=== PATIENT | female | born 1945 | race Caucasian/White ===

== ENCOUNTER 2018-09-13 02:23 | Inpatient (IN) | payer MEDICAID ==
[2018-09-13] VITALS (7 sets, daily range): BP systolic 105–139; BP diastolic 68–80
[~2018-09-13] VITALS: Ht 172.7 cm; Wt 108.9 kg
[2018-09-13] MEDS ORDERED: ELIQUIS5 MG PO (03:12)
[2018-09-13] MEDS ORDERED: TRILEPTAL150 M3 PO (03:12)
[2018-09-13] MEDS ORDERED: KEPPRA500 M4 ORAL (03:12)
[2018-09-13] MEDS ORDERED: METOPROLOL SUCC25 MG ORAL (03:12)
[2018-09-13] MEDS ORDERED: CRESTOR10 M1 ORAL (03:12)
[2018-09-13] MEDS ORDERED: AMIODARONE HCL100 MG ORAL (03:12)
[2018-09-13] MEDS ORDERED: VITAMIN D400 INTLU ORAL (03:12)
[2018-09-13] MEDS ORDERED: ASPIR 8181 MG ORAL (03:12)
[2018-09-13] MEDS ORDERED: ZINC SULFATE220 M2 ORAL (03:15)
[2018-09-13] MEDS ORDERED: FERROUS SULFAT500 G1 MC (03:15)
--- NOTE | 2018-09-13 03:23 | NUR ---
ER Nurse Note: Pt BIBA from [facility] c/o abnormal labs; WBC 17, Hgb at 7.2. Pt arrived with trach, gtube on lower quadrant, clamped; nieto cath, patent; and 24 gauge IV in the foot; clamped. Pt a&ox0, responds to pain. Pt is hot to touch. Pt is contracted in both extremities. RT at bedside; will continue to [facility].
[2018-09-13 03:31] LABS: BASOPHILS % (AUTO) 0.9 % (0.0-2.0); EOSINOPHILS % (AUTO) 0.3 % (0.0-3.0); HEMATOCRIT 27.9 % (37.0-47.0); LYMPHOCYTES % (AUTO) 13.7 % (20.0-45.0); MEAN CORPUSCULAR VOLUME 80 FL (80-99); MONOCYTES % (AUTO) 4.6 % (1.0-10.0); NEUTROPHILS % (AUTO) 80.3 % (45.0-75.0); PLATELET COUNT 499 K/UL (150-450); RED BLOOD COUNT 3.48 M/UL (4.20-5.40); RED CELL DISTRIBUTION WIDTH 17.2 % (11.6-14.8); WHITE BLOOD COUNT 16.9 K/UL (4.8-10.8)
[2018-09-13 03:44] LABS: BILIRUBIN, URINE NEGATIVE (NEGATIVE); GLUCOSE, URINE (UA) NEGATIVE (NEGATIVE); KETONES,URINE NEGATIVE (NEGATIVE); LEUKOCYTE ESTERASE ,URINE 3+ (NEGATIVE); NITRITE,URINE NEGATIVE (NEGATIVE); PH,URINE 5 (4.5-8.0); PROTEIN,URINE 2+ (NEGATIVE); UROBILINOGEN,URINE NORMAL MG/DL (0.0-1.0)
[2018-09-13 03:52] LABS: APPEARANCE,URINE SLIGHTLY CLOUDY; COLOR,URINE YELLOW
[2018-09-13 04:03] LABS: ANION GAP 8 mmol/L (5-15); BLOOD UREA NITROGEN 16 mg/dL (7-18); CALCIUM 9.9 MG/DL (8.5-10.1); CARBON DIOXIDE 33 MMOL/L (21-32); CHLORIDE 98 MMOL/L (98-107); CREATININE 0.6 MG/DL (0.55-1.30); POTASSIUM 4.4 MMOL/L (3.5-5.1); SODIUM 139 MMOL/L (136-145)
[2018-09-13] MEDS ORDERED: Acetaminophen 650mg/20.3ml GT ONE (04:15)
[2018-09-13 04:21] LABS: ALANINE AMINOTRANSFERASE 29 U/L (12-78); ALBUMIN 1.5 G/DL (3.4-5.0); ALBUMIN/GLOBULIN RATIO 0.2 (1.0-2.7); ALKALINE PHOSPHATASE 184 U/L (46-116); ASPARTATE AMINO TRANSFERASE 26 U/L (15-37); BILIRUBIN,TOTAL 0.2 MG/DL (0.2-1.0); CKMB < 0.5 NG/ML (0.0-3.6); CREATINE KINASE 34 U/L (26-308)
--- NOTE | 2018-09-13 04:21 | Emergency Room Report ---
History of Present Illness General Chief Complaint: Abnormal Labs Source: Medical Record, EMS Present Illness HPI 72-year-old female presents ED for evaluation. Patient brought in by EMS from long-term facility for abnormal labs. Had recent lab work which showed high white count and low hemoglobin. Patient is trach, ventilator dependent. Nonverbal baseline. No signs of distress upon arrival. No reported fevers or chills. Unable to provide any additional history. No other aggravating relieving factors. No other associated symptoms Allergies: Coded Allergies: ALPRAZOLAM (Verified Allergy, Unknown, 09/13/18) Patient History Past Medical History: GERD, dementia, seizures, renal disease Past Surgical History: pacemaker Reviewed Nursing Documentation: PMH: Agreed; PSxH: Agreed Nursing Documentation-PMH Hx Cardiac Problems: Yes - Quadriplegia Hx Gastrointestinal Problems: Yes - Gastritis Hx Dialysis: Yes - [place] kidney failure Hx Neurological Problems: Yes - Encephalopathy, altered mental status, Dementia , seizure Hx Cerebrovascular Accident: Yes - Anemia Review of Systems All Other Systems: limited Physical Exam Vital Signs Date Time Temp Pulse Resp B/P (MAP) Pulse Ox O2 Delivery O2 Flow Rate FiO2 09/13/18 02:25 98.1 89 22 139/78 99 Mechanical Ventilator 09/13/18 02:30 40 Sp02 EP Interpretation: reviewed, normal General Appearance: other - nonverbal Head: normocephalic Eyes: bilateral eye normal inspection, bilateral eye PERRL ENT: hearing grossly normal, normal pharynx, no angioedema, normal voice Neck: tracheotomy Respiratory: crackles Cardiovascular #1: tachycardia Gastrointestinal: normal bowel sounds, non tender, soft, non-distended, no guarding, no rebound Rectal: deferred Genitourinary: no CVA tenderness Musculoskeletal: normal inspection, other - patient presenting with IV in Neurologic: other - nonverbal Psychiatric: other - nonverbal Skin: other - large sacral decubitus ulcer Lymphatic: normal inspection Procedures Central Line Central Line : Consent: Emergent Central Line Lumen: triple Maximal Sterile Barrier Tech: yes cap, yes mask, yes sterile gown, yes sterile gloves, yes large sterile sheet, yes hand hygiene, yes chlorhexidine prep Central Line Postion: femoral (L) Anesthesia: Lidocaine Complications: none Central Line Post Position: sutured, good blood return Attempts: One Patient Tolerated: Well Complications: None Medical Decision Making Diagnostic Impression: Primary Impression: Sacral decubitus ulcer Qualified Codes: L89.150 - Pressure ulcer of sacral region, unstageable Additional Impressions: UTI (urinary tract infection) Qualified Codes: N39.0 - Urinary tract infection, site not specified Pneumonia Qualified Codes: J18.1 - Lobar pneumonia, unspecified organism Atrial fibrillation Qualified Codes: I48.91 - Unspecified atrial fibrillation ER Course Hospital Course 72 yo F presents with fever, reported high WBC and low Hb from SNF. Differential diagnoses include: Pneumonia, UTI, sepsis, dehydration, [place]/ unstable angina Clinical course Patient placed on stretcher. On compliance monitor with tachycardia. After initial history and physical, I ordered labs, IV fluids, EKG, chest x-ray, blood cultures, UA. EKG - afib with RVR, no acute ischemic changes interpreted by me Labs - Wbc 16.9, Hb 9.0, electrolytes ok, lactic ok, trop negative, BNP elevated , UA + bacteria CXR - pacemaker, RLL infiltrate Patient has difficult IV access. Patient has trach, neck is contracted. L femoral central line placed Patient has large decubitus sacral ulcer noted She presented with an IV in the left foot. Subsequent removed once central line placed. Abx given. Given Tylenol. Given IV fluids. Given Lopressor. Case discussed with Dr Astudillo and they agreed to admit patient to their service for further care and support I feel this is a highly complex case requiring extensive working including EKG/ Rhythm strip, Xray/CT/US, Blood/urine lab work, repeat exams while in ED, and administration of strong opiates/narcotics for pain control, admission to hospital or close patient follow up. Diagnosis - sacral decubitus ulcer, UTI, pneumonia, atrial fibrillation Patient admitted to SDU in serious condition Labs Test 09/13/18 03:20 09/13/18 04:14 White Blood Count 16.9 K/UL (4.8-10.8) Red Blood Count 3.48 M/UL (4.20-5.40) Hemoglobin 9.0 G/DL (12.0-16.0) Hematocrit 27.9 % (37.0-47.0) Mean Corpuscular Volume 80 FL (80-99) Mean Corpuscular Hemoglobin 25.7 PG (27.0-31.0) Mean Corpuscular Hemoglobin Concent 32.2 G/DL (32.0-36.0) Red Cell Distribution Width 17.2 % (11.6-14.8) Platelet Count 499 K/UL (150-450) Mean Platelet Volume 6.8 FL (6.5-10.1) Neutrophils (%) (Auto) 80.3 % (45.0-75.0) Lymphocytes (%) (Auto) 13.7 % (20.0-45.0) Monocytes (%) (Auto) 4.6 % (1.0-10.0) Eosinophils (%) (Auto) 0.3 % (0.0-3.0) Basophils (%) (Auto) 0.9 % (0.0-2.0) Urine Color Yellow Urine Appearance Slightly cloudy Urine pH 5 (4.5-8.0) Urine Specific [place] 1.015 (1.005-1.035) Urine Protein 2+ (NEGATIVE) Urine Glucose (UA) Negative (NEGATIVE) Urine Ketones Negative (NEGATIVE) Urine Blood 2+ (NEGATIVE) Urine Nitrite Negative (NEGATIVE) Urine Bilirubin Negative (NEGATIVE) Urine Urobilinogen Normal MG/DL (0.0-1.0) Urine Leukocyte Esterase 3+ (NEGATIVE) Urine RBC 5-10 /HPF (0 - 2) Urine WBC 10-15 /HPF (0 - 2) Urine Squamous Epithelial Cells Moderate /LPF (NONE/OCC) Urine Uric Acid Crystals Many /LPF (NONE) Urine Bacteria Many /HPF (NONE) Urine Coarse Granular Casts 2-4 /LPF (NONE) Urine Yeast Many /HPF (NONE) Sodium Level 139 MMOL/L (136-145) Potassium Level 4.4 MMOL/L (3.5-5.1) Chloride Level 98 MMOL/L (98-107) Carbon Dioxide Level 33 MMOL/L (21-32) Anion Gap 8 mmol/L (5-15) Blood Urea Nitrogen 16 mg/dL (7-18) Creatinine 0.6 MG/DL (0.55-1.30) Estimat Glomerular Filtration Rate mL/min (>60) Glucose Level 149 MG/DL (74-106) Calcium Level 9.9 MG/DL (8.5-10.1) Total Bilirubin 0.2 MG/DL (0.2-1.0) Aspartate Amino Transf (AST/SGOT) 26 U/L (15-37) Alanine Aminotransferase (ALT/SGPT) 29 U/L (12-78) Alkaline Phosphatase 184 U/L (46-116) Total Creatine Kinase 34 U/L (26-308) Creatine Kinase MB < 0.5 NG/ML (0.0-3.6) Creatine Kinase MB Relative Index 1.4 Troponin I 0.058 ng/mL (0.000-0.056) Pro-B-Type Natriuretic Peptide 8503 pg/mL (0-125) Total Protein 8.4 G/DL (6.4-8.2) Albumin 1.5 G/DL (3.4-5.0) Globulin 6.9 g/dL Albumin/Globulin Ratio 0.2 (1.0-2.7) Lactic Acid Level 1.30 mmol/L (0.4-2.0) EKG Diagnostic Results Rate: tachycardiac Rhythm: other - afib ST Segments: no acute changes ASA given to the pt in ED: No Rhythm Strip Diag. Results EP Interpretation: yes Rhythm: NSR, no PVC's, no ectopy Chest X-Ray Diagnostic Results Chest X-Ray Diagnostic Results : Chest X-Ray Ordered: Yes # of Views/Limited/Complete: 1 View Indication: Shortness of Breath EP Interpretation: Yes Interpretation: other - atelectasis RLL base Impression: Other - pneumonia Electronically Signed by: Electronically signed by Harley Steele MD Last Vital Signs Date Time Temp Pulse Resp B/P (MAP) Pulse Ox O2 Delivery O2 Flow Rate FiO2 09/13/18 03:17 98.1 118 18 139/78 99 Mechanical Ventilator 40 Status: improved Disposition: ADMITTED INPATIENT Condition: Serious Referrals: Jennifer Astudillo MD (PCP) Harley Steele MD Sep 13, 2018 04:21
--- NOTE | 2018-09-13 04:30 | NUR ---
ED Nurse Note: #24 saline lock from ECF to left foot DC'd.
--- NOTE | 2018-09-13 04:39 | NUR ---
ED Nurse Note: Confirmed with Sheldon lopez [facility] that patient is allergic to only Alprazolam.
[2018-09-13] MEDS ORDERED: Metoprolol 5mg/5ml Inj IVP SCH (04:45)
[2018-09-13] MEDS ORDERED: Piperacillin/Tazobactam 3.375 GM in NS 110 ML IVPB ONE (04:45)
[2018-09-13 05:00] LABS: INR 1.2 (0.9-1.1)
--- NOTE | 2018-09-13 05:00 | NUR ---
ER Nurse Note: Central line inserted by ERMD; infused 1L NS. Lopressor administered. Pt is on antibiotic. Pt a&ox0, BP elevated, otherwise VSS. Pt on mechanial vent. Pt has bruises on bilateral upper extremities. Pt has a sacral wound, circular, deep, foul in smell, scant blood with slough; wound picture uploaded. All orders completed; [facility].
--- NOTE | 2018-09-13 06:15 | NUR ---
NURSE NOTES: Received patient from Olivia PRATT from ER. Patient is obtunded and is receiving oxygen via Shiley 8 settings AC 14, TV 600, FiO2 40%, PEEP 6. Patient has a G-tube that is patent and a Mayo that is patent and draining. IV site is Left Femoral Central Line TLC. Wound on admission on patient's sacral area Length 10cm, Width 6.5cm, depth 3cm, 12 o'clock 2cm, 2 o'clock 1.5cm. Photo taken and uploaded. Bed is locked, placed in lowest position, side rails up x3. Will endorse to oncoming nurse.
--- NOTE | 2018-09-13 06:15 | NUR ---
ER Nurse Note: Report given to Moise RN in SDU for continuity of care. Pt was smiling during transport. No belongings with pt.
[2018-09-13] MEDS ORDERED: Dextrose 50% 25ml Syringe IV PRN (07:00)
[2018-09-13] MEDS ORDERED: LORazepam Inj 2mg/ml 1ml IV PRN (07:00)
[2018-09-13] MEDS ORDERED: Miralax 17gm pkt ORAL PRN (07:00)
[2018-09-13] MEDS ORDERED: Albuterol/Ipratropium 3ml neb HHN PRN (07:00)
[2018-09-13] MEDS ORDERED: Morphine Sulfate 4mg/ml Inj (IV USE ONLY) IVP PRN (07:00)
--- NOTE | 2018-09-13 07:30 | NUR ---
HAND-OFF: Report given to Christa PRATT. Patient in stable condition.
--- NOTE | 2018-09-13 07:51 | NUR ---
NURSE NOTES: Report received from SANTA Valdovinos. Observed patient in bed sleeping. Pt. is obtunded. On ventilator with setting of AC 14, TV 600, FiO2 40%, PEEP 5. Pt. is tolerated well with no distress noted. GT site intact and patent. F/C intact and draining well. Bed in lowest position. Call light within reach. Will continue to monitor.
[2018-09-13] MEDS: Vancomycin 750mg/NS 275ml IVPB SCH ×4 (09:52→21:50)
[2018-09-13] MEDS: Pantoprazole Inj IV SCH (09:52)
[2018-09-13] MEDS: Heparin 5000 units/ml inj SUBQ SCH ×2 (09:53→20:43)
--- NOTE | 2018-09-13 10:35 | NUR ---
RD ASSESSMENT & RECOMMENDATIONS SEE CARE ACTIVITY FOR COMPLETE ASSESSMENT DAILY ESTIMATED NEEDS: Needs based on Critical care, obese, wound 67kg adj 22-27 kcals/kg 2978-8421 total kcals 1.25-2 g protein/kg 84-134 g total protein 25-30 mL/kg 4197-3663 total fluid mLs NUTRITION DIAGNOSIS: 1) Increased kcal and protein needs r/t wound healing as evidenced by pt w/ large, open, advanced sacral wound, pending eval from WC specialist. 2) Swallowing difficulty r/t respiratory status as evidenced by pt is vent dep via trach, PEG dep. CURRENT TF:Jevity 1.2 @30ml ENTERAL NUTRITION RECOMMENDATIONS: Glucerna 1.5 @45ml/hr x24 hrs + Prosource 1 pack daily to provide 1080ml, 1620 kcal, 89g + 11g pro, 820ml free H20 - REC TF CHANGE for carb control formula and to better meet est needs - Start Glucerna 1.5 @25ml/hr for 6 hrs, advance as tolerated 10ml/hr q4-6 hrs to goal. - Add Prosource 1 pack daily to better meet est pro needs - Flush per MD / HOB over 30 degrees ADDITIONAL RECOMMENDATIONS: 1) Re-calibrate bed scale as able for accurate CBW 2) TF recs as above 3) Wound care: Add SANDRA BID + VIT C 250mg BID F/up w/ eval 4) Check lytes daily, replete as needed
--- NOTE | 2018-09-13 10:39 | NUR ---
POWER SHOVEL ENGINEERSECURITY ESCORT 72 Y/O FEMALE BIBA FROM [facility] TO [facility] ER CC:ABNORMAL LABS SI:SACRAL DECUBITUS ULCER . AFIB . UTI VS: BP 139/78, P 118, T 99.8, RR 18, SpO2 99 on VENT AC 14, TV 600, PEEP 5.0, FiO2 40 WBC 16.9, RBC 3.48, Hgb 9.0, Hct 27.9, TROPONIN I 0.058, URINE: Protein 2+, BACTERIA Many, YEAST Many IS:NS x1L IV TYLENOL 650mg LOPRESSOR 5mg IVP ZOSYN 110ml IVPB ADMITTED TO [facility] DCP: RETURN TO [facility]
[2018-09-13] MEDS ORDERED: Amikacin Rx to dose MISC PRN (10:45)
--- NOTE | 2018-09-13 10:47 | Consultation ---
History of Present Illness General Date patient seen: Sep 13, 2018 Chief Complaint: Abnormal Labs Present Illness HPI 72 year old female with hx of chronic respiratory failure, ICD, PEG, vegetative state, Afib on chronic Apixiban, [facility] resident brought in by paramedics because of leukocytosis and anemia. Allergies: Coded Allergies: ALPRAZOLAM (Verified Allergy, Unknown, 09/13/18) Medication History Scheduled Amiodarone Hcl (Amiodarone Hcl), 200 MG ORAL EVERY 8 HOURS, (Reported) Aspirin* (Aspir 81*), 81 MG ORAL DAILY, (Reported) Levetiracetam (Keppra), 500 MG ORAL EVERY 12 HOURS, (Reported) Metoprolol Succinate* (Metoprolol Succinate*), 25 MG ORAL DAILY, (Reported) Rosuvastatin Calcium (Crestor), 20 MG ORAL DAILY, (Reported) Vitamin D (Vitamin D3), 5,000 UNITS ORAL DAILY, (Reported) Zinc Sulfate (Zinc Sulfate), 220 MG ORAL DAILY, (Reported) Miscellaneous Medications Apixaban (Eliquis), 5 MG PO, (Reported) Ferrous Sulfate, Dried (Ferrous Sulfate), 325 GM MC, (Reported) Oxcarbazepine (Trileptal), 150 MG PO, (Reported) Patient History Healthcare decision maker Resuscitation status Full Code Advanced Directive on File Past Medical/Surgical History Past Medical/Surgical History: (1) Contracture of multiple joints (2) ICD (implantable cardioverter-defibrillator) in place (3) Feeding by G-tube (4) Chronic vegetative state (5) Chronic respiratory failure (6) Atrial fibrillation Review of Systems All Other Systems: negative except mentioned in HPI Physical Exam General Appearance: WD/WN Lines, tubes and drains: peripheral HEENT: normocephalic Neck: non-tender, normal alignment Respiratory/Chest: chest wall non-tender, lungs clear, decreased breath sounds Cardiovascular/Chest: normal peripheral pulses Abdomen: non tender Genitourinary/Rectal: normal genital exam Last 24 Hour Vital Signs Date Time Temp Pulse Resp B/P (MAP) Pulse Ox O2 Delivery O2 Flow Rate FiO2 09/13/18 09:00 94 14 40 09/13/18 08:00 Mechanical Ventilator 09/13/18 08:00 40 09/13/18 08:00 Mechanical Ventilator 09/13/18 08:00 99.1 110 14 120/74 (89) 100 09/13/18 07:17 95 14 40 09/13/18 06:39 97 09/13/18 06:15 99.5 70 14 105/68 (80) 90 09/13/18 06:15 99.8 97 14 114/73 100 Mechanical Ventilator 40 09/13/18 05:21 99.8 97 14 114/73 100 Mechanical Ventilator 40 09/13/18 05:05 100 16 40 09/13/18 04:51 133 134/89 09/13/18 03:17 98.1 118 18 139/78 99 Mechanical Ventilator 40 09/13/18 02:30 115 18 Mechanical Ventilator 40 09/13/18 02:30 115 18 40 09/13/18 02:30 40 09/13/18 02:25 98.1 89 22 139/78 99 Mechanical Ventilator Intake and Output 09/12/18 09/13/18 19:00 07:00 Intake Total 4210 ml Output Total 100 ml Balance 4110 ml Intake IV Total 4210 ml Output Urine Total 100 ml Laboratory Tests Test 09/13/18 03:20 09/13/18 04:14 09/13/18 04:50 White Blood Count 16.9 K/UL (4.8-10.8) H Red Blood Count 3.48 M/UL (4.20-5.40) L Hemoglobin 9.0 G/DL (12.0-16.0) L Hematocrit 27.9 % (37.0-47.0) L Mean Corpuscular Volume 80 FL (80-99) Mean Corpuscular Hemoglobin 25.7 PG (27.0-31.0) L Mean Corpuscular Hemoglobin Concent 32.2 G/DL (32.0-36.0) Red Cell Distribution Width 17.2 % (11.6-14.8) H Platelet Count 499 K/UL (150-450) H Mean Platelet Volume 6.8 FL (6.5-10.1) Neutrophils (%) (Auto) 80.3 % (45.0-75.0) H Lymphocytes (%) (Auto) 13.7 % (20.0-45.0) L Monocytes (%) (Auto) 4.6 % (1.0-10.0) Eosinophils (%) (Auto) 0.3 % (0.0-3.0) Basophils (%) (Auto) 0.9 % (0.0-2.0) Urine Color Yellow Urine Appearance Slightly cloudy Urine pH 5 (4.5-8.0) Urine Specific [place] 1.015 (1.005-1.035) Urine Protein 2+ (NEGATIVE) H Urine Glucose (UA) Negative (NEGATIVE) Urine Ketones Negative (NEGATIVE) Urine Blood 2+ (NEGATIVE) H Urine Nitrite Negative (NEGATIVE) Urine Bilirubin Negative (NEGATIVE) Urine Urobilinogen Normal MG/DL (0.0-1.0) Urine Leukocyte Esterase 3+ (NEGATIVE) H Urine RBC 5-10 /HPF (0 - 2) H Urine WBC 10-15 /HPF (0 - 2) H Urine Squamous Epithelial Cells Moderate /LPF (NONE/OCC) H Urine Uric Acid Crystals Many /LPF (NONE) H Urine Bacteria Many /HPF (NONE) H Urine Coarse Granular Casts 2-4 /LPF (NONE) H Urine Yeast Many /HPF (NONE) H Sodium Level 139 MMOL/L (136-145) Potassium Level 4.4 MMOL/L (3.5-5.1) Chloride Level 98 MMOL/L (98-107) Carbon Dioxide Level 33 MMOL/L (21-32) H Anion Gap 8 mmol/L (5-15) Blood Urea Nitrogen 16 mg/dL (7-18) Creatinine 0.6 MG/DL (0.55-1.30) Estimat Glomerular Filtration Rate mL/min (>60) Glucose Level 149 MG/DL (74-106) H Calcium Level 9.9 MG/DL (8.5-10.1) Total Bilirubin 0.2 MG/DL (0.2-1.0) Aspartate Amino Transf (AST/SGOT) 26 U/L (15-37) Alanine Aminotransferase (ALT/SGPT) 29 U/L (12-78) Alkaline Phosphatase 184 U/L (46-116) H Total Creatine Kinase 34 U/L (26-308) Creatine Kinase MB < 0.5 NG/ML (0.0-3.6) Creatine Kinase MB Relative Index 1.4 Troponin I 0.058 ng/mL (0.000-0.056) Pro-B-Type Natriuretic Peptide 8503 pg/mL (0-125) H Total Protein 8.4 G/DL (6.4-8.2) H Albumin 1.5 G/DL (3.4-5.0) L Globulin 6.9 g/dL Albumin/Globulin Ratio 0.2 (1.0-2.7) L Lactic Acid Level 1.30 mmol/L (0.4-2.0) Prothrombin Time 12.3 SEC (9.30-11.50) H Prothromb Time International Ratio 1.2 (0.9-1.1) H Activated Partial Thromboplast Time 37 SEC (23-33) H Microbiology Date/Time Source Procedure Growth Status 09/13/18 04:00 Rectum Received Height (Feet): 5 Height (Inches): 8.00 Weight (Pounds): 260 Medications Current Medications Medications (Trade) Dose Ordered Sig/Rosy Route PRN Reason Start Time Stop Time Status Last Admin Dose Admin Acetaminophen (Tylenol) 650 mg Q4H PRN ORAL FEVER 09/13/18 07:00 10/13/18 06:59 Albuterol/ Ipratropium (Albuterol/ Ipratropium) 3 ml Q4H PRN HHN Shortness of Breath 09/13/18 07:00 09/18/18 06:59 Chlorhexidine Gluconate (Elizabeth-Hex 2%) 1 applic DAILY@2000 TOPIC 09/13/18 20:00 10/13/18 19:59 Dextrose (Dextrose 50%) 25 ml Q30M PRN IV Hypoglycemia 09/13/18 08:15 10/13/18 08:14 Dextrose (Dextrose 50%) 50 ml Q30M PRN IV Hypoglycemia 09/13/18 08:15 10/13/18 08:14 Heparin Sodium (Porcine) (Heparin 5000 units/ml) 5,000 units EVERY 12 HOURS SUBQ 09/13/18 09:00 10/13/18 08:59 09/13/18 09:53 Insulin Aspart (NovoLOG) EVERY 6 HOURS SUBQ 09/13/18 12:00 10/13/18 11:59 Lorazepam (Ativan 2mg/ml 1ml) 2 mg Q2H PRN IV For Anxiety 09/13/18 07:00 09/20/18 06:59 Morphine Sulfate (Morphine Sulfate) 4 mg Q4H PRN IVP Severe Pain (Pain Scale 7-10) 09/13/18 07:00 09/20/18 06:59 Ondansetron HCl (Zofran) 4 mg Q6H PRN IVP Nausea & Vomiting 09/13/18 07:00 10/13/18 06:59 Pantoprazole (Protonix) 40 mg DAILY IV 09/13/18 09:00 10/13/18 08:59 09/13/18 09:52 Polyethylene Glycol (Miralax) 17 gm DAILYPRN PRN ORAL Constipation 09/13/18 07:00 10/13/18 06:59 Vancomycin HCl (Vanco rx to dose) 1 ea DAILY PRN MISC PER PHARMACY 09/13/18 07:00 10/13/18 06:59 Vancomycin HCl 750 mg/Sodium Chloride 275 ml @ 183.333 mls/hr Q12HR IVPB 09/13/18 09:00 09/18/18 08:59 09/13/18 09:52 Assessment/Plan Problem List: (1) Sepsis ICD Codes: A41.9 - Sepsis, unspecified organism SNOMED: 91148391 (2) Chronic respiratory failure ICD Codes: J96.10 - Chronic respiratory failure, unspecified whether with hypoxia or hypercapnia SNOMED: 33340220 (3) Sacral decubitus ulcer ICD Codes: L89.159 - Pressure ulcer of sacral region, unspecified stage SNOMED: 396985759 Qualifiers: Qualified Codes: L89.150 - Pressure ulcer of sacral region, unstageable (4) Atrial fibrillation ICD Codes: I48.91 - Unspecified atrial fibrillation SNOMED: 49080728 Qualifiers: Qualified Codes: I48.91 - Unspecified atrial fibrillation (5) Anemia ICD Codes: D64.9 - Anemia, unspecified SNOMED: 210333263 (6) Chronic vegetative state ICD Codes: R40.3 - Persistent vegetative state SNOMED: 17223530 (7) Feeding by G-tube ICD Codes: Z93.1 - Gastrostomy status SNOMED: 082534171, 993442123, 400253129 (8) Contracture of multiple joints ICD Codes: M24.50 - Contracture, unspecified joint SNOMED: 03881576, 254259323 (9) ICD (implantable cardioverter-defibrillator) in place ICD Codes: Z95.810 - Presence of automatic (implantable) cardiac defibrillator SNOMED: 139684071 Respiratory: monitor respiratory rate, adjust FIO2, CXR Cardiac: continue to monitor HR/BP Renal: F/U I&O, keep IV fluid, check electrolytes Infectious Disease: check cultures, continue antibiotics Gastrointestinal: continue feedings/current rate Endocrine: monitor blood sugar Hematologic: transfuse if hgb<8.5 Neurologic: PRN Ativan, keep patient comfortable Prophylaxis: Protonix Discussed with: nurses, consultants, telephonic nurse case manager Ariel Frey MD Sep 13, 2018 10:47
[2018-09-13] MEDS ORDERED: NovoLOG Insulin Flexpen SUBQ SCH (11:30)
[2018-09-13] MEDS: NovoLOG Insulin Flexpen SUBQ SCH ×3 (11:43→23:08)
[2018-09-13] MEDS ORDERED: Miralax 17gm pkt GT PRN (11:45)
--- NOTE | 2018-09-13 11:48 | Diagnostic Imaging Report ---
Indication: Shortness of breath Technique: XRAY Chest 1v Comparison: None Findings: Evaluation is suboptimal positioning. Tracheostomy tube in place. Heart is enlarged. There is an indwelling pacer/AICD with lead tips projecting over the right atrium and ventricle. There is mild fullness of the pulmonary vascularity. Some streaky opacities are noted at the right base. There is scoliosis and degenerative change of the spine. Impression: Limited evaluation with suboptimal positioning. Cardiomegaly and slight prominence of the pulmonary vascularity which may suggest mild congestive changes/interstitial edema. Streaky opacities at the right base possibly related to subsegmental atelectasis. Pneumonia should be excluded clinically. Tracheostomy tube and pacemaker noted.
--- NOTE | 2018-09-13 13:01 | NUR ---
NURSE NOTES:WOUND CARE NOTES:Pt presented on admission with multiple pressure injuries. Full thickness pressure injury to sacrum. Base of wound with 75% mixed soft necrosis and fibrinous soria slough extending into undermined areas of wound.Bone exposure at base of wound. Maroon discoloration with induration along borders and periwound.Clockwise at 12 o'clock along borders, an area of necrosis noted.Wound is malodorous. (L)8.3cm x (W)8.5cm x (D)4.5cm,Undermining 9-4 by 4cm at 11o'clock. At R buttocks in close proximity to sacrum, maroon discoloration that is indurated noted (L)1.5cm x(W)2.5cm. DTPI noted to plantar L heel. Wound is fluctuant and opague in centre,with small area that is black ,with surrounding erythema.Non-blanchable erythema without fluctuance periwound. DTPI noted to L heel. Maroon discoloration extending from heel into plantar aspect of heel .Base of wound is fluctuant. Non-blanchable erythema noted to lateral aspect of L heel.(L)8cm x (W)5cm. Maroon discoloration without fluctuance or induration noted to lateral L malleolus(L)1cm x (W)1cm. Tx.Plan: Apply Cavilon Skin Barrier to L heel.Cover with Optifoam drsg. Change every 7 days and prn. Apply Cavilon Skin Barrier to R heel. Cover with Optifoam drsg.Change every 7 days and prn. Apply Cavilon Skin Barrier to L lateral Malleolus. Cover with Optifoam drsg.Change every 7 days and prn. Apply Triad Paste to bilat groin areas and both ischial areas with each perineal care. Air Fluidized Mattress. Reposition at least every 2hours or as tolerated. Air Fluidized mattress Reposition at least every 2hours or as tolerated
[2018-09-13] MEDS ORDERED: Amikacin 1,250 MG in NS 110 ML IV SCH (15:00)
--- NOTE | 2018-09-13 15:31 | Consultation ---
History of Present Illness General Chief Complaint: Abnormal Labs Present Illness HPI 72 year old female with multiple medical comorbidities who is a [facility] resident trach on vent with feeding tube and unable to cooperate with exam vegetative states presents with anemia and abnormal labs. on admission noted to have multiple wounds requiring care and management. surgery called to evaluate and assist with care. patient seen, chart reviewed, patient examined. Allergies: Coded Allergies: ALPRAZOLAM (Verified Allergy, Unknown, 09/13/18) Medication History Scheduled Amiodarone Hcl (Amiodarone Hcl), 200 MG ORAL EVERY 8 HOURS, (Reported) Aspirin* (Aspir 81*), 81 MG ORAL DAILY, (Reported) Levetiracetam (Keppra), 500 MG ORAL EVERY 12 HOURS, (Reported) Metoprolol Succinate* (Metoprolol Succinate*), 25 MG ORAL DAILY, (Reported) Rosuvastatin Calcium (Crestor), 20 MG ORAL DAILY, (Reported) Vitamin D (Vitamin D3), 5,000 UNITS ORAL DAILY, (Reported) Zinc Sulfate (Zinc Sulfate), 220 MG ORAL DAILY, (Reported) Miscellaneous Medications Apixaban (Eliquis), 5 MG PO, (Reported) Ferrous Sulfate, Dried (Ferrous Sulfate), 325 GM MC, (Reported) Oxcarbazepine (Trileptal), 150 MG PO, (Reported) Patient History Limited by: medical condition History Provided By: Medical Record, PMD Healthcare decision maker Resuscitation status Full Code Advanced Directive on File Past Medical/Surgical History Past Medical/Surgical History: (1) Contracture of multiple joints (2) ICD (implantable cardioverter-defibrillator) in place (3) Sepsis (4) Sacral decubitus ulcer (5) UTI (urinary tract infection) (6) Pneumonia (7) Atrial fibrillation (8) Anemia (9) Chronic respiratory failure (10) Chronic vegetative state (11) Feeding by G-tube Review of Systems ROS Narrative cannot obtain given medical condition Physical Exam General Appearance: no apparent distress Lines, tubes and drains: peripheral HEENT: mucous membranes moist Neck: trach Respiratory/Chest: on vent Cardiovascular/Chest: regularly irregular Abdomen: no organomegaly, no mass, feeding tube Extremities: other Skin Exam: other Neurologic: unresponsiveness Last 24 Hour Vital Signs Date Time Temp Pulse Resp B/P (MAP) Pulse Ox O2 Delivery O2 Flow Rate FiO2 09/13/18 14:36 101 15 40 4/18/19 12:33 102 14 40 09/13/18 12:00 99.2 110 14 116/78 (91) 100 09/13/18 12:00 118 09/13/18 11:57 40 09/13/18 11:55 Mechanical Ventilator 09/13/18 11:13 50 14 40 09/13/18 09:00 94 14 40 09/13/18 08:00 Mechanical Ventilator 09/13/18 08:00 40 09/13/18 08:00 98 09/13/18 08:00 99.1 09/13/18 08:00 Mechanical Ventilator 09/13/18 08:00 99.1 110 14 120/74 (89) 100 09/13/18 07:17 95 14 40 09/13/18 06:39 97 09/13/18 06:15 99.5 70 14 105/68 (80) 90 09/13/18 06:15 99.8 97 14 114/73 100 Mechanical Ventilator 40 09/13/18 05:21 99.8 97 14 114/73 100 Mechanical Ventilator 40 09/13/18 05:05 100 16 40 09/13/18 04:51 133 134/89 09/13/18 03:17 98.1 118 18 139/78 99 Mechanical Ventilator 40 09/13/18 02:30 115 18 Mechanical Ventilator 40 09/13/18 02:30 115 18 40 09/13/18 02:30 40 09/13/18 02:25 98.1 89 22 139/78 99 Mechanical Ventilator Intake and Output 09/12/18 09/13/18 19:00 07:00 Intake Total 4210 ml Output Total 100 ml Balance 4110 ml IV Total 4210 ml Output Urine Total 100 ml Laboratory Tests Test 09/13/18 03:20 09/13/18 04:14 09/13/18 04:50 White Blood Count 16.9 K/UL (4.8-10.8) H Red Blood Count 3.48 M/UL (4.20-5.40) L Hemoglobin 9.0 G/DL (12.0-16.0) L Hematocrit 27.9 % (37.0-47.0) L Mean Corpuscular Volume 80 FL (80-99) Mean Corpuscular Hemoglobin 25.7 PG (27.0-31.0) L Mean Corpuscular Hemoglobin Concent 32.2 G/DL (32.0-36.0) Red Cell Distribution Width 17.2 % (11.6-14.8) H Platelet Count 499 K/UL (150-450) H Mean Platelet Volume 6.8 FL (6.5-10.1) Neutrophils (%) (Auto) 80.3 % (45.0-75.0) H Lymphocytes (%) (Auto) 13.7 % (20.0-45.0) L Monocytes (%) (Auto) 4.6 % (1.0-10.0) Eosinophils (%) (Auto) 0.3 % (0.0-3.0) Basophils (%) (Auto) 0.9 % (0.0-2.0) Urine Color Yellow Urine Appearance Slightly cloudy Urine pH 5 (4.5-8.0) Urine Specific [place] 1.015 (1.005-1.035) Urine Protein 2+ (NEGATIVE) H Urine Glucose (UA) Negative (NEGATIVE) Urine Ketones Negative (NEGATIVE) Urine Blood 2+ (NEGATIVE) H Urine Nitrite Negative (NEGATIVE) Urine Bilirubin Negative (NEGATIVE) Urine Urobilinogen Normal MG/DL (0.0-1.0) Urine Leukocyte Esterase 3+ (NEGATIVE) H Urine RBC 5-10 /HPF (0 - 2) H Urine WBC 10-15 /HPF (0 - 2) H Urine Squamous Epithelial Cells Moderate /LPF (NONE/OCC) H Urine Uric Acid Crystals Many /LPF (NONE) H Urine Bacteria Many /HPF (NONE) H Urine Coarse Granular Casts 2-4 /LPF (NONE) H Urine Yeast Many /HPF (NONE) H Sodium Level 139 MMOL/L (136-145) Potassium Level 4.4 MMOL/L (3.5-5.1) Chloride Level 98 MMOL/L (98-107) Carbon Dioxide Level 33 MMOL/L (21-32) H Anion Gap 8 mmol/L (5-15) Blood Urea Nitrogen 16 mg/dL (7-18) Creatinine 0.6 MG/DL (0.55-1.30) Estimat Glomerular Filtration Rate mL/min (>60) Glucose Level 149 MG/DL (74-106) H Calcium Level 9.9 MG/DL (8.5-10.1) Total Bilirubin 0.2 MG/DL (0.2-1.0) Aspartate Amino Transf (AST/SGOT) 26 U/L (15-37) Alanine Aminotransferase (ALT/SGPT) 29 U/L (12-78) Alkaline Phosphatase 184 U/L (46-116) H Total Creatine Kinase 34 U/L (26-308) Creatine Kinase MB < 0.5 NG/ML (0.0-3.6) Creatine Kinase MB Relative Index 1.4 Troponin I 0.058 ng/mL (0.000-0.056) Pro-B-Type Natriuretic Peptide 8503 pg/mL (0-125) H Total Protein 8.4 G/DL (6.4-8.2) H Albumin 1.5 G/DL (3.4-5.0) L Globulin 6.9 g/dL Albumin/Globulin Ratio 0.2 (1.0-2.7) L Lactic Acid Level 1.30 mmol/L (0.4-2.0) Prothrombin Time 12.3 SEC (9.30-11.50) H Prothromb Time International Ratio 1.2 (0.9-1.1) H Activated Partial Thromboplast Time 37 SEC (23-33) H Microbiology Date/Time Source Procedure Growth Status 09/13/18 04:00 Rectum Received Height (Feet): 5 Height (Inches): 8.00 Weight (Pounds): 260 Medications Current Medications Medications (Trade) Dose Ordered Sig/Rosy Route PRN Reason Start Time Stop Time Status Last Admin Dose Admin Acetaminophen (Tylenol) 650 mg Q4H PRN GT FEVER 09/13/18 11:45 10/13/18 06:59 Albuterol/ Ipratropium (Albuterol/ Ipratropium) 3 ml Q4H PRN HHN Shortness of Breath 09/13/18 07:00 09/18/18 06:59 Amikacin Protocol (Amikacin pharmacy to dose) 1 ea DAILY PRN MISC Per rx protocol 09/13/18 10:45 10/13/18 10:44 Amikacin Sulfate 1250 mg/Sodium Chloride 115 ml @ 115 mls/hr Q24H IV 09/13/18 15:00 09/20/18 14:59 Cefepime HCl 1 gm/ Dextrose 55 ml @ 110 mls/hr EVERY 12 HOURS IVPB 09/13/18 21:00 09/20/18 20:59 Chlorhexidine Gluconate (Elizabeth-Hex 2%) 1 applic DAILY@2000 TOPIC 09/13/18 20:00 10/13/18 19:59 Dextrose (Dextrose 50%) 25 ml Q30M PRN IV Hypoglycemia 09/13/18 08:15 10/13/18 08:14 Dextrose (Dextrose 50%) 50 ml Q30M PRN IV Hypoglycemia 09/13/18 08:15 10/13/18 08:14 Heparin Sodium (Porcine) (Heparin 5000 units/ml) 5,000 units EVERY 12 HOURS SUBQ 09/13/18 09:00 10/13/18 08:59 09/13/18 09:53 Insulin Aspart (NovoLOG) EVERY 6 HOURS SUBQ 09/13/18 12:00 10/13/18 11:59 09/13/18 11:43 Levetiracetam (Keppra) 500 mg Q12HR GT 09/13/18 21:00 10/13/18 20:59 Lorazepam (Ativan 2mg/ml 1ml) 2 mg Q2H PRN IV For Anxiety 09/13/18 07:00 09/20/18 06:59 Metronidazole 100 ml @ 100 mls/hr Q8HR IVPB 09/13/18 14:00 09/20/18 13:59 09/13/18 14:01 Morphine Sulfate (Morphine Sulfate) 4 mg Q4H PRN IVP Severe Pain (Pain Scale 7-10) 09/13/18 07:00 09/20/18 06:59 Ondansetron HCl (Zofran) 4 mg Q6H PRN IVP Nausea & Vomiting 09/13/18 07:00 10/13/18 06:59 Pantoprazole (Protonix) 40 mg DAILY IV 09/13/18 09:00 10/13/18 08:59 09/13/18 09:52 Polyethylene Glycol (Miralax) 17 gm DAILYPRN PRN GT Constipation 09/13/18 11:45 10/13/18 06:59 Vancomycin HCl (Vanco rx to dose) 1 ea DAILY PRN MISC PER PHARMACY 09/13/18 07:00 10/13/18 06:59 Vancomycin HCl 750 mg/Sodium Chloride 275 ml @ 183.333 mls/hr Q12HR IVPB 09/13/18 09:00 09/18/18 08:59 09/13/18 09:52 Assessment/Plan Problem List: (1) Contracture of multiple joints ICD Codes: M24.50 - Contracture, unspecified joint SNOMED: 95244429, 469089122 (2) ICD (implantable cardioverter-defibrillator) in place ICD Codes: Z95.810 - Presence of automatic (implantable) cardiac defibrillator SNOMED: 084280199 (3) Sepsis Assessment & Plan: leukocytosis abnormal labs septic on IV abx as per ID micro noted wounds unlikely etiology of sepsis will follow with recs ICD Codes: A41.9 - Sepsis, unspecified organism SNOMED: 06891391 (4) Sacral decubitus ulcer Assessment & Plan: Pt presented on admission with multiple pressure injuries. Full thickness pressure injury to sacrum. Base of wound with 75% mixed soft necrosis and fibrinous soria slough extending into undermined areas of wound.Bone exposure at base of wound. Maroon discoloration with induration along borders and periwound.Clockwise at 12 o'clock along borders, an area of necrosis noted.Wound is malodorous. (L)8.3cm x (W)8.5cm x (D)4.5cm,Undermining 9 -4 by 4cm at 11o'clock. At R buttocks in close proximity to sacrum, maroon discoloration that is indurated noted (L)1.5cm x(W)2.5cm. DTPI noted to plantar L heel. Wound is fluctuant and opague in centre,with small area that is black ,with surrounding erythema.Non-blanchable erythema without fluctuance periwound. DTPI noted to L heel. Maroon discoloration extending from heel into plantar aspect of heel .Base of wound is fluctuant. Non-blanchable erythema noted to lateral aspect of L heel.(L)8cm x (W)5cm. Maroon discoloration without fluctuance or induration noted to lateral L malleolus(L)1cm x (W)1cm. Tx.Plan: Apply Cavilon Skin Barrier to L heel.Cover with Optifoam drsg. Change every 7 days and prn. Apply Cavilon Skin Barrier to R heel. Cover with Optifoam drsg.Change every 7 days and prn. Apply Cavilon Skin Barrier to L lateral Malleolus. Cover with Optifoam drsg.Change every 7 days and prn. Apply Triad Paste to bilat groin areas and both ischial areas with each perineal care. Air Fluidized Mattress. Reposition at least every 2hours or as tolerated. Air Fluidized mattress Reposition at least every 2hours or as tolerated ICD Codes: L89.159 - Pressure ulcer of sacral region, unspecified stage SNOMED: 585092587 Qualifiers: Qualified Codes: L89.150 - Pressure ulcer of sacral region, unstageable (5) UTI (urinary tract infection) ICD Codes: N39.0 - Urinary tract infection, site not specified SNOMED: 32178264 Qualifiers: Qualified Codes: N39.0 - Urinary tract infection, site not specified (6) Pneumonia ICD Codes: J18.9 - Pneumonia, unspecified organism SNOMED: 233059591 Qualifiers: Qualified Codes: J18.1 - Lobar pneumonia, unspecified organism (7) Atrial fibrillation ICD Codes: I48.91 - Unspecified atrial fibrillation SNOMED: 59752716 Qualifiers: Qualified Codes: I48.91 - Unspecified atrial fibrillation (8) Anemia ICD Codes: D64.9 - Anemia, unspecified SNOMED: 354514596 (9) Chronic respiratory failure ICD Codes: J96.10 - Chronic respiratory failure, unspecified whether with hypoxia or hypercapnia SNOMED: 57574824 (10) Chronic vegetative state ICD Codes: R40.3 - Persistent vegetative state SNOMED: 27739794 (11) Feeding by G-tube ICD Codes: Z93.1 - Gastrostomy status SNOMED: 021761262, 661356766, 770534869 Myles White Sep 13, 2018 15:31
--- NOTE | 2018-09-13 16:02 | Consultation ---
History of Present Illness General Date patient seen: Sep 13, 2018 Chief Complaint: Abnormal Labs Present Illness HPI 72 y/o F with hx of chronic respiratory failure trach/vent dependant, s/p PEG, S /p AICD, vegetative state, Afib on AC, [facility] resident presents to ED on 09/13 for leukocytosis and anemia work up. Patient also with multiple decubiti wounds Allergies: Coded Allergies: ALPRAZOLAM (Verified Allergy, Unknown, 09/13/18) Medication History Scheduled Amiodarone Hcl (Amiodarone Hcl), 200 MG ORAL EVERY 8 HOURS, (Reported) Aspirin* (Aspir 81*), 81 MG ORAL DAILY, (Reported) Levetiracetam (Keppra), 500 MG ORAL EVERY 12 HOURS, (Reported) Metoprolol Succinate* (Metoprolol Succinate*), 25 MG ORAL DAILY, (Reported) Rosuvastatin Calcium (Crestor), 20 MG ORAL DAILY, (Reported) Vitamin D (Vitamin D3), 5,000 UNITS ORAL DAILY, (Reported) Zinc Sulfate (Zinc Sulfate), 220 MG ORAL DAILY, (Reported) Miscellaneous Medications Apixaban (Eliquis), 5 MG PO, (Reported) Ferrous Sulfate, Dried (Ferrous Sulfate), 325 GM MC, (Reported) Oxcarbazepine (Trileptal), 150 MG PO, (Reported) Patient History Healthcare decision maker Resuscitation status Full Code Advanced Directive on File Patient History Narrative Pmhx: as above Shx: reviewed Fhx: non contributory Review of Systems All Other Systems: negative except mentioned in HPI Physical Exam Physical Exam Narrative General Appearance: no apparent distress Lines, tubes and drains: peripheral HEENT: mucous membranes moist Neck: trach Respiratory/Chest: on vent Cardiovascular/Chest: regularly irregular Abdomen: no organomegaly, no mass, feeding tube Extremities: other Skin Exam: other Neurologic: unresponsiveness Last 24 Hour Vital Signs Date Time Temp Pulse Resp B/P (MAP) Pulse Ox O2 Delivery O2 Flow Rate FiO2 09/13/18 14:36 101 15 40 09/13/18 12:33 102 14 40 09/13/18 12:00 99.2 110 14 116/78 (91) 100 09/13/18 12:00 118 09/13/18 11:57 40 09/13/18 11:55 Mechanical Ventilator 09/13/18 11:13 50 14 40 09/13/18 09:00 94 14 40 09/13/18 08:00 Mechanical Ventilator 09/13/18 08:00 40 09/13/18 08:00 98 09/13/18 08:00 99.1 09/13/18 08:00 Mechanical Ventilator 09/13/18 08:00 99.1 110 14 120/74 (89) 100 09/13/18 07:17 95 14 40 09/13/18 06:39 97 09/13/18 06:15 99.5 70 14 105/68 (80) 90 09/13/18 06:15 99.8 97 14 114/73 100 Mechanical Ventilator 40 09/13/18 05:21 99.8 97 14 114/73 100 Mechanical Ventilator 40 09/13/18 05:05 100 16 40 09/13/18 04:51 133 134/89 09/13/18 03:17 98.1 118 18 139/78 99 Mechanical Ventilator 40 09/13/18 02:30 115 18 Mechanical Ventilator 40 09/13/18 02:30 115 18 40 09/13/18 02:30 40 09/13/18 02:25 98.1 89 22 139/78 99 Mechanical Ventilator Intake and Output 09/12/18 09/13/18 19:00 07:00 Intake Total 4210 ml Output Total 100 ml Balance 4110 ml IV Total 4210 ml Output Urine Total 100 ml Laboratory Tests Test 09/13/18 03:20 09/13/18 04:14 09/13/18 04:50 White Blood Count 16.9 K/UL (4.8-10.8) H Red Blood Count 3.48 M/UL (4.20-5.40) L Hemoglobin 9.0 G/DL (12.0-16.0) L Hematocrit 27.9 % (37.0-47.0) L Mean Corpuscular Volume 80 FL (80-99) Mean Corpuscular Hemoglobin 25.7 PG (27.0-31.0) L Mean Corpuscular Hemoglobin Concent 32.2 G/DL (32.0-36.0) Red Cell Distribution Width 17.2 % (11.6-14.8) H Platelet Count 499 K/UL (150-450) H Mean Platelet Volume 6.8 FL (6.5-10.1) Neutrophils (%) (Auto) 80.3 % (45.0-75.0) H Lymphocytes (%) (Auto) 13.7 % (20.0-45.0) L Monocytes (%) (Auto) 4.6 % (1.0-10.0) Eosinophils (%) (Auto) 0.3 % (0.0-3.0) Basophils (%) (Auto) 0.9 % (0.0-2.0) Urine Color Yellow Urine Appearance Slightly cloudy Urine pH 5 (4.5-8.0) Urine Specific [place] 1.015 (1.005-1.035) Urine Protein 2+ (NEGATIVE) H Urine Glucose (UA) Negative (NEGATIVE) Urine Ketones Negative (NEGATIVE) Urine Blood 2+ (NEGATIVE) H Urine Nitrite Negative (NEGATIVE) Urine Bilirubin Negative (NEGATIVE) Urine Urobilinogen Normal MG/DL (0.0-1.0) Urine Leukocyte Esterase 3+ (NEGATIVE) H Urine RBC 5-10 /HPF (0 - 2) H Urine WBC 10-15 /HPF (0 - 2) H Urine Squamous Epithelial Cells Moderate /LPF (NONE/OCC) H Urine Uric Acid Crystals Many /LPF (NONE) H Urine Bacteria Many /HPF (NONE) H Urine Coarse Granular Casts 2-4 /LPF (NONE) H Urine Yeast Many /HPF (NONE) H Sodium Level 139 MMOL/L (136-145) Potassium Level 4.4 MMOL/L (3.5-5.1) Chloride Level 98 MMOL/L (98-107) Carbon Dioxide Level 33 MMOL/L (21-32) H Anion Gap 8 mmol/L (5-15) Blood Urea Nitrogen 16 mg/dL (7-18) Creatinine 0.6 MG/DL (0.55-1.30) Estimat Glomerular Filtration Rate mL/min (>60) Glucose Level 149 MG/DL (74-106) H Calcium Level 9.9 MG/DL (8.5-10.1) Total Bilirubin 0.2 MG/DL (0.2-1.0) Aspartate Amino Transf (AST/SGOT) 26 U/L (15-37) Alanine Aminotransferase (ALT/SGPT) 29 U/L (12-78) Alkaline Phosphatase 184 U/L (46-116) H Total Creatine Kinase 34 U/L (26-308) Creatine Kinase MB < 0.5 NG/ML (0.0-3.6) Creatine Kinase MB Relative Index 1.4 Troponin I 0.058 ng/mL (0.000-0.056) Pro-B-Type Natriuretic Peptide 8503 pg/mL (0-125) H Total Protein 8.4 G/DL (6.4-8.2) H Albumin 1.5 G/DL (3.4-5.0) L Globulin 6.9 g/dL Albumin/Globulin Ratio 0.2 (1.0-2.7) L Lactic Acid Level 1.30 mmol/L (0.4-2.0) Prothrombin Time 12.3 SEC (9.30-11.50) H Prothromb Time International Ratio 1.2 (0.9-1.1) H Activated Partial Thromboplast Time 37 SEC (23-33) H Microbiology Date/Time Source Procedure Growth Status 09/13/18 04:00 Rectum Received Height (Feet): 5 Height (Inches): 8.00 Weight (Pounds): 260 Medications Current Medications Medications (Trade) Dose Ordered Sig/Rosy Route PRN Reason Start Time Stop Time Status Last Admin Dose Admin Acetaminophen (Tylenol) 650 mg Q4H PRN GT FEVER 09/13/18 11:45 10/13/18 06:59 Albuterol/ Ipratropium (Albuterol/ Ipratropium) 3 ml Q4H PRN HHN Shortness of Breath 09/13/18 07:00 09/18/18 06:59 Amikacin Protocol (Amikacin pharmacy to dose) 1 ea DAILY PRN MISC Per rx protocol 09/13/18 10:45 10/13/18 10:44 Amikacin Sulfate 1250 mg/Sodium Chloride 115 ml @ 115 mls/hr Q24H IV 09/13/18 15:00 09/20/18 14:59 09/13/18 15:27 Cefepime HCl 1 gm/ Dextrose 55 ml @ 110 mls/hr EVERY 12 HOURS IVPB 09/13/18 21:00 09/20/18 20:59 Chlorhexidine Gluconate (Elizabeth-Hex 2%) 1 applic DAILY@2000 TOPIC 09/13/18 20:00 10/13/18 19:59 Dextrose (Dextrose 50%) 25 ml Q30M PRN IV Hypoglycemia 09/13/18 08:15 10/13/18 08:14 Dextrose (Dextrose 50%) 50 ml Q30M PRN IV Hypoglycemia 09/13/18 08:15 10/13/18 08:14 Heparin Sodium (Porcine) (Heparin 5000 units/ml) 5,000 units EVERY 12 HOURS SUBQ 09/13/18 09:00 10/13/18 08:59 09/13/18 09:53 Insulin Aspart (NovoLOG) EVERY 6 HOURS SUBQ 09/13/18 12:00 10/13/18 11:59 09/13/18 11:43 Levetiracetam (Keppra) 500 mg Q12HR GT 09/13/18 21:00 10/13/18 20:59 Lorazepam (Ativan 2mg/ml 1ml) 2 mg Q2H PRN IV For Anxiety 09/13/18 07:00 09/20/18 06:59 Metronidazole 100 ml @ 100 mls/hr Q8HR IVPB 09/13/18 14:00 09/20/18 13:59 09/13/18 14:01 Morphine Sulfate (Morphine Sulfate) 4 mg Q4H PRN IVP Severe Pain (Pain Scale 7-10) 09/13/18 07:00 09/20/18 06:59 Ondansetron HCl (Zofran) 4 mg Q6H PRN IVP Nausea & Vomiting 09/13/18 07:00 10/13/18 06:59 Pantoprazole (Protonix) 40 mg DAILY IV 09/13/18 09:00 10/13/18 08:59 09/13/18 09:52 Polyethylene Glycol (Miralax) 17 gm DAILYPRN PRN GT Constipation 09/13/18 11:45 10/13/18 06:59 Vancomycin HCl (Vanco rx to dose) 1 ea DAILY PRN MISC PER PHARMACY 09/13/18 07:00 10/13/18 06:59 Vancomycin HCl 750 mg/Sodium Chloride 275 ml @ 183.333 mls/hr Q12HR IVPB 09/13/18 09:00 09/18/18 08:59 09/13/18 09:52 Assessment/Plan Status Narrative Abx: IV Vancomycin 09/13- Cefepime 09/13- Amikacin 09/13- Zosyn x1 4/18 Assessment: Sepsis- ?PNA vs 2ry to wound infection -CXR: Limited evaluation with suboptimal positioning. Cardiomegaly and slight prominence of the pulmonary vascularity which may suggest mild congestive changes/interstitial edema. Streaky opacities at the right base possibly related to subsegmental atelectasis. Pneumonia should be excluded clinically. Tracheostomy tube and pacemaker noted. -u/a wbc 10-15, nit neg, leuk +3; sq cells moderate (improper collection give high amount of sq cells; will repeat) Afebrile Leukocytosis Sacral decubitus ulcer stage IV- chronic OM and necrotic tissue\ chronic respiratory failure trach/vent dependant s/p PEG S/p AICD vegetative state Afib on AC [facility] resident Plan: -Continue empiric IV Vancomycin, Cefepime adn Flagyl #1 pending cultures -D/c Amikacin #1 -f/u cx -Monitor CBC/CMP, temperatures -wound care per surgical team -repeat u/a w/ reflex -wound cx -Sx f/u -Trach/PEG care -aspiration precautions Thank you for this consultation. Will continue to follow along with you. Nadia Donovan M.D. Sep 13, 2018 16:02
--- NOTE | 2018-09-13 17:30 | Consultation ---
History of Present Illness General Chief Complaint: Abnormal Labs Present Illness Allergies: Coded Allergies: ALPRAZOLAM (Verified Allergy, Unknown, 09/13/18) Medication History Scheduled Amiodarone Hcl (Amiodarone Hcl), 200 MG ORAL EVERY 8 HOURS, (Reported) Aspirin* (Aspir 81*), 81 MG ORAL DAILY, (Reported) Levetiracetam (Keppra), 500 MG ORAL EVERY 12 HOURS, (Reported) Metoprolol Succinate* (Metoprolol Succinate*), 25 MG ORAL DAILY, (Reported) Rosuvastatin Calcium (Crestor), 20 MG ORAL DAILY, (Reported) Vitamin D (Vitamin D3), 5,000 UNITS ORAL DAILY, (Reported) Zinc Sulfate (Zinc Sulfate), 220 MG ORAL DAILY, (Reported) Miscellaneous Medications Apixaban (Eliquis), 5 MG PO, (Reported) Ferrous Sulfate, Dried (Ferrous Sulfate), 325 GM MC, (Reported) Oxcarbazepine (Trileptal), 150 MG PO, (Reported) Patient History Healthcare decision maker Resuscitation status Full Code Advanced Directive on File Physical Exam Last 24 Hour Vital Signs Date Time Temp Pulse Resp B/P (MAP) Pulse Ox O2 Delivery O2 Flow Rate FiO2 09/13/18 16:00 115 09/13/18 16:00 Mechanical Ventilator 09/13/18 16:00 40 09/13/18 16:00 99.4 106 15 121/73 (89) 100 09/13/18 14:36 101 15 40 09/13/18 12:33 102 14 40 09/13/18 12:00 99.2 110 14 116/78 (91) 100 09/13/18 12:00 118 09/13/18 11:57 40 09/13/18 11:55 Mechanical Ventilator 09/13/18 11:13 50 14 40 09/13/18 09:00 94 14 40 09/13/18 08:00 Mechanical Ventilator 09/13/18 08:00 40 09/13/18 08:00 98 09/13/18 08:00 99.1 09/13/18 08:00 Mechanical Ventilator 09/13/18 08:00 99.1 110 14 120/74 (89) 100 09/13/18 07:17 95 14 40 09/13/18 06:39 97 09/13/18 06:15 99.5 70 14 105/68 (80) 90 09/13/18 06:15 99.8 97 14 114/73 100 Mechanical Ventilator 40 09/13/18 05:21 99.8 97 14 114/73 100 Mechanical Ventilator 40 09/13/18 05:05 100 16 40 09/13/18 04:51 133 134/89 09/13/18 03:17 98.1 118 18 139/78 99 Mechanical Ventilator 40 09/13/18 02:30 115 18 Mechanical Ventilator 40 09/13/18 02:30 115 18 40 09/13/18 02:30 40 09/13/18 02:25 98.1 89 22 139/78 99 Mechanical Ventilator Intake and Output 09/12/18 09/13/18 19:00 07:00 Intake Total 4210 ml Output Total 100 ml Balance 4110 ml IV Total 4210 ml Output Urine Total 100 ml Laboratory Tests Test 09/13/18 03:20 09/13/18 04:14 09/13/18 04:50 White Blood Count 16.9 K/UL (4.8-10.8) H Red Blood Count 3.48 M/UL (4.20-5.40) L Hemoglobin 9.0 G/DL (12.0-16.0) L Hematocrit 27.9 % (37.0-47.0) L Mean Corpuscular Volume 80 FL (80-99) Mean Corpuscular Hemoglobin 25.7 PG (27.0-31.0) L Mean Corpuscular Hemoglobin Concent 32.2 G/DL (32.0-36.0) Red Cell Distribution Width 17.2 % (11.6-14.8) H Platelet Count 499 K/UL (150-450) H Mean Platelet Volume 6.8 FL (6.5-10.1) Neutrophils (%) (Auto) 80.3 % (45.0-75.0) H Lymphocytes (%) (Auto) 13.7 % (20.0-45.0) L Monocytes (%) (Auto) 4.6 % (1.0-10.0) Eosinophils (%) (Auto) 0.3 % (0.0-3.0) Basophils (%) (Auto) 0.9 % (0.0-2.0) Urine Color Yellow Urine Appearance Slightly cloudy Urine pH 5 (4.5-8.0) Urine Specific Boon 1.015 (1.005-1.035) Urine Protein 2+ (NEGATIVE) H Urine Glucose (UA) Negative (NEGATIVE) Urine Ketones Negative (NEGATIVE) Urine Blood 2+ (NEGATIVE) H Urine Nitrite Negative (NEGATIVE) Urine Bilirubin Negative (NEGATIVE) Urine Urobilinogen Normal MG/DL (0.0-1.0) Urine Leukocyte Esterase 3+ (NEGATIVE) H Urine RBC 5-10 /HPF (0 - 2) H Urine WBC 10-15 /HPF (0 - 2) H Urine Squamous Epithelial Cells Moderate /LPF (NONE/OCC) H Urine Uric Acid Crystals Many /LPF (NONE) H Urine Bacteria Many /HPF (NONE) H Urine Coarse Granular Casts 2-4 /LPF (NONE) H Urine Yeast Many /HPF (NONE) H Sodium Level 139 MMOL/L (136-145) Potassium Level 4.4 MMOL/L (3.5-5.1) Chloride Level 98 MMOL/L (98-107) Carbon Dioxide Level 33 MMOL/L (21-32) H Anion Gap 8 mmol/L (5-15) Blood Urea Nitrogen 16 mg/dL (7-18) Creatinine 0.6 MG/DL (0.55-1.30) Estimat Glomerular Filtration Rate mL/min (>60) Glucose Level 149 MG/DL (74-106) H Calcium Level 9.9 MG/DL (8.5-10.1) Total Bilirubin 0.2 MG/DL (0.2-1.0) Aspartate Amino Transf (AST/SGOT) 26 U/L (15-37) Alanine Aminotransferase (ALT/SGPT) 29 U/L (12-78) Alkaline Phosphatase 184 U/L (46-116) H Total Creatine Kinase 34 U/L (26-308) Creatine Kinase MB < 0.5 NG/ML (0.0-3.6) Creatine Kinase MB Relative Index 1.4 Troponin I 0.058 ng/mL (0.000-0.056) Pro-B-Type Natriuretic Peptide 8503 pg/mL (0-125) H Total Protein 8.4 G/DL (6.4-8.2) H Albumin 1.5 G/DL (3.4-5.0) L Globulin 6.9 g/dL Albumin/Globulin Ratio 0.2 (1.0-2.7) L Lactic Acid Level 1.30 mmol/L (0.4-2.0) Prothrombin Time 12.3 SEC (9.30-11.50) H Prothromb Time International Ratio 1.2 (0.9-1.1) H Activated Partial Thromboplast Time 37 SEC (23-33) H Microbiology Date/Time Source Procedure Growth Status 09/13/18 04:00 Rectum Received Height (Feet): 5 Height (Inches): 8.00 Weight (Pounds): 260 Medications Current Medications Medications (Trade) Dose Ordered Sig/Rosy Route PRN Reason Start Time Stop Time Status Last Admin Dose Admin Acetaminophen (Tylenol) 650 mg Q4H PRN GT FEVER 09/13/18 11:45 10/13/18 06:59 Albuterol/ Ipratropium (Albuterol/ Ipratropium) 3 ml Q4H PRN HHN Shortness of Breath 09/13/18 07:00 09/18/18 06:59 Cefepime HCl 1 gm/ Dextrose 55 ml @ 110 mls/hr EVERY 12 HOURS IVPB 09/13/18 21:00 09/20/18 20:59 Chlorhexidine Gluconate (Elizabeth-Hex 2%) 1 applic DAILY@2000 TOPIC 09/13/18 20:00 10/13/18 19:59 Dextrose (Dextrose 50%) 25 ml Q30M PRN IV Hypoglycemia 09/13/18 08:15 10/13/18 08:14 Dextrose (Dextrose 50%) 50 ml Q30M PRN IV Hypoglycemia 09/13/18 08:15 10/13/18 08:14 Heparin Sodium (Porcine) (Heparin 5000 units/ml) 5,000 units EVERY 12 HOURS SUBQ 09/13/18 09:00 10/13/18 08:59 09/13/18 09:53 Insulin Aspart (NovoLOG) EVERY 6 HOURS SUBQ 09/13/18 12:00 10/13/18 11:59 09/13/18 17:22 Levetiracetam (Keppra) 500 mg Q12HR GT 09/13/18 21:00 10/13/18 20:59 Lorazepam (Ativan 2mg/ml 1ml) 2 mg Q2H PRN IV For Anxiety 09/13/18 07:00 09/20/18 06:59 Metronidazole 100 ml @ 100 mls/hr Q8HR IVPB 09/13/18 14:00 09/20/18 13:59 09/13/18 14:01 Morphine Sulfate (Morphine Sulfate) 4 mg Q4H PRN IVP Severe Pain (Pain Scale 7-10) 09/13/18 07:00 09/20/18 06:59 Ondansetron HCl (Zofran) 4 mg Q6H PRN IVP Nausea & Vomiting 09/13/18 07:00 10/13/18 06:59 Pantoprazole (Protonix) 40 mg DAILY IV 09/13/18 09:00 10/13/18 08:59 09/13/18 09:52 Polyethylene Glycol (Miralax) 17 gm DAILYPRN PRN GT Constipation 09/13/18 11:45 10/13/18 06:59 Vancomycin HCl (Vanco rx to dose) 1 ea DAILY PRN MISC PER PHARMACY 09/13/18 07:00 10/13/18 06:59 Vancomycin HCl 750 mg/Sodium Chloride 275 ml @ 183.333 mls/hr Q12HR IVPB 09/13/18 09:00 09/18/18 08:59 09/13/18 09:52 Assessment/Plan Assessment: Hematology Consultation Date patient seen: Sep 13, 2018 Chief Complaint: Abnormal Labs RFC: Anemia evaluation REQ MD: Shante Astudillo HPI 72 year old female with hx of chronic respiratory failure, ICD, PEG, vegetative state, Afib on chronic Apixiban, detention resident brought in by paramedics because of leukocytosis and anemia. No bleeding at this time was noted, gi consulted as well as surg, id, pulm Coded Allergies: ALPRAZOLAM (Verified Allergy, Unknown, 09/13/18) Scheduled Amiodarone Hcl (Amiodarone Hcl), 200 MG ORAL EVERY 8 HOURS, (Reported) Aspirin* (Aspir 81*), 81 MG ORAL DAILY, (Reported) Levetiracetam (Keppra), 500 MG ORAL EVERY 12 HOURS, (Reported) Metoprolol Succinate* (Metoprolol Succinate*), 25 MG ORAL DAILY, (Reported) Rosuvastatin Calcium (Crestor), 20 MG ORAL DAILY, (Reported) Vitamin D (Vitamin D3), 5,000 UNITS ORAL DAILY, (Reported) Zinc Sulfate (Zinc Sulfate), 220 MG ORAL DAILY, (Reported) Miscellaneous Medications Apixaban (Eliquis), 5 MG PO, (Reported) Ferrous Sulfate, Dried (Ferrous Sulfate), 325 GM MC, (Reported) Oxcarbazepine (Trileptal), 150 MG PO, (Reported) Resuscitation status Full Code Advanced Directive on File Past Medical/Surgical History: (1) Contracture of multiple joints (2) ICD (implantable cardioverter-defibrillator) in place (3) Feeding by G-tube (4) Chronic vegetative state (5) Chronic respiratory failure (6) Atrial fibrillation Review of Systems: negative except mentioned in HPI PE General Appearance: WD/WN Lines, tubes and drains: peripheral HEENT: normocephalic Neck: non-tender, normal alignment ++ trach Respiratory/Chest: chest wall non-tender, lungs clear, decreased breath sounds Cardiovascular/Chest: normal peripheral pulses Abdomen: non tender ++ peg Genitourinary/Rectal: normal genital exam Last 24 Hour Vital Signs Date Time Temp Pulse Resp B/P (MAP) Pulse Ox O2 Delivery O2 Flow Rate FiO2 09/13/18 09:00 94 14 40 09/13/18 08:00 Mechanical Ventilator 09/13/18 08:00 40 09/13/18 08:00 Mechanical Ventilator 09/13/18 08:00 99.1 110 14 120/74 (89) 100 09/13/18 07:17 95 14 40 09/13/18 06:39 97 09/13/18 06:15 99.5 70 14 105/68 (80) 90 09/13/18 06:15 99.8 97 14 114/73 100 Mechanical Ventilator 40 09/13/18 05:21 99.8 97 14 114/73 100 Mechanical Ventilator 40 09/13/18 05:05 100 16 40 09/13/18 04:51 133 134/89 09/13/18 03:17 98.1 118 18 139/78 99 Mechanical Ventilator 40 09/13/18 02:30 115 18 Mechanical Ventilator 40 09/13/18 02:30 115 18 40 09/13/18 02:30 40 09/13/18 02:25 98.1 89 22 139/78 99 Mechanical Ventilator Intake and Output 09/12/18 09/13/18 19:00 07:00 Intake Total 4210 ml Output Total 100 ml Balance 4110 ml Intake IV Total 4210 ml Output Urine Total 100 ml Laboratory Tests Test 09/13/18 03:20 09/13/18 04:14 09/13/18 04:50 White Blood Count 16.9 K/UL (4.8-10.8) H Red Blood Count 3.48 M/UL (4.20-5.40) L Hemoglobin 9.0 G/DL (12.0-16.0) L Hematocrit 27.9 % (37.0-47.0) L Mean Corpuscular Volume 80 FL (80-99) Mean Corpuscular Hemoglobin 25.7 PG (27.0-31.0) L Mean Corpuscular Hemoglobin Concent 32.2 G/DL (32.0-36.0) Red Cell Distribution Width 17.2 % (11.6-14.8) H Platelet Count 499 K/UL (150-450) H Mean Platelet Volume 6.8 FL (6.5-10.1) Neutrophils (%) (Auto) 80.3 % (45.0-75.0) H Lymphocytes (%) (Auto) 13.7 % (20.0-45.0) L Monocytes (%) (Auto) 4.6 % (1.0-10.0) Eosinophils (%) (Auto) 0.3 % (0.0-3.0) Basophils (%) (Auto) 0.9 % (0.0-2.0) Urine Color Yellow Urine Appearance Slightly cloudy Urine pH 5 (4.5-8.0) Urine Specific Boon 1.015 (1.005-1.035) Urine Protein 2+ (NEGATIVE) H Urine Glucose (UA) Negative (NEGATIVE) Urine Ketones Negative (NEGATIVE) Urine Blood 2+ (NEGATIVE) H Urine Nitrite Negative (NEGATIVE) Urine Bilirubin Negative (NEGATIVE) Urine Urobilinogen Normal MG/DL (0.0-1.0) Urine Leukocyte Esterase 3+ (NEGATIVE) H Urine RBC 5-10 /HPF (0 - 2) H Urine WBC 10-15 /HPF (0 - 2) H Urine Squamous Epithelial Cells Moderate /LPF (NONE/OCC) H Urine Uric Acid Crystals Many /LPF (NONE) H Urine Bacteria Many /HPF (NONE) H Urine Coarse Granular Casts 2-4 /LPF (NONE) H Urine Yeast Many /HPF (NONE) H Sodium Level 139 MMOL/L (136-145) Potassium Level 4.4 MMOL/L (3.5-5.1) Chloride Level 98 MMOL/L (98-107) Carbon Dioxide Level 33 MMOL/L (21-32) H Anion Gap 8 mmol/L (5-15) Blood Urea Nitrogen 16 mg/dL (7-18) Creatinine 0.6 MG/DL (0.55-1.30) Estimat Glomerular Filtration Rate mL/min (>60) Glucose Level 149 MG/DL (74-106) H Calcium Level 9.9 MG/DL (8.5-10.1) Total Bilirubin 0.2 MG/DL (0.2-1.0) Aspartate Amino Transf (AST/SGOT) 26 U/L (15-37) Alanine Aminotransferase (ALT/SGPT) 29 U/L (12-78) Alkaline Phosphatase 184 U/L (46-116) H Total Creatine Kinase 34 U/L (26-308) Creatine Kinase MB < 0.5 NG/ML (0.0-3.6) Creatine Kinase MB Relative Index 1.4 Troponin I 0.058 ng/mL (0.000-0.056) Pro-B-Type Natriuretic Peptide 8503 pg/mL (0-125) H Total Protein 8.4 G/DL (6.4-8.2) H Albumin 1.5 G/DL (3.4-5.0) L Globulin 6.9 g/dL Albumin/Globulin Ratio 0.2 (1.0-2.7) L Lactic Acid Level 1.30 mmol/L (0.4-2.0) Prothrombin Time 12.3 SEC (9.30-11.50) H Prothromb Time International Ratio 1.2 (0.9-1.1) H Activated Partial Thromboplast Time 37 SEC (23-33) H Microbiology Date/Time Source Procedure Growth Status 09/13/18 04:00 Rectum Received Height (Feet): 5 Height (Inches): 8.00 Weight (Pounds): 260 Medications Current Medications Medications (Trade) Dose Ordered Sig/Rosy Route PRN Reason Start Time Stop Time Status Last Admin Dose Admin Acetaminophen (Tylenol) 650 mg Q4H PRN ORAL FEVER 09/13/18 07:00 10/13/18 06:59 Albuterol/ Ipratropium (Albuterol/ Ipratropium) 3 ml Q4H PRN HHN Shortness of Breath 09/13/18 07:00 09/18/18 06:59 Chlorhexidine Gluconate (Elizabeth-Hex 2%) 1 applic DAILY@2000 TOPIC 09/13/18 20:00 10/13/18 19:59 Dextrose (Dextrose 50%) 25 ml Q30M PRN IV Hypoglycemia 09/13/18 08:15 10/13/18 08:14 Dextrose (Dextrose 50%) 50 ml Q30M PRN IV Hypoglycemia 09/13/18 08:15 10/13/18 08:14 Heparin Sodium (Porcine) (Heparin 5000 units/ml) 5,000 units EVERY 12 HOURS SUBQ 09/13/18 09:00 10/13/18 08:59 09/13/18 09:53 Insulin Aspart (NovoLOG) EVERY 6 HOURS SUBQ 09/13/18 12:00 10/13/18 11:59 Lorazepam (Ativan 2mg/ml 1ml) 2 mg Q2H PRN IV For Anxiety 09/13/18 07:00 09/20/18 06:59 Morphine Sulfate (Morphine Sulfate) 4 mg Q4H PRN IVP Severe Pain (Pain Scale 7-10) 09/13/18 07:00 09/20/18 06:59 Ondansetron HCl (Zofran) 4 mg Q6H PRN IVP Nausea & Vomiting 09/13/18 07:00 10/13/18 06:59 Pantoprazole (Protonix) 40 mg DAILY IV 09/13/18 09:00 10/13/18 08:59 09/13/18 09:52 Polyethylene Glycol (Miralax) 17 gm DAILYPRN PRN ORAL Constipation 09/13/18 07:00 10/13/18 06:59 Vancomycin HCl (Vanco rx to dose) 1 ea DAILY PRN MISC PER PHARMACY 09/13/18 07:00 10/13/18 06:59 Vancomycin HCl 750 mg/Sodium Chloride 275 ml @ 183.333 mls/hr Q12HR IVPB 09/13/18 09:00 09/18/18 08:59 09/13/18 09:52 Assessment and Recs: # Anemia of chronic disease (or of iron deficiency) due to underlying chronic medical issues, multifactorial --> Anemia workup has been ordered, rule out gi bleed --> No evidence of hemolysis is noted, peripheral smear has been reviewed. --> Hgb goal >7. Transfuse prn. --> Epogen or iron at this time is not particularly indicated --> Medications have been reviewed --> evaluate with Gi team prn --> transfuse if hgb is < 7 (will trend CBC daily) --> low threshold for gi evaluation in case has occult + --> bone marrow biopsy is not indicated given the other more likely causes # Leukocytosis with eleva wbc on admission likely related to sepsis --> on abx as per id team, empiric treatment, uti, sacral decub pna --> peripheral smear to be reviewed # Chronic respiratory failure --> chronic vent/trach # Sacral decubitus ulcer --> per surg eval and rx # Atrial fibrillation --> anticoagulation as needed per cards # Chronic vegetative state --> essentially unchanged # Dysphagia s/p Feeding by G-tube --> restart as needed # Contracture of multiple joints The timing of this note does not necessarily reflect the time of the patient was seen. Greatly appreciate consultation! Dagoberto Brewster MD Sep 13, 2018 17:30
--- NOTE | 2018-09-13 17:38 | History & Physical ---
History and Physical History & Physicial Dictated for Int Med-Dr Negron no. [id number]. Ruddy George MD Sep 13, 2018 17:38
[2018-09-13 18:18] LABS: APPEARANCE,URINE CLEAR; BILIRUBIN, URINE NEGATIVE (NEGATIVE); GLUCOSE, URINE (UA) NEGATIVE (NEGATIVE); KETONES,URINE NEGATIVE (NEGATIVE); LEUKOCYTE ESTERASE ,URINE 1+ (NEGATIVE); NITRITE,URINE NEGATIVE (NEGATIVE); PH,URINE 6 (4.5-8.0); PROTEIN,URINE 2+ (NEGATIVE); UROBILINOGEN,URINE 1 MG/DL (0.0-1.0)
[2018-09-13 18:24] LABS: COLOR,URINE YELLOW
--- NOTE | 2018-09-13 19:10 | NUR ---
RESPIRATORY NOTE: PT. RECEIVED STABLE ON AC 14, 600, 40%, +5. ALARMS ON AND AUDIBLE. AIRWAY SECURE AND PATENT. VENT CIRCUIT SECURE AND OUT OF THE WAY. NO S/S OF RESPIRATORY DISTRESS NOTED AT THIS TIME. WILL CONTINUE TO MONITOR.
--- NOTE | 2018-09-13 19:15 | NUR ---
NURSE NOTES: Pt report received from Christa PRATT. Pt appears to be resting comfortably in bed with no distress. Pt neuro assessment appears to be obtunded. Pt has a teletypesetter monitor on and is active, no signs or symptoms of cardiac distress noted. Pt is also a trach to vent pt with reported settings of Katarzyna 8, AC 14, TV 600, Fio2 40% with a Peep of 5 and is saturating at 100% with no respiratory distress noted. Pt has a G tube running Glucerna 1.5 at 45cc/hr and is able to flush properly, no abnormalities noted. All safety precautions are in place such as side rails are padded for seizure precaution, bed is in lowest position, bed alarm active, call light is within easy reach, and side rails are up times 3. Will continue plan of care.
--- NOTE | 2018-09-13 19:23 | NUR ---
HAND-OFF: Report given to Martin. Bubba RN. Stable condition.
[2018-09-13 19:24] LABS: LACTATE DEHYDROGENASE 142 U/L (81-234)
[2018-09-13 19:29] LABS: % IRON SATURATION 20 % (15-50); IRON 24 ug/dL (50-175); TOTAL IRON BINDING CAPACITY 120 ug/dL (250-450)
[2018-09-13] MEDS ORDERED: Dyna-Hex 2% Top Sol 2oz TOPIC SCH (20:00)
[2018-09-13 20:16] LABS: FERRITIN 1592 NG/ML (8-388)
[2018-09-13] MEDS: Cefepime HCl 1 GM in D5W 55 ML IVPB SCH (20:42)
[2018-09-13] MEDS: levETIRAcetam 500mg/5ml Liquid GT SCH (20:42)
--- NOTE | 2018-09-13 21:15 | History and Physical Report ---
DATE OF ADMISSION: 09/13/2018 CHIEF COMPLAINT: The patient is a 72-year-old female who presents with chief complaint of abnormal labs. HISTORY OF PRESENT ILLNESS: The patient is a resident of [facility]. The patient was transferred to [facility] for evaluation of abnormal labs. The patient is chronic vent dependent on a tracheostomy. The patient herself is unable to contribute much to the history and physical. Much of the history and physical was obtained from the patient's chart. The patient was admitted for abnormal laboratories. REVIEW OF SYSTEMS: Unable to assess secondary to the patient's mental status. PAST MEDICAL HISTORY: Significant for: 1. Chronic obstructive pulmonary disease. 2. Vent-dependent respiratory failure. 3. Tracheostomy in situ. 4. Diabetes type 2. 5. Hypertension. 6. Coronary artery disease, status post acute myocardial infarction. 7. Hypertension. 8. Metabolic encephalopathy. 9. Seizure disorder. 10. Dysphagia, status post G-tube placement. 11. Quadriplegia. PAST SURGICAL HISTORY: Significant for: 1. Tracheostomy. 2. PEG placement. CURRENT MEDICATIONS: 1. Amiodarone 200 mg q.8 hours. 2. Eliquis 5 mg daily. 3. Aspirin 81 mg per G-tube daily. 4. Iron sulfate 325 mg per G-tube daily. 5. Keppra 500 mg per G-tube twice daily. 6. Metoprolol 25 mg per G-tube daily. 7. Trileptal 150 mg per G-tube daily. 8. Crestor 5 mg per G-tube daily. 9. Zinc sulfate 220 mg per G-tube daily. ALLERGIES: Alprazolam. SOCIAL HISTORY: The patient is single. The patient is a resident of [facility]. PHYSICAL EXAMINATION: VITAL SIGNS: Temperature 98.1, respirations 22, pulse 89, blood pressure 139/70. GENERAL: The patient is well-developed and well-nourished female who is intubated and sedated. HEENT: Eyes, pupils equal and responsive to light and accommodation. Extraocular movements are intact. The patient has a tracheostomy tube in place. CHEST: Diffuse coarse breath sounds bilaterally without wheezes or rales. CARDIOVASCULAR: Irregular rhythm and irregular rate. S1 and S2 normal without murmurs, rubs, or gallops. ABDOMEN: Soft, nontender, and nondistended. Positive bowel sounds. No hepatosplenomegaly. Currently, no rebound or guarding noted. EXTREMITIES: Negative for clubbing, cyanosis, or edema. RECTAL/GENITAL: Not performed. NEUROLOGIC: Cranial nerves II through XII grossly intact without focal deficits. LABORATORY STUDIES: WBC 16.9, hemoglobin 9.3, hematocrit 27.9, platelets 499,000. Sodium 139, potassium 4.4 chloride 98, CO2 33, BUN 16, creatinine 0.6, glucose 149. Troponin elevated at 0.058. BNP elevated 8503. Chest x-ray was reported as cardiomegaly with prominence of pulmonary vascularity consistent with congestive heart failure, streaky opacity in the right lung base possibly consistent with pneumonia. ASSESSMENT: The patient is a 72-year-old female. 1. Right lower lobe pneumonia. 2. Leukocytosis. 3. Elevated troponin. 4. Acute on chronic congestive heart failure. 5. Chronic obstructive pulmonary disease. 6. Ventilator-dependent respiratory failure. 7. Diabetes type 2. 8. Hypertension. 9. Coronary artery disease. 10. Metabolic encephalopathy. 11. Seizure disorder. 12. Dysphagia. 13. Tracheostomy. 14. Quadriplegia. TREATMENT: 1. Right lower lobe pneumonia plus leukocytosis. A Pulmonary consultation obtained with Dr. Ariel Frey. The patient has been started empirically on vancomycin, cefepime, and amikacin. We will follow recommendation of Infectious Disease. 2. Elevated troponin/congestive heart failure. Cardiology consultation obtained with Dr. Isai Anglin. The patient is currently receiving intravenous Lasix. 3. Ventilator-dependent respiratory failure. As above, a Pulmonary consultation obtained with Dr. Ariel Frey. 4. Diabetes type 2. The patient was admitted off insulin. 5. Hypertension, the patient is currently hypotensive. 6. Coronary artery disease. 7. Metabolic encephalopathy. 8. Seizure disorder. Continue Keppra as above. 9. Dysphagia. The patient is status post PEG placement. Continue tube feeds as above. 10. Tracheostomy in situ. 11. Quadriplegia. Ruddy George M.D. DR: Rogelio JOB#: [id number] CC:
[2018-09-14] VITALS: BP 105/72
[2018-09-14 04:00] VITALS: BP 120/68
--- NOTE | 2018-09-14 05:00 | NUR ---
RESPIRATORY NOTE: PT. REMAINED STABLE ON CMV WITH CURRENT SETTINGS. PT WAS SUCTIONED PRN WITHOUT ADVERSE REACTION. AIRWAY MIDLINE, SECURE AND PATENT. VENT CIRCUIT AND SX TUBING SECURE AND OUT OF THE WAY. NO S/S OF RESPIRATORY DISTRESS NOTED AT THIS TIME.
[2018-09-14] MEDS: NovoLOG Insulin Flexpen SUBQ SCH ×4 (05:21→23:57)
[2018-09-14 05:37] LABS: HEMATOCRIT 19.9 % (37.0-47.0); MEAN CORPUSCULAR VOLUME 80 FL (80-99); PLATELET COUNT 565 K/UL (150-450); RED BLOOD COUNT 2.48 M/UL (4.20-5.40); RED CELL DISTRIBUTION WIDTH 17.1 % (11.6-14.8); WHITE BLOOD COUNT 18.2 K/UL (4.8-10.8)
[2018-09-14 05:53] LABS: HEMOGLOBIN 6.3 G/DL (12.0-16.0)
--- NOTE | 2018-09-14 05:55 | NUR ---
NURSE NOTES: Received critical lab value from [facility] Teres[facility]. Called MD Jamil Medina and left a voice mail stating WBC is 18.2, HGB is 6.3L, HCT is 19.9. Awaiting further orders.
[2018-09-14 06:03] LABS: ALANINE AMINOTRANSFERASE 22 U/L (12-78); ALBUMIN 1.2 G/DL (3.4-5.0); ALBUMIN/GLOBULIN RATIO 0.2 (1.0-2.7); ALKALINE PHOSPHATASE 128 U/L (46-116); ANION GAP 7 mmol/L (5-15); ASPARTATE AMINO TRANSFERASE 15 U/L (15-37); BILIRUBIN,TOTAL 0.2 MG/DL (0.2-1.0); BLOOD UREA NITROGEN 12 mg/dL (7-18); CARBON DIOXIDE 32 MMOL/L (21-32); CHLORIDE 104 MMOL/L (98-107); CREATININE 0.6 MG/DL (0.55-1.30); PHOSPHORUS 2.6 MG/DL (2.5-4.9); POTASSIUM 3.4 MMOL/L (3.5-5.1); SODIUM 143 MMOL/L (136-145)
--- NOTE | 2018-09-14 06:50 | NUR ---
NURSE NOTES: MD Negron called back. reported HGB of 6.3L, HCT 19.9, and WBC 18.2. gave a telephone order stating he wants Type and cross and 2 Units PRBC, stat. Will continue plan of care.
--- NOTE | 2018-09-14 07:10 | NUR ---
HAND-OFF: Report given to Lucia PRATT.
--- NOTE | 2018-09-14 07:11 | NUR ---
NURSE NOTES: Received patient from [facility]. Patient VS stable at this time. Patient showing no sign of acute distress. Patient opens eyes but does not follow commands and does not track movement. Patient is on trach to ventilator with setting of AC 14, TV 600, FiO2 40%, and PEEP 5. Patient tolerating setting with SpO2 100%. Patient has a G-tube that is patent and asymptomatic at this time. Patient receiving Glucerna 1.5 at 45mL/hr at this time. patient tolerating feeding with no residual. Patient has a nieot for urine retention. Patient has a sacral stage 4 pressure ulcer. Patient has right and left heel DTI. Patient has left femoral triple lumen catheter that is patent and asymptomatic at this time. This central line was inserted 09/13/18. I will ask the doctor if we can have an order for PICC line insertion. Patient has a Hgb of 6.3 this morning. 2 PRBC have been ordered for the patient by Dr Negron. [facility] called for consent but the daughter has not called back. Patient has potassium of 3.4 this morning. Will follow up post blood transfusion. Patient bed in low position with bed alarm on and call light in reach at this time.
--- NOTE | 2018-09-14 07:37 | NUR ---
RESPIRATORY NOTE: Received patient under no noted distress on current prescribed ventilator orders. Ambu bag at bedside, and vent plugged into red outlet. Alarms are on and audible. Patient is currently stable, and will continue to monitor.
[2018-09-14 08:00] VITALS: BP 129/70
--- NOTE | 2018-09-14 08:11 | Infectious Diseases Prog Note ---
Assessment/Plan Assessment/Plan Abx: IV Vancomycin 09/13- Cefepime 09/13- Amikacin 09/13- Zosyn x1 09/13 Assessment: Sepsis- ?PNA vs 2ry to wound infection -CXR: Limited evaluation with suboptimal positioning. Cardiomegaly and slight prominence of the pulmonary vascularity which may suggest mild congestive changes/interstitial edema. Streaky opacities at the right base possibly related to subsegmental atelectasis. Pneumonia should be excluded clinically. Tracheostomy tube and pacemaker noted. -u/a wbc 10-15, nit neg, leuk +3; sq cells moderate (improper collection give high amount of sq cells); repeat u/a wbc 5-10, nit neg, leuk +1, sq cells few; ucx p Acute on chronic anemia- ?bleeding Afebrile Leukocytosis; increased Sacral decubitus ulcer stage IV- chronic OM and necrotic tissue\ chronic respiratory failure trach/vent dependant s/p PEG S/p AICD vegetative state Afib on AC [facility] resident Plan: -Continue empiric IV Vancomycin, Cefepime adn Flagyl #2 pending cultures -09/13 SPAmikacin #1, Zosyn x1 -f/u cx -Monitor CBC/CMP, temperatures -wound care per surgical team -wound cx -Sx f/u -Trach/PEG care -aspiration precautions -Cdiff if diarrhea Thank you for this consultation. Will continue to follow along with you. Subjective Allergies: Coded Allergies: ALPRAZOLAM (Verified Allergy, Unknown, 09/13/18) Subjective afebrile wbc increased hgb dropped from 9 to 6.3 Objective Vital Signs Last 24 Hour Vital Signs Date Time Temp Pulse Resp B/P (MAP) Pulse Ox O2 Delivery O2 Flow Rate FiO2 09/14/18 07:37 63 14 40 09/14/18 05:00 109 14 40 09/14/18 04:00 40 09/14/18 04:00 98.9 105 14 120/68 (85) 100 09/14/18 04:00 108 09/14/18 04:00 Mechanical Ventilator 09/14/18 02:40 108 14 40 09/14/18 02:00 Mechanical Ventilator 09/14/18 01:04 109 14 40 09/14/18 00:00 99.0 105 14 105/72 (83) 100 09/14/18 00:00 Mechanical Ventilator 09/13/18 23:17 107 14 40 09/13/18 21:04 97 14 40 09/13/18 20:00 Mechanical Ventilator 09/13/18 20:00 99.1 108 14 113/80 (91) 100 09/13/18 20:00 40 09/13/18 20:00 109 09/13/18 19:10 107 14 40 09/13/18 17:23 110 14 40 09/13/18 16:00 115 09/13/18 16:00 Mechanical Ventilator 09/13/18 16:00 40 09/13/18 16:00 99.4 106 15 121/73 (89) 100 09/13/18 14:36 101 15 40 09/13/18 12:33 102 14 40 09/13/18 12:00 99.2 110 14 116/78 (91) 100 09/13/18 12:00 118 09/13/18 11:57 40 09/13/18 11:55 Mechanical Ventilator 09/13/18 11:13 50 14 40 09/13/18 09:00 94 14 40 Height (Feet): 5 Height (Inches): 8.00 Weight (Pounds): 232 Objective General Appearance: no apparent distress Lines, tubes and drains: peripheral HEENT: mucous membranes moist Neck: trach Respiratory/Chest: on vent Cardiovascular/Chest: regularly irregular Abdomen: no organomegaly, no mass, feeding tube Extremities: other Skin Exam: other Neurologic: unresponsiveness Microbiology Date/Time Source Procedure Growth Status 09/13/18 04:15 Blood Blood Culture - Preliminary NO GROWTH AFTER 24 HOURS Resulted 09/13/18 04:00 Blood Blood Culture - Preliminary NO GROWTH AFTER 24 HOURS Resulted 09/13/18 03:20 Urine,Clean Catch Urine Culture - Preliminary YEAST Resulted 09/13/18 04:00 Rectum Received Laboratory Tests Test 09/13/18 17:33 09/13/18 18:30 09/14/18 03:30 Urine Color Yellow Urine Appearance Clear Urine pH 6 (4.5-8.0) Urine Specific [place] 1.010 (1.005-1.035) Urine Protein 2+ (NEGATIVE) H Urine Glucose (UA) Negative (NEGATIVE) Urine Ketones Negative (NEGATIVE) Urine Blood Negative (NEGATIVE) Urine Nitrite Negative (NEGATIVE) Urine Bilirubin Negative (NEGATIVE) Urine Urobilinogen 1 MG/DL (0.0-1.0) H Urine Leukocyte Esterase 1+ (NEGATIVE) H Urine RBC 2-4 /HPF (0 - 2) H Urine WBC 5-10 /HPF (0 - 2) H Urine Squamous Epithelial Cells Few /LPF (NONE/OCC) Urine Bacteria Few /HPF (NONE) Urine Yeast Moderate /HPF (NONE) H PTT Mixing Study Pending APTT Patient/Control Mix Pending Mix PTT Incubation Time Pending Mix PTT Normal/Saline 1:1 Immediate Pending Thrombin Time Normal Plasma Pending Iron Level 24 ug/dL (50-175) L Total Iron Binding Capacity 120 ug/dL (250-450) L Percent Iron Saturation 20 % (15-50) Unsaturated Iron Binding 96 ug/dL (112-346) L Ferritin 1592 NG/ML (8-388) H Lactate Dehydrogenase 142 U/L (81-234) Folate 19.1 NG/ML (8.6-58.9) Thyroid Stimulating Hormone (TSH) 4.391 uiU/mL (0.358-3.740) White Blood Count 18.2 K/UL (4.8-10.8) H Red Blood Count 2.48 M/UL (4.20-5.40) L Hemoglobin 6.3 G/DL (12.0-16.0) *L Hematocrit 19.9 % (37.0-47.0) L Mean Corpuscular Volume 80 FL (80-99) Mean Corpuscular Hemoglobin 25.3 PG (27.0-31.0) L Mean Corpuscular Hemoglobin Concent 31.6 G/DL (32.0-36.0) L Red Cell Distribution Width 17.1 % (11.6-14.8) H Platelet Count 565 K/UL (150-450) H Mean Platelet Volume 6.1 FL (6.5-10.1) L Neutrophils (%) (Auto) % (45.0-75.0) Lymphocytes (%) (Auto) % (20.0-45.0) Monocytes (%) (Auto) % (1.0-10.0) Eosinophils (%) (Auto) % (0.0-3.0) Basophils (%) (Auto) % (0.0-2.0) Neutrophils % (Manual) Pending Lymphocytes % (Manual) Pending Platelet Estimate Pending Platelet Morphology Pending Erythrocyte Sedimentation Rate 144 MM/HR (0-30) H Sodium Level 143 MMOL/L (136-145) Potassium Level 3.4 MMOL/L (3.5-5.1) L Chloride Level 104 MMOL/L (98-107) Carbon Dioxide Level 32 MMOL/L (21-32) Anion Gap 7 mmol/L (5-15) Blood Urea Nitrogen 12 mg/dL (7-18) Creatinine 0.6 MG/DL (0.55-1.30) Estimat Glomerular Filtration Rate mL/min (>60) Glucose Level 128 MG/DL (74-106) H Calcium Level 9.0 MG/DL (8.5-10.1) Phosphorus Level 2.6 MG/DL (2.5-4.9) Magnesium Level 1.5 MG/DL (1.8-2.4) L Total Bilirubin 0.2 MG/DL (0.2-1.0) Aspartate Amino Transf (AST/SGOT) 15 U/L (15-37) Alanine Aminotransferase (ALT/SGPT) 22 U/L (12-78) Alkaline Phosphatase 128 U/L (46-116) H C-Reactive Protein, Quantitative 40.9 mg/dL (0.00-0.90) H Total Protein 7.1 G/DL (6.4-8.2) Albumin 1.2 G/DL (3.4-5.0) L Globulin 5.9 g/dL Albumin/Globulin Ratio 0.2 (1.0-2.7) L Current Medications Medications (Trade) Dose Ordered Sig/Rosy Route PRN Reason Start Time Stop Time Status Last Admin Dose Admin Acetaminophen (Tylenol) 650 mg Q4H PRN GT FEVER 09/13/18 11:45 10/13/18 06:59 Albuterol/ Ipratropium (Albuterol/ Ipratropium) 3 ml Q4H PRN HHN Shortness of Breath 09/13/18 07:00 09/18/18 06:59 Cefepime HCl 1 gm/ Dextrose 55 ml @ 110 mls/hr EVERY 12 HOURS IVPB 09/13/18 21:00 09/20/18 20:59 09/13/18 20:42 Chlorhexidine Gluconate (Elizabeth-Hex 2%) 1 applic DAILY@1999 TOPIC 09/13/18 20:00 5/18/19 19:59 09/13/18 20:39 Dextrose (Dextrose 50%) 25 ml Q30M PRN IV Hypoglycemia 09/13/18 08:15 10/13/18 08:14 Dextrose (Dextrose 50%) 50 ml Q30M PRN IV Hypoglycemia 09/13/18 08:15 10/13/18 08:14 Heparin Sodium (Porcine) (Heparin 5000 units/ml) 5,000 units EVERY 12 HOURS SUBQ 09/13/18 09:00 10/13/18 08:59 09/13/18 20:43 Insulin Aspart (NovoLOG) EVERY 6 HOURS SUBQ 09/13/18 12:00 10/13/18 11:59 09/14/18 05:21 Levetiracetam (Keppra) 500 mg Q12HR GT 09/13/18 21:00 10/13/18 20:59 09/13/18 20:42 Lorazepam (Ativan 2mg/ml 1ml) 2 mg Q2H PRN IV For Anxiety 09/13/18 07:00 09/20/18 06:59 Metronidazole 100 ml @ 100 mls/hr Q8HR IVPB 09/13/18 14:00 09/20/18 13:59 09/14/18 05:10 Morphine Sulfate (Morphine Sulfate) 4 mg Q4H PRN IVP Severe Pain (Pain Scale 7-10) 09/13/18 07:00 09/20/18 06:59 Ondansetron HCl (Zofran) 4 mg Q6H PRN IVP Nausea & Vomiting 09/13/18 07:00 10/13/18 06:59 Pantoprazole (Protonix) 40 mg DAILY IV 09/13/18 09:00 10/13/18 08:59 09/13/18 09:52 Polyethylene Glycol (Miralax) 17 gm DAILYPRN PRN GT Constipation 09/13/18 11:45 10/13/18 06:59 Vancomycin HCl (Vanco rx to dose) 1 ea DAILY PRN MISC PER PHARMACY 09/13/18 07:00 10/13/18 06:59 Vancomycin HCl 750 mg/Sodium Chloride 275 ml @ 183.333 mls/hr Q12HR IVPB 09/13/18 09:00 09/18/18 08:59 09/13/18 21:50 Nadia Donovan M.D. Sep 14, 2018 08:11
--- NOTE | 2018-09-14 08:57 | NUR ---
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 AFIB . UTI VS: BP 120/68, P 129, T 98.9, RR 14, SpO2 100 on VENT AC 14, TV 600, FiO2 40 WBC 18.2, RBC 2.48, Hgb 6.3, Hct 19.9, K 3.4 IS:CEFEPIME HCI 55ml IVPB KEPPRA 500mg METRONIDAZOLE 100ml IVPB NOVOLOG SUBQ HEPARIN SUBQ PROTONIX 40mg IV VANCOMYCIN 275ml IVPB SDU STATUS
[2018-09-14] MEDS: Cefepime HCl 1 GM in D5W 55 ML IVPB SCH ×2 (09:12→20:41)
[2018-09-14] MEDS: Pantoprazole Inj IV SCH (09:12)
--- NOTE | 2018-09-14 09:13 | NUR ---
NURSE NOTES: Spoke with Dr Frey over the phone. He instructed to give the heparin this morning although the patient is going to get a blood transfusion and her Hgb is 6.3.
[2018-09-14] MEDS: levETIRAcetam 500mg/5ml Liquid GT SCH ×2 (09:14→20:40)
[2018-09-14] MEDS: Vancomycin 750mg/NS 275ml IVPB SCH ×2 (09:14)
[2018-09-14] MEDS: Heparin 5000 units/ml inj SUBQ SCH ×2 (09:15→21:00)
--- NOTE | 2018-09-14 09:53 | NUR ---
NURSE NOTES: Called the supportive employment case manager listed in the chart. The voicemail said that this supportive employment case manager will be out of town until 09/29.
--- NOTE | 2018-09-14 09:58 | NUR ---
NURSE NOTES: Obtained telephone consent from the patient's daughter, Mrs Mary Ann Dejesus. SANT[place] confirmed the consent.
--- NOTE | 2018-09-14 10:29 | Pulmonolgy Critical Care Note ---
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 Respiratory: monitor respiratory rate, adjust FIO2, CXR Cardiac: continue to monitor HR/BP Renal: F/U I&O, check electrolytes Infectious Disease: continue antibiotics Gastrointestinal: continue feedings/current rate, hold feedings Endocrine: monitor blood sugar Hematologic: monitor H/H Neurologic: PRN Morphine Prophylaxis: Heparin Notes Reviewed: cardio, renal Discussed with: consultants, business case analyst, family member Critical Care - Objective Last 24 Hour Vital Signs Date Time Temp Pulse Resp B/P (MAP) Pulse Ox O2 Delivery O2 Flow Rate FiO2 09/14/18 10:24 107 14 40 09/14/18 08:45 105 15 40 09/14/18 08:00 97.8 129 14 129/70 (89) 100 09/14/18 08:00 40 09/14/18 07:42 92 09/14/18 07:37 63 14 40 09/14/18 05:00 109 14 40 09/14/18 04:00 40 09/14/18 04:00 98.9 105 14 120/68 (85) 100 09/14/18 04:00 108 09/14/18 04:00 Mechanical Ventilator 09/14/18 02:40 108 14 40 09/14/18 02:00 Mechanical Ventilator 09/14/18 01:04 109 14 40 09/14/18 00:00 99.0 105 14 105/72 (83) 100 09/14/18 00:00 Mechanical Ventilator 09/13/18 23:17 107 14 40 09/13/18 21:04 97 14 40 09/13/18 20:00 Mechanical Ventilator 09/13/18 20:00 99.1 108 14 113/80 (91) 100 09/13/18 20:00 40 09/13/18 20:00 109 09/13/18 19:10 107 14 40 09/13/18 17:23 110 14 40 09/13/18 16:00 115 09/13/18 16:00 Mechanical Ventilator 09/13/18 16:00 40 09/13/18 16:00 99.4 106 15 121/73 (89) 100 09/13/18 14:36 101 15 40 09/13/18 12:33 102 14 40 09/13/18 12:00 99.2 110 14 116/78 (91) 100 09/13/18 12:00 118 09/13/18 11:57 40 09/13/18 11:55 Mechanical Ventilator 09/13/18 11:13 50 14 40 Status: awake Condition: critical Lungs: clear Heart: HR/BP stable, HR/BP unstable Abdomen: soft, non-tender, feeding tube Extremities: edema Decubiti: stage Micro: Microbiology Date/Time Source Procedure Growth Status 09/13/18 04:15 Blood Blood Culture - Preliminary NO GROWTH AFTER 24 HOURS Resulted 09/13/18 04:00 Blood Blood Culture - Preliminary NO GROWTH AFTER 24 HOURS Resulted 09/13/18 03:20 Urine,Clean Catch Urine Culture - Preliminary YEAST Resulted 09/13/18 04:00 Rectum Received Accucheck: 161 Critical Care - Subjective ROS Limited/Unobtainable: Yes Condition: critical EKG Rhythm: Sinus Rhythm FI02: 40 Vent Support Breath Rate: 14 Vent Support Mode: AC Vent Tidal Volume: 600 Sputum Amount: Scant PEEP: 5.0 PIP: 34 Tube Feeding Amount: 45 I&O: Intake and Output 09/13/18 09/14/18 19:00 07:00 Intake Total 835.000 ml 1180.033 ml Output Total 600 ml Balance 235.000 ml 1180.033 ml Intake Free Water 90 ml 130 ml IV Total 490.000 ml 530.033 ml Tube Feeding 255 ml 520 ml Output Urine Total 600 ml # Bowel Movements 1 Labs: Laboratory Tests Test 09/13/18 17:33 09/13/18 18:30 09/14/18 03:30 Urine Color Yellow Urine Appearance Clear Urine pH 6 (4.5-8.0) Urine Specific [place] 1.010 (1.005-1.035) Urine Protein 2+ (NEGATIVE) H Urine Glucose (UA) Negative (NEGATIVE) Urine Ketones Negative (NEGATIVE) Urine Blood Negative (NEGATIVE) Urine Nitrite Negative (NEGATIVE) Urine Bilirubin Negative (NEGATIVE) Urine Urobilinogen 1 MG/DL (0.0-1.0) H Urine Leukocyte Esterase 1+ (NEGATIVE) H Urine RBC 2-4 /HPF (0 - 2) H Urine WBC 5-10 /HPF (0 - 2) H Urine Squamous Epithelial Cells Few /LPF (NONE/OCC) Urine Bacteria Few /HPF (NONE) Urine Yeast Moderate /HPF (NONE) H PTT Mixing Study Pending APTT Patient/Control Mix Pending Mix PTT Incubation Time Pending Mix PTT Normal/Saline 1:1 Immediate Pending Thrombin Time Normal Plasma Pending Iron Level 24 ug/dL (50-175) L Total Iron Binding Capacity 120 ug/dL (250-450) L Percent Iron Saturation 20 % (15-50) Unsaturated Iron Binding 96 ug/dL (112-346) L Ferritin 1592 NG/ML (8-388) H Lactate Dehydrogenase 142 U/L (81-234) Folate 19.1 NG/ML (8.6-58.9) Thyroid Stimulating Hormone (TSH) 4.391 uiU/mL (0.358-3.740) White Blood Count 18.2 K/UL (4.8-10.8) H Red Blood Count 2.48 M/UL (4.20-5.40) L Hemoglobin 6.3 G/DL (12.0-16.0) *L Hematocrit 19.9 % (37.0-47.0) L Mean Corpuscular Volume 80 FL (80-99) Mean Corpuscular Hemoglobin 25.3 PG (27.0-31.0) L Mean Corpuscular Hemoglobin Concent 31.6 G/DL (32.0-36.0) L Red Cell Distribution Width 17.1 % (11.6-14.8) H Platelet Count 565 K/UL (150-450) H Mean Platelet Volume 6.1 FL (6.5-10.1) L Neutrophils (%) (Auto) % (45.0-75.0) Lymphocytes (%) (Auto) % (20.0-45.0) Monocytes (%) (Auto) % (1.0-10.0) Eosinophils (%) (Auto) % (0.0-3.0) Basophils (%) (Auto) % (0.0-2.0) Differential Total Cells Counted 100 Neutrophils % (Manual) 75 % (45-75) Lymphocytes % (Manual) 15 % (20-45) L Monocytes % (Manual) 9 % (1-10) Eosinophils % (Manual) 1 % (0-3) Basophils % (Manual) 0 % (0-2) Band Neutrophils 0 % (0-8) Nucleated Red Blood Cells 1 /100 WBC Platelet Estimate Adequate Platelet Morphology Normal Hypochromasia 4+ Anisocytosis 1+ Erythrocyte Sedimentation Rate 144 MM/HR (0-30) H Sodium Level 143 MMOL/L (136-145) Potassium Level 3.4 MMOL/L (3.5-5.1) L Chloride Level 104 MMOL/L (98-107) Carbon Dioxide Level 32 MMOL/L (21-32) Anion Gap 7 mmol/L (5-15) Blood Urea Nitrogen 12 mg/dL (7-18) Creatinine 0.6 MG/DL (0.55-1.30) Estimat Glomerular Filtration Rate mL/min (>60) Glucose Level 128 MG/DL (74-106) H Calcium Level 9.0 MG/DL (8.5-10.1) Phosphorus Level 2.6 MG/DL (2.5-4.9) Magnesium Level 1.5 MG/DL (1.8-2.4) L Total Bilirubin 0.2 MG/DL (0.2-1.0) Aspartate Amino Transf (AST/SGOT) 15 U/L (15-37) Alanine Aminotransferase (ALT/SGPT) 22 U/L (12-78) Alkaline Phosphatase 128 U/L (46-116) H C-Reactive Protein, Quantitative 40.9 mg/dL (0.00-0.90) H Total Protein 7.1 G/DL (6.4-8.2) Albumin 1.2 G/DL (3.4-5.0) L Globulin 5.9 g/dL Albumin/Globulin Ratio 0.2 (1.0-2.7) L Ariel Frey MD Sep 14, 2018 10:29
--- NOTE | 2018-09-14 10:30 | NUR ---
NURSE NOTES: Obtained consent for PICC line from the daughter Ms Mary Ann Dejesus.
[2018-09-14] MEDS ORDERED: Lidocaine 1% Plain 30 ml INJ PRN (10:45)
[2018-09-14] MEDS ORDERED: Heparin1,000 units/500ml Premix(Conc:2 units/ml) IV PRN (10:45)
--- NOTE | 2018-09-14 11:15 | NUR ---
NURSE NOTES: Blood transfusion started. PRBC of O negative blood. Patient BP 118/65, HR 105, and temp 98.2.
--- NOTE | 2018-09-14 11:30 | NUR ---
NURSE NOTES: blood transfusion has been running for 15 min. Patient's BP 128/62, HR 105, temp 98.6.
--- NOTE | 2018-09-14 11:33 | NUR ---
Social Work This Sw received a consult to assist with end of life decision making. This Sw spoke with daughter, Mary Ann Kirby ([phone]) who explains she would like patient to be DNR, but wants to continue life support with the ventilator. This Sw informed Dr. Frey. Patient is from [facility] and will return there upon discharge.
[2018-09-14 12:00] VITALS: BP 101/58
--- NOTE | 2018-09-14 13:21 | NUR ---
NURSE NOTES: Blood transfusion is complete at this time. BP 112/86. HR 102. Temp 98.6.
--- NOTE | 2018-09-14 14:34 | Surgery Progress Note ---
Surgery Progress Note Subjective Additional Comments blood cultures negative thus far. urine with yeast. leukocytosis. anemia. overall condition guarded. exam unchanged. Objective Last 24 Hour Vital Signs Date Time Temp Pulse Resp B/P (MAP) Pulse Ox O2 Delivery O2 Flow Rate FiO2 09/14/18 13:01 113 14 40 09/14/18 12:00 40 09/14/18 12:00 Mechanical Ventilator 09/14/18 11:36 111 09/14/18 10:24 107 14 40 09/14/18 08:45 105 15 40 09/14/18 08:00 97.8 129 14 129/70 (89) 100 09/14/18 08:00 Mechanical Ventilator 09/14/18 08:00 40 09/14/18 07:42 92 09/14/18 07:37 63 14 40 09/14/18 05:00 109 14 40 09/14/18 04:00 40 09/14/18 04:00 98.9 105 14 120/68 (85) 100 09/14/18 04:00 108 09/14/18 04:00 Mechanical Ventilator 09/14/18 02:40 108 14 40 09/14/18 02:00 Mechanical Ventilator 09/14/18 01:04 109 14 40 09/14/18 00:00 99.0 105 14 105/72 (83) 100 09/14/18 00:00 Mechanical Ventilator 09/13/18 23:17 107 14 40 09/13/18 21:04 97 14 40 09/13/18 20:00 Mechanical Ventilator 09/13/18 20:00 99.1 108 14 113/80 (91) 100 09/13/18 20:00 40 09/13/18 20:00 109 09/13/18 19:10 107 14 40 09/13/18 17:23 110 14 40 09/13/18 16:00 115 09/13/18 16:00 Mechanical Ventilator 09/13/18 16:00 40 09/13/18 16:00 99.4 106 15 121/73 (89) 100 09/13/18 14:36 101 15 40 I&O Intake and Output 09/13/18 09/14/18 19:00 07:00 Intake Total 835.000 ml 1180.033 ml Output Total 600 ml Balance 235.000 ml 1180.033 ml Intake Free Water 90 ml 130 ml IV Total 490.000 ml 530.033 ml Tube Feeding 255 ml 520 ml Output Urine Total 600 ml # Bowel Movements 1 Dressing: saturated Wound: other Drains: other Cardiovascular: RSR Respiratory: decreased breath sounds Abdomen: soft, present bowel sounds, non-distended Extremities: edema, no cyanosis Laboratory Tests Test 09/13/18 17:33 09/13/18 18:30 09/14/18 03:30 Urine Color Yellow Urine Appearance Clear Urine pH 6 (4.5-8.0) Urine Specific [place] 1.010 (1.005-1.035) Urine Protein 2+ (NEGATIVE) H Urine Glucose (UA) Negative (NEGATIVE) Urine Ketones Negative (NEGATIVE) Urine Blood Negative (NEGATIVE) Urine Nitrite Negative (NEGATIVE) Urine Bilirubin Negative (NEGATIVE) Urine Urobilinogen 1 MG/DL (0.0-1.0) H Urine Leukocyte Esterase 1+ (NEGATIVE) H Urine RBC 2-4 /HPF (0 - 2) H Urine WBC 5-10 /HPF (0 - 2) H Urine Squamous Epithelial Cells Few /LPF (NONE/OCC) Urine Bacteria Few /HPF (NONE) Urine Yeast Moderate /HPF (NONE) H PTT Mixing Study Pending APTT Patient/Control Mix Pending Mix PTT Incubation Time Pending Mix PTT Normal/Saline 1:1 Immediate Pending Thrombin Time Normal Plasma Pending Iron Level 24 ug/dL (50-175) L Total Iron Binding Capacity 120 ug/dL (250-450) L Percent Iron Saturation 20 % (15-50) Unsaturated Iron Binding 96 ug/dL (112-346) L Ferritin 1592 NG/ML (8-388) H Lactate Dehydrogenase 142 U/L (81-234) Folate 19.1 NG/ML (8.6-58.9) Thyroid Stimulating Hormone (TSH) 4.391 uiU/mL (0.358-3.740) White Blood Count 18.2 K/UL (4.8-10.8) H Red Blood Count 2.48 M/UL (4.20-5.40) L Hemoglobin 6.3 G/DL (12.0-16.0) *L Hematocrit 19.9 % (37.0-47.0) L Mean Corpuscular Volume 80 FL (80-99) Mean Corpuscular Hemoglobin 25.3 PG (27.0-31.0) L Mean Corpuscular Hemoglobin Concent 31.6 G/DL (32.0-36.0) L Red Cell Distribution Width 17.1 % (11.6-14.8) H Platelet Count 565 K/UL (150-450) H Mean Platelet Volume 6.1 FL (6.5-10.1) L Neutrophils (%) (Auto) % (45.0-75.0) Lymphocytes (%) (Auto) % (20.0-45.0) Monocytes (%) (Auto) % (1.0-10.0) Eosinophils (%) (Auto) % (0.0-3.0) Basophils (%) (Auto) % (0.0-2.0) Differential Total Cells Counted 100 Neutrophils % (Manual) 75 % (45-75) Lymphocytes % (Manual) 15 % (20-45) L Monocytes % (Manual) 9 % (1-10) Eosinophils % (Manual) 1 % (0-3) Basophils % (Manual) 0 % (0-2) Band Neutrophils 0 % (0-8) Nucleated Red Blood Cells 1 /100 WBC Platelet Estimate Adequate Platelet Morphology Normal Hypochromasia 4+ Anisocytosis 1+ Erythrocyte Sedimentation Rate 144 MM/HR (0-30) H Sodium Level 143 MMOL/L (136-145) Potassium Level 3.4 MMOL/L (3.5-5.1) L Chloride Level 104 MMOL/L (98-107) Carbon Dioxide Level 32 MMOL/L (21-32) Anion Gap 7 mmol/L (5-15) Blood Urea Nitrogen 12 mg/dL (7-18) Creatinine 0.6 MG/DL (0.55-1.30) Estimat Glomerular Filtration Rate mL/min (>60) Glucose Level 128 MG/DL (74-106) H Calcium Level 9.0 MG/DL (8.5-10.1) Phosphorus Level 2.6 MG/DL (2.5-4.9) Magnesium Level 1.5 MG/DL (1.8-2.4) L Total Bilirubin 0.2 MG/DL (0.2-1.0) Aspartate Amino Transf (AST/SGOT) 15 U/L (15-37) Alanine Aminotransferase (ALT/SGPT) 22 U/L (12-78) Alkaline Phosphatase 128 U/L (46-116) H C-Reactive Protein, Quantitative 40.9 mg/dL (0.00-0.90) H Total Protein 7.1 G/DL (6.4-8.2) Albumin 1.2 G/DL (3.4-5.0) L Globulin 5.9 g/dL Albumin/Globulin Ratio 0.2 (1.0-2.7) L Plan Problems: (1) Contracture of multiple joints (2) ICD (implantable cardioverter-defibrillator) in place (3) Sepsis Assessment & Plan: leukocytosis abnormal labs septic on IV abx as per ID micro noted wounds unlikely etiology of sepsis will follow with recs (4) Sacral decubitus ulcer Assessment & Plan: Pt presented on admission with multiple pressure injuries. Stage 4 Full thickness pressure injury to sacrum. Base of wound with 75% mixed soft necrosis and fibrinous soria slough extending into undermined areas of wound.Bone exposure at base of wound. Maroon discoloration with induration along borders and periwound.Clockwise at 12 o'clock along borders, an area of necrosis noted.Wound is malodorous. (L)8.3cm x (W)8.5cm x (D)4.5cm,Undermining 9 -4 by 4cm at 11o'clock. At R buttocks in close proximity to sacrum, maroon discoloration that is indurated noted (L)1.5cm x(W)2.5cm. DTPI noted to plantar L heel. Wound is fluctuant and opague in centre,with small area that is black ,with surrounding erythema.Non-blanchable erythema without fluctuance periwound. DTPI noted to L heel. Maroon discoloration extending from heel into plantar aspect of heel .Base of wound is fluctuant. Non-blanchable erythema noted to lateral aspect of L heel.(L)8cm x (W)5cm. Maroon discoloration without fluctuance or induration noted to lateral L malleolus(L)1cm x (W)1cm. Tx.Plan: Apply wet to dry gauze dressing to sacral wound TID. Apply Cavilon Skin Barrier to L heel.Cover with Optifoam drsg. Change every 7 days and prn. Apply Cavilon Skin Barrier to R heel. Cover with Optifoam drsg.Change every 7 days and prn. Apply Cavilon Skin Barrier to L lateral Malleolus. Cover with Optifoam drsg.Change every 7 days and prn. Apply Triad Paste to bilat groin areas and both ischial areas with each perineal care. Air Fluidized Mattress. Reposition at least every 2hours or as tolerated. Air Fluidized mattress Reposition at least every 2hours or as tolerated (5) UTI (urinary tract infection) (6) Pneumonia (7) Atrial fibrillation (8) Anemia (9) Chronic respiratory failure (10) Chronic vegetative state (11) Feeding by G-tube Myles White Sep 14, 2018 14:33
--- NOTE | 2018-09-14 15:30 | NUR ---
NURSE NOTES: second blood transfusion started. Temp 98.4. BP 100/62. HR 102. Patient showing no sign of acute distress.
--- NOTE | 2018-09-14 15:45 | NUR ---
NURSE NOTES: Temp 98.4. BP 103/63. HR 97. Blood transfusion has been running for 15 min.
[2018-09-14 16:00] VITALS: BP 111/67
[2018-09-14] MEDS ORDERED: NS 275ml ONE (17:08)
[2018-09-14] MEDS ORDERED: Tubing IV Secondary IV ONE (17:08)
--- NOTE | 2018-09-14 17:10 | General Progress Note ---
Assessment/Plan Assessment: Assessment and Recs: # Anemia of chronic disease due to underlying chronic medical issues, multifactorial, likely ongoing inflammatory process --> Anemia workup has been ordered, rule out gi bleed --> No evidence of hemolysis is noted, peripheral smear has been reviewed. --> Hgb goal >7. Transfuse prn. --> Epogen or iron at this time is not particularly indicated --> Medications have been reviewed --> evaluate with Gi team prn --> transfuse if hgb is < 7 (will trend CBC daily) --> low threshold for gi evaluation in case has occult + ==> hgb 9-->6.3 # Leukocytosis with eleva wbc on admission likely related to sepsis --> on abx as per id team, empiric treatment, uti, sacral decub pna --> peripheral smear to be reviewed ==> 17-->18 # Chronic respiratory failure --> chronic vent/trach # Sacral decubitus ulcer --> per surg eval and rx # Atrial fibrillation --> anticoagulation as needed per cards # Chronic vegetative state --> essentially unchanged # Dysphagia s/p Feeding by G-tube --> restart as needed # Contracture of multiple joints The timing of this note does not necessarily reflect the time of the patient was seen. Greatly appreciate consultation! Subjective HEENT: Denies: no symptoms, eye pain, blurred vision, tearing, double vision, ear pain, ear discharge, nose pain, nose congestion, throat pain, throat swelling, mouth pain, mouth swelling, other Cardiovascular: Denies: no symptoms, chest pain, edema, irregular heart rate, lightheadedness, palpitations, syncope, other Respiratory: Denies: no symptoms, cough, orthopnea, shortness of breath, SOB with excertion, SOB at rest, sputum, stridor, wheezing, other Gastrointestinal/Abdominal: Denies: no symptoms, abdomen distended, abdominal pain, black stools, tarry stools, blood in stool, constipated, diarrhea, difficulty swallowing, nausea, poor appetite, poor fluid intake, rectal bleeding , vomiting, other Genitourinary: Denies: no symptoms, burning, discharge, frequency, flank pain, hematuria, incontinence, pain, urgency, other Neurologic/Psychiatric: Denies: no symptoms, anxiety, depressed, emotional problems, headache, numbness, paresthesia, pre-existing deficit, seizure, tingling, tremors, weakness, other Endocrine: Denies: no symptoms, excessive sweating, flushing, intolerance to cold, intolerance to heat, increased hunger, increased thirst, increased urine, unexplained weight gain, unexplained weight loss, other Hematologic/Lymphatic: Denies: no symptoms, anemia, easy bleeding, easy bruising, other Allergies: Coded Allergies: ALPRAZOLAM (Verified Allergy, Unknown, 09/13/18) Subjective 09/14: no events, hgb is low 6.3, dw family, blood being infused, transfusion today Objective Last 24 Hour Vital Signs Date Time Temp Pulse Resp B/P (MAP) Pulse Ox O2 Delivery O2 Flow Rate FiO2 09/14/18 16:50 107 18 40 09/14/18 16:00 Mechanical Ventilator 09/14/18 16:00 40 09/14/18 14:40 114 19 40 09/14/18 13:01 113 14 40 09/14/18 12:00 40 09/14/18 12:00 97.9 103 17 101/58 (72) 100 09/14/18 12:00 Mechanical Ventilator 09/14/18 11:36 111 09/14/18 10:24 107 14 40 09/14/18 08:45 105 15 40 09/14/18 08:00 97.8 129 14 129/70 (89) 100 09/14/18 08:00 Mechanical Ventilator 09/14/18 08:00 40 09/14/18 07:42 92 09/14/18 07:37 63 14 40 09/14/18 05:00 109 14 40 09/14/18 04:00 40 09/14/18 04:00 98.9 105 14 120/68 (85) 100 09/14/18 04:00 108 09/14/18 04:00 Mechanical Ventilator 09/14/18 02:40 108 14 40 09/14/18 02:00 Mechanical Ventilator 09/14/18 01:04 109 14 40 09/14/18 00:00 99.0 105 14 105/72 (83) 100 09/14/18 00:00 Mechanical Ventilator 09/13/18 23:17 107 14 40 09/13/18 21:04 97 14 40 09/13/18 20:00 Mechanical Ventilator 09/13/18 20:00 99.1 108 14 113/80 (91) 100 09/13/18 20:00 40 09/13/18 20:00 109 09/13/18 19:10 107 14 40 09/13/18 17:23 110 14 40 Intake and Output 09/13/18 09/14/18 19:00 07:00 Intake Total 835.000 ml 1180.033 ml Output Total 600 ml Balance 235.000 ml 1180.033 ml Intake Free Water 90 ml 130 ml IV Total 490.000 ml 530.033 ml Tube Feeding 255 ml 520 ml Output Urine Total 600 ml # Bowel Movements 1 Laboratory Tests 09/13/18 17:33: Urine Color Yellow, Urine Appearance Clear, Urine pH 6, Urine Specific [place] 1.010, Urine Protein 2+H, Urine Glucose (UA) Negative, Urine Ketones Negative, Urine Blood Negative, Urine Nitrite Negative, Urine Bilirubin Negative, Urine Urobilinogen 1H, Urine Leukocyte Esterase 1+H, Urine RBC 2-4H, Urine WBC 5-10H, Urine Squamous Epithelial Cells Few, Urine Bacteria Few, Urine Yeast ModerateH 09/13/18 18:30: PTT Mixing Study [Pending], APTT Patient/Control Mix [Pending], Mix PTT Incubation Time [Pending], Mix PTT Normal/Saline 1:1 Immediate [Pending], Thrombin Time Normal Plasma [Pending], Iron Level 24L, Total Iron Binding Capacity 120L, Percent Iron Saturation 20, Unsaturated Iron Binding 96L, Ferritin 1592H, Lactate Dehydrogenase 142, Folate 19.1, Thyroid Stimulating Hormone (TSH) 4.391H 09/14/18 03:30: White Blood Count 18.2H, Red Blood Count 2.48L, Hemoglobin 6.3*L, Hematocrit 19.9L, Mean Corpuscular Volume 80, Mean Corpuscular Hemoglobin 25.3L, Mean Corpuscular Hemoglobin Concent 31.6L, Red Cell Distribution Width 17.1H, Platelet Count 565H, Mean Platelet Volume 6.1L, Neutrophils (%) (Auto) , Lymphocytes (%) (Auto) , Monocytes (%) (Auto) , Eosinophils (%) (Auto) , Basophils (%) (Auto) , Differential Total Cells Counted 100, Neutrophils % ( Manual) 75, Lymphocytes % (Manual) 15L, Monocytes % (Manual) 9, Eosinophils % ( Manual) 1, Basophils % (Manual) 0, Band Neutrophils 0, Nucleated Red Blood Cells 1, Platelet Estimate Adequate, Platelet Morphology Normal, Hypochromasia 4 +, Anisocytosis 1+, Erythrocyte Sedimentation Rate 144H, Sodium Level 143, Potassium Level 3.4L, Chloride Level 104, Carbon Dioxide Level 32, Anion Gap 7, Blood Urea Nitrogen 12, Creatinine 0.6, Estimat Glomerular Filtration Rate , Glucose Level 128H, Calcium Level 9.0, Phosphorus Level 2.6, Magnesium Level 1.5L, Total Bilirubin 0.2, Aspartate Amino Transf (AST/SGOT) 15, Alanine Aminotransferase (ALT/SGPT) 22, Alkaline Phosphatase 128H, C-Reactive Protein, Quantitative 40.9H, Total Protein 7.1, Albumin 1.2L, Globulin 5.9, Albumin/ Globulin Ratio 0.2L Height (Feet): 5 Height (Inches): 8.00 Weight (Pounds): 232 Objective PE General Appearance: WD/WN Lines, tubes and drains: peripheral HEENT: normocephalic Neck: non-tender, normal alignment ++ trach Respiratory/Chest: chest wall non-tender, lungs clear, decreased breath sounds Cardiovascular/Chest: normal peripheral pulses Abdomen: non tender ++ peg Genitourinary/Rectal: normal genital exam Dagoberto Brewster MD Sep 14, 2018 17:10
--- NOTE | 2018-09-14 17:30 | NUR ---
RESPIRATORY NOTE: Pt received on mechanical ventilator. Patient is trach with portex 8, current vent settings AC 14, VT 600, PEEP: +5, Fio2: 40%. Alarms are set and audible, plugged into red outlet, Sx inline intact and working. Spare trach bedside, Will continue to monitor.
--- NOTE | 2018-09-14 17:48 | Internal Med Progress Note ---
Subjective Date of Service: Sep 14, 2018 Physician Name GeorgeRuddy Attending Physician Ariel Frey MD Current Medications Medications (Trade) Dose Ordered Sig/Rosy Route PRN Reason Start Time Stop Time Status Last Admin Dose Admin Acetaminophen (Tylenol) 650 mg Q4H PRN GT FEVER 09/13/18 11:45 10/13/18 06:59 Albuterol/ Ipratropium (Albuterol/ Ipratropium) 3 ml Q4H PRN HHN Shortness of Breath 09/13/18 07:00 09/18/18 06:59 Cefepime HCl 1 gm/ Dextrose 55 ml @ 110 mls/hr EVERY 12 HOURS IVPB 09/13/18 21:00 09/20/18 20:59 09/14/18 09:12 Chlorhexidine Gluconate (Elizabeth-Hex 2%) 1 applic DAILY@2000 TOPIC 09/14/18 20:00 10/14/18 19:59 Dextrose (Dextrose 50%) 25 ml Q30M PRN IV Hypoglycemia 09/13/18 08:15 10/13/18 08:14 Dextrose (Dextrose 50%) 50 ml Q30M PRN IV Hypoglycemia 09/13/18 08:15 10/13/18 08:14 Heparin Sodium (Porcine) (Heparin 5000 units/ml) 5,000 units EVERY 12 HOURS SUBQ 09/13/18 09:00 10/13/18 08:59 09/14/18 09:15 Heparin Sodium/ Sodium Chloride (Heparin 1000 units/500ml Premix) 1,000 unit ONCE PRN IV PICC 09/14/18 10:45 09/14/18 23:59 Insulin Aspart (NovoLOG) EVERY 6 HOURS SUBQ 09/13/18 12:00 10/13/18 11:59 09/14/18 12:30 Levetiracetam (Keppra) 500 mg Q12HR GT 09/13/18 21:00 10/13/18 20:59 09/14/18 09:14 Lidocaine HCl (Xylocaine 1% 30ml) 30 ml ONCE PRN INJ PICC 09/14/18 10:45 09/14/18 23:59 Lorazepam (Ativan 2mg/ml 1ml) 2 mg Q2H PRN IV For Anxiety 09/13/18 07:00 09/20/18 06:59 Metronidazole 100 ml @ 100 mls/hr Q8HR IVPB 09/13/18 14:00 09/20/18 13:59 09/14/18 13:27 Morphine Sulfate (Morphine Sulfate) 4 mg Q4H PRN IVP Severe Pain (Pain Scale 7-10) 09/13/18 07:00 09/20/18 06:59 Ondansetron HCl (Zofran) 4 mg Q6H PRN IVP Nausea & Vomiting 09/13/18 07:00 10/13/18 06:59 Pantoprazole (Protonix) 40 mg DAILY IV 09/13/18 09:00 10/13/18 08:59 09/14/18 09:12 Polyethylene Glycol (Miralax) 17 gm DAILYPRN PRN GT Constipation 09/13/18 11:45 10/13/18 06:59 Vancomycin HCl (Vanco rx to dose) 1 ea DAILY PRN MISC PER PHARMACY 09/13/18 07:00 10/13/18 06:59 Vancomycin HCl 750 mg/Sodium Chloride 275 ml @ 183.333 mls/hr Q12HR IVPB 09/13/18 09:00 09/18/18 08:59 09/14/18 09:14 Allergies: Coded Allergies: ALPRAZOLAM (Verified Allergy, Unknown, 09/13/18) ROS Limited/Unobtainable: Yes Subjective 72 YO vent dep F admitted with dyspnea. Now pneumonia. Cover for Int Med-DR Negron. DULCE Objective Last Vital Signs Date Time Temp Pulse Resp B/P (MAP) Pulse Ox O2 Delivery O2 Flow Rate FiO2 09/14/18 16:50 107 18 40 09/14/18 16:00 Mechanical Ventilator 09/14/18 12:00 97.9 101/58 (72) 100 Laboratory Tests Test 09/13/18 18:30 09/14/18 03:30 PTT Mixing Study Pending APTT Patient/Control Mix Pending Mix PTT Incubation Time Pending Mix PTT Normal/Saline 1:1 Immediate Pending Thrombin Time Normal Plasma Pending Iron Level 24 ug/dL (50-175) L Total Iron Binding Capacity 120 ug/dL (250-450) L Percent Iron Saturation 20 % (15-50) Unsaturated Iron Binding 96 ug/dL (112-346) L Ferritin 1592 NG/ML (8-388) H Lactate Dehydrogenase 142 U/L (81-234) Folate 19.1 NG/ML (8.6-58.9) Thyroid Stimulating Hormone (TSH) 4.391 uiU/mL (0.358-3.740) White Blood Count 18.2 K/UL (4.8-10.8) H Red Blood Count 2.48 M/UL (4.20-5.40) L Hemoglobin 6.3 G/DL (12.0-16.0) *L Hematocrit 19.9 % (37.0-47.0) L Mean Corpuscular Volume 80 FL (80-99) Mean Corpuscular Hemoglobin 25.3 PG (27.0-31.0) L Mean Corpuscular Hemoglobin Concent 31.6 G/DL (32.0-36.0) L Red Cell Distribution Width 17.1 % (11.6-14.8) H Platelet Count 565 K/UL (150-450) H Mean Platelet Volume 6.1 FL (6.5-10.1) L Neutrophils (%) (Auto) % (45.0-75.0) Lymphocytes (%) (Auto) % (20.0-45.0) Monocytes (%) (Auto) % (1.0-10.0) Eosinophils (%) (Auto) % (0.0-3.0) Basophils (%) (Auto) % (0.0-2.0) Differential Total Cells Counted 100 Neutrophils % (Manual) 75 % (45-75) Lymphocytes % (Manual) 15 % (20-45) L Monocytes % (Manual) 9 % (1-10) Eosinophils % (Manual) 1 % (0-3) Basophils % (Manual) 0 % (0-2) Band Neutrophils 0 % (0-8) Nucleated Red Blood Cells 1 /100 WBC Platelet Estimate Adequate Platelet Morphology Normal Hypochromasia 4+ Anisocytosis 1+ Erythrocyte Sedimentation Rate 144 MM/HR (0-30) H Sodium Level 143 MMOL/L (136-145) Potassium Level 3.4 MMOL/L (3.5-5.1) L Chloride Level 104 MMOL/L (98-107) Carbon Dioxide Level 32 MMOL/L (21-32) Anion Gap 7 mmol/L (5-15) Blood Urea Nitrogen 12 mg/dL (7-18) Creatinine 0.6 MG/DL (0.55-1.30) Estimat Glomerular Filtration Rate mL/min (>60) Glucose Level 128 MG/DL (74-106) H Calcium Level 9.0 MG/DL (8.5-10.1) Phosphorus Level 2.6 MG/DL (2.5-4.9) Magnesium Level 1.5 MG/DL (1.8-2.4) L Total Bilirubin 0.2 MG/DL (0.2-1.0) Aspartate Amino Transf (AST/SGOT) 15 U/L (15-37) Alanine Aminotransferase (ALT/SGPT) 22 U/L (12-78) Alkaline Phosphatase 128 U/L (46-116) H C-Reactive Protein, Quantitative 40.9 mg/dL (0.00-0.90) H Total Protein 7.1 G/DL (6.4-8.2) Albumin 1.2 G/DL (3.4-5.0) L Globulin 5.9 g/dL Albumin/Globulin Ratio 0.2 (1.0-2.7) L Microbiology Date/Time Source Procedure Growth Status 09/13/18 04:15 Blood Blood Culture - Preliminary NO GROWTH AFTER 24 HOURS Resulted 09/13/18 04:00 Blood Blood Culture - Preliminary NO GROWTH AFTER 24 HOURS Resulted 09/13/18 03:20 Urine,Clean Catch Urine Culture - Preliminary YEAST Resulted 09/13/18 04:00 Rectum Received Intake and Output 09/13/18 09/14/18 19:00 07:00 Intake Total 835.000 ml 1180.033 ml Output Total 600 ml Balance 235.000 ml 1180.033 ml Intake Free Water 90 ml 130 ml IV Total 490.000 ml 530.033 ml Tube Feeding 255 ml 520 ml Output Urine Total 600 ml # Bowel Movements 1 Objective PHYSICAL EXAMINATION: GENERAL: The patient is well-developed and well-nourished female who is intubated and sedated. HEENT: Eyes, pupils equal and responsive to light and accommodation. Extraocular movements are intact. The patient has a tracheostomy tube in place. CHEST: Diffuse coarse breath sounds bilaterally without wheezes or rales. CARDIOVASCULAR: Irregular rhythm and irregular rate. S1 and S2 normal without murmurs, rubs, or gallops. ABDOMEN: Soft, nontender, and nondistended. Positive bowel sounds. No hepatosplenomegaly. Currently, no rebound or guarding noted. EXTREMITIES: Negative for clubbing, cyanosis, or edema. RECTAL/GENITAL: Not performed. NEUROLOGIC: Cranial nerves II through XII grossly intact without focal deficits. Assessment/Plan Assessment/Plan ASSESSMENT: The patient is a 72-year-old female. 1. Right lower lobe pneumonia. 2. Leukocytosis. 3. Elevated troponin. 4. Acute on chronic congestive heart failure. 5. Chronic obstructive pulmonary disease. 6. Ventilator-dependent respiratory failure. 7. Diabetes type 2. 8. Hypertension. 9. Coronary artery disease. 10. Metabolic encephalopathy. 11. Seizure disorder. 12. Dysphagia. 13. Tracheostomy. 14. Quadriplegia. TREATMENT: 1. Right lower lobe pneumonia plus leukocytosis. A Pulmonary consultation obtained with Dr. Ariel Frey. The patient has been started empirically on vancomycin, cefepime, and amikacin per recommendation of Infectious Disease. 2. Elevated troponin/congestive heart failure. Cardiology consultation obtained with Dr. Isai Anglin. The patient is currently receiving intravenous Lasix. 3. Ventilator-dependent respiratory failure. As above, a Pulmonary consultation obtained with Dr. Ariel Frey. 4. Diabetes type 2. The patient was admitted off insulin. 5. Hypertension, the patient is currently hypotensive. 6. Coronary artery disease. 7. Metabolic encephalopathy. 8. Seizure disorder. Continue Keppra as above. 9. Dysphagia. The patient is status post PEG placement. Continue tube feeds as above. 10. Tracheostomy in situ. 11. Quadriplegia. Ruddy George MD Sep 14, 2018 17:48
--- NOTE | 2018-09-14 18:20 | NUR ---
NURSE NOTES: Blood transfusion complete. BP 95/64. HR 86. Temp 98.4.
--- NOTE | 2018-09-14 19:02 | NUR ---
NURSE NOTES: Upon cleaning and redressing of sacral wound, moderate amount of blood noted. Dressing saturated but not soaked through. Packed wound with wet to dry dressing per order and covered with abdominal pad and suresite.
--- NOTE | 2018-09-14 19:20 | NUR ---
HAND-OFF: Report given to SANTA Stewart. Patient VS stable at this time with no sign of acute distress.
--- NOTE | 2018-09-14 19:30 | NUR ---
NURSE NOTES: Received Pt is sleeping on the bed and obtunded. On tele monitor with A-fib and A-Flutter. Trach to Vent dependent setting with AC: 14, T: 600, P :5, FiO2 : 40% and SaO2 100% noted. Given tracheal and oral suction. Provided oral care. On G-tube feeding with Glucerna 1.5 @ 45cc/hr and tolerated well. No residual noted. Dressing is clean and dry on wounds area. Pt has Lt. femoral TLC and dressing is clean and dry and no sign of infiltration noted. Pt has Low air loss mattress. Changed position. Placed fall and seizure precaution. Will continue to care plan.
--- NOTE | 2018-09-14 19:31 | Cardiology Progress Note ---
Assessment/Plan Assessment/Plan anemia afib on anticoagulation reported hs of v f arrest rca occlusion per hs asa and eliquuis on hold transfusion will change Amio to 200 mg bid instead of tid i wonder if used for ventricualr arrythmia thank you [id number] Objective Last 24 Hour Vital Signs Date Time Temp Pulse Resp B/P (MAP) Pulse Ox O2 Delivery O2 Flow Rate FiO2 09/14/18 18:53 103 16 40 09/14/18 16:50 107 18 40 09/14/18 16:00 Mechanical Ventilator 09/14/18 16:00 95 09/14/18 16:00 40 09/14/18 16:00 98.1 113 19 111/67 (82) 97 09/14/18 14:40 114 19 40 09/14/18 13:01 113 14 40 09/14/18 12:00 40 09/14/18 12:00 97.9 103 17 101/58 (72) 100 09/14/18 12:00 Mechanical Ventilator 09/14/18 11:36 111 09/14/18 10:24 107 14 40 09/14/18 08:45 105 15 40 09/14/18 08:00 97.8 129 14 129/70 (89) 100 09/14/18 08:00 Mechanical Ventilator 09/14/18 08:00 40 09/14/18 07:42 92 09/14/18 07:37 63 14 40 09/14/18 05:00 109 14 40 09/14/18 04:00 40 09/14/18 04:00 98.9 105 14 120/68 (85) 100 09/14/18 04:00 108 09/14/18 04:00 Mechanical Ventilator 09/14/18 02:40 108 14 40 09/14/18 02:00 Mechanical Ventilator 09/14/18 01:04 109 14 40 09/14/18 00:00 99.0 105 14 105/72 (83) 100 09/14/18 00:00 Mechanical Ventilator 09/13/18 23:17 107 14 40 09/13/18 21:04 97 14 40 09/13/18 20:00 Mechanical Ventilator 09/13/18 20:00 99.1 108 14 113/80 (91) 100 09/13/18 20:00 40 09/13/18 20:00 109 Intake and Output 4/18/19 4/19/19 19:00 07:00 Intake Total 835.000 ml 1180.033 ml Output Total 600 ml Balance 235.000 ml 1180.033 ml Intake Free Water 90 ml 130 ml IV Total 490.000 ml 530.033 ml Tube Feeding 255 ml 520 ml Output Urine Total 600 ml # Bowel Movements 1 Laboratory Tests Test 09/14/18 03:30 White Blood Count 18.2 K/UL (4.8-10.8) H Red Blood Count 2.48 M/UL (4.20-5.40) L Hemoglobin 6.3 G/DL (12.0-16.0) *L Hematocrit 19.9 % (37.0-47.0) L Mean Corpuscular Volume 80 FL (80-99) Mean Corpuscular Hemoglobin 25.3 PG (27.0-31.0) L Mean Corpuscular Hemoglobin Concent 31.6 G/DL (32.0-36.0) L Red Cell Distribution Width 17.1 % (11.6-14.8) H Platelet Count 565 K/UL (150-450) H Mean Platelet Volume 6.1 FL (6.5-10.1) L Neutrophils (%) (Auto) % (45.0-75.0) Lymphocytes (%) (Auto) % (20.0-45.0) Monocytes (%) (Auto) % (1.0-10.0) Eosinophils (%) (Auto) % (0.0-3.0) Basophils (%) (Auto) % (0.0-2.0) Differential Total Cells Counted 100 Neutrophils % (Manual) 75 % (45-75) Lymphocytes % (Manual) 15 % (20-45) L Monocytes % (Manual) 9 % (1-10) Eosinophils % (Manual) 1 % (0-3) Basophils % (Manual) 0 % (0-2) Band Neutrophils 0 % (0-8) Nucleated Red Blood Cells 1 /100 WBC Platelet Estimate Adequate Platelet Morphology Normal Hypochromasia 4+ Anisocytosis 1+ Erythrocyte Sedimentation Rate 144 MM/HR (0-30) H Sodium Level 143 MMOL/L (136-145) Potassium Level 3.4 MMOL/L (3.5-5.1) L Chloride Level 104 MMOL/L (98-107) Carbon Dioxide Level 32 MMOL/L (21-32) Anion Gap 7 mmol/L (5-15) Blood Urea Nitrogen 12 mg/dL (7-18) Creatinine 0.6 MG/DL (0.55-1.30) Estimat Glomerular Filtration Rate mL/min (>60) Glucose Level 128 MG/DL (74-106) H Calcium Level 9.0 MG/DL (8.5-10.1) Phosphorus Level 2.6 MG/DL (2.5-4.9) Magnesium Level 1.5 MG/DL (1.8-2.4) L Total Bilirubin 0.2 MG/DL (0.2-1.0) Aspartate Amino Transf (AST/SGOT) 15 U/L (15-37) Alanine Aminotransferase (ALT/SGPT) 22 U/L (12-78) Alkaline Phosphatase 128 U/L (46-116) H C-Reactive Protein, Quantitative 40.9 mg/dL (0.00-0.90) H Total Protein 7.1 G/DL (6.4-8.2) Albumin 1.2 G/DL (3.4-5.0) L Globulin 5.9 g/dL Albumin/Globulin Ratio 0.2 (1.0-2.7) L Microbiology Date/Time Source Procedure Growth Status 09/13/18 04:15 Blood Blood Culture - Preliminary NO GROWTH AFTER 24 HOURS Resulted 09/13/18 04:00 Blood Blood Culture - Preliminary NO GROWTH AFTER 24 HOURS Resulted 09/13/18 03:20 Urine,Clean Catch Urine Culture - Preliminary YEAST Resulted 09/13/18 04:00 Rectum Received Isai Anglin MD Sep 14, 2018 19:30
[2018-09-14 20:00] VITALS: BP 118/71
[2018-09-14] MEDS: Dyna-Hex 2% Top Sol 2oz TOPIC SCH (20:16)
[2018-09-14] MEDS: Amiodarone 200mg tab ORAL SCH (20:40)
[2018-09-14] MEDS: Metoprolol Tartrate 12.5mg TAB ORAL SCH (20:44)
[2018-09-14] MEDS: Vancomycin 1.25gm Premix IVPB SCH (22:56)
[2018-09-14] MEDS ORDERED: Vancomycin 1 GM in D5W 275 ML IV SCH (23:00)
[2018-09-15] VITALS: BP 95/67
--- NOTE | 2018-09-15 01:45 | Consultation ---
DATE OF CONSULTATION: 09/14/2018 CARDIOLOGY CONSULTATION CONSULTING PHYSICIAN: Isai Anglin M.D. REFERRING PHYSICIAN: Ariel Frey M.D. REASON FOR REFERRAL: Atrial fibrillation. HISTORY OF PRESENT ILLNESS: This is a very unfortunate elderly female who is not able to provide any meaningful history whatsoever. The patient is a resident of convalescent facility, and was brought into the emergency room at [facility] for abnormal laboratory values, high white count and low hemoglobin. The patient was noted to also be in atrial fibrillation, somewhat apparently chronic in nature. PAST MEDICAL HISTORY: The details of her medical issues are really not known and it only includes apparently from the chart, history of stroke, right coronary artery occlusion, chronic ventilator therapy, history of rash, history of atrial fibrillation, on anticoagulation, gastroesophageal reflux disease, stroke, diabetes mellitus, metabolic encephalopathy, seizure disorder, history of G-tube, quadriplegia, and chronic obstructive pulmonary disease. ALLERGIES: She is allergic to Xanax. MEDICATIONS AT HOME: Amiodarone, Eliquis, aspirin, iron, Keppra, metoprolol, Trileptal, Crestor, and zinc. SOCIAL HISTORY: She is single. She is apparently a resident of a convalescent facility. No smoking or drinking. REVIEW OF SYSTEMS: Unable to obtain. PHYSICAL EXAMINATION: GENERAL: Shows to be obese female, on a ventilator, not communicating or responsive. NECK: Otherwise supple. LUNGS: Appear to be clear. CARDIAC: Irregular. Not tachycardic. Not bradycardic. ABDOMEN: Soft and obese. Positive bowel sounds. EXTREMITIES: Edema is noted. NEUROLOGIC: She is not communicative or responsive. LABORATORY AND DIAGNOSTIC DATA: White count of 18.2 up from 16.9, with a hemoglobin of 6.3, down from 9 and a platelet count of 565, leukocytes 15 and neutrophils 75. Reticulocyte count of 1.4 and sedimentation rate of 144. Sodium is 142, potassium 3.4, chloride 104, bicarb 32, BUN 12, creatinine 0.6, and glucose of 112. Magnesium level of 1.5. Iron is 20% saturation. AST and ALT are within normal limits. LDH of 142. CRP of 40.9. Total protein of 7.1 and albumin of 1.2. TSH of 4.31 and folic acid of 19.1. IMAGING: A chest x-ray showed cardiomegaly with slight prominence of the vasculature, mild congestive failure, and a venous duplex of her lower extremities shows no evidence of deep venous thromboses. EKG shows atrial fibrillation and delay in progression, possible anteroseptal and inferior TX. ASSESSMENT: 1. History of coronary artery disease with reported history of occluded right coronary artery. 2. Permanent atrial fibrillation, on anticoagulation. 3. History of ventricular fibrillation arrest. 4. History of CVA. 5. Cardiomyopathy with ejection fraction 45%. 6. Chronic ventilator therapy. 7. Anemia. 8. Hypoalbuminemia. PLAN: This patient was seen in cardiac consultation. Once the GI bleed is excluded, she will be placed back on anticoagulation with Eliquis when possible. Blood transfusion as necessary. Source of anemia needs to be identified. Eliquis is at this time being withheld. The patient will be continued on otherwise usual medications from home except for Eliquis and aspirin. Amiodarone, she has been taking q.8 h., not sure why such a high dose. She is also on metoprolol, given for heart rate control. Those two will be continued, the amiodarone will be decreased to 200 mg twice a day for the time being, suspect that she may be getting it for her ventricular arrest. Isai Anglin M.D. DR: SRUTHI JOB#: [id number] CC:
--- NOTE | 2018-09-15 03:00 | NUR ---
NURSE NOTES: Noted VRE in rectum positive. Informed Dr. Donovan. Will continue to monitor any change of condition. Continue to proper contact isolation.
[2018-09-15 04:00] VITALS: BP 117/92
[2018-09-15] MEDS: NovoLOG Insulin Flexpen SUBQ SCH ×3 (05:56→18:21)
[2018-09-15 06:06] LABS: MEAN CORPUSCULAR VOLUME 82 FL (80-99); PLATELET COUNT 589 K/UL (150-450); RED BLOOD COUNT 2.92 M/UL (4.20-5.40); RED CELL DISTRIBUTION WIDTH 17.3 % (11.6-14.8); WHITE BLOOD COUNT 16.3 K/UL (4.8-10.8)
[2018-09-15 06:11] LABS: HEMOGLOBIN 7.6 G/DL (12.0-16.0)
[2018-09-15 06:34] LABS: INR 1.2 (0.9-1.1)
[2018-09-15 06:35] LABS: ALANINE AMINOTRANSFERASE 19 U/L (12-78); ALBUMIN 1.2 G/DL (3.4-5.0); ALBUMIN/GLOBULIN RATIO 0.2 (1.0-2.7); ALKALINE PHOSPHATASE 123 U/L (46-116); ANION GAP 6 mmol/L (5-15); ASPARTATE AMINO TRANSFERASE 15 U/L (15-37); BILIRUBIN,TOTAL 0.3 MG/DL (0.2-1.0); BLOOD UREA NITROGEN 12 mg/dL (7-18); CALCIUM 8.8 MG/DL (8.5-10.1); CARBON DIOXIDE 31 MMOL/L (21-32); CHLORIDE 108 MMOL/L (98-107); CREATININE 0.6 MG/DL (0.55-1.30); POTASSIUM 3.3 MMOL/L (3.5-5.1); SODIUM 145 MMOL/L (136-145)
--- NOTE | 2018-09-15 06:53 | NUR ---
NURSE NOTES: Noted Her potassium level is 3.3 and Mg is 1.6. Left message to Dr. Frey and Her H & H is 7.6/24.0 today and Left message to Dr. Brewster and awaiting call back.
--- NOTE | 2018-09-15 07:01 | NUR ---
NURSE NOTES: Get call back from Dr. Brewster and new order received with PRBC 1 uint blood transfusion. Will continue to monitor any change of condition.
--- NOTE | 2018-09-15 07:10 | NUR ---
NURSE NOTES: Get call back from Dr. Frey and new order received.
--- NOTE | 2018-09-15 07:31 | Infectious Diseases Prog Note ---
Assessment/Plan Assessment/Plan Abx: IV Vancomycin 09/13- Cefepime 09/13- Amikacin 09/13- Zosyn x1 09/13 Assessment: Sepsis- ?PNA vs 2ry to wound infection -CXR: Limited evaluation with suboptimal positioning. Cardiomegaly and slight prominence of the pulmonary vascularity which may suggest mild congestive changes/interstitial edema. Streaky opacities at the right base possibly related to subsegmental atelectasis. Pneumonia should be excluded clinically. Tracheostomy tube and pacemaker noted. -u/a wbc 10-15, nit neg, leuk +3; sq cells moderate (improper collection give high amount of sq cells); repeat u/a wbc 5-10, nit neg, leuk +1, sq cells few; ucx p Sputum Cx 09/14/18 - GNR Urine Cx 09/13/18 - Yeast Acute on chronic anemia- ?bleeding Afebrile Leukocytosis; increased Sacral decubitus ulcer stage IV- chronic OM and necrotic tissue\ chronic respiratory failure trach/vent dependant s/p PEG S/p AICD vegetative state Afib on AC IN resident Plan: -Continue empiric IV Vancomycin, Cefepime and Flagyl #3 pending cultures -09/13 SPAmikacin #1, Zosyn x1 -f/u cx -Monitor CBC/CMP, temperatures -wound care per surgical team -wound cx -Sx f/u -Trach/PEG care -aspiration precautions -Cdiff if diarrhea Thank you for this consultation. Will continue to follow along with you. Subjective Allergies: Coded Allergies: ALPRAZOLAM (Verified Allergy, Unknown, 09/13/18) Subjective Aferbile WBC down to 16 Sputum growing GNR Objective Vital Signs Last 24 Hour Vital Signs Date Time Temp Pulse Resp B/P (MAP) Pulse Ox O2 Delivery O2 Flow Rate FiO2 09/15/18 06:58 89 14 40 09/15/18 04:37 95 14 40 09/15/18 04:00 Mechanical Ventilator 09/15/18 04:00 98 09/15/18 04:00 98.4 98 19 117/92 (100) 100 09/15/18 04:00 40 09/15/18 03:10 76 14 40 09/15/18 00:58 83 14 40 09/15/18 00:00 Mechanical Ventilator 09/15/18 00:00 40 09/15/18 00:00 84 09/15/18 00:00 98.8 86 19 95/67 (76) 100 09/14/18 22:57 80 14 40 09/14/18 21:20 89 14 40 09/14/18 20:44 99 118/71 09/14/18 20:00 99.5 105 19 118/71 (87) 100 09/14/18 20:00 Mechanical Ventilator 09/14/18 20:00 98 09/14/18 20:00 40 09/14/18 18:53 103 16 40 09/14/18 16:50 107 18 40 09/14/18 16:00 Mechanical Ventilator 09/14/18 16:00 95 09/14/18 16:00 40 09/14/18 16:00 98.1 113 19 111/67 (82) 97 09/14/18 14:40 114 19 40 09/14/18 13:01 113 14 40 09/14/18 12:00 40 09/14/18 12:00 97.9 103 17 101/58 (72) 100 09/14/18 12:00 Mechanical Ventilator 09/14/18 11:36 111 09/14/18 10:24 107 14 40 09/14/18 08:45 105 15 40 09/14/18 08:00 97.8 129 14 129/70 (89) 100 09/14/18 08:00 Mechanical Ventilator 09/14/18 08:00 40 09/14/18 07:42 92 09/14/18 07:37 63 14 40 Height (Feet): 5 Height (Inches): 8.00 Weight (Pounds): 232 Objective General Appearance: no apparent distress on 40% via vent HEENT: NCAT mucous membranes moist, Trached Respiratory/Chest: Coarse B/L Cardiovascular/Chest: regularly irregular, S1, S2 Abdomen: Soft, ND, PEG (No E/P) Neurologic: No following Microbiology Date/Time Source Procedure Growth Status 09/13/18 04:15 Blood Blood Culture - Preliminary NO GROWTH AFTER 48 HOURS Resulted 09/13/18 04:00 Blood Blood Culture - Preliminary NO GROWTH AFTER 48 HOURS Resulted 09/14/18 04:00 Sputum Induced Gram Stain - Final Resulted 09/14/18 04:00 Sputum Culture - Preliminary Gram Negative Jose Resulted 09/13/18 04:00 Nose MRSA Culture - Final NO METHICILLIN RESISTANT STAPH AUREUS... Complete 09/13/18 17:33 Urine,Clean Catch Urine Culture - Preliminary Yeast Species Resulted 09/13/18 03:20 Urine,Clean Catch Urine Culture - Final Benita Tropicalis Complete 09/14/18 19:43 Sacral Wound Gram Stain - Final Resulted 09/14/18 19:43 Sacral Wound Wound Culture Pending Resulted 09/13/18 04:00 Rectum - Final NO CARBAPENEM-RESISTANT ENTEROBACTERI... Complete 09/13/18 04:00 Rectum VRE Culture - Final Enterococcus Faecium - Vre Complete Laboratory Tests Test 09/14/18 20:15 09/15/18 05:10 Vancomycin Level Trough 10.2 ug/mL (5.0-12.0) White Blood Count 16.3 K/UL (4.8-10.8) H Red Blood Count 2.92 M/UL (4.20-5.40) L Hemoglobin 7.6 G/DL (12.0-16.0) L Hematocrit 24.0 % (37.0-47.0) L Mean Corpuscular Volume 82 FL (80-99) Mean Corpuscular Hemoglobin 26.2 PG (27.0-31.0) L Mean Corpuscular Hemoglobin Concent 31.8 G/DL (32.0-36.0) L Red Cell Distribution Width 17.3 % (11.6-14.8) H Platelet Count 589 K/UL (150-450) H Mean Platelet Volume 5.8 FL (6.5-10.1) L Neutrophils (%) (Auto) % (45.0-75.0) Lymphocytes (%) (Auto) % (20.0-45.0) Monocytes (%) (Auto) % (1.0-10.0) Eosinophils (%) (Auto) % (0.0-3.0) Basophils (%) (Auto) % (0.0-2.0) Neutrophils % (Manual) Pending Lymphocytes % (Manual) Pending Platelet Estimate Pending Platelet Morphology Pending Prothrombin Time 12.7 SEC (9.30-11.50) H Prothromb Time International Ratio 1.2 (0.9-1.1) H Activated Partial Thromboplast Time 34 SEC (23-33) H Sodium Level 145 MMOL/L (136-145) Potassium Level 3.3 MMOL/L (3.5-5.1) L Chloride Level 108 MMOL/L (98-107) H Carbon Dioxide Level 31 MMOL/L (21-32) Anion Gap 6 mmol/L (5-15) Blood Urea Nitrogen 12 mg/dL (7-18) Creatinine 0.6 MG/DL (0.55-1.30) Estimat Glomerular Filtration Rate mL/min (>60) Glucose Level 151 MG/DL (74-106) H Calcium Level 8.8 MG/DL (8.5-10.1) Phosphorus Level 3.0 MG/DL (2.5-4.9) Magnesium Level 1.6 MG/DL (1.8-2.4) L Total Bilirubin 0.3 MG/DL (0.2-1.0) Aspartate Amino Transf (AST/SGOT) 15 U/L (15-37) Alanine Aminotransferase (ALT/SGPT) 19 U/L (12-78) Alkaline Phosphatase 123 U/L (46-116) H Troponin I 0.047 ng/mL (0.000-0.056) Pro-B-Type Natriuretic Peptide 8056 pg/mL (0-125) H Total Protein 6.8 G/DL (6.4-8.2) Albumin 1.2 G/DL (3.4-5.0) L Globulin 5.6 g/dL Albumin/Globulin Ratio 0.2 (1.0-2.7) L Current Medications Medications (Trade) Dose Ordered Sig/Rosy Route PRN Reason Start Time Stop Time Status Last Admin Dose Admin Acetaminophen (Tylenol) 650 mg Q4H PRN GT FEVER 09/13/18 11:45 10/13/18 06:59 Albuterol/ Ipratropium (Albuterol/ Ipratropium) 3 ml Q4H PRN HHN Shortness of Breath 09/13/18 07:00 09/18/18 06:59 Amiodarone HCl (Cordarone) 200 mg EVERY 12 HOURS ORAL 09/14/18 21:00 10/14/18 20:59 09/14/18 20:40 Cefepime HCl 1 gm/ Dextrose 55 ml @ 110 mls/hr EVERY 12 HOURS IVPB 09/13/18 21:00 09/20/18 20:59 09/14/18 20:41 Chlorhexidine Gluconate (Elizabeth-Hex 2%) 1 applic DAILY@2000 TOPIC 09/14/18 20:00 10/14/18 19:59 09/14/18 20:16 Dextrose (Dextrose 50%) 25 ml Q30M PRN IV Hypoglycemia 09/13/18 08:15 10/13/18 08:14 Dextrose (Dextrose 50%) 50 ml Q30M PRN IV Hypoglycemia 09/13/18 08:15 10/13/18 08:14 Heparin Sodium (Porcine) (Heparin 5000 units/ml) 5,000 units EVERY 12 HOURS SUBQ 09/13/18 09:00 10/13/18 08:59 09/14/18 09:15 Insulin Aspart (NovoLOG) EVERY 6 HOURS SUBQ 09/13/18 12:00 10/13/18 11:59 09/15/18 05:56 Levetiracetam (Keppra) 500 mg Q12HR GT 09/13/18 21:00 10/13/18 20:59 09/14/18 20:40 Lorazepam (Ativan 2mg/ml 1ml) 2 mg Q2H PRN IV For Anxiety 09/13/18 07:00 09/20/18 06:59 Magnesium Sulfate 100 ml @ 100 mls/hr Q1H IVPB 09/15/18 09:00 09/15/18 10:59 Metoprolol Tartrate (Lopressor) 12.5 mg Q12HR ORAL 09/14/18 21:00 10/14/18 20:59 09/14/18 20:44 Metronidazole 100 ml @ 100 mls/hr Q8HR IVPB 09/13/18 14:00 09/20/18 13:59 09/15/18 05:34 Morphine Sulfate (Morphine Sulfate) 4 mg Q4H PRN IVP Severe Pain (Pain Scale 7-10) 09/13/18 07:00 09/20/18 06:59 Ondansetron HCl (Zofran) 4 mg Q6H PRN IVP Nausea & Vomiting 09/13/18 07:00 10/13/18 06:59 Pantoprazole (Protonix) 40 mg DAILY IV 09/13/18 09:00 10/13/18 08:59 09/14/18 09:12 Polyethylene Glycol (Miralax) 17 gm DAILYPRN PRN GT Constipation 09/13/18 11:45 10/13/18 06:59 Potassium Chloride 100 ml @ 100 mls/hr Q1H IVPB 09/15/18 08:00 09/15/18 08:59 Vancomycin HCl (Vanco rx to dose) 1 ea DAILY PRN MISC PER PHARMACY 09/13/18 07:00 10/13/18 06:59 Vancomycin HCl/ Dextrose 275 ml @ 183.333 mls/hr Q12HR IVPB 09/14/18 22:00 09/19/18 21:59 09/14/18 22:56 Suleman Mcguire MD Sep 15, 2018 07:31
--- NOTE | 2018-09-15 07:44 | NUR ---
HAND-OFF: Report given to SANTA Chavarria. Pt is resting on the bed and no sign of acute distress noted.
[2018-09-15 08:00] VITALS: BP 127/94
--- NOTE | 2018-09-15 08:15 | NUR ---
NURSE NOTES: Report received from SANTA Stewart.Asleep easily arousal to tactile and verbal stimuli.On trach and vent Radha 8 AC 14 Vt600 FiO2 40% Peep 5. Running Glucerna 1.5 at 45cc.GT placement intact,residual 0 at this time.Abdomen soft and rounded.Mayo catheter in place draining yellowish urine with no apparent sediments.HOB elevated to prevent aspiration.Left femoral line with dressing clean and intact.Turned and repositioned.Mouth care done.Call light within easy reach.Kept clean dry and comfortable.
[2018-09-15] MEDS: levETIRAcetam 500mg/5ml Liquid GT SCH ×2 (09:00→21:09)
[2018-09-15] MEDS: Amiodarone 200mg tab ORAL SCH (09:00)
[2018-09-15] MEDS: Metoprolol Tartrate 12.5mg TAB ORAL SCH ×2 (09:00→22:04)
[2018-09-15] MEDS: Pantoprazole Inj IV SCH (09:00)
[2018-09-15] MEDS: Vancomycin 1.25gm Premix IVPB SCH ×2 (09:01→21:10)
[2018-09-15] MEDS: Cefepime HCl 1 GM in D5W 55 ML IVPB SCH ×2 (09:01→21:14)
[2018-09-15] MEDS: Heparin 5000 units/ml inj SUBQ SCH ×2 (09:18→21:12)
--- NOTE | 2018-09-15 10:29 | NUR ---
NURSE NOTES: Left message to daughter Ann Marie regarding wound debridement consent.Awaiting call back.Blood transfusion started with no ADR noted after 15mn.Will continue to monitor.Turned and repositioned.Kept clean and dry.Wound care done and dressing changed.Call light within easy reach.
--- NOTE | 2018-09-15 10:44 | NUR ---
RD ASSESSMENT & RECOMMENDATIONS SEE CARE ACTIVITY FOR COMPLETE ASSESSMENT DAILY ESTIMATED NEEDS: Needs based on Critical care, obese, wound 67kg adj 22-27 kcals/kg 3694-6990 total kcals 1.25-2 g protein/kg 84-134 g total protein 25-30 mL/kg 6433-5012 total fluid mLs NUTRITION DIAGNOSIS: 1) Increased kcal and protein needs r/t wound healing as evidenced by pt w/ multiple wounds including sacral full thickness wound w/ bone exposure at base of wound per WC eval and DTPI @ lt heel. 2) Swallowing difficulty r/t respiratory status as evidenced by pt is vent dep via trach, PEG dep. CURRENT TF:Glucerna 1.5 @45ml/hr x24 hrs ENTERAL NUTRITION RECOMMENDATIONS: Glucerna 1.5 @45ml/hr x24 hrs + Prosource 1 pack daily to provide 1080ml, 1620 kcal, 89g + 11g pro, 820ml free H20 - Add Prosource 1 pack daily to better meet est prot needs - Flush per MD / HOB over 30 degrees ADDITIONAL RECOMMENDATIONS: 1) Re-calibrate bed scale as able for accurate CBW 2) TF recs as above 3) Wound care: Add SANDRA BID + VIT C 250mg BID 4) Check lytes daily, replete as needed .
[2018-09-15 12:00] VITALS: BP 112/72
--- NOTE | 2018-09-15 12:11 | NUR ---
NURSE NOTES: Patient turned and repositioned.HOB elevated to prevent aspiration.Kept clean and dry, call light within reach.Suctioned patient as tolerated. Will continue to monitor.
--- NOTE | 2018-09-15 13:20 | NUR ---
NURSE NOTES: Blood transfusion completed with no ADR noted.Will continue to monitor.
--- NOTE | 2018-09-15 14:02 | NUR ---
NURSE NOTES: Patient turned and repositioned.Mouth care done, kept clean and dry.Call light within easy reach
--- NOTE | 2018-09-15 15:11 | Cardiology Report ---
APPROVED REPORT EXAM: Two-dimensional and M-mode echocardiogram with Doppler and color Doppler. INDICATION Coronary artery disease M-Mode DIMENSIONS IVSd1.5 (0.7-1.1cm)Left Atrium (MM)4.2 (1.6-4.0cm) LVDd6.1 (3.5-5.6cm)Aortic Root3.1 (2.0-3.7cm) PWd1.1 (0.7-1.1cm)Aortic Cusp Exc.2.0 (1.5-2.0cm) LVDs5.5 (2.5-4.0cm) PWs1.4 cm Global left ventricular hypokinesis, with apical akinesis, can not exclude ischemic cardiomyopathy. Mild left ventricular enlargement. Left ventricular ejection fraction estimated to be 15-20 %. Mild left ventricular hypertrophy. No evidence of pericardial effusion. Mild left atrial enlargement. Right atrial size at upper limits of normal. Right ventricular chamber sizes is within normal limits. Mild focal aortic valve sclerosis with adequate cusp excursion. Mildly thickened mitral valve leaflets with normal excursion. Mild mitral annulus and aortic root calcification. Pulmonic valve not well visualized. Normal tricuspid valve structure. IVC dilated at 2.8 cm without physiological collapse, suggestive of increased RA pressure. A color flow and spectral Doppler study was performed and revealed: Mild aortic insufficiency. Moderate to severe mitral regurgitation. Left ventricular diastolic function could not be determined due to A-Fib. Mild tricuspid regurgitation. Tricuspid systolic velocities suggests peak right ventricular systolic pressure of 58 mmHg, consistent with moderate to severe pulmonary hypertension. Trace pulmonic regurgitation present.
--- NOTE | 2018-09-15 15:15 | Internal Med Progress Note ---
Subjective Date of Service: Sep 15, 2018 Physician Name Ruddy George Attending Physician Ariel Frey MD Current Medications Medications (Trade) Dose Ordered Sig/Rosy Route PRN Reason Start Time Stop Time Status Last Admin Dose Admin Acetaminophen (Tylenol) 650 mg Q4H PRN GT FEVER 09/13/18 11:45 10/13/18 06:59 Albuterol/ Ipratropium (Albuterol/ Ipratropium) 3 ml Q4H PRN HHN Shortness of Breath 09/13/18 07:00 09/18/18 06:59 Amiodarone HCl (Cordarone) 200 mg EVERY 12 HOURS ORAL 09/14/18 21:00 10/14/18 20:59 09/15/18 09:00 Cefepime HCl 1 gm/ Dextrose 55 ml @ 110 mls/hr EVERY 12 HOURS IVPB 09/13/18 21:00 09/20/18 20:59 09/15/18 09:01 Chlorhexidine Gluconate (Elizabeth-Hex 2%) 1 applic DAILY@2000 TOPIC 09/14/18 20:00 10/14/18 19:59 09/14/18 20:16 Dextrose (Dextrose 50%) 25 ml Q30M PRN IV Hypoglycemia 09/13/18 08:15 10/13/18 08:14 Dextrose (Dextrose 50%) 50 ml Q30M PRN IV Hypoglycemia 09/13/18 08:15 10/13/18 08:14 Heparin Sodium (Porcine) (Heparin 5000 units/ml) 5,000 units EVERY 12 HOURS SUBQ 09/13/18 09:00 10/13/18 08:59 09/15/18 09:18 Insulin Aspart (NovoLOG) EVERY 6 HOURS SUBQ 09/13/18 12:00 10/13/18 11:59 09/15/18 12:14 Levetiracetam (Keppra) 500 mg Q12HR GT 09/13/18 21:00 10/13/18 20:59 09/15/18 09:00 Lorazepam (Ativan 2mg/ml 1ml) 2 mg Q2H PRN IV For Anxiety 09/13/18 07:00 09/20/18 06:59 Metoprolol Tartrate (Lopressor) 12.5 mg Q12HR ORAL 09/14/18 21:00 10/14/18 20:59 09/15/18 09:00 Metronidazole 100 ml @ 100 mls/hr Q8HR IVPB 09/13/18 14:00 09/20/18 13:59 09/15/18 13:06 Morphine Sulfate (Morphine Sulfate) 4 mg Q4H PRN IVP Severe Pain (Pain Scale 7-10) 09/13/18 07:00 09/20/18 06:59 Ondansetron HCl (Zofran) 4 mg Q6H PRN IVP Nausea & Vomiting 09/13/18 07:00 10/13/18 06:59 Pantoprazole (Protonix) 40 mg DAILY IV 09/13/18 09:00 10/13/18 08:59 09/15/18 09:00 Polyethylene Glycol (Miralax) 17 gm DAILYPRN PRN GT Constipation 09/13/18 11:45 10/13/18 06:59 Vancomycin HCl (Vanco rx to dose) 1 ea DAILY PRN MISC PER PHARMACY 09/13/18 07:00 10/13/18 06:59 Vancomycin HCl/ Dextrose 275 ml @ 183.333 mls/hr Q12HR IVPB 09/14/18 22:00 09/19/18 21:59 09/15/18 09:01 Allergies: Coded Allergies: ALPRAZOLAM (Verified Allergy, Unknown, 09/13/18) ROS Limited/Unobtainable: Yes Subjective 72 YO vent dep F admitted with dyspnea. Now pneumonia. Cover for Int Med-DR Negron. DULCE Objective Last Vital Signs Date Time Temp Pulse Resp B/P (MAP) Pulse Ox O2 Delivery O2 Flow Rate FiO2 09/15/18 15:11 67 16 40 09/15/18 12:00 Mechanical Ventilator 09/15/18 12:00 97.8 112/72 (85) 100 Laboratory Tests Test 09/14/18 20:15 09/15/18 05:10 Vancomycin Level Trough 10.2 ug/mL (5.0-12.0) White Blood Count 16.3 K/UL (4.8-10.8) H Red Blood Count 2.92 M/UL (4.20-5.40) L Hemoglobin 7.6 G/DL (12.0-16.0) L Hematocrit 24.0 % (37.0-47.0) L Mean Corpuscular Volume 82 FL (80-99) Mean Corpuscular Hemoglobin 26.2 PG (27.0-31.0) L Mean Corpuscular Hemoglobin Concent 31.8 G/DL (32.0-36.0) L Red Cell Distribution Width 17.3 % (11.6-14.8) H Platelet Count 589 K/UL (150-450) H Mean Platelet Volume 5.8 FL (6.5-10.1) L Neutrophils (%) (Auto) % (45.0-75.0) Lymphocytes (%) (Auto) % (20.0-45.0) Monocytes (%) (Auto) % (1.0-10.0) Eosinophils (%) (Auto) % (0.0-3.0) Basophils (%) (Auto) % (0.0-2.0) Differential Total Cells Counted 100 Neutrophils % (Manual) 82 % (45-75) H Lymphocytes % (Manual) 13 % (20-45) L Monocytes % (Manual) 5 % (1-10) Eosinophils % (Manual) 0 % (0-3) Basophils % (Manual) 0 % (0-2) Band Neutrophils 0 % (0-8) Platelet Estimate Increased H Platelet Morphology Normal Polychromasia 1+ Hypochromasia 2+ Anisocytosis 1+ Prothrombin Time 12.7 SEC (9.30-11.50) H Prothromb Time International Ratio 1.2 (0.9-1.1) H Activated Partial Thromboplast Time 34 SEC (23-33) H Sodium Level 145 MMOL/L (136-145) Potassium Level 3.3 MMOL/L (3.5-5.1) L Chloride Level 108 MMOL/L (98-107) H Carbon Dioxide Level 31 MMOL/L (21-32) Anion Gap 6 mmol/L (5-15) Blood Urea Nitrogen 12 mg/dL (7-18) Creatinine 0.6 MG/DL (0.55-1.30) Estimat Glomerular Filtration Rate mL/min (>60) Glucose Level 151 MG/DL (74-106) H Calcium Level 8.8 MG/DL (8.5-10.1) Phosphorus Level 3.0 MG/DL (2.5-4.9) Magnesium Level 1.6 MG/DL (1.8-2.4) L Total Bilirubin 0.3 MG/DL (0.2-1.0) Aspartate Amino Transf (AST/SGOT) 15 U/L (15-37) Alanine Aminotransferase (ALT/SGPT) 19 U/L (12-78) Alkaline Phosphatase 123 U/L (46-116) H Troponin I 0.047 ng/mL (0.000-0.056) Pro-B-Type Natriuretic Peptide 8056 pg/mL (0-125) H Total Protein 6.8 G/DL (6.4-8.2) Albumin 1.2 G/DL (3.4-5.0) L Globulin 5.6 g/dL Albumin/Globulin Ratio 0.2 (1.0-2.7) L Microbiology Date/Time Source Procedure Growth Status 09/13/18 04:15 Blood Blood Culture - Preliminary NO GROWTH AFTER 48 HOURS Resulted 09/13/18 04:00 Blood Blood Culture - Preliminary NO GROWTH AFTER 48 HOURS Resulted 09/14/18 04:00 Sputum Induced Gram Stain - Final Resulted 09/14/18 04:00 Sputum Culture - Preliminary Gram Negative Jose Resulted 09/13/18 04:00 Nose MRSA Culture - Final NO METHICILLIN RESISTANT STAPH AUREUS... Complete 09/13/18 17:33 Urine,Clean Catch Urine Culture - Preliminary Yeast Species Resulted 09/13/18 03:20 Urine,Clean Catch Urine Culture - Final Benita Tropicalis Complete 09/14/18 19:43 Sacral Wound Gram Stain - Final Resulted 09/14/18 19:43 Sacral Wound Wound Culture Pending Resulted 09/13/18 04:00 Rectum - Final NO CARBAPENEM-RESISTANT ENTEROBACTERI... Complete 09/13/18 04:00 Rectum VRE Culture - Final Enterococcus Faecium - Vre Complete Intake and Output 09/14/18 09/15/18 19:00 07:00 Intake Total 1678.000 ml 1025.000 ml Output Total 500 ml 400 ml Balance 1178.000 ml 625.000 ml Intake Free Water 150 ml IV Total 430.000 ml 530.000 ml Tube Feeding 540 ml 495 ml Blood Product 558 ml Output Urine Total 500 ml 400 ml # Bowel Movements 1 2 Objective PHYSICAL EXAMINATION: GENERAL: The patient is well-developed and well-nourished female who is intubated and sedated. HEENT: Eyes, pupils equal and responsive to light and accommodation. Extraocular movements are intact. The patient has a tracheostomy tube in place. CHEST: Diffuse coarse breath sounds bilaterally without wheezes or rales. CARDIOVASCULAR: Irregular rhythm and irregular rate. S1 and S2 normal without murmurs, rubs, or gallops. ABDOMEN: Soft, nontender, and nondistended. Positive bowel sounds. No hepatosplenomegaly. Currently, no rebound or guarding noted. EXTREMITIES: Negative for clubbing, cyanosis, or edema. RECTAL/GENITAL: Not performed. NEUROLOGIC: Cranial nerves II through XII grossly intact without focal deficits. Assessment/Plan Assessment/Plan ASSESSMENT: The patient is a 72-year-old female. 1. Right lower lobe pneumonia. 2. Leukocytosis. 3. Elevated troponin. 4. Acute on chronic congestive heart failure. 5. Chronic obstructive pulmonary disease. 6. Ventilator-dependent respiratory failure. 7. Diabetes type 2. 8. Hypertension. 9. Coronary artery disease. 10. Metabolic encephalopathy. 11. Seizure disorder. 12. Dysphagia. 13. Tracheostomy. 14. Quadriplegia. TREATMENT: 1. Right lower lobe pneumonia plus leukocytosis. A Pulmonary consultation obtained with Dr. Ariel Frey. The patient has been started empirically on vancomycin, cefepime, and amikacin per recommendation of Infectious Disease. 2. Elevated troponin/congestive heart failure. Cardiology consultation obtained with Dr. Isai Anglin. The patient is currently receiving intravenous Lasix. 3. Ventilator-dependent respiratory failure. As above, a Pulmonary consultation obtained with Dr. Ariel Frey. 4. Diabetes type 2. The patient was admitted off insulin. 5. Hypertension, the patient is currently hypotensive. 6. Coronary artery disease. 7. Metabolic encephalopathy. 8. Seizure disorder. Continue Keppra as above. 9. Dysphagia. The patient is status post PEG placement. Continue tube feeds as above. 10. Tracheostomy in situ. 11. Quadriplegia. Ruddy George MD Sep 15, 2018 15:15
[2018-09-15 16:00] VITALS: BP 106/56
--- NOTE | 2018-09-15 16:04 | NUR ---
NURSE NOTES: Patient turned and repositioned.HOB elevated to prevent aspiration.Call light within easy reach.Kept clean dry and comfortable.
--- NOTE | 2018-09-15 16:21 | NUR ---
CASE MANAGEMENT: REVIEW SI: A-FIB . ANEMIA . SACRAL DECUBITUS ULCER T 98.5 HR 100 RR 17 BP 106/56 SAT MECH VENT FIO2 40 IS: VANCO IV Q12HR LOPRESSOR PO Q12HR AMIODARONE PO Q12HR CEFEPIME IV Q12HR STEP DOWN UNIT STATUS DCP: PATIENT IS FROM [facility]
--- NOTE | 2018-09-15 17:05 | Surgery Progress Note ---
Surgery Progress Note Subjective Additional Comments no acute events. exam unchanged. spoke with family yesterday and informed them of medical condition and current plans consent obtained from daughter. Objective Last 24 Hour Vital Signs Date Time Temp Pulse Resp B/P (MAP) Pulse Ox O2 Delivery O2 Flow Rate FiO2 09/15/18 16:00 Mechanical Ventilator 09/15/18 16:00 98.6 100 17 106/56 (73) 100 09/15/18 16:00 84 09/15/18 16:00 40 09/15/18 15:11 67 16 40 09/15/18 13:13 62 14 40 09/15/18 12:00 Mechanical Ventilator 09/15/18 12:00 82 09/15/18 12:00 40 09/15/18 12:00 97.8 80 16 112/72 (85) 100 09/15/18 11:25 97 14 40 09/15/18 09:15 92 14 40 09/15/18 09:00 105 127/94 09/15/18 08:00 40 09/15/18 08:00 97.9 105 16 127/94 (105) 100 09/15/18 08:00 Mechanical Ventilator 09/15/18 08:00 104 09/15/18 06:58 89 14 40 09/15/18 04:37 95 14 40 09/15/18 04:00 Mechanical Ventilator 09/15/18 04:00 98 09/15/18 04:00 98.4 98 19 117/92 (100) 100 09/15/18 04:00 40 09/15/18 03:10 76 14 40 09/15/18 00:58 83 14 40 09/15/18 00:00 Mechanical Ventilator 09/15/18 00:00 40 09/15/18 00:00 84 09/15/18 00:00 98.8 86 19 95/67 (76) 100 09/14/18 22:57 80 14 40 09/14/18 21:20 89 14 40 09/14/18 20:44 99 118/71 09/14/18 20:00 99.5 105 19 118/71 (87) 100 09/14/18 20:00 Mechanical Ventilator 09/14/18 20:00 98 09/14/18 20:00 40 09/14/18 18:53 103 16 40 I&O Intake and Output 09/14/18 09/15/18 19:00 07:00 Intake Total 1678.000 ml 1025.000 ml Output Total 500 ml 400 ml Balance 1178.000 ml 625.000 ml Intake Free Water 150 ml IV Total 430.000 ml 530.000 ml Tube Feeding 540 ml 495 ml Blood Product 558 ml Output Urine Total 500 ml 400 ml # Bowel Movements 1 2 Dressing: saturated Wound: other Drains: other Cardiovascular: RSR Respiratory: decreased breath sounds Abdomen: soft, present bowel sounds, non-distended Extremities: no cyanosis, other Laboratory Tests Test 09/14/18 20:15 09/15/18 05:10 Vancomycin Level Trough 10.2 ug/mL (5.0-12.0) White Blood Count 16.3 K/UL (4.8-10.8) H Red Blood Count 2.92 M/UL (4.20-5.40) L Hemoglobin 7.6 G/DL (12.0-16.0) L Hematocrit 24.0 % (37.0-47.0) L Mean Corpuscular Volume 82 FL (80-99) Mean Corpuscular Hemoglobin 26.2 PG (27.0-31.0) L Mean Corpuscular Hemoglobin Concent 31.8 G/DL (32.0-36.0) L Red Cell Distribution Width 17.3 % (11.6-14.8) H Platelet Count 589 K/UL (150-450) H Mean Platelet Volume 5.8 FL (6.5-10.1) L Neutrophils (%) (Auto) % (45.0-75.0) Lymphocytes (%) (Auto) % (20.0-45.0) Monocytes (%) (Auto) % (1.0-10.0) Eosinophils (%) (Auto) % (0.0-3.0) Basophils (%) (Auto) % (0.0-2.0) Differential Total Cells Counted 100 Neutrophils % (Manual) 82 % (45-75) H Lymphocytes % (Manual) 13 % (20-45) L Monocytes % (Manual) 5 % (1-10) Eosinophils % (Manual) 0 % (0-3) Basophils % (Manual) 0 % (0-2) Band Neutrophils 0 % (0-8) Platelet Estimate Increased H Platelet Morphology Normal Polychromasia 1+ Hypochromasia 2+ Anisocytosis 1+ Prothrombin Time 12.7 SEC (9.30-11.50) H Prothromb Time International Ratio 1.2 (0.9-1.1) H Activated Partial Thromboplast Time 34 SEC (23-33) H Sodium Level 145 MMOL/L (136-145) Potassium Level 3.3 MMOL/L (3.5-5.1) L Chloride Level 108 MMOL/L (98-107) H Carbon Dioxide Level 31 MMOL/L (21-32) Anion Gap 6 mmol/L (5-15) Blood Urea Nitrogen 12 mg/dL (7-18) Creatinine 0.6 MG/DL (0.55-1.30) Estimat Glomerular Filtration Rate mL/min (>60) Glucose Level 151 MG/DL (74-106) H Calcium Level 8.8 MG/DL (8.5-10.1) Phosphorus Level 3.0 MG/DL (2.5-4.9) Magnesium Level 1.6 MG/DL (1.8-2.4) L Total Bilirubin 0.3 MG/DL (0.2-1.0) Aspartate Amino Transf (AST/SGOT) 15 U/L (15-37) Alanine Aminotransferase (ALT/SGPT) 19 U/L (12-78) Alkaline Phosphatase 123 U/L (46-116) H Troponin I 0.047 ng/mL (0.000-0.056) Pro-B-Type Natriuretic Peptide 8056 pg/mL (0-125) H Total Protein 6.8 G/DL (6.4-8.2) Albumin 1.2 G/DL (3.4-5.0) L Globulin 5.6 g/dL Albumin/Globulin Ratio 0.2 (1.0-2.7) L Plan Problems: (1) Contracture of multiple joints (2) ICD (implantable cardioverter-defibrillator) in place (3) Sepsis Assessment & Plan: leukocytosis abnormal labs septic on IV abx as per ID micro noted wounds unlikely etiology of sepsis will follow with recs (4) Sacral decubitus ulcer Assessment & Plan: Pt presented on admission with multiple pressure injuries. Stage 4 Full thickness pressure injury to sacrum. Base of wound with 75% mixed soft necrosis and fibrinous soria slough extending into undermined areas of wound.Bone exposure at base of wound. Maroon discoloration with induration along borders and periwound.Clockwise at 12 o'clock along borders, an area of necrosis noted.Wound is malodorous. (L)8.3cm x (W)8.5cm x (D)4.5cm,Undermining 9 -4 by 4cm at 11o'clock. At R buttocks in close proximity to sacrum, maroon discoloration that is indurated noted (L)1.5cm x(W)2.5cm. DTPI noted to plantar L heel. Wound is fluctuant and opague in centre,with small area that is black ,with surrounding erythema.Non-blanchable erythema without fluctuance periwound. DTPI noted to L heel. Maroon discoloration extending from heel into plantar aspect of heel .Base of wound is fluctuant. Non-blanchable erythema noted to lateral aspect of L heel.(L)8cm x (W)5cm. Maroon discoloration without fluctuance or induration noted to lateral L malleolus(L)1cm x (W)1cm. Tx.Plan: Apply wet to dry gauze dressing to sacral wound TID. Apply Cavilon Skin Barrier to L heel.Cover with Optifoam drsg. Change every 7 days and prn. Apply Cavilon Skin Barrier to R heel. Cover with Optifoam drsg.Change every 7 days and prn. Apply Cavilon Skin Barrier to L lateral Malleolus. Cover with Optifoam drsg.Change every 7 days and prn. Apply Triad Paste to bilat groin areas and both ischial areas with each perineal care. Air Fluidized Mattress. Reposition at least every 2hours or as tolerated. Spoke with daughter and explained physical exam findings from sacral wound. recommend debridement. consent obtained. will schedule soon (5) UTI (urinary tract infection) (6) Pneumonia (7) Atrial fibrillation (8) Anemia (9) Chronic respiratory failure (10) Chronic vegetative state (11) Feeding by G-tube Assessment & Plan: DAILY ESTIMATED NEEDS: Needs based on Critical care, obese, wound 67kg adj 22-27 kcals/kg 1413-4572 total kcals 1.25-2 g protein/kg 84-134 g total protein 25-30 mL/kg 3618-1751 total fluid mLs NUTRITION DIAGNOSIS: 1) Increased kcal and protein needs r/t wound healing as evidenced by pt w/ multiple wounds including sacral full thickness wound w/ bone exposure at base of wound per WC eval and DTPI @ lt heel. 2) Swallowing difficulty r/t respiratory status as evidenced by pt is vent dep via trach, PEG dep. CURRENT TF:Glucerna 1.5 @45ml/hr x24 hrs ENTERAL NUTRITION RECOMMENDATIONS: Glucerna 1.5 @45ml/hr x24 hrs + Prosource 1 pack daily to provide 1080ml, 1620 kcal, 89g + 11g pro, 820ml free H20 - Add Prosource 1 pack daily to better meet est prot needs - Flush per MD / HOB over 30 degrees ADDITIONAL RECOMMENDATIONS: 1) Re-calibrate bed scale as able for accurate CBW 2) TF recs as above 3) Wound care: Add SANDRA BID + VIT C 250mg BID 4) Check lytes daily, replete as needed Myles White Sep 15, 2018 17:05
--- NOTE | 2018-09-15 18:12 | NUR ---
NURSE NOTES: ADls done,mouth care and suctioned done.Turned and repositioned.HOB elevated to prevent aspiration.Call light within easy reach.Will continue to monitor.Kept clean dry and comfortable.
--- NOTE | 2018-09-15 19:01 | NUR ---
HAND-OFF: Report given to SANTA Ron.
--- NOTE | 2018-09-15 19:29 | NUR ---
NURSE NOTES: Report received from SANTA Chavarria. Observed pt lying on the bed, awake, but non-verbal, obtunded. No signs of pain noted. A-Fib with HR of 80 noted on associate principal, Trach to vent, Shiley 8, AC 14, TV 600, FIO2 40%, PEEP of 5. GT site intact and running Glucerna 1.5 at 45cc/hr. F/C intact and draining well. R femoral TLC, intact and patent, TKO. Bed in the lowest position. Side rails up x3. Will continue to monitor.
[2018-09-15 20:00] VITALS: BP 100/67
--- NOTE | 2018-09-15 21:07 | Cardiology Progress Note ---
Assessment/Plan Problem List: (1) Contracture of multiple joints (2) Sepsis (3) Atrial fibrillation (4) Pneumonia (5) Chronic respiratory failure (6) Feeding by G-tube (7) Chronic vegetative state (8) Cardiomyopathy (9) ICD (implantable cardioverter-defibrillator) in place Status: stable, unchanged Status Narrative Pt w/ multiple chronic medical issues, including chronic respiratory failure, vent dependent, AF, likely permanent, cardiomyopathy w/ EF 15-20%, and s/p ICD who was adm w/ pneumonia and anemia. Assessment/Plan Continue iv antibiotics for pneumonia Will decrease amiodarone to 200 mg/d , and consider dc if permanent AF. Rate control w/ metoprolol Hold anticoagulation, pending evaluation/ rx for anemia. R/o gi bleed. Subjective ROS Limited/Unobtainable: Yes Subjective Cardiology for Dr. Anglin Pt on vent/ sedated Objective Last 24 Hour Vital Signs Date Time Temp Pulse Resp B/P (MAP) Pulse Ox O2 Delivery O2 Flow Rate FiO2 09/15/18 18:50 87 14 40 09/15/18 17:00 89 14 40 09/15/18 16:00 Mechanical Ventilator 09/15/18 16:00 98.6 100 17 106/56 (73) 100 09/15/18 16:00 84 09/15/18 16:00 40 09/15/18 15:11 67 16 40 09/15/18 13:13 62 14 40 09/15/18 12:00 Mechanical Ventilator 09/15/18 12:00 82 09/15/18 12:00 40 09/15/18 12:00 97.8 80 16 112/72 (85) 100 09/15/18 11:25 97 14 40 09/15/18 09:15 92 14 40 09/15/18 09:00 105 127/94 09/15/18 08:00 40 09/15/18 08:00 97.9 105 16 127/94 (105) 100 09/15/18 08:00 Mechanical Ventilator 09/15/18 08:00 104 09/15/18 06:58 89 14 40 09/15/18 04:37 95 14 40 09/15/18 04:00 Mechanical Ventilator 09/15/18 04:00 98 09/15/18 04:00 98.4 98 19 117/92 (100) 100 09/15/18 04:00 40 09/15/18 03:10 76 14 40 09/15/18 00:58 83 14 40 09/15/18 00:00 Mechanical Ventilator 09/15/18 00:00 40 09/15/18 00:00 84 09/15/18 00:00 98.8 86 19 95/67 (76) 100 09/14/18 22:57 80 14 40 09/14/18 21:20 89 14 40 General Appearance: obese, on vent EENT: PERRL/EOMI Neck: supple, no JVD Rhythm: Afib Cardiovascular: normal rate, tachycardia, irregularly irregular Respiratory/Chest: lungs clear, other - clear anteriorly Abdomen: non tender, soft, other - g tube Extremities: other - flexion contractures of hands bilat Intake and Output 09/14/18 09/15/18 19:00 07:00 Intake Total 1678.000 ml 1025.000 ml Output Total 500 ml 400 ml Balance 1178.000 ml 625.000 ml Intake Free Water 150 ml IV Total 430.000 ml 530.000 ml Tube Feeding 540 ml 495 ml Blood Product 558 ml Output Urine Total 500 ml 400 ml # Bowel Movements 1 2 Laboratory Tests Test 09/15/18 05:10 White Blood Count 16.3 K/UL (4.8-10.8) H Red Blood Count 2.92 M/UL (4.20-5.40) L Hemoglobin 7.6 G/DL (12.0-16.0) L Hematocrit 24.0 % (37.0-47.0) L Mean Corpuscular Volume 82 FL (80-99) Mean Corpuscular Hemoglobin 26.2 PG (27.0-31.0) L Mean Corpuscular Hemoglobin Concent 31.8 G/DL (32.0-36.0) L Red Cell Distribution Width 17.3 % (11.6-14.8) H Platelet Count 589 K/UL (150-450) H Mean Platelet Volume 5.8 FL (6.5-10.1) L Neutrophils (%) (Auto) % (45.0-75.0) Lymphocytes (%) (Auto) % (20.0-45.0) Monocytes (%) (Auto) % (1.0-10.0) Eosinophils (%) (Auto) % (0.0-3.0) Basophils (%) (Auto) % (0.0-2.0) Differential Total Cells Counted 100 Neutrophils % (Manual) 82 % (45-75) H Lymphocytes % (Manual) 13 % (20-45) L Monocytes % (Manual) 5 % (1-10) Eosinophils % (Manual) 0 % (0-3) Basophils % (Manual) 0 % (0-2) Band Neutrophils 0 % (0-8) Platelet Estimate Increased H Platelet Morphology Normal Polychromasia 1+ Hypochromasia 2+ Anisocytosis 1+ Prothrombin Time 12.7 SEC (9.30-11.50) H Prothromb Time International Ratio 1.2 (0.9-1.1) H Activated Partial Thromboplast Time 34 SEC (23-33) H Sodium Level 145 MMOL/L (136-145) Potassium Level 3.3 MMOL/L (3.5-5.1) L Chloride Level 108 MMOL/L (98-107) H Carbon Dioxide Level 31 MMOL/L (21-32) Anion Gap 6 mmol/L (5-15) Blood Urea Nitrogen 12 mg/dL (7-18) Creatinine 0.6 MG/DL (0.55-1.30) Estimat Glomerular Filtration Rate mL/min (>60) Glucose Level 151 MG/DL (74-106) H Calcium Level 8.8 MG/DL (8.5-10.1) Phosphorus Level 3.0 MG/DL (2.5-4.9) Magnesium Level 1.6 MG/DL (1.8-2.4) L Total Bilirubin 0.3 MG/DL (0.2-1.0) Aspartate Amino Transf (AST/SGOT) 15 U/L (15-37) Alanine Aminotransferase (ALT/SGPT) 19 U/L (12-78) Alkaline Phosphatase 123 U/L (46-116) H Troponin I 0.047 ng/mL (0.000-0.056) Pro-B-Type Natriuretic Peptide 8056 pg/mL (0-125) H Total Protein 6.8 G/DL (6.4-8.2) Albumin 1.2 G/DL (3.4-5.0) L Globulin 5.6 g/dL Albumin/Globulin Ratio 0.2 (1.0-2.7) L Microbiology Date/Time Source Procedure Growth Status 09/13/18 04:15 Blood Blood Culture - Preliminary NO GROWTH AFTER 48 HOURS Resulted 09/13/18 04:00 Blood Blood Culture - Preliminary NO GROWTH AFTER 48 HOURS Resulted 09/14/18 04:00 Sputum Induced Gram Stain - Final Resulted 09/14/18 04:00 Sputum Culture - Preliminary Gram Negative Jose Resulted 09/13/18 04:00 Nose MRSA Culture - Final NO METHICILLIN RESISTANT STAPH AUREUS... Complete 09/13/18 17:33 Urine,Clean Catch Urine Culture - Preliminary Yeast Species Resulted 09/13/18 03:20 Urine,Clean Catch Urine Culture - Final Benita Tropicalis Complete 09/14/18 19:43 Sacral Wound Gram Stain - Final Resulted 09/14/18 19:43 Sacral Wound Wound Culture Pending Resulted 09/13/18 04:00 Rectum - Final NO CARBAPENEM-RESISTANT ENTEROBACTERI... Complete 09/13/18 04:00 Rectum VRE Culture - Final Enterococcus Faecium - Vre Complete Nieves Thapa MD Sep 15, 2018 21:07
[2018-09-15] MEDS: Dyna-Hex 2% Top Sol 2oz TOPIC SCH (21:09)
--- NOTE | 2018-09-15 23:00 | NUR ---
NURSE NOTES: Observed pt sleeping on the bed. Reposition and oral care done. Aflutter with HR of 100s noted. No signs of acute distress noted at this time. Will continue to monitor.
[2018-09-16] VITALS: BP 110/83
[2018-09-16] MEDS: NovoLOG Insulin Flexpen SUBQ SCH ×5 (00:01→23:49)
--- NOTE | 2018-09-16 02:00 | NUR ---
NURSE NOTES: Full thickness wound noted on sacral area with yellow slough and darkened skin color noted around the wound. Wet to dry dressing applied, Cavilon applied roque wound, covered with optifoam and SureSite. DTI on both heel and left malleolus area cleaned with NS and covered with optifoam. Reposition done. CHG bath given. Oral care done. Will continue to follow the plan of care.
[2018-09-16 04:00] VITALS: BP 118/87
--- NOTE | 2018-09-16 06:43 | NUR ---
NURSE NOTES: Left a message to and regarding sputum positive MDR. Awaiting for call back.
--- NOTE | 2018-09-16 07:20 | NUR ---
HAND-OFF: Report given to SANTA [place]. No acute distress noted at this time.
--- NOTE | 2018-09-16 07:21 | NUR ---
NURSE NOTES: Received patient in bed. Vent dependent. On continuous GTF. Contact isolation observed. No respiratory distress noted. No verbal response. Will continue plan of care.
[2018-09-16] MEDS: Amiodarone 200mg tab ORAL SCH ×2 (07:40→08:36)
[2018-09-16 08:00] VITALS: BP 136/83
[2018-09-16 08:21] LABS: BASOPHILS % (AUTO) 1.2 % (0.0-2.0); EOSINOPHILS % (AUTO) 0.5 % (0.0-3.0); HEMATOCRIT 26.8 % (37.0-47.0); HEMOGLOBIN 8.5 G/DL (12.0-16.0); MEAN CORPUSCULAR VOLUME 83 FL (80-99); MONOCYTES % (AUTO) 6.5 % (1.0-10.0); NEUTROPHILS % (AUTO) 83.8 % (45.0-75.0); PLATELET COUNT 563 K/UL (150-450); RED BLOOD COUNT 3.24 M/UL (4.20-5.40); RED CELL DISTRIBUTION WIDTH 16.6 % (11.6-14.8); WHITE BLOOD COUNT 17.5 K/UL (4.8-10.8)
[2018-09-16] MEDS: levETIRAcetam 500mg/5ml Liquid GT SCH ×2 (08:36→20:54)
[2018-09-16] MEDS: Metoprolol Tartrate 12.5mg TAB ORAL SCH ×2 (08:36→20:54)
[2018-09-16] MEDS: Cefepime HCl 1 GM in D5W 55 ML IVPB SCH ×2 (08:37→20:55)
[2018-09-16] MEDS: Pantoprazole Inj IV SCH (08:37)
[2018-09-16] MEDS: Heparin 5000 units/ml inj SUBQ SCH ×2 (08:38→20:56)
[2018-09-16 08:52] LABS: ANION GAP 8 mmol/L (5-15); BLOOD UREA NITROGEN 12 mg/dL (7-18); CALCIUM 8.6 MG/DL (8.5-10.1); CARBON DIOXIDE 28 MMOL/L (21-32); CHLORIDE 104 MMOL/L (98-107); CREATININE 0.6 MG/DL (0.55-1.30); POTASSIUM 3.8 MMOL/L (3.5-5.1); SODIUM 140 MMOL/L (136-145)
[2018-09-16] MEDS: Vancomycin 1.25gm Premix IVPB SCH ×2 (09:57→21:12)
[2018-09-16 12:00] VITALS: BP 123/77
--- NOTE | 2018-09-16 12:14 | NUR ---
NURSE NOTES: Telephone consent for wound debridement obtained from Mary Ann Dejesus/Daughter.
--- NOTE | 2018-09-16 13:01 | NUR ---
NURSE NOTES: Spoke with Dr. Mcguire via telephone. Discussed regarding MDR Sputum. With no new order obtained at this time. To continue same antibiotic therapy.
--- NOTE | 2018-09-16 13:21 | Internal Med Progress Note ---
Subjective Date of Service: Sep 16, 2018 Physician Name Ruddy George Attending Physician Ariel Frey MD Current Medications Medications (Trade) Dose Ordered Sig/Rosy Route PRN Reason Start Time Stop Time Status Last Admin Dose Admin Acetaminophen (Tylenol) 650 mg Q4H PRN GT FEVER 09/13/18 11:45 10/13/18 06:59 Albuterol/ Ipratropium (Albuterol/ Ipratropium) 3 ml Q4H PRN HHN Shortness of Breath 09/13/18 07:00 09/18/18 06:59 Amiodarone HCl (Cordarone) 200 mg DAILY ORAL 09/16/18 09:00 10/14/18 20:59 09/16/18 08:36 Cefepime HCl 1 gm/ Dextrose 55 ml @ 110 mls/hr EVERY 12 HOURS IVPB 09/13/18 21:00 09/20/18 20:59 09/16/18 08:37 Chlorhexidine Gluconate (Elizabeth-Hex 2%) 1 applic DAILY@2000 TOPIC 09/14/18 20:00 10/14/18 19:59 09/15/18 21:09 Dextrose (Dextrose 50%) 25 ml Q30M PRN IV Hypoglycemia 09/13/18 08:15 10/13/18 08:14 Dextrose (Dextrose 50%) 50 ml Q30M PRN IV Hypoglycemia 09/13/18 08:15 10/13/18 08:14 Heparin Sodium (Porcine) (Heparin 5000 units/ml) 5,000 units EVERY 12 HOURS SUBQ 09/13/18 09:00 10/13/18 08:59 09/16/18 08:38 Insulin Aspart (NovoLOG) EVERY 6 HOURS SUBQ 09/13/18 12:00 10/13/18 11:59 09/16/18 13:10 Levetiracetam (Keppra) 500 mg Q12HR GT 09/13/18 21:00 10/13/18 20:59 09/16/18 08:36 Lorazepam (Ativan 2mg/ml 1ml) 2 mg Q2H PRN IV For Anxiety 09/13/18 07:00 09/20/18 06:59 Metoprolol Tartrate (Lopressor) 12.5 mg Q12HR ORAL 09/14/18 21:00 10/14/18 20:59 09/16/18 08:36 Metronidazole 100 ml @ 100 mls/hr Q8HR IVPB 09/13/18 14:00 09/20/18 13:59 09/16/18 13:13 Morphine Sulfate (Morphine Sulfate) 4 mg Q4H PRN IVP Severe Pain (Pain Scale 7-10) 09/13/18 07:00 09/20/18 06:59 Ondansetron HCl (Zofran) 4 mg Q6H PRN IVP Nausea & Vomiting 09/13/18 07:00 10/13/18 06:59 Pantoprazole (Protonix) 40 mg DAILY IV 09/13/18 09:00 10/13/18 08:59 09/16/18 08:37 Polyethylene Glycol (Miralax) 17 gm DAILYPRN PRN GT Constipation 09/13/18 11:45 10/13/18 06:59 Vancomycin HCl (Vanco rx to dose) 1 ea DAILY PRN MISC PER PHARMACY 09/13/18 07:00 10/13/18 06:59 Vancomycin HCl/ Dextrose 275 ml @ 183.333 mls/hr Q12HR IVPB 09/14/18 22:00 09/19/18 21:59 09/16/18 09:57 Allergies: Coded Allergies: ALPRAZOLAM (Verified Allergy, Unknown, 09/13/18) ROS Limited/Unobtainable: Yes Subjective 72 YO vent dep F admitted with dyspnea. Now pneumonia. Cover for Int Med-DR Negron. DULCE Objective Last Vital Signs Date Time Temp Pulse Resp B/P (MAP) Pulse Ox O2 Delivery O2 Flow Rate FiO2 09/16/18 12:00 98.8 92 15 123/77 (92) 100 09/16/18 11:20 40 09/16/18 08:00 Mechanical Ventilator Laboratory Tests Test 09/16/18 08:00 White Blood Count 17.5 K/UL (4.8-10.8) H Red Blood Count 3.24 M/UL (4.20-5.40) L Hemoglobin 8.5 G/DL (12.0-16.0) L Hematocrit 26.8 % (37.0-47.0) L Mean Corpuscular Volume 83 FL (80-99) Mean Corpuscular Hemoglobin 26.2 PG (27.0-31.0) L Mean Corpuscular Hemoglobin Concent 31.7 G/DL (32.0-36.0) L Red Cell Distribution Width 16.6 % (11.6-14.8) H Platelet Count 563 K/UL (150-450) H Mean Platelet Volume 5.8 FL (6.5-10.1) L Neutrophils (%) (Auto) 83.8 % (45.0-75.0) H Lymphocytes (%) (Auto) 8.0 % (20.0-45.0) L Monocytes (%) (Auto) 6.5 % (1.0-10.0) Eosinophils (%) (Auto) 0.5 % (0.0-3.0) Basophils (%) (Auto) 1.2 % (0.0-2.0) Sodium Level 140 MMOL/L (136-145) Potassium Level 3.8 MMOL/L (3.5-5.1) Chloride Level 104 MMOL/L (98-107) Carbon Dioxide Level 28 MMOL/L (21-32) Anion Gap 8 mmol/L (5-15) Blood Urea Nitrogen 12 mg/dL (7-18) Creatinine 0.6 MG/DL (0.55-1.30) Estimat Glomerular Filtration Rate mL/min (>60) Glucose Level 152 MG/DL (74-106) H Calcium Level 8.6 MG/DL (8.5-10.1) Magnesium Level 1.7 MG/DL (1.8-2.4) L Vancomycin Level Trough 16.8 ug/mL (5.0-12.0) H Microbiology Date/Time Source Procedure Growth Status 09/14/18 04:00 Sputum Induced Gram Stain - Final Resulted 09/14/18 04:00 Sputum Culture - Preliminary Pseudomonas Aeruginosa - Mdr Resulted 09/13/18 17:33 Urine,Clean Catch Urine Culture - Final Benita Tropicalis Complete 09/14/18 19:43 Sacral Wound Gram Stain - Final Resulted 09/14/18 19:43 Sacral Wound Wound Culture - Preliminary Resulted Intake and Output 09/15/18 09/16/18 19:00 07:00 Intake Total 1791.666 ml 1190 ml Output Total 450 ml 1750 ml Balance 1341.666 ml -560 ml Intake Free Water 180 ml 120 ml IV Total 821.666 ml 530 ml Tube Feeding 540 ml 540 ml Blood Product 250 ml Output Urine Total 450 ml 1750 ml # Bowel Movements 4 Objective PHYSICAL EXAMINATION: GENERAL: The patient is well-developed and well-nourished female who is intubated and sedated. HEENT: Eyes, pupils equal and responsive to light and accommodation. Extraocular movements are intact. The patient has a tracheostomy tube in place. CHEST: mech vent; Diffuse coarse breath sounds bilaterally without wheezes or rales. CARDIOVASCULAR: Irregular rhythm and irregular rate. S1 and S2 normal without murmurs, rubs, or gallops. ABDOMEN: Soft, nontender, and nondistended. Positive bowel sounds. No hepatosplenomegaly. Currently, no rebound or guarding noted. EXTREMITIES: Negative for clubbing, cyanosis, or edema. RECTAL/GENITAL: Not performed. NEUROLOGIC: Cranial nerves II through XII grossly intact without focal deficits. Assessment/Plan Assessment/Plan ASSESSMENT: The patient is a 72-year-old female. 1. Right lower lobe pneumonia. 2. Leukocytosis. 3. Elevated troponin. 4. Acute on chronic congestive heart failure. 5. Chronic obstructive pulmonary disease. 6. Ventilator-dependent respiratory failure. 7. Diabetes type 2. 8. Hypertension. 9. Coronary artery disease. 10. Metabolic encephalopathy. 11. Seizure disorder. 12. Dysphagia. 13. Tracheostomy. 14. Quadriplegia. TREATMENT: 1. Right lower lobe pneumonia plus leukocytosis. A Pulmonary consultation obtained with Dr. Ariel Frey. The patient has been started empirically on vancomycin, cefepime, and amikacin per recommendation of Infectious Disease. 2. Elevated troponin/congestive heart failure. Cardiology consultation obtained with Dr. Isai Anglin. The patient is currently receiving intravenous Lasix. 3. Ventilator-dependent respiratory failure. As above, a Pulmonary consultation obtained with Dr. Ariel Frey. 4. Diabetes type 2. The patient was admitted off insulin. 5. Hypertension, the patient is currently hypotensive. 6. Coronary artery disease. 7. Metabolic encephalopathy. 8. Seizure disorder. Continue Keppra as above. 9. Dysphagia. The patient is status post PEG placement. Continue tube feeds as above. 10. Tracheostomy in situ. 11. Quadriplegia. Ruddy George MD Sep 16, 2018 13:21
--- NOTE | 2018-09-16 13:32 | NUR ---
[employer] SI:A-FIB . ANEMIA . SACRAL DECUBITUS ULCER VS: BP 136/83, P 104, T 98.4, RR 17, SpO2 100 on VENT FiO2 40 WBC 17.5, Hgb 8.5 IS:MAGNESIUM SULFATE 100ml IVPB NS x1.1L IV LASIX 20mg IV PROTONIX 40mg IV HEPARIN SUBQ NOVOLOG SUBQ METRONIDAZOLE 100ml KEPPRA 500mg CEFEPIME HCI 55ml IVPB SDU STATUS
--- NOTE | 2018-09-16 15:04 | Cardiology Progress Note ---
Assessment/Plan Problem List: (1) Contracture of multiple joints (2) Sepsis (3) Atrial fibrillation (4) Pneumonia (5) Chronic respiratory failure (6) Feeding by G-tube (7) Chronic vegetative state (8) Cardiomyopathy (9) ICD (implantable cardioverter-defibrillator) in place Status: stable, unchanged Status Narrative Pt w/ multiple chronic medical issues, including chronic respiratory failure, vent dependent, AF, likely permanent, cardiomyopathy w/ EF 15-20%, and s/p ICD who was adm w/ pneumonia and anemia. Assessment/Plan Continue iv antibiotics for pneumonia Amiiodarone decreased to 200 mg/d. Ventricular rates remain stable in AF Off a-c, due to anemia -/bleed Will give lasix iv x1 today for edema, vol overload. Subjective ROS Limited/Unobtainable: Yes Subjective Cardiology for Dr. Anglin Pt on vent/ sedated Objective Last 24 Hour Vital Signs Date Time Temp Pulse Resp B/P (MAP) Pulse Ox O2 Delivery O2 Flow Rate FiO2 09/16/18 12:00 40 09/16/18 12:00 Mechanical Ventilator 09/16/18 12:00 98.8 92 15 123/77 (92) 100 09/16/18 11:35 82 09/16/18 11:20 101 16 40 09/16/18 08:36 92 136/83 09/16/18 08:08 104 09/16/18 08:00 98.4 92 17 136/83 (100) 100 09/16/18 08:00 40 09/16/18 08:00 Mechanical Ventilator 09/16/18 07:06 118 14 40 09/16/18 05:20 111 15 40 09/16/18 04:00 Mechanical Ventilator 09/16/18 04:00 98.6 111 17 118/87 (97) 100 09/16/18 04:00 108 09/16/18 04:00 40 09/16/18 03:18 89 16 40 09/16/18 00:43 90 14 40 09/16/18 00:00 Mechanical Ventilator 09/16/18 00:00 76 09/16/18 00:00 40 09/16/18 00:00 98.0 86 14 110/83 (92) 100 09/15/18 22:54 76 14 40 09/15/18 22:04 108 114/69 09/15/18 21:30 79 14 40 09/15/18 20:00 40 09/15/18 20:00 98.4 90 17 100/67 (78) 100 09/15/18 20:00 84 09/15/18 20:00 Mechanical Ventilator 09/15/18 18:50 87 14 40 09/15/18 17:00 89 14 40 09/15/18 16:00 Mechanical Ventilator 09/15/18 16:00 98.6 100 17 106/56 (73) 100 09/15/18 16:00 84 09/15/18 16:00 40 09/15/18 15:11 67 16 40 General Appearance: lethargic, obese, on vent EENT: PERRL/EOMI Neck: supple, other - trach Rhythm: Afib Cardiovascular: normal rate, no gallop/murmur, irregularly irregular Respiratory/Chest: other - scattered rhonchi anteriorly Abdomen: non tender, soft, other - g tube Extremities: other - 2+ pitting edema of feet bilat. Flex ctx of upper ext bilat Intake and Output 09/15/18 09/16/18 19:00 07:00 Intake Total 1791.666 ml 1190 ml Output Total 450 ml 1750 ml Balance 1341.666 ml -560 ml Intake Free Water 180 ml 120 ml IV Total 821.666 ml 530 ml Tube Feeding 540 ml 540 ml Blood Product 250 ml Output Urine Total 450 ml 1750 ml # Bowel Movements 4 Laboratory Tests Test 09/16/18 08:00 White Blood Count 17.5 K/UL (4.8-10.8) H Red Blood Count 3.24 M/UL (4.20-5.40) L Hemoglobin 8.5 G/DL (12.0-16.0) L Hematocrit 26.8 % (37.0-47.0) L Mean Corpuscular Volume 83 FL (80-99) Mean Corpuscular Hemoglobin 26.2 PG (27.0-31.0) L Mean Corpuscular Hemoglobin Concent 31.7 G/DL (32.0-36.0) L Red Cell Distribution Width 16.6 % (11.6-14.8) H Platelet Count 563 K/UL (150-450) H Mean Platelet Volume 5.8 FL (6.5-10.1) L Neutrophils (%) (Auto) 83.8 % (45.0-75.0) H Lymphocytes (%) (Auto) 8.0 % (20.0-45.0) L Monocytes (%) (Auto) 6.5 % (1.0-10.0) Eosinophils (%) (Auto) 0.5 % (0.0-3.0) Basophils (%) (Auto) 1.2 % (0.0-2.0) Sodium Level 140 MMOL/L (136-145) Potassium Level 3.8 MMOL/L (3.5-5.1) Chloride Level 104 MMOL/L (98-107) Carbon Dioxide Level 28 MMOL/L (21-32) Anion Gap 8 mmol/L (5-15) Blood Urea Nitrogen 12 mg/dL (7-18) Creatinine 0.6 MG/DL (0.55-1.30) Estimat Glomerular Filtration Rate mL/min (>60) Glucose Level 152 MG/DL (74-106) H Calcium Level 8.6 MG/DL (8.5-10.1) Magnesium Level 1.7 MG/DL (1.8-2.4) L Vancomycin Level Trough 16.8 ug/mL (5.0-12.0) H Microbiology Date/Time Source Procedure Growth Status 09/14/18 04:00 Sputum Induced Gram Stain - Final Resulted 09/14/18 04:00 Sputum Culture - Preliminary Pseudomonas Aeruginosa - Mdr Resulted 09/13/18 17:33 Urine,Clean Catch Urine Culture - Final Benita Tropicalis Complete 09/14/18 19:43 Sacral Wound Gram Stain - Final Resulted 09/14/18 19:43 Sacral Wound Wound Culture - Preliminary Resulted Nieves Thapa MD Sep 16, 2018 15:04
--- NOTE | 2018-09-16 15:08 | Surgery Progress Note ---
Surgery Progress Note Subjective Additional Comments exam unchanged. labs noted. Objective Last 24 Hour Vital Signs Date Time Temp Pulse Resp B/P (MAP) Pulse Ox O2 Delivery O2 Flow Rate FiO2 09/16/18 12:00 40 09/16/18 12:00 Mechanical Ventilator 09/16/18 12:00 98.8 92 15 123/77 (92) 100 09/16/18 11:35 82 09/16/18 11:20 101 16 40 09/16/18 08:36 92 136/83 09/16/18 08:08 104 09/16/18 08:00 98.4 92 17 136/83 (100) 100 09/16/18 08:00 40 09/16/18 08:00 Mechanical Ventilator 09/16/18 07:06 118 14 40 09/16/18 05:20 111 15 40 09/16/18 04:00 Mechanical Ventilator 09/16/18 04:00 98.6 111 17 118/87 (97) 100 09/16/18 04:00 108 09/16/18 04:00 40 09/16/18 03:18 89 16 40 09/16/18 00:43 90 14 40 09/16/18 00:00 Mechanical Ventilator 09/16/18 00:00 76 09/16/18 00:00 40 09/16/18 00:00 98.0 86 14 110/83 (92) 100 09/15/18 22:54 76 14 40 09/15/18 22:04 108 114/69 09/15/18 21:30 79 14 40 09/15/18 20:00 40 09/15/18 20:00 98.4 90 17 100/67 (78) 100 09/15/18 20:00 84 09/15/18 20:00 Mechanical Ventilator 09/15/18 18:50 87 14 40 09/15/18 17:00 89 14 40 09/15/18 16:00 Mechanical Ventilator 09/15/18 16:00 98.6 100 17 106/56 (73) 100 09/15/18 16:00 84 09/15/18 16:00 40 09/15/18 15:11 67 16 40 I&O Intake and Output 09/15/18 09/16/18 19:00 07:00 Intake Total 1791.666 ml 1190 ml Output Total 450 ml 1750 ml Balance 1341.666 ml -560 ml Intake Free Water 180 ml 120 ml IV Total 821.666 ml 530 ml Tube Feeding 540 ml 540 ml Blood Product 250 ml Output Urine Total 450 ml 1750 ml # Bowel Movements 4 Dressing: saturated Wound: other Drains: other Cardiovascular: RSR Respiratory: decreased breath sounds Abdomen: soft, present bowel sounds Extremities: no cyanosis Laboratory Tests Test 09/16/18 08:00 White Blood Count 17.5 K/UL (4.8-10.8) H Red Blood Count 3.24 M/UL (4.20-5.40) L Hemoglobin 8.5 G/DL (12.0-16.0) L Hematocrit 26.8 % (37.0-47.0) L Mean Corpuscular Volume 83 FL (80-99) Mean Corpuscular Hemoglobin 26.2 PG (27.0-31.0) L Mean Corpuscular Hemoglobin Concent 31.7 G/DL (32.0-36.0) L Red Cell Distribution Width 16.6 % (11.6-14.8) H Platelet Count 563 K/UL (150-450) H Mean Platelet Volume 5.8 FL (6.5-10.1) L Neutrophils (%) (Auto) 83.8 % (45.0-75.0) H Lymphocytes (%) (Auto) 8.0 % (20.0-45.0) L Monocytes (%) (Auto) 6.5 % (1.0-10.0) Eosinophils (%) (Auto) 0.5 % (0.0-3.0) Basophils (%) (Auto) 1.2 % (0.0-2.0) Sodium Level 140 MMOL/L (136-145) Potassium Level 3.8 MMOL/L (3.5-5.1) Chloride Level 104 MMOL/L (98-107) Carbon Dioxide Level 28 MMOL/L (21-32) Anion Gap 8 mmol/L (5-15) Blood Urea Nitrogen 12 mg/dL (7-18) Creatinine 0.6 MG/DL (0.55-1.30) Estimat Glomerular Filtration Rate mL/min (>60) Glucose Level 152 MG/DL (74-106) H Calcium Level 8.6 MG/DL (8.5-10.1) Magnesium Level 1.7 MG/DL (1.8-2.4) L Vancomycin Level Trough 16.8 ug/mL (5.0-12.0) H Plan Problems: (1) Contracture of multiple joints (2) ICD (implantable cardioverter-defibrillator) in place (3) Sepsis Assessment & Plan: leukocytosis abnormal labs septic on IV abx as per ID micro noted wounds unlikely etiology of sepsis will follow with recs (4) Sacral decubitus ulcer Assessment & Plan: Pt presented on admission with multiple pressure injuries. Stage 4 Full thickness pressure injury to sacrum. Base of wound with 75% mixed soft necrosis and fibrinous soria slough extending into undermined areas of wound.Bone exposure at base of wound. Maroon discoloration with induration along borders and periwound.Clockwise at 12 o'clock along borders, an area of necrosis noted.Wound is malodorous. (L)8.3cm x (W)8.5cm x (D)4.5cm,Undermining 9 -4 by 4cm at 11o'clock. At R buttocks in close proximity to sacrum, maroon discoloration that is indurated noted (L)1.5cm x(W)2.5cm. DTPI noted to plantar L heel. Wound is fluctuant and opague in centre,with small area that is black ,with surrounding erythema.Non-blanchable erythema without fluctuance periwound. DTPI noted to L heel. Maroon discoloration extending from heel into plantar aspect of heel .Base of wound is fluctuant. Non-blanchable erythema noted to lateral aspect of L heel.(L)8cm x (W)5cm. Maroon discoloration without fluctuance or induration noted to lateral L malleolus(L)1cm x (W)1cm. Tx.Plan: Apply wet to dry gauze dressing to sacral wound TID. Apply Cavilon Skin Barrier to L heel.Cover with Optifoam drsg. Change every 7 days and prn. Apply Cavilon Skin Barrier to R heel. Cover with Optifoam drsg.Change every 7 days and prn. Apply Cavilon Skin Barrier to L lateral Malleolus. Cover with Optifoam drsg.Change every 7 days and prn. Apply Triad Paste to bilat groin areas and both ischial areas with each perineal care. Air Fluidized Mattress. Reposition at least every 2hours or as tolerated. Spoke with daughter and explained physical exam findings from sacral wound. recommend debridement. consent obtained. will schedule soon (5) UTI (urinary tract infection) (6) Pneumonia (7) Atrial fibrillation (8) Anemia (9) Chronic respiratory failure (10) Chronic vegetative state (11) Feeding by G-tube Assessment & Plan: DAILY ESTIMATED NEEDS: Needs based on Critical care, obese, wound 67kg adj 22-27 kcals/kg 4757-9628 total kcals 1.25-2 g protein/kg 84-134 g total protein 25-30 mL/kg 6003-3914 total fluid mLs NUTRITION DIAGNOSIS: 1) Increased kcal and protein needs r/t wound healing as evidenced by pt w/ multiple wounds including sacral full thickness wound w/ bone exposure at base of wound per WC eval and DTPI @ lt heel. 2) Swallowing difficulty r/t respiratory status as evidenced by pt is vent dep via trach, PEG dep. CURRENT TF:Glucerna 1.5 @45ml/hr x24 hrs ENTERAL NUTRITION RECOMMENDATIONS: Glucerna 1.5 @45ml/hr x24 hrs + Prosource 1 pack daily to provide 1080ml, 1620 kcal, 89g + 11g pro, 820ml free H20 - Add Prosource 1 pack daily to better meet est prot needs - Flush per MD / HOB over 30 degrees ADDITIONAL RECOMMENDATIONS: 1) Re-calibrate bed scale as able for accurate CBW 2) TF recs as above 3) Wound care: Add SANDRA BID + VIT C 250mg BID 4) Check lytes daily, replete as needed Myles White Sep 16, 2018 15:08
[2018-09-16] MEDS ORDERED: NS 275ml ONE (15:20)
[2018-09-16] MEDS ORDERED: Tubing IV Blood Pump IV ONE (15:20)
[2018-09-16] MEDS ORDERED: Tubing IV Secondary IV ONE (15:20)
[2018-09-16 16:00] VITALS: BP 126/82
--- NOTE | 2018-09-16 19:09 | NUR ---
NURSE NOTES: Received patient from Vivian PRATT. Patient is obtunded receiving oxygen via Trach size Shiley 8, settings AC 14, TV 600, FiO2 40%, PEEP 5, patient is saturating well. G-tube is patent and intact receiving Glucerna 1.5 at 45cc/hr, tolerating well with no residuals. Mayo catheter is patent and draining well. IV site is Left Femoral TLC patent and intact two lines are KVO. Bed is locked, placed in lowest position, side rails up x3, side rails padded, call light within reach. Will continue to monitor.
--- NOTE | 2018-09-16 19:10 | NUR ---
HAND-OFF: Report given to SANTA Boles.
[2018-09-16 20:00] VITALS: BP 136/76
[2018-09-16] MEDS: Dyna-Hex 2% Top Sol 2oz TOPIC SCH (20:20)
[2018-09-17] VITALS: BP 128/80
[2018-09-17 04:00] VITALS: BP 130/75
[2018-09-17 04:44] LABS: BASOPHILS % (AUTO) 0.7 % (0.0-2.0); EOSINOPHILS % (AUTO) 0.7 % (0.0-3.0); HEMOGLOBIN 8.4 G/DL (12.0-16.0); LYMPHOCYTES % (AUTO) 11.7 % (20.0-45.0); MEAN CORPUSCULAR VOLUME 83 FL (80-99); NEUTROPHILS % (AUTO) 81.9 % (45.0-75.0); PLATELET COUNT 601 K/UL (150-450); RED BLOOD COUNT 3.11 M/UL (4.20-5.40); RED CELL DISTRIBUTION WIDTH 16.9 % (11.6-14.8); WHITE BLOOD COUNT 16.6 K/UL (4.8-10.8)
[2018-09-17 04:55] LABS: ANION GAP 7 mmol/L (5-15); BLOOD UREA NITROGEN 11 mg/dL (7-18); CALCIUM 8.7 MG/DL (8.5-10.1); CARBON DIOXIDE 29 MMOL/L (21-32); CHLORIDE 103 MMOL/L (98-107); CREATININE 0.6 MG/DL (0.55-1.30); POTASSIUM 3.6 MMOL/L (3.5-5.1); SODIUM 139 MMOL/L (136-145)
[2018-09-17] MEDS: NovoLOG Insulin Flexpen SUBQ SCH ×3 (05:48→17:00)
--- NOTE | 2018-09-17 07:06 | NUR ---
HAND-OFF: Report given to Freddy PRATT. Patient showing no signs of distress.
--- NOTE | 2018-09-17 07:32 | NUR ---
NURSE NOTES: Received report from SANTA Valdovinos. Patient is resting in bed, in stable condition. No s/sx of SOB, breathing is even and unlabored. Vent settings are as ordered. Observed no presence of pain or discomfort at this time. Bed is in lowest position, brakes engaged. Call light is kept within easy reach. Will continue to monitor patient.
[2018-09-17 07:44] VITALS: BP 103/60
[2018-09-17] MEDS: Amiodarone 200mg tab ORAL SCH (08:44)
[2018-09-17] MEDS: Metoprolol Tartrate 12.5mg TAB ORAL SCH ×2 (08:45→20:57)
[2018-09-17] MEDS: Pantoprazole Inj IV SCH (08:45)
[2018-09-17] MEDS: levETIRAcetam 500mg/5ml Liquid GT SCH ×2 (08:45→20:57)
[2018-09-17] MEDS: Cefepime HCl 1 GM in D5W 55 ML IVPB SCH (08:46)
[2018-09-17] MEDS: Heparin 5000 units/ml inj SUBQ SCH ×2 (08:46→20:58)
[2018-09-17] MEDS ORDERED: Lidocaine 1% Plain 30 ml INJ PRN (10:30)
[2018-09-17] MEDS ORDERED: Heparin1,000 units/500ml Premix(Conc:2 units/ml) IV PRN (10:30)
[2018-09-17] MEDS: Vancomycin 1.25gm Premix IVPB SCH ×2 (10:31→21:01)
--- NOTE | 2018-09-17 10:45 | Pulmonolgy Critical Care Note ---
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 Respiratory: monitor respiratory rate, adjust FIO2 Cardiac: continue pressors, continue to monitor HR/BP Renal: F/U I&O Infectious Disease: check cultures Gastrointestinal: continue feedings/current rate Endocrine: monitor blood sugar, check TSH Hematologic: monitor H/H, transfuse if hgb<8.5 Neurologic: keep patient comfortable Time Spent (Minutes): 40 Notes Reviewed: cardio, renal Discussed with: 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 - Objective Last 24 Hour Vital Signs Date Time Temp Pulse Resp B/P (MAP) Pulse Ox O2 Delivery O2 Flow Rate FiO2 09/17/18 08:45 100 103/60 09/17/18 08:37 76 14 40 09/17/18 08:00 Mechanical Ventilator 09/17/18 08:00 94 09/17/18 08:00 40 09/17/18 07:44 98.4 100 14 103/60 (74) 100 09/17/18 06:46 86 14 40 09/17/18 05:06 94 14 40 09/17/18 04:00 98.1 91 14 130/75 (93) 98 09/17/18 04:00 Mechanical Ventilator 09/17/18 04:00 40 09/17/18 03:30 91 14 40 09/17/18 03:03 108 09/17/18 01:15 95 15 40 09/17/18 00:00 98.6 80 15 128/80 (96) 100 09/17/18 00:00 Mechanical Ventilator 09/16/18 23:30 97 14 40 09/16/18 23:16 88 09/16/18 21:14 109 15 40 09/16/18 20:54 94 115/68 09/16/18 20:00 40 09/16/18 20:00 99 09/16/18 20:00 Mechanical Ventilator 09/16/18 20:00 98.4 90 15 136/76 (96) 100 09/16/18 19:28 103 14 40 09/16/18 17:16 98 15 40 09/16/18 16:00 40 09/16/18 16:00 98.4 102 15 126/82 (97) 100 09/16/18 16:00 Mechanical Ventilator 09/16/18 15:20 115 16 40 09/16/18 15:07 90 09/16/18 12:00 40 09/16/18 12:00 Mechanical Ventilator 09/16/18 12:00 98.8 92 15 123/77 (92) 100 09/16/18 11:35 82 09/16/18 11:20 101 16 40 Status: somnolent Condition: critical HEENT: atraumatic Neck: full ROM Lungs: clear Heart: HR/BP stable Abdomen: soft, non-tender Extremities: no C/C/E Decubiti: location Micro: Microbiology Date/Time Source Procedure Growth Status 09/14/18 19:43 Sacral Wound Gram Stain - Final Resulted 09/14/18 19:43 Wound Culture - Preliminary Gram Negative Bacillus 1 Gram Negative Bacillus 2 Staphylococcus Aureus Gram Positive Cocci Resulted Accucheck: 119 Critical Care - Subjective ROS Limited/Unobtainable: Yes Condition: critical EKG Rhythm: Sinus Rhythm FI02: 40 Vent Support Breath Rate: 14 Vent Support Mode: AC Vent Tidal Volume: 600 Sputum Amount: Small PEEP: 5.0 PIP: 33 Tube Feeding Amount: 45 I&O: Intake and Output 09/16/18 09/17/18 18:59 06:59 Intake Total 1385.000 ml 961.666 ml Output Total 950 ml 650 ml Balance 435.000 ml 311.666 ml Intake Free Water 115 ml IV Total 630.000 ml 421.666 ml Tube Feeding 540 ml 540 ml Other 100 ml Output Urine Total 950 ml 650 ml # Bowel Movements 2 CXR: no change Labs: Laboratory Tests Test 09/17/18 04:00 White Blood Count 16.6 K/UL (4.8-10.8) H Red Blood Count 3.11 M/UL (4.20-5.40) L Hemoglobin 8.4 G/DL (12.0-16.0) L Hematocrit 26.0 % (37.0-47.0) L Mean Corpuscular Volume 83 FL (80-99) Mean Corpuscular Hemoglobin 27.0 PG (27.0-31.0) Mean Corpuscular Hemoglobin Concent 32.4 G/DL (32.0-36.0) Red Cell Distribution Width 16.9 % (11.6-14.8) H Platelet Count 601 K/UL (150-450) H Mean Platelet Volume 5.9 FL (6.5-10.1) L Neutrophils (%) (Auto) 81.9 % (45.0-75.0) H Lymphocytes (%) (Auto) 11.7 % (20.0-45.0) L Monocytes (%) (Auto) 5.0 % (1.0-10.0) Eosinophils (%) (Auto) 0.7 % (0.0-3.0) Basophils (%) (Auto) 0.7 % (0.0-2.0) Sodium Level 139 MMOL/L (136-145) Potassium Level 3.6 MMOL/L (3.5-5.1) Chloride Level 103 MMOL/L (98-107) Carbon Dioxide Level 29 MMOL/L (21-32) Anion Gap 7 mmol/L (5-15) Blood Urea Nitrogen 11 mg/dL (7-18) Creatinine 0.6 MG/DL (0.55-1.30) Estimat Glomerular Filtration Rate mL/min (>60) Glucose Level 126 MG/DL (74-106) H Calcium Level 8.7 MG/DL (8.5-10.1) Pro-B-Type Natriuretic Peptide 5184 pg/mL (0-125) H Ariel Frey MD Sep 17, 2018 10:45
[2018-09-17 12:00] VITALS: BP 111/67
--- NOTE | 2018-09-17 12:05 | NUR ---
NURSE NOTES: Dr. White seen and examined patient. Sacral stage 4 pressure injury debridement performed at bedside, patient tolerated procedure. Will continue to monitor patient.
--- NOTE | 2018-09-17 12:45 | NUR ---
NURSE NOTES: Per jerad Cruz sacral wound dressing three times a day. Order entered, noted, and carried out. Will continue to monitor patient.
--- NOTE | 2018-09-17 12:55 | Surgery Progress Note ---
Surgery Progress Note Subjective Additional Comments s/p excisional debridement of sacral wound today at bedside. Objective Last 24 Hour Vital Signs Date Time Temp Pulse Resp B/P (MAP) Pulse Ox O2 Delivery O2 Flow Rate FiO2 09/17/18 12:00 86 09/17/18 12:00 40 09/17/18 12:00 Mechanical Ventilator 09/17/18 12:00 98.2 98 14 111/67 (82) 100 09/17/18 11:00 92 14 40 09/17/18 08:45 100 103/60 09/17/18 08:37 76 14 40 09/17/18 08:00 Mechanical Ventilator 09/17/18 08:00 94 09/17/18 08:00 40 09/17/18 07:44 98.4 100 14 103/60 (74) 100 09/17/18 06:46 86 14 40 09/17/18 05:06 94 14 40 09/17/18 04:00 98.1 91 14 130/75 (93) 98 09/17/18 04:00 Mechanical Ventilator 09/17/18 04:00 40 09/17/18 03:30 91 14 40 09/17/18 03:03 108 09/17/18 01:15 95 15 40 09/17/18 00:00 98.6 80 15 128/80 (96) 100 09/17/18 00:00 Mechanical Ventilator 09/16/18 23:30 97 14 40 09/16/18 23:16 88 09/16/18 21:14 109 15 40 09/16/18 20:54 94 115/68 09/16/18 20:00 40 09/16/18 20:00 99 09/16/18 20:00 Mechanical Ventilator 09/16/18 20:00 98.4 90 15 136/76 (96) 100 09/16/18 19:28 103 14 40 09/16/18 17:16 98 15 40 09/16/18 16:00 40 09/16/18 16:00 98.4 102 15 126/82 (97) 100 09/16/18 16:00 Mechanical Ventilator 09/16/18 15:20 115 16 40 09/16/18 15:07 90 I&O Intake and Output 09/16/18 09/17/18 18:59 06:59 Intake Total 1385.000 ml 961.666 ml Output Total 950 ml 650 ml Balance 435.000 ml 311.666 ml Intake Free Water 115 ml IV Total 630.000 ml 421.666 ml Tube Feeding 540 ml 540 ml Other 100 ml Output Urine Total 950 ml 650 ml # Bowel Movements 2 Dressing: saturated Wound: clean Drains: other Cardiovascular: RSR Respiratory: decreased breath sounds Abdomen: soft, present bowel sounds Extremities: no cyanosis Laboratory Tests Test 09/17/18 04:00 White Blood Count 16.6 K/UL (4.8-10.8) H Red Blood Count 3.11 M/UL (4.20-5.40) L Hemoglobin 8.4 G/DL (12.0-16.0) L Hematocrit 26.0 % (37.0-47.0) L Mean Corpuscular Volume 83 FL (80-99) Mean Corpuscular Hemoglobin 27.0 PG (27.0-31.0) Mean Corpuscular Hemoglobin Concent 32.4 G/DL (32.0-36.0) Red Cell Distribution Width 16.9 % (11.6-14.8) H Platelet Count 601 K/UL (150-450) H Mean Platelet Volume 5.9 FL (6.5-10.1) L Neutrophils (%) (Auto) 81.9 % (45.0-75.0) H Lymphocytes (%) (Auto) 11.7 % (20.0-45.0) L Monocytes (%) (Auto) 5.0 % (1.0-10.0) Eosinophils (%) (Auto) 0.7 % (0.0-3.0) Basophils (%) (Auto) 0.7 % (0.0-2.0) Sodium Level 139 MMOL/L (136-145) Potassium Level 3.6 MMOL/L (3.5-5.1) Chloride Level 103 MMOL/L (98-107) Carbon Dioxide Level 29 MMOL/L (21-32) Anion Gap 7 mmol/L (5-15) Blood Urea Nitrogen 11 mg/dL (7-18) Creatinine 0.6 MG/DL (0.55-1.30) Estimat Glomerular Filtration Rate mL/min (>60) Glucose Level 126 MG/DL (74-106) H Calcium Level 8.7 MG/DL (8.5-10.1) Pro-B-Type Natriuretic Peptide 5184 pg/mL (0-125) H Plan Problems: (1) Contracture of multiple joints (2) ICD (implantable cardioverter-defibrillator) in place (3) Sepsis Assessment & Plan: leukocytosis abnormal labs septic on IV abx as per ID micro noted wounds unlikely etiology of sepsis will follow with recs (4) Sacral decubitus ulcer Assessment & Plan: Pt presented on admission with multiple pressure injuries. Stage 4 Full thickness pressure injury to sacrum. Base of wound with 75% mixed soft necrosis and fibrinous soria slough extending into undermined areas of wound.Bone exposure at base of wound. Maroon discoloration with induration along borders and periwound.Clockwise at 12 o'clock along borders, an area of necrosis noted.Wound is malodorous. (L)8.3cm x (W)8.5cm x (D)4.5cm,Undermining 9 -4 by 4cm at 11o'clock. At R buttocks in close proximity to sacrum, maroon discoloration that is indurated noted (L)1.5cm x(W)2.5cm. DTPI noted to plantar L heel. Wound is fluctuant and opague in centre,with small area that is black ,with surrounding erythema.Non-blanchable erythema without fluctuance periwound. DTPI noted to L heel. Maroon discoloration extending from heel into plantar aspect of heel .Base of wound is fluctuant. Non-blanchable erythema noted to lateral aspect of L heel.(L)8cm x (W)5cm. Maroon discoloration without fluctuance or induration noted to lateral L malleolus(L)1cm x (W)1cm. Tx.Plan: Apply wet to dry gauze dressing to sacral wound TID. Apply Cavilon Skin Barrier to L heel.Cover with Optifoam drsg. Change every 7 days and prn. Apply Cavilon Skin Barrier to R heel. Cover with Optifoam drsg.Change every 7 days and prn. Apply Cavilon Skin Barrier to L lateral Malleolus. Cover with Optifoam drsg.Change every 7 days and prn. Apply Triad Paste to bilat groin areas and both ischial areas with each perineal care. Air Fluidized Mattress. Reposition at least every 2hours or as tolerated. s/p debridement. (5) UTI (urinary tract infection) (6) Pneumonia (7) Atrial fibrillation (8) Anemia (9) Chronic respiratory failure (10) Chronic vegetative state (11) Feeding by G-tube Assessment & Plan: DAILY ESTIMATED NEEDS: Needs based on Critical care, obese, wound 67kg adj 22-27 kcals/kg 3258-3946 total kcals 1.25-2 g protein/kg 84-134 g total protein 25-30 mL/kg 7677-0288 total fluid mLs NUTRITION DIAGNOSIS: 1) Increased kcal and protein needs r/t wound healing as evidenced by pt w/ multiple wounds including sacral full thickness wound w/ bone exposure at base of wound per WC eval and DTPI @ lt heel. 2) Swallowing difficulty r/t respiratory status as evidenced by pt is vent dep via trach, PEG dep. CURRENT TF:Glucerna 1.5 @45ml/hr x24 hrs ENTERAL NUTRITION RECOMMENDATIONS: Glucerna 1.5 @45ml/hr x24 hrs + Prosource 1 pack daily to provide 1080ml, 1620 kcal, 89g + 11g pro, 820ml free H20 - Add Prosource 1 pack daily to better meet est prot needs - Flush per MD / HOB over 30 degrees ADDITIONAL RECOMMENDATIONS: 1) Re-calibrate bed scale as able for accurate CBW 2) TF recs as above 3) Wound care: Add SANDRA BID + VIT C 250mg BID 4) Check lytes daily, replete as needed Myles White Sep 17, 2018 12:55
--- NOTE | 2018-09-17 13:02 | Operative Note - PDOC ---
Operative Note Operative Note Date of Operation/Procedure: Sep 17, 2018 Pre-op Diagnosis: infected necrotic fibrinous sacral stage 4 decubitus ulcer Procedure: excisional debridement of sacral decubitus ulcer with ostectomy Post-op Diagnosis: infected necrotic fibrinous sacral stage 4 decubitus ulcer with bony dislodged fragments Post-op Diagnosis: same as pre-op Surgeon: Myles White MD Anesthesia: local Specimen: yes - excised tissue and bone fragments Complications: none Condition: stable Fluids: IVF Estimated Blood Loss: minimal - 15cc Drains: none Packing: wet to dry TID Implant(s) used?: No Indications for Procedure 72 year old female who on admission noted to have stage 4 sacral decubitus ulcer with significant necrotic tissue and fibrinous sloth and mild infection. Debridement indicated and recommended. Discussed with daughter and after risks , benefits, and alternatives discussed in detail consent obtained. of note, wound seems to have had prior debridement. Description of Procedure Patient was made comfortable at bedside with nursing staff and wound care team available. patient turned to the right lateral decubitus position. prior dressings removed. wound irrigated with saline wound wash. using fresh number 10 scalpel, surgical scissors, and forceps the necrotic and fibrinous sloth were excised down to healthy tissue. bone was palpable and multiple small bony fragments were dislodged/broken with rough edges. bone fragments were excised to healthy bony tissue. once completed wound was irrigated and good hemostasis noted after holding direct pressure for a few minutes. wound cleansed and gauze packing and dressings applied. patient tolerated procedure well. will continue with dressings changes TID until good granulation tissue formed. Myles White Sep 17, 2018 13:02
--- NOTE | 2018-09-17 13:34 | Infectious Diseases Prog Note ---
Assessment/Plan Assessment/Plan Abx: IV Vancomycin 09/13- Cefepime 09/13- Amikacin 09/13- Zosyn x1 09/13 Assessment: Sepsis- ?PNA vs 2ry to wound infection -CXR: Limited evaluation with suboptimal positioning. Cardiomegaly and slight prominence of the pulmonary vascularity which may suggest mild congestive changes/interstitial edema. Streaky opacities at the right base possibly related to subsegmental atelectasis. Pneumonia should be excluded clinically. Tracheostomy tube and pacemaker noted. -u/a wbc 10-15, nit neg, leuk +3; sq cells moderate (improper collection give high amount of sq cells); repeat u/a wbc 5-10, nit neg, leuk +1, sq cells few; ucx p Sputum Cx 09/14/18 - MDR PsA (S Amikcin, Colistin, Polymixin B) Urine Cx 09/13/18 - Yeast Acute on chronic anemia- ?bleeding Afebrile Leukocytosis; increased Sacral decubitus ulcer stage IV- chronic OM and necrotic tissue (infected necrotic fibrinous sacral stage 4 decubitus ulcer with bony dislodged fragments) -09/17 SP excisional debridement of sacral decubitus ulcer with ostectomy -wound cx p -09/14 wound cx: GNR #1, #2, S. aureus, GPC chronic respiratory failure trach/vent dependant s/p PEG S/p AICD vegetative state Afib on AC [facility] resident Plan: -Continue empiric IV Vancomycin, Flagyl #5 and switch Cefepime #5 to Amikacin for MDR PsA and pending GNR woudn cx -09/13 SPAmikacin #1, Zosyn x1 -f/u cx -Monitor CBC/CMP, temperatures -wound care per surgical team -wound cx -Sx f/u -Trach/PEG care -aspiration precautions -Cdiff if diarrhea -CXR am Thank you for this consultation. Will continue to follow along with you. Subjective Allergies: Coded Allergies: ALPRAZOLAM (Verified Allergy, Unknown, 09/13/18) Subjective afebrile wbc improved s/p bedside detriment of sacral wound today Objective Vital Signs Last 24 Hour Vital Signs Date Time Temp Pulse Resp B/P (MAP) Pulse Ox O2 Delivery O2 Flow Rate FiO2 09/17/18 13:07 96 15 40 09/17/18 12:00 86 4/22/19 12:00 40 09/17/18 12:00 Mechanical Ventilator 09/17/18 12:00 98.2 98 14 111/67 (82) 100 09/17/18 11:00 92 14 40 09/17/18 08:45 100 103/60 09/17/18 08:37 76 14 40 09/17/18 08:00 Mechanical Ventilator 09/17/18 08:00 94 09/17/18 08:00 40 09/17/18 07:44 98.4 100 14 103/60 (74) 100 09/17/18 06:46 86 14 40 09/17/18 05:06 94 14 40 09/17/18 04:00 98.1 91 14 130/75 (93) 98 09/17/18 04:00 Mechanical Ventilator 09/17/18 04:00 40 09/17/18 03:30 91 14 40 09/17/18 03:03 108 09/17/18 01:15 95 15 40 09/17/18 00:00 98.6 80 15 128/80 (96) 100 09/17/18 00:00 Mechanical Ventilator 09/16/18 23:30 97 14 40 09/16/18 23:16 88 09/16/18 21:14 109 15 40 09/16/18 20:54 94 115/68 09/16/18 20:00 40 09/16/18 20:00 99 09/16/18 20:00 Mechanical Ventilator 09/16/18 20:00 98.4 90 15 136/76 (96) 100 09/16/18 19:28 103 14 40 09/16/18 17:16 98 15 40 09/16/18 16:00 40 09/16/18 16:00 98.4 102 15 126/82 (97) 100 09/16/18 16:00 Mechanical Ventilator 09/16/18 15:20 115 16 40 09/16/18 15:07 90 Height (Feet): 5 Height (Inches): 8.00 Weight (Pounds): 232 Objective General Appearance: no apparent distress Lines, tubes and drains: peripheral HEENT: mucous membranes moist Neck: trach Respiratory/Chest: on vent Cardiovascular/Chest: regularly irregular Abdomen: no organomegaly, no mass, feeding tube Extremities: other Skin Exam: other Neurologic: unresponsiveness Microbiology Date/Time Source Procedure Growth Status 09/14/18 19:43 Sacral Wound Gram Stain - Final Resulted 09/14/18 19:43 Wound Culture - Preliminary Gram Negative Bacillus 1 Gram Negative Bacillus 2 Staphylococcus Aureus Gram Positive Cocci Resulted Laboratory Tests Test 09/17/18 04:00 White Blood Count 16.6 K/UL (4.8-10.8) H Red Blood Count 3.11 M/UL (4.20-5.40) L Hemoglobin 8.4 G/DL (12.0-16.0) L Hematocrit 26.0 % (37.0-47.0) L Mean Corpuscular Volume 83 FL (80-99) Mean Corpuscular Hemoglobin 27.0 PG (27.0-31.0) Mean Corpuscular Hemoglobin Concent 32.4 G/DL (32.0-36.0) Red Cell Distribution Width 16.9 % (11.6-14.8) H Platelet Count 601 K/UL (150-450) H Mean Platelet Volume 5.9 FL (6.5-10.1) L Neutrophils (%) (Auto) 81.9 % (45.0-75.0) H Lymphocytes (%) (Auto) 11.7 % (20.0-45.0) L Monocytes (%) (Auto) 5.0 % (1.0-10.0) Eosinophils (%) (Auto) 0.7 % (0.0-3.0) Basophils (%) (Auto) 0.7 % (0.0-2.0) Sodium Level 139 MMOL/L (136-145) Potassium Level 3.6 MMOL/L (3.5-5.1) Chloride Level 103 MMOL/L (98-107) Carbon Dioxide Level 29 MMOL/L (21-32) Anion Gap 7 mmol/L (5-15) Blood Urea Nitrogen 11 mg/dL (7-18) Creatinine 0.6 MG/DL (0.55-1.30) Estimat Glomerular Filtration Rate mL/min (>60) Glucose Level 126 MG/DL (74-106) H Calcium Level 8.7 MG/DL (8.5-10.1) Pro-B-Type Natriuretic Peptide 5184 pg/mL (0-125) H Current Medications Medications (Trade) Dose Ordered Sig/Rosy Route PRN Reason Start Time Stop Time Status Last Admin Dose Admin Acetaminophen (Tylenol) 650 mg Q4H PRN GT FEVER 09/13/18 11:45 10/13/18 06:59 Albuterol/ Ipratropium (Albuterol/ Ipratropium) 3 ml Q4H PRN HHN Shortness of Breath 09/13/18 07:00 09/18/18 06:59 Amiodarone HCl (Cordarone) 200 mg DAILY ORAL 09/16/18 09:00 10/14/18 20:59 09/17/18 08:44 Cefepime HCl 1 gm/ Dextrose 55 ml @ 110 mls/hr EVERY 12 HOURS IVPB 09/13/18 21:00 09/20/18 20:59 09/17/18 08:46 Chlorhexidine Gluconate (Elizabeth-Hex 2%) 1 applic DAILY@2000 TOPIC 09/14/18 20:00 10/14/18 19:59 09/16/18 20:20 Dextrose (Dextrose 50%) 25 ml Q30M PRN IV Hypoglycemia 09/13/18 08:15 10/13/18 08:14 Dextrose (Dextrose 50%) 50 ml Q30M PRN IV Hypoglycemia 09/13/18 08:15 10/13/18 08:14 Heparin Sodium (Porcine) (Heparin 5000 units/ml) 5,000 units EVERY 12 HOURS SUBQ 09/13/18 09:00 10/13/18 08:59 09/16/18 20:56 Heparin Sodium/ Sodium Chloride (Heparin 1000 units/500ml Premix) 1,000 unit ONCE PRN IV LINE 09/17/18 10:30 09/17/18 23:59 Insulin Aspart (NovoLOG) EVERY 6 HOURS SUBQ 09/13/18 12:00 10/13/18 11:59 09/17/18 11:40 Levetiracetam (Keppra) 500 mg Q12HR GT 09/13/18 21:00 10/13/18 20:59 09/17/18 08:45 Lidocaine HCl (Xylocaine 1% 30ml) 30 ml ONCE PRN INJ LINE 09/17/18 10:30 09/17/18 23:59 Lorazepam (Ativan 2mg/ml 1ml) 2 mg Q2H PRN IV For Anxiety 09/13/18 07:00 09/20/18 06:59 Metoprolol Tartrate (Lopressor) 12.5 mg Q12HR ORAL 09/14/18 21:00 10/14/18 20:59 09/17/18 08:45 Metronidazole 100 ml @ 100 mls/hr Q8HR IVPB 09/13/18 14:00 09/20/18 13:59 09/17/18 05:48 Morphine Sulfate (Morphine Sulfate) 4 mg Q4H PRN IVP Severe Pain (Pain Scale 7-10) 09/13/18 07:00 09/20/18 06:59 Ondansetron HCl (Zofran) 4 mg Q6H PRN IVP Nausea & Vomiting 09/13/18 07:00 10/13/18 06:59 Pantoprazole (Protonix) 40 mg DAILY IV 09/13/18 09:00 10/13/18 08:59 09/17/18 08:45 Polyethylene Glycol (Miralax) 17 gm DAILYPRN PRN GT Constipation 09/13/18 11:45 10/13/18 06:59 Vancomycin HCl (Vanco rx to dose) 1 ea DAILY PRN MISC PER PHARMACY 09/13/18 07:00 10/13/18 06:59 Vancomycin HCl/ Dextrose 275 ml @ 183.333 mls/hr Q12HR IVPB 09/14/18 22:00 09/19/18 21:59 09/17/18 10:31 Nadia Donovan M.D. Sep 17, 2018 13:34
--- NOTE | 2018-09-17 13:39 | NUR ---
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 ANEMIA . SACRAL DECUBITUS ULCER VS: BP 103/60, P 108, T 98.1, RR 14, SpO2 98 on VENT AC 14, TV 600, PEEP 5.0, FiO2 40 WBC 16.6, RBC 3.11, Hgb 8.4, Hct 26.0 IS:CORDARONE 200mg VANCOMYCIN HCI 275ml IVPB LOPRESSOR 12.5mg KEPPRA 500mg METRONIDAZOLE 100ml IVPB NOVOLOG SUBQ PROTONIX 40mg SDU STATUS
[2018-09-17] MEDS ORDERED: Amikacin Rx to dose MISC PRN (13:45)
--- NOTE | 2018-09-17 14:21 | Diagnostic Imaging Report ---
Indications: Needs long-term IV access Technique: Procedure performed at bedside. Procedural timeout performed. Ultrasound confirms patent compressible left basilic vein. Total sterile technique, including sterile probe cover and sterile gel, sterile gloves, hand hygiene, hat, mask,, sterile gown, large sterile drape, and preparation with 2% chlorhexidine utilized. Local anesthesia with 1% lidocaine. Under real-time ultrasound guidance, puncture basilic vein using 21-gauge needle, passage 0.018 guidewire, exchange for 4 Nepali peel-away sheath. 4 Nepali Bard dual-lumen power PICC cut to 53 cm. It was inserted through the peel-away sheath. Peel-away sheath and guidewire removed. Catheter fixed to the skin. Both catheter ports aspirated and flushed. Patient tolerated procedure well, without immediate complication. Followup chest x-ray obtained, documents catheter tip position at the high right atrium Impression: Successful bedside placement of left arm PICC under sonographic guidance, as described above.
--- NOTE | 2018-09-17 14:25 | NUR ---
NURSE NOTES:WOUND CARE FOLLOW-UP NOTES:Excisional debridement of sacral incision done at bedside by . Small amt sanguineous exudate noted. Base of wound is now viable.Sacral bone palpable.Pt tolerated procedure well. Orders to pack wound with Kerlix TID noted.
[2018-09-17] MEDS: Amikacin 1,250 MG in NS 110 ML IV SCH (15:22)
--- NOTE | 2018-09-17 15:36 | NUR ---
NURSE NOTES: Contacted and informed Dr. Frey that a left upper arm PICC was obtained. Dr. Frey acknowledged and ordered to discontinue left femoral triple lumen catheter. Order entered, noted, and carried out. Will continue to monitor patient.
[2018-09-17 16:00] VITALS: BP 111/62
--- NOTE | 2018-09-17 16:22 | NUR ---
NURSE NOTES: Left femoral triple lumen catheter removed at bedside, accompanied by charge nurse. Successful removal of Left TLC, tip of catheter intact, applied 10 minutes of strong pressure - no active bleeding noted at site. Pressure dressing applied to site. Will continue to monitor patient.
--- NOTE | 2018-09-17 18:29 | Internal Med Progress Note ---
Subjective Date of Service: Sep 17, 2018 Physician Name Ruddy George Attending Physician Ariel Frey MD Current Medications Medications (Trade) Dose Ordered Sig/Rosy Route PRN Reason Start Time Stop Time Status Last Admin Dose Admin Acetaminophen (Tylenol) 650 mg Q4H PRN GT FEVER 09/13/18 11:45 10/13/18 06:59 Albuterol/ Ipratropium (Albuterol/ Ipratropium) 3 ml Q4H PRN HHN Shortness of Breath 09/13/18 07:00 09/18/18 06:59 Amikacin Protocol (Amikacin pharmacy to dose) 1 ea DAILY PRN MISC Per rx protocol 09/17/18 13:45 10/17/18 13:44 Amikacin Sulfate 1250 mg/Sodium Chloride 115 ml @ 115 mls/hr Q24H IV 09/17/18 15:00 09/24/18 14:59 09/17/18 15:22 Amiodarone HCl (Cordarone) 200 mg DAILY ORAL 09/16/18 09:00 10/14/18 20:59 09/17/18 08:44 Chlorhexidine Gluconate (Elizabeth-Hex 2%) 1 applic DAILY@2000 TOPIC 09/14/18 20:00 10/14/18 19:59 09/16/18 20:20 Dextrose (Dextrose 50%) 25 ml Q30M PRN IV Hypoglycemia 09/13/18 08:15 10/13/18 08:14 Dextrose (Dextrose 50%) 50 ml Q30M PRN IV Hypoglycemia 09/13/18 08:15 10/13/18 08:14 Heparin Sodium (Porcine) (Heparin 5000 units/ml) 5,000 units EVERY 12 HOURS SUBQ 09/13/18 09:00 10/13/18 08:59 09/16/18 20:56 Heparin Sodium/ Sodium Chloride (Heparin 1000 units/500ml Premix) 1,000 unit ONCE PRN IV LINE 09/17/18 10:30 09/17/18 23:59 Insulin Aspart (NovoLOG) EVERY 6 HOURS SUBQ 09/13/18 12:00 10/13/18 11:59 09/17/18 11:40 Levetiracetam (Keppra) 500 mg Q12HR GT 09/13/18 21:00 10/13/18 20:59 09/17/18 08:45 Lidocaine HCl (Xylocaine 1% 30ml) 30 ml ONCE PRN INJ LINE 09/17/18 10:30 09/17/18 23:59 Lorazepam (Ativan 2mg/ml 1ml) 2 mg Q2H PRN IV For Anxiety 09/13/18 07:00 09/20/18 06:59 Metoprolol Tartrate (Lopressor) 12.5 mg Q12HR ORAL 09/14/18 21:00 10/14/18 20:59 09/17/18 08:45 Metronidazole 100 ml @ 100 mls/hr Q8HR IVPB 09/13/18 14:00 09/20/18 13:59 09/17/18 13:42 Morphine Sulfate (Morphine Sulfate) 4 mg Q4H PRN IVP Severe Pain (Pain Scale 7-10) 09/13/18 07:00 09/20/18 06:59 Ondansetron HCl (Zofran) 4 mg Q6H PRN IVP Nausea & Vomiting 09/13/18 07:00 10/13/18 06:59 Pantoprazole (Protonix) 40 mg DAILY IV 09/13/18 09:00 10/13/18 08:59 09/17/18 08:45 Polyethylene Glycol (Miralax) 17 gm DAILYPRN PRN GT Constipation 09/13/18 11:45 10/13/18 06:59 Vancomycin HCl (Vanco rx to dose) 1 ea DAILY PRN MISC PER PHARMACY 09/13/18 07:00 10/13/18 06:59 Vancomycin HCl/ Dextrose 275 ml @ 183.333 mls/hr Q12HR IVPB 09/14/18 22:00 09/19/18 21:59 09/17/18 10:31 Allergies: Coded Allergies: ALPRAZOLAM (Verified Allergy, Unknown, 09/13/18) ROS Limited/Unobtainable: Yes Subjective 72 YO vent dep F admitted with dyspnea. Now pneumonia. Cover for Int Med-DR Negron. DULCE Objective Last Vital Signs Date Time Temp Pulse Resp B/P (MAP) Pulse Ox O2 Delivery O2 Flow Rate FiO2 09/17/18 17:14 105 16 40 09/17/18 16:00 97.9 111/62 (78) 100 09/17/18 16:00 Mechanical Ventilator Laboratory Tests Test 09/17/18 04:00 White Blood Count 16.6 K/UL (4.8-10.8) H Red Blood Count 3.11 M/UL (4.20-5.40) L Hemoglobin 8.4 G/DL (12.0-16.0) L Hematocrit 26.0 % (37.0-47.0) L Mean Corpuscular Volume 83 FL (80-99) Mean Corpuscular Hemoglobin 27.0 PG (27.0-31.0) Mean Corpuscular Hemoglobin Concent 32.4 G/DL (32.0-36.0) Red Cell Distribution Width 16.9 % (11.6-14.8) H Platelet Count 601 K/UL (150-450) H Mean Platelet Volume 5.9 FL (6.5-10.1) L Neutrophils (%) (Auto) 81.9 % (45.0-75.0) H Lymphocytes (%) (Auto) 11.7 % (20.0-45.0) L Monocytes (%) (Auto) 5.0 % (1.0-10.0) Eosinophils (%) (Auto) 0.7 % (0.0-3.0) Basophils (%) (Auto) 0.7 % (0.0-2.0) Sodium Level 139 MMOL/L (136-145) Potassium Level 3.6 MMOL/L (3.5-5.1) Chloride Level 103 MMOL/L (98-107) Carbon Dioxide Level 29 MMOL/L (21-32) Anion Gap 7 mmol/L (5-15) Blood Urea Nitrogen 11 mg/dL (7-18) Creatinine 0.6 MG/DL (0.55-1.30) Estimat Glomerular Filtration Rate mL/min (>60) Glucose Level 126 MG/DL (74-106) H Calcium Level 8.7 MG/DL (8.5-10.1) Pro-B-Type Natriuretic Peptide 5184 pg/mL (0-125) H Microbiology Date/Time Source Procedure Growth Status 09/14/18 19:43 Sacral Wound Gram Stain - Final Resulted 09/14/18 19:43 Wound Culture - Preliminary Gram Negative Bacillus 1 Gram Negative Bacillus 2 Staphylococcus Aureus Gram Positive Cocci Resulted Intake and Output 09/16/18 09/17/18 19:00 07:00 Intake Total 1385.000 ml 961.666 ml Output Total 950 ml 650 ml Balance 435.000 ml 311.666 ml Intake Free Water 115 ml IV Total 630.000 ml 421.666 ml Tube Feeding 540 ml 540 ml Other 100 ml Output Urine Total 950 ml 650 ml # Bowel Movements 2 Objective PHYSICAL EXAMINATION: GENERAL: The patient is well-developed and well-nourished female who is intubated and sedated. HEENT: Eyes, pupils equal and responsive to light and accommodation. Extraocular movements are intact. The patient has a tracheostomy tube in place. CHEST: mech vent; Diffuse coarse breath sounds bilaterally without wheezes or rales. CARDIOVASCULAR: Irregular rhythm and irregular rate. S1 and S2 normal without murmurs, rubs, or gallops. ABDOMEN: Soft, nontender, and nondistended. Positive bowel sounds. No hepatosplenomegaly. Currently, no rebound or guarding noted. EXTREMITIES: Negative for clubbing, cyanosis, or edema. RECTAL/GENITAL: Not performed. NEUROLOGIC: Cranial nerves II through XII grossly intact without focal deficits. Assessment/Plan Assessment/Plan ASSESSMENT: The patient is a 72-year-old female. 1. Right lower lobe pneumonia=MDR pseudamonas 2. Leukocytosis. 3. Elevated troponin. 4. Acute on chronic congestive heart failure. 5. Chronic obstructive pulmonary disease. 6. Ventilator-dependent respiratory failure. 7. Diabetes type 2. 8. Hypertension. 9. Coronary artery disease. 10. Metabolic encephalopathy. 11. Seizure disorder. 12. Dysphagia. 13. Tracheostomy. 14. Quadriplegia. TREATMENT: 1. Right lower lobe pneumonia=MDR pseudamonas. A Pulmonary consultation obtained with Dr. Ariel Frey. Continue vancomycin, flagyl, and amikacin per recommendation of Infectious Disease. 2. Elevated troponin/congestive heart failure. Cardiology consultation obtained with Dr. Isai Anglin. The patient is currently receiving intravenous Lasix. 3. Ventilator-dependent respiratory failure. As above, a Pulmonary consultation obtained with Dr. Ariel Frey. 4. Diabetes type 2. The patient was admitted off insulin. 5. Hypertension, the patient is currently hypotensive. 6. Coronary artery disease. 7. Metabolic encephalopathy. 8. Seizure disorder. Continue Keppra as above. 9. Dysphagia. The patient is status post PEG placement. Continue tube feeds as above. 10. Tracheostomy in situ. 11. Quadriplegia. Ruddy George MD Sep 17, 2018 18:29
--- NOTE | 2018-09-17 19:10 | NUR ---
HAND-OFF: Report given to SANTA Valdovinos.
--- NOTE | 2018-09-17 19:30 | NUR ---
NURSE NOTES: Received patient from Freddy PRATT. Patient is obtunded and receiving oxygen via trach, Shiley 8, settings AC 14, TV 600, FiO2 40, PEEP 5. Gtube is patent and intact receiving Glucerna 1.5 at 45cc/hr. Mayo catheter is patent and draining. IV site is left upper PICC line patent and asymptomatic. Bed is locked, placed in lowest position, side rails up x3, side rails padded. Will continue to monitor.
[2018-09-17 20:00] VITALS: BP 132/86
[2018-09-17] MEDS: Dyna-Hex 2% Top Sol 2oz TOPIC SCH (20:57)
--- NOTE | 2018-09-17 23:00 | NUR ---
NURSE NOTES: Sacral wound dressing changed.
[2018-09-18] VITALS: BP 108/73
[2018-09-18] MEDS: Acetaminophen 650mg/20.3ml GT PRN (00:15)
[2018-09-18] MEDS: NovoLOG Insulin Flexpen SUBQ SCH ×4 (00:16→17:28)
[2018-09-18 04:00] VITALS: BP 150/99
[2018-09-18 04:29] LABS: BASOPHILS % (AUTO) 0.7 % (0.0-2.0); EOSINOPHILS % (AUTO) 1.1 % (0.0-3.0); HEMATOCRIT 25.6 % (37.0-47.0); HEMOGLOBIN 8.2 G/DL (12.0-16.0); LYMPHOCYTES % (AUTO) 14.7 % (20.0-45.0); MEAN CORPUSCULAR VOLUME 84 FL (80-99); MONOCYTES % (AUTO) 4.7 % (1.0-10.0); NEUTROPHILS % (AUTO) 78.9 % (45.0-75.0); PLATELET COUNT 565 K/UL (150-450); RED BLOOD COUNT 3.06 M/UL (4.20-5.40); RED CELL DISTRIBUTION WIDTH 17.9 % (11.6-14.8); WHITE BLOOD COUNT 13.6 K/UL (4.8-10.8)
[2018-09-18 04:57] LABS: ANION GAP 7 mmol/L (5-15); BLOOD UREA NITROGEN 11 mg/dL (7-18); CALCIUM 8.5 MG/DL (8.5-10.1); CARBON DIOXIDE 29 MMOL/L (21-32); CHLORIDE 105 MMOL/L (98-107); CREATININE 0.6 MG/DL (0.55-1.30); POTASSIUM 3.8 MMOL/L (3.5-5.1); SODIUM 141 MMOL/L (136-145)
--- NOTE | 2018-09-18 06:47 | NUR ---
RESPIRATORY NOTE: Received pt on current vent setting: AC 14-600ml-40% peep of 5, saturates at 100%. Pt is trach dependent with trach cuffed, Portex 8.0, secured by trach tie and trach guard. Pt is resting comfortably in the bed, eyes open but unable to follow commands. Tachycardia HR 124bpm, tachypneic RR 25bpm but No SOB or resp distress noted. B/S rhonchi heard bilaterally upon auscultation, tracheal and oral suctioned moderate amount of thick/thin clear white secretions without incidents. Alarms are on and audible, vent is plugged in the red outlet, ambu bag and spare trach kit are at bedside, vent circuits and suction tube are patent and out of the way. Will continue to monitor pt.
--- NOTE | 2018-09-18 07:38 | NUR ---
HAND-OFF: Report given to Christa PRATT. Patient is sleeping, showing no signs of distress.
--- NOTE | 2018-09-18 07:39 | NUR ---
NURSE NOTES: Report received from SANTA Valdovinos. Observed patient in bed sleeping. Obtunded. On ventilator with previous setting. Pt. is tolerated well with ventilator and no distress noted. GT site intact with ongoing feeding. HOB elevated. No residual noted. PICC line intact and patent. F/C intact and draining well. Bed in lowest position. Call light within reach. Will continue to monitor.
[2018-09-18 08:00] VITALS: BP 137/81
[2018-09-18] MEDS: Metoprolol Tartrate 12.5mg TAB ORAL SCH ×2 (08:45→21:08)
[2018-09-18] MEDS: Vancomycin 1.25gm Premix IVPB SCH (08:45)
[2018-09-18] MEDS: Amiodarone 200mg tab ORAL SCH (08:45)
[2018-09-18] MEDS: levETIRAcetam 500mg/5ml Liquid GT SCH ×2 (08:45→21:08)
[2018-09-18] MEDS: Pantoprazole Inj IV SCH (08:45)
[2018-09-18] MEDS: Heparin 5000 units/ml inj SUBQ SCH ×2 (08:47→21:11)
--- NOTE | 2018-09-18 08:59 | NUR ---
RADIOLOGY DEPT., CHEST X-RAY COMPLETED.-P.DYE
--- NOTE | 2018-09-18 09:08 | Diagnostic Imaging Report ---
Indication: Dyspnea Technique: One view of the chest Comparison: Post PICC radiograph dated 09/17/2018 Findings: Tracheostomy, left chest AICD remains. The left hemidiaphragm is obscured. The remainder of the lungs and pleural spaces are clear. Left arm PICC is in place. Findings are unchanged Impression: Probable left pleural effusion, unchanged over one day Other stable findings as described
--- NOTE | 2018-09-18 10:19 | NUR ---
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 ANEMIA . SACRAL DECUBITUS ULCER VS: BP 150/99, P 126, T 98.4, RR 25, SpO2 100 on VENT AC 14, TV 600, PEEP 5.0, FiO2 40 WBC 13.6, RBC 3.06, Hgb 8.2, Hct 25.6 IS: CORDARONE 200mg VANCOMYCIN HCI 275ml IVPB LOPRESSOR 12.5mg KEPPRA 500mg METRONIDAZOLE 100ml IVPB NOVOLOG SUBQ HEPARIN SUBQ PROTONIX 40mg SDU STATUS
--- NOTE | 2018-09-18 10:53 | Pulmonolgy Critical Care Note ---
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 Respiratory: monitor respiratory rate, adjust FIO2, CXR Cardiac: continue to monitor HR/BP Renal: F/U I&O, keep IV fluid, check electrolytes Infectious Disease: check cultures, continue antibiotics Gastrointestinal: continue feedings/current rate, hold feedings Endocrine: monitor blood sugar, check TSH Hematologic: transfuse if hgb<8.5 Neurologic: keep patient comfortable Prophylaxis: Protonix Disposition: keep in ICU Time Spent (Minutes): 40 Notes Reviewed: professor of medicine, cardio Discussed with: nurses, consultants, catalytic case operatormanager community outreach - Objective Last 24 Hour Vital Signs Date Time Temp Pulse Resp B/P (MAP) Pulse Ox O2 Delivery O2 Flow Rate FiO2 09/18/18 08:52 112 19 40 09/18/18 08:45 112 137/81 09/18/18 08:00 40 09/18/18 08:00 Mechanical Ventilator 09/18/18 08:00 98.4 112 16 137/81 (99) 100 09/18/18 07:48 126 09/18/18 06:47 124 25 40 09/18/18 04:59 90 15 40 09/18/18 04:00 98.2 93 17 150/99 (116) 100 09/18/18 04:00 84 09/18/18 04:00 40 09/18/18 04:00 Mechanical Ventilator 09/18/18 03:37 90 14 Mechanical Ventilator 40 09/18/18 02:57 87 14 40 09/18/18 00:55 74 14 40 09/18/18 00:45 98.2 09/18/18 00:00 Mechanical Ventilator 09/18/18 00:00 86 09/18/18 00:00 102.2 82 14 108/73 (85) 100 09/17/18 23:04 93 15 40 09/17/18 21:12 104 18 40 09/17/18 20:57 98 132/86 09/17/18 20:00 105 09/17/18 20:00 98.2 98 14 132/86 (101) 100 09/17/18 20:00 40 09/17/18 20:00 Mechanical Ventilator 09/17/18 18:59 87 14 40 09/17/18 17:14 105 16 40 09/17/18 16:00 94 09/17/18 16:00 97.9 102 14 111/62 (78) 100 09/17/18 16:00 Mechanical Ventilator 09/17/18 16:00 40 09/17/18 15:41 99 15 40 09/17/18 13:07 96 15 40 09/17/18 12:00 86 09/17/18 12:00 40 09/17/18 12:00 Mechanical Ventilator 09/17/18 12:00 98.2 98 14 111/67 (82) 100 09/17/18 11:00 92 14 40 Status: obtunded HEENT: atraumatic Lungs: clear Heart: HR/BP stable, HR/BP unstable Abdomen: soft, active bowel sounds Extremities: edema Decubiti: location Accucheck: 157 Critical Care - Subjective ROS Limited/Unobtainable: No Condition: critical EKG Rhythm: Sinus Rhythm FI02: 40 Vent Support Breath Rate: 14 Vent Support Mode: AC Vent Tidal Volume: 600 Sputum Amount: Large PEEP: 5.0 PIP: 39 Tube Feeding Amount: 45 I&O: Intake and Output 09/17/18 09/18/18 18:59 06:59 Intake Total 1123.333 ml 915.000 ml Output Total 700 ml 700 ml Balance 423.333 ml 215.000 ml Intake Free Water 300 ml IV Total 283.333 ml 375.000 ml Tube Feeding 540 ml 540 ml Output Urine Total 700 ml 700 ml CXR: no change Labs: Laboratory Tests Test 09/18/18 03:10 White Blood Count 13.6 K/UL (4.8-10.8) H Red Blood Count 3.06 M/UL (4.20-5.40) L Hemoglobin 8.2 G/DL (12.0-16.0) L Hematocrit 25.6 % (37.0-47.0) L Mean Corpuscular Volume 84 FL (80-99) Mean Corpuscular Hemoglobin 26.6 PG (27.0-31.0) L Mean Corpuscular Hemoglobin Concent 31.8 G/DL (32.0-36.0) L Red Cell Distribution Width 17.9 % (11.6-14.8) H Platelet Count 565 K/UL (150-450) H Mean Platelet Volume 5.5 FL (6.5-10.1) L Neutrophils (%) (Auto) 78.9 % (45.0-75.0) H Lymphocytes (%) (Auto) 14.7 % (20.0-45.0) L Monocytes (%) (Auto) 4.7 % (1.0-10.0) Eosinophils (%) (Auto) 1.1 % (0.0-3.0) Basophils (%) (Auto) 0.7 % (0.0-2.0) Sodium Level 141 MMOL/L (136-145) Potassium Level 3.8 MMOL/L (3.5-5.1) Chloride Level 105 MMOL/L (98-107) Carbon Dioxide Level 29 MMOL/L (21-32) Anion Gap 7 mmol/L (5-15) Blood Urea Nitrogen 11 mg/dL (7-18) Creatinine 0.6 MG/DL (0.55-1.30) Estimat Glomerular Filtration Rate mL/min (>60) Glucose Level 131 MG/DL (74-106) H Calcium Level 8.5 MG/DL (8.5-10.1) Random Amikacin Level 8.0 ug/mL Ariel Frey MD Sep 18, 2018 10:53
[2018-09-18 11:44] VITALS: BP 113/78
--- NOTE | 2018-09-18 11:54 | Infectious Diseases Prog Note ---
Assessment/Plan Assessment/Plan Abx: IV Vancomycin 09/13- Cefepime 09/13- Amikacin 09/13- Zosyn x1 09/13 Assessment: Sepsis- ?PNA vs 2ry to wound infection -09/18 CXR: Probable left pleural effusion, unchanged over one day -CXR: Limited evaluation with suboptimal positioning. Cardiomegaly and slight prominence of the pulmonary vascularity which may suggest mild congestive changes/interstitial edema. Streaky opacities at the right base possibly related to subsegmental atelectasis. Pneumonia should be excluded clinically. Tracheostomy tube and pacemaker noted. -u/a wbc 10-15, nit neg, leuk +3; sq cells moderate (improper collection give high amount of sq cells); repeat u/a wbc 5-10, nit neg, leuk +1, sq cells few; ucx p Sputum Cx 09/14/18 - MDR PsA (S Amikcin, Colistin, Polymixin B) Urine Cx 09/13/18 - Yeast Acute on chronic anemia- ?bleeding Afebrile Leukocytosis; improving Sacral decubitus ulcer stage IV- chronic OM and necrotic tissue (infected necrotic fibrinous sacral stage 4 decubitus ulcer with bony dislodged fragments) -09/17 SP excisional debridement of sacral decubitus ulcer with ostectomy -wound cx p -09/14 wound cx: GNR #1, MDR PsA (S amikacin), MRSA, VRE (S Linezolid, Amp) chronic respiratory failure trach/vent dependant s/p PEG S/p AICD vegetative state Afib on AC DC resident Plan: -Switch empiric IV Vancomycin #/- to Daptomycin for MRSA and VRE coverage of wound -Continue Flagyl #6/7 -Continue Amikacin #2/- for MDR PsA and pending GNR woudn cx -09/17 SP Cefepime #5 -09/13 SPAmikacin #1, Zosyn x1 -f/u cx -Monitor CBC/CMP, temperatures -wound care per surgical team -wound cx -Sx f/u -Trach/PEG care -aspiration precautions -Cdiff if diarrhea Thank you for this consultation. Will continue to follow along with you. Subjective Allergies: Coded Allergies: ALPRAZOLAM (Verified Allergy, Unknown, 09/13/18) Subjective afebrile wbc improving Objective Vital Signs Last 24 Hour Vital Signs Date Time Temp Pulse Resp B/P (MAP) Pulse Ox O2 Delivery O2 Flow Rate FiO2 09/18/18 11:44 98.1 88 18 113/78 (90) 99 09/18/18 11:15 83 15 40 09/18/18 08:52 112 19 40 09/18/18 08:45 112 137/81 09/18/18 08:00 40 09/18/18 08:00 Mechanical Ventilator 09/18/18 08:00 98.4 112 16 137/81 (99) 100 09/18/18 07:48 126 09/18/18 06:47 124 25 40 09/18/18 04:59 90 15 40 09/18/18 04:00 98.2 93 17 150/99 (116) 100 09/18/18 04:00 84 09/18/18 04:00 40 09/18/18 04:00 Mechanical Ventilator 09/18/18 03:37 90 14 Mechanical Ventilator 40 09/18/18 02:57 87 14 40 09/18/18 00:55 74 14 40 09/18/18 00:45 98.2 09/18/18 00:00 Mechanical Ventilator 09/18/18 00:00 86 09/18/18 00:00 102.2 82 14 108/73 (85) 100 09/17/18 23:04 93 15 40 09/17/18 21:12 104 18 40 09/17/18 20:57 98 132/86 09/17/18 20:00 105 09/17/18 20:00 98.2 98 14 132/86 (101) 100 09/17/18 20:00 40 09/17/18 20:00 Mechanical Ventilator 09/17/18 18:59 87 14 40 09/17/18 17:14 105 16 40 09/17/18 16:00 94 09/17/18 16:00 97.9 102 14 111/62 (78) 100 09/17/18 16:00 Mechanical Ventilator 09/17/18 16:00 40 09/17/18 15:41 99 15 40 09/17/18 13:07 96 15 40 09/17/18 12:00 86 09/17/18 12:00 40 09/17/18 12:00 Mechanical Ventilator 09/17/18 12:00 98.2 98 14 111/67 (82) 100 Height (Feet): 5 Height (Inches): 8.00 Weight (Pounds): 232 Objective General Appearance: no apparent distress Lines, tubes and drains: peripheral HEENT: mucous membranes moist Neck: trach Respiratory/Chest: on vent Cardiovascular/Chest: regularly irregular Abdomen: no organomegaly, no mass, feeding tube Extremities: other Skin Exam: other Neurologic: unresponsiveness Laboratory Tests Test 09/18/18 03:10 White Blood Count 13.6 K/UL (4.8-10.8) H Red Blood Count 3.06 M/UL (4.20-5.40) L Hemoglobin 8.2 G/DL (12.0-16.0) L Hematocrit 25.6 % (37.0-47.0) L Mean Corpuscular Volume 84 FL (80-99) Mean Corpuscular Hemoglobin 26.6 PG (27.0-31.0) L Mean Corpuscular Hemoglobin Concent 31.8 G/DL (32.0-36.0) L Red Cell Distribution Width 17.9 % (11.6-14.8) H Platelet Count 565 K/UL (150-450) H Mean Platelet Volume 5.5 FL (6.5-10.1) L Neutrophils (%) (Auto) 78.9 % (45.0-75.0) H Lymphocytes (%) (Auto) 14.7 % (20.0-45.0) L Monocytes (%) (Auto) 4.7 % (1.0-10.0) Eosinophils (%) (Auto) 1.1 % (0.0-3.0) Basophils (%) (Auto) 0.7 % (0.0-2.0) Sodium Level 141 MMOL/L (136-145) Potassium Level 3.8 MMOL/L (3.5-5.1) Chloride Level 105 MMOL/L (98-107) Carbon Dioxide Level 29 MMOL/L (21-32) Anion Gap 7 mmol/L (5-15) Blood Urea Nitrogen 11 mg/dL (7-18) Creatinine 0.6 MG/DL (0.55-1.30) Estimat Glomerular Filtration Rate mL/min (>60) Glucose Level 131 MG/DL (74-106) H Calcium Level 8.5 MG/DL (8.5-10.1) Random Amikacin Level 8.0 ug/mL Current Medications Medications (Trade) Dose Ordered Sig/Rosy Route PRN Reason Start Time Stop Time Status Last Admin Dose Admin Acetaminophen (Tylenol) 650 mg Q4H PRN GT FEVER 09/13/18 11:45 10/13/18 06:59 09/18/18 00:15 Amikacin Protocol (Amikacin pharmacy to dose) 1 ea DAILY PRN MISC Per rx protocol 09/17/18 13:45 10/17/18 13:44 Amikacin Sulfate 1250 mg/Sodium Chloride 115 ml @ 115 mls/hr Q24H IV 09/17/18 15:00 09/24/18 14:59 09/17/18 15:22 Amiodarone HCl (Cordarone) 200 mg DAILY ORAL 09/16/18 09:00 10/14/18 20:59 09/18/18 08:45 Chlorhexidine Gluconate (Elizabeth-Hex 2%) 1 applic DAILY@2000 TOPIC 09/14/18 20:00 10/14/18 19:59 09/17/18 20:57 Dextrose (Dextrose 50%) 25 ml Q30M PRN IV Hypoglycemia 09/13/18 08:15 10/13/18 08:14 Dextrose (Dextrose 50%) 50 ml Q30M PRN IV Hypoglycemia 09/13/18 08:15 10/13/18 08:14 Heparin Sodium (Porcine) (Heparin 5000 units/ml) 5,000 units EVERY 12 HOURS SUBQ 09/13/18 09:00 10/13/18 08:59 09/18/18 08:47 Insulin Aspart (NovoLOG) EVERY 6 HOURS SUBQ 09/13/18 12:00 10/13/18 11:59 09/18/18 06:17 Levetiracetam (Keppra) 500 mg Q12HR GT 09/13/18 21:00 10/13/18 20:59 09/18/18 08:45 Lorazepam (Ativan 2mg/ml 1ml) 2 mg Q2H PRN IV For Anxiety 09/13/18 07:00 09/20/18 06:59 Metoprolol Tartrate (Lopressor) 12.5 mg Q12HR ORAL 09/14/18 21:00 10/14/18 20:59 09/18/18 08:45 Metronidazole 100 ml @ 100 mls/hr Q8HR IVPB 09/13/18 14:00 09/20/18 13:59 09/18/18 06:14 Morphine Sulfate (Morphine Sulfate) 4 mg Q4H PRN IVP Severe Pain (Pain Scale 7-10) 09/13/18 07:00 09/20/18 06:59 Ondansetron HCl (Zofran) 4 mg Q6H PRN IVP Nausea & Vomiting 09/13/18 07:00 10/13/18 06:59 Pantoprazole (Protonix) 40 mg DAILY IV 09/13/18 09:00 10/13/18 08:59 09/18/18 08:45 Polyethylene Glycol (Miralax) 17 gm DAILYPRN PRN GT Constipation 09/13/18 11:45 10/13/18 06:59 Vancomycin HCl (Vanco rx to dose) 1 ea DAILY PRN MISC PER PHARMACY 09/13/18 07:00 10/13/18 06:59 Vancomycin HCl/ Dextrose 275 ml @ 183.333 mls/hr Q12HR IVPB 09/14/18 22:00 09/19/18 21:59 09/18/18 08:45 Nadia Donovan M.D. Sep 18, 2018 11:54
--- NOTE | 2018-09-18 12:12 | Surgery Progress Note ---
Surgery Progress Note Subjective Procedure Performed excisional debridement of sacral decubitus ulcer with ostectomy Additional Comments no acute events. Objective Last 24 Hour Vital Signs Date Time Temp Pulse Resp B/P (MAP) Pulse Ox O2 Delivery O2 Flow Rate FiO2 09/18/18 12:00 Mechanical Ventilator 09/18/18 12:00 40 09/18/18 11:44 98.1 88 18 113/78 (90) 99 09/18/18 11:15 83 15 40 09/18/18 08:52 112 19 40 09/18/18 08:45 112 137/81 09/18/18 08:00 40 09/18/18 08:00 Mechanical Ventilator 09/18/18 08:00 98.4 112 16 137/81 (99) 100 09/18/18 07:48 126 09/18/18 06:47 124 25 40 09/18/18 04:59 90 15 40 09/18/18 04:00 98.2 93 17 150/99 (116) 100 09/18/18 04:00 84 09/18/18 04:00 40 09/18/18 04:00 Mechanical Ventilator 09/18/18 03:37 90 14 Mechanical Ventilator 40 09/18/18 02:57 87 14 40 09/18/18 00:55 74 14 40 09/18/18 00:45 98.2 09/18/18 00:00 Mechanical Ventilator 09/18/18 00:00 86 09/18/18 00:00 102.2 82 14 108/73 (85) 100 09/17/18 23:04 93 15 40 09/17/18 21:12 104 18 40 09/17/18 20:57 98 132/86 09/17/18 20:00 105 09/17/18 20:00 98.2 98 14 132/86 (101) 100 09/17/18 20:00 40 09/17/18 20:00 Mechanical Ventilator 09/17/18 18:59 87 14 40 09/17/18 17:14 105 16 40 09/17/18 16:00 94 09/17/18 16:00 97.9 102 14 111/62 (78) 100 09/17/18 16:00 Mechanical Ventilator 09/17/18 16:00 40 09/17/18 15:41 99 15 40 09/17/18 13:07 96 15 40 I&O Intake and Output 09/17/18 09/18/18 18:59 06:59 Intake Total 1123.333 ml 915.000 ml Output Total 700 ml 700 ml Balance 423.333 ml 215.000 ml Intake Free Water 300 ml IV Total 283.333 ml 375.000 ml Tube Feeding 540 ml 540 ml Output Urine Total 700 ml 700 ml Dressing: saturated Wound: clean Drains: other Cardiovascular: RSR Respiratory: clear, decreased breath sounds Abdomen: soft, present bowel sounds Extremities: no tenderness, no cyanosis Laboratory Tests Test 09/18/18 03:10 White Blood Count 13.6 K/UL (4.8-10.8) H Red Blood Count 3.06 M/UL (4.20-5.40) L Hemoglobin 8.2 G/DL (12.0-16.0) L Hematocrit 25.6 % (37.0-47.0) L Mean Corpuscular Volume 84 FL (80-99) Mean Corpuscular Hemoglobin 26.6 PG (27.0-31.0) L Mean Corpuscular Hemoglobin Concent 31.8 G/DL (32.0-36.0) L Red Cell Distribution Width 17.9 % (11.6-14.8) H Platelet Count 565 K/UL (150-450) H Mean Platelet Volume 5.5 FL (6.5-10.1) L Neutrophils (%) (Auto) 78.9 % (45.0-75.0) H Lymphocytes (%) (Auto) 14.7 % (20.0-45.0) L Monocytes (%) (Auto) 4.7 % (1.0-10.0) Eosinophils (%) (Auto) 1.1 % (0.0-3.0) Basophils (%) (Auto) 0.7 % (0.0-2.0) Sodium Level 141 MMOL/L (136-145) Potassium Level 3.8 MMOL/L (3.5-5.1) Chloride Level 105 MMOL/L (98-107) Carbon Dioxide Level 29 MMOL/L (21-32) Anion Gap 7 mmol/L (5-15) Blood Urea Nitrogen 11 mg/dL (7-18) Creatinine 0.6 MG/DL (0.55-1.30) Estimat Glomerular Filtration Rate mL/min (>60) Glucose Level 131 MG/DL (74-106) H Calcium Level 8.5 MG/DL (8.5-10.1) Random Amikacin Level 8.0 ug/mL Assessment Post-op Diagnosis infected necrotic fibrinous sacral stage 4 decubitus ulcer with bony dislodged fragments Plan Problems: (1) Contracture of multiple joints (2) ICD (implantable cardioverter-defibrillator) in place (3) Sepsis Assessment & Plan: leukocytosis abnormal labs septic on IV abx as per ID micro noted wounds unlikely etiology of sepsis will follow with recs (4) Sacral decubitus ulcer Assessment & Plan: Pt presented on admission with multiple pressure injuries. Stage 4 Full thickness pressure injury to sacrum. Base of wound with 75% mixed soft necrosis and fibrinous soria slough extending into undermined areas of wound.Bone exposure at base of wound. Maroon discoloration with induration along borders and periwound.Clockwise at 12 o'clock along borders, an area of necrosis noted.Wound is malodorous. (L)8.3cm x (W)8.5cm x (D)4.5cm,Undermining 9 -4 by 4cm at 11o'clock. At R buttocks in close proximity to sacrum, maroon discoloration that is indurated noted (L)1.5cm x(W)2.5cm. DTPI noted to plantar L heel. Wound is fluctuant and opague in centre,with small area that is black ,with surrounding erythema.Non-blanchable erythema without fluctuance periwound. DTPI noted to L heel. Maroon discoloration extending from heel into plantar aspect of heel .Base of wound is fluctuant. Non-blanchable erythema noted to lateral aspect of L heel.(L)8cm x (W)5cm. Maroon discoloration without fluctuance or induration noted to lateral L malleolus(L)1cm x (W)1cm. Tx.Plan: Apply wet to dry gauze dressing to sacral wound TID. Apply Cavilon Skin Barrier to L heel.Cover with Optifoam drsg. Change every 7 days and prn. Apply Cavilon Skin Barrier to R heel. Cover with Optifoam drsg.Change every 7 days and prn. Apply Cavilon Skin Barrier to L lateral Malleolus. Cover with Optifoam drsg.Change every 7 days and prn. Apply Triad Paste to bilat groin areas and both ischial areas with each perineal care. Air Fluidized Mattress. Reposition at least every 2hours or as tolerated. s/p debridement. improving cont with dressing changes (5) UTI (urinary tract infection) (6) Pneumonia (7) Atrial fibrillation (8) Anemia (9) Chronic respiratory failure (10) Chronic vegetative state (11) Feeding by G-tube Assessment & Plan: DAILY ESTIMATED NEEDS: Needs based on Critical care, obese, wound 67kg adj 22-27 kcals/kg 3027-9783 total kcals 1.25-2 g protein/kg 84-134 g total protein 25-30 mL/kg 7022-5616 total fluid mLs NUTRITION DIAGNOSIS: 1) Increased kcal and protein needs r/t wound healing as evidenced by pt w/ multiple wounds including sacral full thickness wound w/ bone exposure at base of wound per WC eval and DTPI @ lt heel. 2) Swallowing difficulty r/t respiratory status as evidenced by pt is vent dep via trach, PEG dep. CURRENT TF:Glucerna 1.5 @45ml/hr x24 hrs ENTERAL NUTRITION RECOMMENDATIONS: Glucerna 1.5 @45ml/hr x24 hrs + Prosource 1 pack daily to provide 1080ml, 1620 kcal, 89g + 11g pro, 820ml free H20 - Add Prosource 1 pack daily to better meet est prot needs - Flush per MD / HOB over 30 degrees ADDITIONAL RECOMMENDATIONS: 1) Re-calibrate bed scale as able for accurate CBW 2) TF recs as above 3) Wound care: Add SANDRA BID + VIT C 250mg BID 4) Check lytes daily, replete as needed Myles White Sep 18, 2018 12:12
[2018-09-18] MEDS: DAPTOmycin 400 MG in NS 55 ML IV SCH (13:48)
[2018-09-18] MEDS: Amikacin 1,250 MG in NS 110 ML IV SCH (14:44)
--- NOTE | 2018-09-18 15:33 | Cardiology Progress Note ---
Assessment/Plan Assessment/Plan 1. History of coronary artery disease with reported history of occluded right coronary artery. 2. Permanent atrial fibrillation, on anticoagulation. 3. History of ventricular fibrillation arrest. 4. History of CVA. 5. Cardiomyopathy with ejection fraction 20%. 6. Chronic ventilator therapy. 7. Anemia. 8. Hypoalbuminemia. 9. hs of icd implantation 10. sig MR ] 11. Pulm htn echo report noted telel reviweed labs noted not sig response needs to be on acei is already on bb off asa and eleiquis will need to be resumed if no concern from GI bleeding Subjective ROS Limited/Unobtainable: Yes Objective Last 24 Hour Vital Signs Date Time Temp Pulse Resp B/P (MAP) Pulse Ox O2 Delivery O2 Flow Rate FiO2 09/18/18 14:50 95 16 40 09/18/18 13:06 103 15 40 09/18/18 12:00 Mechanical Ventilator 09/18/18 12:00 90 09/18/18 12:00 40 09/18/18 11:44 98.1 88 18 113/78 (90) 99 09/18/18 11:15 83 15 40 09/18/18 08:52 112 19 40 09/18/18 08:45 112 137/81 09/18/18 08:00 40 09/18/18 08:00 Mechanical Ventilator 09/18/18 08:00 98.4 112 16 137/81 (99) 100 09/18/18 07:48 126 09/18/18 06:47 124 25 40 09/18/18 04:59 90 15 40 09/18/18 04:00 98.2 93 17 150/99 (116) 100 09/18/18 04:00 84 09/18/18 04:00 40 09/18/18 04:00 Mechanical Ventilator 09/18/18 03:37 90 14 Mechanical Ventilator 40 09/18/18 02:57 87 14 40 09/18/18 00:55 74 14 40 09/18/18 00:45 98.2 09/18/18 00:00 Mechanical Ventilator 09/18/18 00:00 86 09/18/18 00:00 102.2 82 14 108/73 (85) 100 09/17/18 23:04 93 15 40 09/17/18 21:12 104 18 40 09/17/18 20:57 98 132/86 09/17/18 20:00 105 09/17/18 20:00 98.2 98 14 132/86 (101) 100 09/17/18 20:00 40 09/17/18 20:00 Mechanical Ventilator 09/17/18 18:59 87 14 40 09/17/18 17:14 105 16 40 09/17/18 16:00 94 09/17/18 16:00 97.9 102 14 111/62 (78) 100 09/17/18 16:00 Mechanical Ventilator 09/17/18 16:00 40 09/17/18 15:41 99 15 40 General Appearance: on vent, patient on isolation Cardiovascular: normal rate Respiratory/Chest: lungs clear Abdomen: normal bowel sounds, non tender, soft Extremities: no swelling Intake and Output 09/17/18 09/18/18 18:59 06:59 Intake Total 1123.333 ml 915.000 ml Output Total 700 ml 700 ml Balance 423.333 ml 215.000 ml Intake Free Water 300 ml IV Total 283.333 ml 375.000 ml Tube Feeding 540 ml 540 ml Output Urine Total 700 ml 700 ml Laboratory Tests Test 09/18/18 03:10 White Blood Count 13.6 K/UL (4.8-10.8) H Red Blood Count 3.06 M/UL (4.20-5.40) L Hemoglobin 8.2 G/DL (12.0-16.0) L Hematocrit 25.6 % (37.0-47.0) L Mean Corpuscular Volume 84 FL (80-99) Mean Corpuscular Hemoglobin 26.6 PG (27.0-31.0) L Mean Corpuscular Hemoglobin Concent 31.8 G/DL (32.0-36.0) L Red Cell Distribution Width 17.9 % (11.6-14.8) H Platelet Count 565 K/UL (150-450) H Mean Platelet Volume 5.5 FL (6.5-10.1) L Neutrophils (%) (Auto) 78.9 % (45.0-75.0) H Lymphocytes (%) (Auto) 14.7 % (20.0-45.0) L Monocytes (%) (Auto) 4.7 % (1.0-10.0) Eosinophils (%) (Auto) 1.1 % (0.0-3.0) Basophils (%) (Auto) 0.7 % (0.0-2.0) Sodium Level 141 MMOL/L (136-145) Potassium Level 3.8 MMOL/L (3.5-5.1) Chloride Level 105 MMOL/L (98-107) Carbon Dioxide Level 29 MMOL/L (21-32) Anion Gap 7 mmol/L (5-15) Blood Urea Nitrogen 11 mg/dL (7-18) Creatinine 0.6 MG/DL (0.55-1.30) Estimat Glomerular Filtration Rate mL/min (>60) Glucose Level 131 MG/DL (74-106) H Calcium Level 8.5 MG/DL (8.5-10.1) Random Amikacin Level 8.0 ug/mL Isai Anglin MD Sep 18, 2018 15:33
[2018-09-18] MEDS ORDERED: Tubing IV Secondary IV ONE ×2 (15:39→15:46)
[2018-09-18] MEDS ORDERED: NS 275ml ONE ×2 (15:39→15:46)
--- NOTE | 2018-09-18 15:40 | NUR ---
RD ASSESSMENT & RECOMMENDATIONS SEE CARE ACTIVITY FOR COMPLETE ASSESSMENT DAILY ESTIMATED NEEDS: Needs based on Critical care, obese, wound 67kg adj 22-27 kcals/kg 5333-7120 total kcals 1.25-2 g protein/kg 84-134 g total protein 25-30 mL/kg 3096-7345 total fluid mLs NUTRITION DIAGNOSIS: 1) Increased kcal and protein needs r/t wound healing as evidenced by pt w/ multiple wounds including sacral full thickness wound w/ bone exposure at base of wound, s/p debridement on 09/18/18 and DTPI @ lt heel. 2) Swallowing difficulty r/t respiratory status as evidenced by pt is vent dep via trach, PEG dep. CURRENT TF:Glucerna 1.5 @45ml/hr x24 hrs ENTERAL NUTRITION RECOMMENDATIONS: Glucerna 1.5 @45ml/hr x24 hrs + Prosource 1 pack daily to provide 1080ml, 1620 kcal, 89g + 11g pro, 820ml free H20 - Add Prosource 1 pack daily to better meet est prot needs - Flush per MD / HOB over 30 degrees ADDITIONAL RECOMMENDATIONS: 1) Re-calibrate bed scale as able for accurate CBW 2) TF rec as above: add Prosource 1pkt daily to better meet prot needs 3) Wound care: Add SANDRA BID + VIT C 500mg BID 4) Check lytes daily, replete as needed .
[2018-09-18 16:00] VITALS: BP 123/80
--- NOTE | 2018-09-18 18:51 | Internal Med Progress Note ---
Subjective Date of Service: Sep 18, 2018 Physician Name Ruddy George Attending Physician Wade Negron MD Current Medications Medications (Trade) Dose Ordered Sig/Rosy Route PRN Reason Start Time Stop Time Status Last Admin Dose Admin Acetaminophen (Tylenol) 650 mg Q4H PRN GT FEVER 09/13/18 11:45 10/13/18 06:59 09/18/18 00:15 Amikacin Protocol (Amikacin pharmacy to dose) 1 ea DAILY PRN MISC Per rx protocol 09/17/18 13:45 10/17/18 13:44 Amikacin Sulfate 1250 mg/Sodium Chloride 115 ml @ 115 mls/hr Q24H IV 09/17/18 15:00 09/24/18 14:59 09/18/18 14:44 Amiodarone HCl (Cordarone) 200 mg DAILY ORAL 09/16/18 09:00 10/14/18 20:59 09/18/18 08:45 Chlorhexidine Gluconate (Elizabeth-Hex 2%) 1 applic DAILY@2000 TOPIC 09/14/18 20:00 10/14/18 19:59 09/17/18 20:57 Daptomycin 400 mg/ Sodium Chloride 55 ml @ 100 mls/hr Q24H IV 09/18/18 14:00 09/25/18 13:59 09/18/18 13:48 Dextrose (Dextrose 50%) 25 ml Q30M PRN IV Hypoglycemia 09/13/18 08:15 10/13/18 08:14 Dextrose (Dextrose 50%) 50 ml Q30M PRN IV Hypoglycemia 09/13/18 08:15 10/13/18 08:14 Heparin Sodium (Porcine) (Heparin 5000 units/ml) 5,000 units EVERY 12 HOURS SUBQ 09/13/18 09:00 10/13/18 08:59 09/18/18 08:47 Insulin Aspart (NovoLOG) EVERY 6 HOURS SUBQ 09/13/18 12:00 10/13/18 11:59 09/18/18 17:28 Lansoprazole (Prevacid) 30 mg DAILY GT 09/19/18 09:00 10/19/18 08:59 Levetiracetam (Keppra) 500 mg Q12HR GT 09/13/18 21:00 10/13/18 20:59 09/18/18 08:45 Lisinopril (Zestril) 10 mg DAILY ORAL 09/19/18 09:00 10/19/18 08:59 Lorazepam (Ativan 2mg/ml 1ml) 2 mg Q2H PRN IV For Anxiety 09/13/18 07:00 09/20/18 06:59 Metoprolol Tartrate (Lopressor) 12.5 mg Q12HR ORAL 09/14/18 21:00 10/14/18 20:59 09/18/18 08:45 Metronidazole (Flagyl) 500 mg Q8HR GT 09/18/18 22:00 09/20/18 13:59 Morphine Sulfate (Morphine Sulfate) 4 mg Q4H PRN IVP Severe Pain (Pain Scale 7-10) 09/13/18 07:00 09/20/18 06:59 Ondansetron HCl (Zofran) 4 mg Q6H PRN IVP Nausea & Vomiting 09/13/18 07:00 10/13/18 06:59 Polyethylene Glycol (Miralax) 17 gm DAILYPRN PRN GT Constipation 09/13/18 11:45 10/13/18 06:59 Allergies: Coded Allergies: ALPRAZOLAM (Verified Allergy, Unknown, 09/13/18) ROS Limited/Unobtainable: Yes Subjective 72 YO vent dep F admitted with dyspnea. Now pneumonia. Cover for Int Med-DR Negron. DULCE Objective Last Vital Signs Date Time Temp Pulse Resp B/P (MAP) Pulse Ox O2 Delivery O2 Flow Rate FiO2 09/18/18 17:26 91 14 40 09/18/18 16:00 Mechanical Ventilator 09/18/18 16:00 98.2 123/80 (94) 100 Laboratory Tests Test 09/18/18 03:10 White Blood Count 13.6 K/UL (4.8-10.8) H Red Blood Count 3.06 M/UL (4.20-5.40) L Hemoglobin 8.2 G/DL (12.0-16.0) L Hematocrit 25.6 % (37.0-47.0) L Mean Corpuscular Volume 84 FL (80-99) Mean Corpuscular Hemoglobin 26.6 PG (27.0-31.0) L Mean Corpuscular Hemoglobin Concent 31.8 G/DL (32.0-36.0) L Red Cell Distribution Width 17.9 % (11.6-14.8) H Platelet Count 565 K/UL (150-450) H Mean Platelet Volume 5.5 FL (6.5-10.1) L Neutrophils (%) (Auto) 78.9 % (45.0-75.0) H Lymphocytes (%) (Auto) 14.7 % (20.0-45.0) L Monocytes (%) (Auto) 4.7 % (1.0-10.0) Eosinophils (%) (Auto) 1.1 % (0.0-3.0) Basophils (%) (Auto) 0.7 % (0.0-2.0) Sodium Level 141 MMOL/L (136-145) Potassium Level 3.8 MMOL/L (3.5-5.1) Chloride Level 105 MMOL/L (98-107) Carbon Dioxide Level 29 MMOL/L (21-32) Anion Gap 7 mmol/L (5-15) Blood Urea Nitrogen 11 mg/dL (7-18) Creatinine 0.6 MG/DL (0.55-1.30) Estimat Glomerular Filtration Rate mL/min (>60) Glucose Level 131 MG/DL (74-106) H Calcium Level 8.5 MG/DL (8.5-10.1) Random Amikacin Level 8.0 ug/mL Intake and Output 09/17/18 09/18/18 19:00 07:00 Intake Total 1123.333 ml 915.000 ml Output Total 700 ml 700 ml Balance 423.333 ml 215.000 ml Intake Free Water 300 ml IV Total 283.333 ml 375.000 ml Tube Feeding 540 ml 540 ml Output Urine Total 700 ml 700 ml Objective PHYSICAL EXAMINATION: GENERAL: The patient is well-developed and well-nourished female who is intubated and sedated. HEENT: Eyes, pupils equal and responsive to light and accommodation. Extraocular movements are intact. The patient has a tracheostomy tube in place. CHEST: mech vent; Diffuse coarse breath sounds bilaterally without wheezes or rales. CARDIOVASCULAR: Irregular rhythm and irregular rate. S1 and S2 normal without murmurs, rubs, or gallops. ABDOMEN: Soft, nontender, and nondistended. Positive bowel sounds. No hepatosplenomegaly. Currently, no rebound or guarding noted. EXTREMITIES: Negative for clubbing, cyanosis, or edema. RECTAL/GENITAL: Not performed. NEUROLOGIC: Cranial nerves II through XII grossly intact without focal deficits. Assessment/Plan Assessment/Plan ASSESSMENT: The patient is a 72-year-old female. 1. Right lower lobe pneumonia=MDR pseudamonas 2. Leukocytosis. 3. Elevated troponin. 4. Acute on chronic congestive heart failure. 5. Chronic obstructive pulmonary disease. 6. Ventilator-dependent respiratory failure. 7. Diabetes type 2. 8. Hypertension. 9. Coronary artery disease. 10. Metabolic encephalopathy. 11. Seizure disorder. 12. Dysphagia. 13. Tracheostomy. 14. Quadriplegia. TREATMENT: 1. Right lower lobe pneumonia=MDR pseudamonas. A Pulmonary consultation obtained with Dr. Ariel Frey. Continue vancomycin, flagyl, and amikacin per recommendation of Infectious Disease. 2. Elevated troponin/congestive heart failure. Cardiology consultation obtained with Dr. Isai Anglin. The patient is currently receiving intravenous Lasix. 3. Ventilator-dependent respiratory failure. As above, a Pulmonary consultation obtained with Dr. Ariel Frey. 4. Diabetes type 2. The patient was admitted off insulin. 5. Hypertension, the patient is currently hypotensive. 6. Coronary artery disease. 7. Metabolic encephalopathy. 8. Seizure disorder. Continue Keppra as above. 9. Dysphagia. The patient is status post PEG placement. Continue tube feeds as above. 10. Tracheostomy in situ. 11. Quadriplegia. Ruddy George MD Sep 18, 2018 18:51
--- NOTE | 2018-09-18 19:36 | NUR ---
HAND-OFF: Report given to SANTA Alves. Stable condition.
[2018-09-18 20:00] VITALS: BP 131/69
--- NOTE | 2018-09-18 20:00 | NUR ---
NURSE NOTES: pt obtunded trach -vent o2 sat 96-100 1oo no acute resp distress noted suction and reposition iv site good dressing dry and intact tolerating tube feeding no residua
[2018-09-18] MEDS: Dyna-Hex 2% Top Sol 2oz TOPIC SCH (21:08)
[2018-09-18] MEDS: metroNIDAZOLE 500mg tab GT SCH (22:19)
[2018-09-19] VITALS (7 sets, daily range): BP systolic 113–150; BP diastolic 79–95
[2018-09-19 04:51] LABS: BASOPHILS % (AUTO) 1.1 % (0.0-2.0); EOSINOPHILS % (AUTO) 0.8 % (0.0-3.0); HEMATOCRIT 26.6 % (37.0-47.0); HEMOGLOBIN 8.5 G/DL (12.0-16.0); LYMPHOCYTES % (AUTO) 12.4 % (20.0-45.0); MEAN CORPUSCULAR VOLUME 83 FL (80-99); MONOCYTES % (AUTO) 5.6 % (1.0-10.0); NEUTROPHILS % (AUTO) 80.1 % (45.0-75.0); PLATELET COUNT 589 K/UL (150-450); RED BLOOD COUNT 3.18 M/UL (4.20-5.40); RED CELL DISTRIBUTION WIDTH 17.5 % (11.6-14.8); WHITE BLOOD COUNT 14.8 K/UL (4.8-10.8)
[2018-09-19] MEDS: metroNIDAZOLE 500mg tab GT SCH ×3 (05:29→21:02)
[2018-09-19 05:32] LABS: ANION GAP 7 mmol/L (5-15); BLOOD UREA NITROGEN 10 mg/dL (7-18); CALCIUM 8.5 MG/DL (8.5-10.1); CARBON DIOXIDE 29 MMOL/L (21-32); CHLORIDE 106 MMOL/L (98-107); CREATININE 0.4 MG/DL (0.55-1.30); POTASSIUM 4.5 MMOL/L (3.5-5.1); SODIUM 142 MMOL/L (136-145)
[2018-09-19] MEDS: NovoLOG Insulin Flexpen SUBQ SCH ×5 (05:32→23:01)
[2018-09-19 05:33] LABS: CREATINE KINASE 13 U/L (26-308)
--- NOTE | 2018-09-19 06:25 | NUR ---
NURSE NOTES: pt hr 130-150 a-fluter bp133/68 facial grimace or moaning pain medication ms 4mg ivp given as order
--- NOTE | 2018-09-19 07:30 | NUR ---
HAND-OFF: Report given to [paul walls ].using sbar
--- NOTE | 2018-09-19 07:39 | NUR ---
NURSE NOTES: Received pt from SANTA Suarez in stable condition with no cardiopulmonary distress noted. Pt currently has a HR of 105-110 and Aflutter rhythm on cafeteria monitor. Pt is non-verbal, trach to vent, Shiley 8 AC 14 TV 600 FiO2 40% and Peep 5. GT noted running Glucerna 1.5 at 45cc/hr. F/C noted draining yellow urine. Skin alterations are noted. Pt has a YAYO PICC. Bed is in lowest position, side rails up x 3 and padded per seizure precaution. Bed alarm on, call light within reach. Will continue to monitor pt.
--- NOTE | 2018-09-19 08:30 | NUR ---
Noted wrong medication route listed on eMAR for amiodarone, metoprolol, and lisinopril. Will administer via GT route. Will input new orders with correct route.
[2018-09-19] MEDS: levETIRAcetam 500mg/5ml Liquid GT SCH ×2 (08:32→20:24)
[2018-09-19] MEDS: Metoprolol Tartrate 12.5mg TAB ORAL SCH (08:33)
[2018-09-19] MEDS: Amiodarone 200mg tab ORAL SCH (08:33)
[2018-09-19] MEDS: Heparin 5000 units/ml inj SUBQ SCH ×2 (08:34→20:26)
[2018-09-19] MEDS ORDERED: Lisinopril 10mg tab ORAL SCH (09:00)
--- NOTE | 2018-09-19 10:00 | NUR ---
NURSE NOTES: Dr. Frey made aware of pt's elevated PLT level. No new orders as of this time.
--- NOTE | 2018-09-19 10:07 | Pulmonolgy Critical Care Note ---
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 Respiratory: monitor respiratory rate, adjust FIO2, CXR Cardiac: continue to monitor HR/BP Renal: F/U I&O, check electrolytes Infectious Disease: check cultures Gastrointestinal: continue feedings/current rate, hold feedings Endocrine: monitor blood sugar, check TSH Hematologic: monitor H/H, transfuse if hgb<8.5 Neurologic: keep patient comfortable Time Spent (Minutes): 40 Notes Reviewed: cardio, renal Critical Care - Objective Last 24 Hour Vital Signs Date Time Temp Pulse Resp B/P (MAP) Pulse Ox O2 Delivery O2 Flow Rate FiO2 09/19/18 08:40 101 18 40 09/19/18 08:33 106 123/86 09/19/18 08:32 123/86 09/19/18 08:00 95 09/19/18 08:00 40 09/19/18 08:00 Mechanical Ventilator 09/19/18 08:00 98.2 105 14 123/86 (98) 100 09/19/18 06:33 99 20 40 09/19/18 06:25 98.2 130 20 133/86 (102) 100 09/19/18 05:13 108 21 40 09/19/18 04:00 108 09/19/18 04:00 Mechanical Ventilator 09/19/18 04:00 98.2 97 20 150/95 (113) 100 09/19/18 04:00 40 09/19/18 03:07 107 19 40 09/19/18 01:07 101 15 40 09/19/18 00:00 40 09/19/18 00:00 113 09/19/18 00:00 Mechanical Ventilator 09/19/18 00:00 100.8 97 20 140/85 (103) 100 09/18/18 23:09 92 15 40 09/18/18 21:29 97 14 40 09/18/18 21:08 89 131/69 09/18/18 20:00 Mechanical Ventilator 09/18/18 20:00 97.9 106 16 131/69 (89) 100 09/18/18 20:00 89 09/18/18 20:00 40 09/18/18 19:25 88 14 40 09/18/18 17:26 91 14 40 09/18/18 16:00 Mechanical Ventilator 09/18/18 16:00 98.2 101 16 123/80 (94) 100 09/18/18 16:00 40 09/18/18 16:00 109 09/18/18 14:50 95 16 40 09/18/18 13:06 103 15 40 09/18/18 12:00 Mechanical Ventilator 09/18/18 12:00 90 09/18/18 12:00 40 09/18/18 11:44 98.1 88 18 113/78 (90) 99 09/18/18 11:15 83 15 40 Status: awake, sedated HEENT: atraumatic, normocephalic Lungs: clear Heart: HR/BP stable Abdomen: soft, active bowel sounds Extremities: no C/C/E, edema Micro: Microbiology Date/Time Source Procedure Growth Status 09/17/18 15:10 Blood Blood Culture - Preliminary NO GROWTH AFTER 24 HOURS Resulted 09/17/18 15:10 Blood Blood Culture - Preliminary NO GROWTH AFTER 24 HOURS Resulted Accucheck: 122 Critical Care - Subjective ROS Limited/Unobtainable: Yes EKG Rhythm: Sinus Rhythm FI02: 40 Vent Support Breath Rate: 14 Vent Support Mode: AC Vent Tidal Volume: 600 Sputum Amount: Moderate PEEP: 5.0 PIP: 26 Tube Feeding Amount: 45 I&O: Intake and Output 09/18/18 09/19/18 19:00 07:00 Intake Total 1445.000 ml 740 ml Output Total 900 ml 500 ml Balance 545.000 ml 240 ml Intake Free Water 260 ml 200 ml IV Total 645.000 ml Tube Feeding 540 ml 540 ml Output Urine Total 900 ml 500 ml # Bowel Movements 2 2 Labs: Laboratory Tests Test 09/19/18 03:30 White Blood Count 14.8 K/UL (4.8-10.8) H Red Blood Count 3.18 M/UL (4.20-5.40) L Hemoglobin 8.5 G/DL (12.0-16.0) L Hematocrit 26.6 % (37.0-47.0) L Mean Corpuscular Volume 83 FL (80-99) Mean Corpuscular Hemoglobin 26.6 PG (27.0-31.0) L Mean Corpuscular Hemoglobin Concent 31.9 G/DL (32.0-36.0) L Red Cell Distribution Width 17.5 % (11.6-14.8) H Platelet Count 589 K/UL (150-450) H Mean Platelet Volume 5.6 FL (6.5-10.1) L Neutrophils (%) (Auto) 80.1 % (45.0-75.0) H Lymphocytes (%) (Auto) 12.4 % (20.0-45.0) L Monocytes (%) (Auto) 5.6 % (1.0-10.0) Eosinophils (%) (Auto) 0.8 % (0.0-3.0) Basophils (%) (Auto) 1.1 % (0.0-2.0) Sodium Level 142 MMOL/L (136-145) Potassium Level 4.5 MMOL/L (3.5-5.1) Chloride Level 106 MMOL/L (98-107) Carbon Dioxide Level 29 MMOL/L (21-32) Anion Gap 7 mmol/L (5-15) Blood Urea Nitrogen 10 mg/dL (7-18) Creatinine 0.4 MG/DL (0.55-1.30) L Estimat Glomerular Filtration Rate mL/min (>60) Glucose Level 98 MG/DL (74-106) Calcium Level 8.5 MG/DL (8.5-10.1) Total Creatine Kinase 13 U/L (26-308) L Ariel Frey MD Sep 19, 2018 10:07
--- NOTE | 2018-09-19 12:56 | Infectious Diseases Prog Note ---
Assessment/Plan Assessment/Plan Abx: IV Vancomycin 09/13- Cefepime 09/13- Amikacin 09/13- Zosyn x1 09/13 Assessment: Sepsis- ?PNA vs 2ry to wound infection -09/17 BCx NTD -09/18 CXR: Probable left pleural effusion, unchanged over one day -CXR: Limited evaluation with suboptimal positioning. Cardiomegaly and slight prominence of the pulmonary vascularity which may suggest mild congestive changes/interstitial edema. Streaky opacities at the right base possibly related to subsegmental atelectasis. Pneumonia should be excluded clinically. Tracheostomy tube and pacemaker noted. -u/a wbc 10-15, nit neg, leuk +3; sq cells moderate (improper collection give high amount of sq cells); repeat u/a wbc 5-10, nit neg, leuk +1, sq cells few; ucx p Sputum Cx 09/14/18 - MDR PsA (S Amikcin, Colistin, Polymixin B) Urine Cx 09/13/18 - Yeast Acute on chronic anemia- ?bleeding Fever Leukocytosis; improving Sacral decubitus ulcer stage IV- chronic OM and necrotic tissue (infected necrotic fibrinous sacral stage 4 decubitus ulcer with bony dislodged fragments) -09/17 SP excisional debridement of sacral decubitus ulcer with ostectomy -wound cx p -09/14 wound cx: CRE K.Pna (S Colistin, Polymixin B, Tigecycline), MDR PsA ( S amikacin), MRSA, VRE (S Linezolid, Amp) chronic respiratory failure trach/vent dependant s/p PEG S/p AICD vegetative state Afib on AC [place] resident Plan: -Continue Daptomycin #2 for MRSA and VRE coverage of wound -monitor CPK -Continue Flagyl #7/7 -Continue Amikacin #3/10-14 for MDR PsA and add Tigecycline for CRE in wound -09/18 SP IV Vancomycin #6 -09/17 SP Cefepime #5 -09/13 SPAmikacin #1, Zosyn x1 -f/u cx -Monitor CBC/CMP, temperatures -wound care per surgical team -wound cx -Sx f/u -Trach/PEG care -aspiration precautions -Cdiff if diarrhea Thank you for this consultation. Will continue to follow along with you. Subjective Allergies: Coded Allergies: ALPRAZOLAM (Verified Allergy, Unknown, 09/13/18) Subjective Tm 100.8 wbc overall imroved but remains b/t 13-14 Objective Vital Signs Last 24 Hour Vital Signs Date Time Temp Pulse Resp B/P (MAP) Pulse Ox O2 Delivery O2 Flow Rate FiO2 09/19/18 12:00 40 09/19/18 12:00 98.5 95 15 119/79 (92) 100 09/19/18 12:00 104 09/19/18 12:00 Mechanical Ventilator 09/19/18 10:35 98 18 40 09/19/18 08:40 101 18 40 09/19/18 08:33 106 123/86 09/19/18 08:32 123/86 09/19/18 08:00 95 09/19/18 08:00 40 09/19/18 08:00 Mechanical Ventilator 09/19/18 08:00 98.2 105 14 123/86 (98) 100 09/19/18 06:33 99 20 40 09/19/18 06:25 98.2 130 20 133/86 (102) 100 09/19/18 05:13 108 21 40 09/19/18 04:00 108 09/19/18 04:00 Mechanical Ventilator 09/19/18 04:00 98.2 97 20 150/95 (113) 100 09/19/18 04:00 40 09/19/18 03:07 107 19 40 09/19/18 01:07 101 15 40 09/19/18 00:00 40 09/19/18 00:00 113 09/19/18 00:00 Mechanical Ventilator 09/19/18 00:00 100.8 97 20 140/85 (103) 100 09/18/18 23:09 92 15 40 09/18/18 21:29 97 14 40 09/18/18 21:08 89 131/69 09/18/18 20:00 Mechanical Ventilator 09/18/18 20:00 97.9 106 16 131/69 (89) 100 09/18/18 20:00 89 09/18/18 20:00 40 09/18/18 19:25 88 14 40 09/18/18 17:26 91 14 40 09/18/18 16:00 Mechanical Ventilator 09/18/18 16:00 98.2 101 16 123/80 (94) 100 09/18/18 16:00 40 09/18/18 16:00 109 09/18/18 14:50 95 16 40 09/18/18 13:06 103 15 40 Height (Feet): 5 Height (Inches): 8.00 Weight (Pounds): 240 Objective General Appearance: no apparent distress Lines, tubes and drains: peripheral HEENT: mucous membranes moist Neck: trach Respiratory/Chest: on vent Cardiovascular/Chest: regularly irregular Abdomen: no organomegaly, no mass, feeding tube Extremities: other Skin Exam: other Neurologic: unresponsiveness Microbiology Date/Time Source Procedure Growth Status 09/17/18 15:10 Blood Blood Culture - Preliminary NO GROWTH AFTER 24 HOURS Resulted 09/17/18 15:10 Blood Blood Culture - Preliminary NO GROWTH AFTER 24 HOURS Resulted Laboratory Tests Test 09/19/18 03:30 White Blood Count 14.8 K/UL (4.8-10.8) H Red Blood Count 3.18 M/UL (4.20-5.40) L Hemoglobin 8.5 G/DL (12.0-16.0) L Hematocrit 26.6 % (37.0-47.0) L Mean Corpuscular Volume 83 FL (80-99) Mean Corpuscular Hemoglobin 26.6 PG (27.0-31.0) L Mean Corpuscular Hemoglobin Concent 31.9 G/DL (32.0-36.0) L Red Cell Distribution Width 17.5 % (11.6-14.8) H Platelet Count 589 K/UL (150-450) H Mean Platelet Volume 5.6 FL (6.5-10.1) L Neutrophils (%) (Auto) 80.1 % (45.0-75.0) H Lymphocytes (%) (Auto) 12.4 % (20.0-45.0) L Monocytes (%) (Auto) 5.6 % (1.0-10.0) Eosinophils (%) (Auto) 0.8 % (0.0-3.0) Basophils (%) (Auto) 1.1 % (0.0-2.0) Sodium Level 142 MMOL/L (136-145) Potassium Level 4.5 MMOL/L (3.5-5.1) Chloride Level 106 MMOL/L (98-107) Carbon Dioxide Level 29 MMOL/L (21-32) Anion Gap 7 mmol/L (5-15) Blood Urea Nitrogen 10 mg/dL (7-18) Creatinine 0.4 MG/DL (0.55-1.30) L Estimat Glomerular Filtration Rate mL/min (>60) Glucose Level 98 MG/DL (74-106) Calcium Level 8.5 MG/DL (8.5-10.1) Total Creatine Kinase 13 U/L (26-308) L Current Medications Medications (Trade) Dose Ordered Sig/Rosy Route PRN Reason Start Time Stop Time Status Last Admin Dose Admin Acetaminophen (Tylenol) 650 mg Q4H PRN GT FEVER 09/13/18 11:45 10/13/18 06:59 09/18/18 00:15 Amikacin Protocol (Amikacin pharmacy to dose) 1 ea DAILY PRN MISC Per rx protocol 09/17/18 13:45 10/17/18 13:44 Amikacin Sulfate 1250 mg/Sodium Chloride 115 ml @ 115 mls/hr Q24H IV 09/17/18 15:00 09/24/18 14:59 09/18/18 14:44 Amiodarone HCl (Cordarone) 200 mg DAILY GT 09/20/18 09:00 10/20/18 08:59 Chlorhexidine Gluconate (Elizabeth-Hex 2%) 1 applic DAILY@2000 TOPIC 09/14/18 20:00 10/14/18 19:59 09/18/18 21:08 Daptomycin 400 mg/ Sodium Chloride 55 ml @ 100 mls/hr Q24H IV 09/18/18 14:00 09/25/18 13:59 09/18/18 13:48 Dextrose (Dextrose 50%) 25 ml Q30M PRN IV Hypoglycemia 09/13/18 08:15 10/13/18 08:14 Dextrose (Dextrose 50%) 50 ml Q30M PRN IV Hypoglycemia 09/13/18 08:15 10/13/18 08:14 Heparin Sodium (Porcine) (Heparin 5000 units/ml) 5,000 units EVERY 12 HOURS SUBQ 09/13/18 09:00 10/13/18 08:59 09/19/18 08:34 Insulin Aspart (NovoLOG) EVERY 6 HOURS SUBQ 09/13/18 12:00 10/13/18 11:59 09/19/18 12:01 Lansoprazole (Prevacid) 30 mg DAILY GT 09/19/18 09:00 10/19/18 08:59 09/19/18 08:32 Levetiracetam (Keppra) 500 mg Q12HR GT 09/13/18 21:00 10/13/18 20:59 09/19/18 08:32 Lisinopril (Zestril) 10 mg DAILY GT 09/20/18 09:00 10/20/18 08:59 Lorazepam (Ativan 2mg/ml 1ml) 2 mg Q2H PRN IV For Anxiety 09/13/18 07:00 09/20/18 06:59 Metoprolol Tartrate (Lopressor) 12.5 mg Q12HR GT 09/19/18 21:00 10/19/18 20:59 Metronidazole (Flagyl) 500 mg Q8HR GT 09/18/18 22:00 09/20/18 13:59 09/19/18 05:29 Morphine Sulfate (Morphine Sulfate) 4 mg Q4H PRN IVP Severe Pain (Pain Scale 7-10) 09/13/18 07:00 09/20/18 06:59 09/19/18 06:26 Ondansetron HCl (Zofran) 4 mg Q6H PRN IVP Nausea & Vomiting 09/13/18 07:00 10/13/18 06:59 Polyethylene Glycol (Miralax) 17 gm DAILYPRN PRN GT Constipation 09/13/18 11:45 10/13/18 06:59 Nadia Donovan M.D. Sep 19, 2018 12:56
--- NOTE | 2018-09-19 13:01 | NUR ---
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 99.5 HR 106 RR 18 B/P 119/79 AC 14 TV 600 FIO2 40% PEEP 5 WBC 14.8 IS: TYGACIL IV FLAGYL GT DAPTOMYCIN IV AMIKACIN IV STEP DOWN UNIT
--- NOTE | 2018-09-19 13:05 | NUR ---
HAND-OFF: Report given to SANTA Lovelace. Pt in stable condition.
--- NOTE | 2018-09-19 14:14 | NUR ---
NURSE NOTES: received patient report from paul walls. patient is on bed.obtunded. not on acute distress.on vent with the ff settings: ac14, tv600, fio2 40% and peep5. aflutter HR on the 90s. will follow plan of care.
[2018-09-19] MEDS: DAPTOmycin 400 MG in NS 55 ML IV SCH (14:35)
[2018-09-19] MEDS ORDERED: Tigecycline 100 MG in NS 110 ML IVPB SCH (15:00)
[2018-09-19] MEDS: Amikacin 1,250 MG in NS 110 ML IV SCH (15:18)
--- NOTE | 2018-09-19 17:52 | Cardiology Progress Note ---
Assessment/Plan Assessment/Plan 1. History of coronary artery disease with reported history of occluded right coronary artery. 2. Permanent atrial fibrillation, on anticoagulation. 3. History of ventricular fibrillation arrest. 4. History of CVA. 5. Cardiomyopathy with ejection fraction 20%. 6. Chronic ventilator therapy. 7. Anemia. 8. Hypoalbuminemia. 9. hs of icd implantation 10. sig MR ] 11. Pulm htn echo report noted telel reviweed labs noted not sig response on acei is already on bb off asa and eleiquis will need to be resumed if no concern from GI bleeding diuretics Subjective ROS Limited/Unobtainable: Yes Objective Last 24 Hour Vital Signs Date Time Temp Pulse Resp B/P (MAP) Pulse Ox O2 Delivery O2 Flow Rate FiO2 09/19/18 17:07 101 14 40 09/19/18 16:00 Mechanical Ventilator 09/19/18 16:00 99.0 85 14 113/79 (90) 100 09/19/18 16:00 40 09/19/18 15:51 115 09/19/18 15:32 88 14 40 09/19/18 13:06 92 14 40 09/19/18 12:00 40 09/19/18 12:00 98.5 95 15 119/79 (92) 100 09/19/18 12:00 104 09/19/18 12:00 Mechanical Ventilator 09/19/18 10:35 98 18 40 09/19/18 08:40 101 18 40 09/19/18 08:33 106 123/86 09/19/18 08:32 123/86 09/19/18 08:00 95 09/19/18 08:00 40 09/19/18 08:00 Mechanical Ventilator 09/19/18 08:00 98.2 105 14 123/86 (98) 100 09/19/18 06:33 99 20 40 09/19/18 06:25 98.2 130 20 133/86 (102) 100 09/19/18 05:13 108 21 40 09/19/18 04:00 108 09/19/18 04:00 Mechanical Ventilator 09/19/18 04:00 98.2 97 20 150/95 (113) 100 09/19/18 04:00 40 09/19/18 03:07 107 19 40 09/19/18 01:07 101 15 40 4/24/19 00:00 40 09/19/18 00:00 113 09/19/18 00:00 Mechanical Ventilator 09/19/18 00:00 100.8 97 20 140/85 (103) 100 09/18/18 23:09 92 15 40 09/18/18 21:29 97 14 40 09/18/18 21:08 89 131/69 09/18/18 20:00 Mechanical Ventilator 09/18/18 20:00 97.9 106 16 131/69 (89) 100 09/18/18 20:00 89 09/18/18 20:00 40 09/18/18 19:25 88 14 40 General Appearance: on vent, patient on isolation Neck: supple Cardiovascular: irregularly irregular Respiratory/Chest: lungs clear Abdomen: normal bowel sounds, non tender, soft Extremities: trace edema Intake and Output 09/18/18 09/19/18 18:59 06:59 Intake Total 1445.000 ml 740 ml Output Total 900 ml 500 ml Balance 545.000 ml 240 ml Intake Free Water 260 ml 200 ml IV Total 645.000 ml Tube Feeding 540 ml 540 ml Output Urine Total 900 ml 500 ml # Bowel Movements 2 2 Laboratory Tests Test 09/19/18 03:30 White Blood Count 14.8 K/UL (4.8-10.8) H Red Blood Count 3.18 M/UL (4.20-5.40) L Hemoglobin 8.5 G/DL (12.0-16.0) L Hematocrit 26.6 % (37.0-47.0) L Mean Corpuscular Volume 83 FL (80-99) Mean Corpuscular Hemoglobin 26.6 PG (27.0-31.0) L Mean Corpuscular Hemoglobin Concent 31.9 G/DL (32.0-36.0) L Red Cell Distribution Width 17.5 % (11.6-14.8) H Platelet Count 589 K/UL (150-450) H Mean Platelet Volume 5.6 FL (6.5-10.1) L Neutrophils (%) (Auto) 80.1 % (45.0-75.0) H Lymphocytes (%) (Auto) 12.4 % (20.0-45.0) L Monocytes (%) (Auto) 5.6 % (1.0-10.0) Eosinophils (%) (Auto) 0.8 % (0.0-3.0) Basophils (%) (Auto) 1.1 % (0.0-2.0) Sodium Level 142 MMOL/L (136-145) Potassium Level 4.5 MMOL/L (3.5-5.1) Chloride Level 106 MMOL/L (98-107) Carbon Dioxide Level 29 MMOL/L (21-32) Anion Gap 7 mmol/L (5-15) Blood Urea Nitrogen 10 mg/dL (7-18) Creatinine 0.4 MG/DL (0.55-1.30) L Estimat Glomerular Filtration Rate mL/min (>60) Glucose Level 98 MG/DL (74-106) Calcium Level 8.5 MG/DL (8.5-10.1) Total Creatine Kinase 13 U/L (26-308) L Microbiology Date/Time Source Procedure Growth Status 09/17/18 15:10 Blood Blood Culture - Preliminary NO GROWTH AFTER 24 HOURS Resulted 09/17/18 15:10 Blood Blood Culture - Preliminary NO GROWTH AFTER 24 HOURS Resulted Isai Anglin MD Sep 19, 2018 17:52
--- NOTE | 2018-09-19 19:11 | Internal Med Progress Note ---
Subjective Date of Service: Sep 19, 2018 Physician Name Ruddy George Attending Physician Wade Negron MD Current Medications Medications (Trade) Dose Ordered Sig/Rosy Route PRN Reason Start Time Stop Time Status Last Admin Dose Admin Acetaminophen (Tylenol) 650 mg Q4H PRN GT FEVER 09/13/18 11:45 10/13/18 06:59 09/18/18 00:15 Amikacin Protocol (Amikacin pharmacy to dose) 1 ea DAILY PRN MISC Per rx protocol 09/17/18 13:45 10/17/18 13:44 Amikacin Sulfate 1250 mg/Sodium Chloride 115 ml @ 115 mls/hr Q24H IV 09/17/18 15:00 09/24/18 14:59 09/19/18 15:18 Amiodarone HCl (Cordarone) 200 mg DAILY GT 09/20/18 09:00 10/20/18 08:59 Chlorhexidine Gluconate (Elizabeth-Hex 2%) 1 applic DAILY@2000 TOPIC 09/14/18 20:00 10/14/18 19:59 09/18/18 21:08 Daptomycin 400 mg/ Sodium Chloride 55 ml @ 100 mls/hr Q24H IV 09/18/18 14:00 09/25/18 13:59 09/19/18 14:35 Dextrose (Dextrose 50%) 25 ml Q30M PRN IV Hypoglycemia 09/13/18 08:15 10/13/18 08:14 Dextrose (Dextrose 50%) 50 ml Q30M PRN IV Hypoglycemia 09/13/18 08:15 10/13/18 08:14 Furosemide (Lasix) 20 mg DAILY IV 09/20/18 09:00 10/20/18 08:59 Heparin Sodium (Porcine) (Heparin 5000 units/ml) 5,000 units EVERY 12 HOURS SUBQ 09/13/18 09:00 10/13/18 08:59 09/19/18 08:34 Insulin Aspart (NovoLOG) EVERY 6 HOURS SUBQ 09/13/18 12:00 10/13/18 11:59 09/19/18 17:42 Lansoprazole (Prevacid) 30 mg DAILY GT 09/19/18 09:00 10/19/18 08:59 09/19/18 08:32 Levetiracetam (Keppra) 500 mg Q12HR GT 09/13/18 21:00 10/13/18 20:59 09/19/18 08:32 Lisinopril (Zestril) 10 mg DAILY GT 09/20/18 09:00 10/20/18 08:59 Lorazepam (Ativan 2mg/ml 1ml) 2 mg Q2H PRN IV For Anxiety 09/13/18 07:00 09/20/18 06:59 Metoprolol Tartrate (Lopressor) 12.5 mg Q12HR GT 09/19/18 21:00 10/19/18 20:59 Metronidazole (Flagyl) 500 mg Q8HR GT 09/18/18 22:00 09/20/18 13:59 09/19/18 14:26 Morphine Sulfate (Morphine Sulfate) 4 mg Q4H PRN IVP Severe Pain (Pain Scale 7-10) 09/13/18 07:00 09/20/18 06:59 09/19/18 06:26 Ondansetron HCl (Zofran) 4 mg Q6H PRN IVP Nausea & Vomiting 09/13/18 07:00 10/13/18 06:59 Polyethylene Glycol (Miralax) 17 gm DAILYPRN PRN GT Constipation 09/13/18 11:45 10/13/18 06:59 Tigecycline 50 mg/ Sodium Chloride 110 ml @ 220 mls/hr Q12HR@0300,1500 IVPB 09/20/18 03:00 09/27/18 02:59 Allergies: Coded Allergies: ALPRAZOLAM (Verified Allergy, Unknown, 09/13/18) ROS Limited/Unobtainable: Yes Subjective 72 YO vent dep F admitted with dyspnea. Now pneumonia. Cover for Int Med-DR Negron. DULCE Objective Last Vital Signs Date Time Temp Pulse Resp B/P (MAP) Pulse Ox O2 Delivery O2 Flow Rate FiO2 09/19/18 19:08 87 14 40 09/19/18 16:00 Mechanical Ventilator 09/19/18 16:00 99.0 113/79 (90) 100 Laboratory Tests Test 09/19/18 03:30 White Blood Count 14.8 K/UL (4.8-10.8) H Red Blood Count 3.18 M/UL (4.20-5.40) L Hemoglobin 8.5 G/DL (12.0-16.0) L Hematocrit 26.6 % (37.0-47.0) L Mean Corpuscular Volume 83 FL (80-99) Mean Corpuscular Hemoglobin 26.6 PG (27.0-31.0) L Mean Corpuscular Hemoglobin Concent 31.9 G/DL (32.0-36.0) L Red Cell Distribution Width 17.5 % (11.6-14.8) H Platelet Count 589 K/UL (150-450) H Mean Platelet Volume 5.6 FL (6.5-10.1) L Neutrophils (%) (Auto) 80.1 % (45.0-75.0) H Lymphocytes (%) (Auto) 12.4 % (20.0-45.0) L Monocytes (%) (Auto) 5.6 % (1.0-10.0) Eosinophils (%) (Auto) 0.8 % (0.0-3.0) Basophils (%) (Auto) 1.1 % (0.0-2.0) Sodium Level 142 MMOL/L (136-145) Potassium Level 4.5 MMOL/L (3.5-5.1) Chloride Level 106 MMOL/L (98-107) Carbon Dioxide Level 29 MMOL/L (21-32) Anion Gap 7 mmol/L (5-15) Blood Urea Nitrogen 10 mg/dL (7-18) Creatinine 0.4 MG/DL (0.55-1.30) L Estimat Glomerular Filtration Rate mL/min (>60) Glucose Level 98 MG/DL (74-106) Calcium Level 8.5 MG/DL (8.5-10.1) Total Creatine Kinase 13 U/L (26-308) L Microbiology Date/Time Source Procedure Growth Status 09/17/18 15:10 Blood Blood Culture - Preliminary NO GROWTH AFTER 24 HOURS Resulted 09/17/18 15:10 Blood Blood Culture - Preliminary NO GROWTH AFTER 24 HOURS Resulted Intake and Output 09/18/18 09/19/18 18:59 06:59 Intake Total 1445.000 ml 740 ml Output Total 900 ml 500 ml Balance 545.000 ml 240 ml Intake Free Water 260 ml 200 ml IV Total 645.000 ml Tube Feeding 540 ml 540 ml Output Urine Total 900 ml 500 ml # Bowel Movements 2 2 Objective PHYSICAL EXAMINATION: GENERAL: The patient is well-developed and well-nourished female who is intubated and sedated. HEENT: Eyes, pupils equal and responsive to light and accommodation. Extraocular movements are intact. The patient has a tracheostomy tube in place. CHEST: mech vent; Diffuse coarse breath sounds bilaterally without wheezes or rales. CARDIOVASCULAR: Irregular rhythm and irregular rate. S1 and S2 normal without murmurs, rubs, or gallops. ABDOMEN: Soft, nontender, and nondistended. Positive bowel sounds. No hepatosplenomegaly. Currently, no rebound or guarding noted. EXTREMITIES: Negative for clubbing, cyanosis, or edema. RECTAL/GENITAL: Not performed. NEUROLOGIC: Cranial nerves II through XII grossly intact without focal deficits. Assessment/Plan Assessment/Plan ASSESSMENT: The patient is a 72-year-old female. 1. Right lower lobe pneumonia=MDR pseudamonas 2. Leukocytosis. 3. Elevated troponin. 4. Acute on chronic congestive heart failure. 5. Chronic obstructive pulmonary disease. 6. Ventilator-dependent respiratory failure. 7. Diabetes type 2. 8. Hypertension. 9. Coronary artery disease. 10. Metabolic encephalopathy. 11. Seizure disorder. 12. Dysphagia. 13. Tracheostomy. 14. Quadriplegia. TREATMENT: 1. Right lower lobe pneumonia=MDR pseudamonas. A Pulmonary consultation obtained with Dr. Ariel Frey. Continue vancomycin, flagyl, and amikacin per recommendation of Infectious Disease. 2. Elevated troponin/congestive heart failure. Cardiology consultation obtained with Dr. Isai Anglin. The patient is currently receiving intravenous Lasix. 3. Ventilator-dependent respiratory failure. As above, a Pulmonary consultation obtained with Dr. Ariel Frey. 4. Diabetes type 2. The patient was admitted off insulin. 5. Hypertension, the patient is currently hypotensive. 6. Coronary artery disease. 7. Metabolic encephalopathy. 8. Seizure disorder. Continue Keppra as above. 9. Dysphagia. The patient is status post PEG placement. Continue tube feeds as above. 10. Tracheostomy in situ. 11. Quadriplegia. Ruddy George MD Sep 19, 2018 19:11
--- NOTE | 2018-09-19 19:34 | NUR ---
HAND-OFF: Report given to thad walls.
--- NOTE | 2018-09-19 20:05 | NUR ---
NURSE NOTES: Received report from [place] PRATT, pt. in bed obtunded- with eyes open, no signs or symptoms of acute cardiac or respiratory distress noted, bed in lowest position and call light within easy reach, bed in lowest position and call light within easy reach, bed alarm on side rails up x's 3 and safety brakes engaged, G tube running Glucerna 1.2 running at 45cc/hr- no residual noted, Pt. appears to be tolerating current vent settings well- AC 14, TV 600, Fio2 at 40% and peep of 5, Mayo intact and draining to gravity, YAYO PICC IV intact and patent- TKO, safety measures continued, will continue with plan of care. Addendum: 09/19/18 at 2104 by ESTUARDO RICHMOND RN RN correction to message above it is Glucerna 1.5 running not Glucerna 1.2.
[2018-09-19] MEDS: Dyna-Hex 2% Top Sol 2oz TOPIC SCH (20:24)
[2018-09-19] MEDS: Metoprolol Tartrate 12.5mg TAB GT SCH (20:25)
[2018-09-20] VITALS: BP 122/84
[2018-09-20] MEDS: Tigecycline 50 MG in NS 110 ML IVPB SCH ×2 (02:41→15:39)
[2018-09-20 04:00] VITALS: BP 129/73
[2018-09-20 04:41] LABS: BASOPHILS % (AUTO) 0.7 % (0.0-2.0); EOSINOPHILS % (AUTO) 1.2 % (0.0-3.0); HEMATOCRIT 27.4 % (37.0-47.0); HEMOGLOBIN 8.6 G/DL (12.0-16.0); LYMPHOCYTES % (AUTO) 13.7 % (20.0-45.0); MEAN CORPUSCULAR VOLUME 84 FL (80-99); MONOCYTES % (AUTO) 5.2 % (1.0-10.0); NEUTROPHILS % (AUTO) 79.1 % (45.0-75.0); PLATELET COUNT 549 K/UL (150-450); RED BLOOD COUNT 3.26 M/UL (4.20-5.40); WHITE BLOOD COUNT 17.1 K/UL (4.8-10.8)
[2018-09-20] MEDS: metroNIDAZOLE 500mg tab GT SCH (05:00)
[2018-09-20] MEDS: NovoLOG Insulin Flexpen SUBQ SCH ×4 (05:02→23:06)
[2018-09-20 05:08] LABS: ALANINE AMINOTRANSFERASE 14 U/L (12-78); ALBUMIN 1.4 G/DL (3.4-5.0); ALBUMIN/GLOBULIN RATIO 0.2 (1.0-2.7); ALKALINE PHOSPHATASE 92 U/L (46-116); ANION GAP 5 mmol/L (5-15); ASPARTATE AMINO TRANSFERASE 14 U/L (15-37); BILIRUBIN,TOTAL 0.3 MG/DL (0.2-1.0); BLOOD UREA NITROGEN 15 mg/dL (7-18); CARBON DIOXIDE 30 MMOL/L (21-32); CHLORIDE 105 MMOL/L (98-107); CREATININE 0.6 MG/DL (0.55-1.30); PHOSPHORUS 3.5 MG/DL (2.5-4.9); POTASSIUM 4.3 MMOL/L (3.5-5.1); SODIUM 140 MMOL/L (136-145)
--- NOTE | 2018-09-20 06:47 | NUR ---
RESPIRATORY NOTE: Patient received mechanically ventilated on PB840 with current ordered vent settings. Patient has trash size 8.0 Portex cuffed that is secured with trach tie and guard. There are bilateral coarse breath sounds noted upon auscultation. Small amount of thick clear/white secretions suctioned via inline suction system without incident. There is an ambu bag available at the bedside and the vent is connected to a red outlet. Patient appears comfortable at this time. Will continue to monitor.
--- NOTE | 2018-09-20 07:11 | NUR ---
HAND-OFF: Report given to Ebenezer RN, pt. remains stable and no signs of distress noted-aware to f/u with ID doctor regardign elevated WBC's.
--- NOTE | 2018-09-20 07:12 | NUR ---
NURSE NOTES: RECEIVED PATIENT FROM Conchita RICHMOND RN. PATIENT IS LYING IN BED, RESTING. HOOKED TO GUT SNATCHER. TRACH TO VENT. SHILEY 8, VENT SETTINGS AC 14, VT 600, FIO2 40%, PEEP 5. NO SIGNS OF DISTRESS. GT IN PLACE, GTF GLUCERNA 1.5 AT 45ML/HR. NOTED BROWN CATH. NOTED SKIN ALTERATION. NOTED L UA PICC, TKO. CALL LIGHT WITHIN REACH. BED AT LOWEST POSITION. SIDE RAILS UP. WILL CONTINUE TO MONITOR.
[2018-09-20 08:00] VITALS: BP 126/79
[2018-09-20] MEDS: Metoprolol Tartrate 12.5mg TAB GT SCH ×2 (08:38→20:27)
[2018-09-20] MEDS: levETIRAcetam 500mg/5ml Liquid GT SCH ×2 (08:38→20:26)
[2018-09-20] MEDS: Amiodarone 200mg tab GT SCH (08:38)
[2018-09-20] MEDS: Lisinopril 10mg tab GT SCH (08:38)
[2018-09-20] MEDS: Heparin 5000 units/ml inj SUBQ SCH (08:41)
[2018-09-20] MEDS: Acetaminophen 650mg/20.3ml GT PRN (08:49)
--- NOTE | 2018-09-20 08:58 | NUR ---
ORGAN TEACHERCASE RESOLUTION SPECIALIST SI:RESP FAILURE TRACH/VENT DEPENDENT,AFIB,ANEMIA VS: BP 129/73, P 120, T 99.3, RR 14, SpO2 100 on VENT AC 14, TV 600, PEEP 5.0, FiO2 40 WBC 17.1, RBC 3.26, Hgb 8.6, Hct 27.4 IS:LISINOPRIL 10mg CORDARONE 200mg LASIX 20mg IV TIGECYCLINE 50mg 110ml IVP LOPRESSOR 12.5mg PREVACID 30mg FLAGYL 500mg KEPPRA 500mg NOVOLOG SUBQ HEPARIN SUBQ SDU STATUS
--- NOTE | 2018-09-20 11:00 | Pulmonolgy Critical Care Note ---
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 Respiratory: monitor respiratory rate, adjust FIO2 Cardiac: continue to monitor HR/BP Renal: F/U I&O, keep IV fluid Infectious Disease: check cultures, continue antibiotics Gastrointestinal: continue feedings/current rate Endocrine: check TSH Hematologic: monitor H/H, transfuse if hgb<8.5 Neurologic: keep patient comfortable Affect: PRN ativan Prophylaxis: Protonix Disposition: keep in ICU Notes Reviewed: interior designer, cardio Discussed with: nurses, consultants, case loader operatormanager housekeeping - Objective Last 24 Hour Vital Signs Date Time Temp Pulse Resp B/P (MAP) Pulse Ox O2 Delivery O2 Flow Rate FiO2 09/20/18 09:02 103 14 40 09/20/18 08:38 120 126/79 09/20/18 08:38 126/79 09/20/18 08:00 114 09/20/18 08:00 40 09/20/18 08:00 99.3 120 15 126/79 (95) 100 09/20/18 08:00 Mechanical Ventilator 09/20/18 06:40 113 14 40 09/20/18 05:17 107 16 40 09/20/18 04:00 Mechanical Ventilator 09/20/18 04:00 102 09/20/18 04:00 40 09/20/18 04:00 98.2 92 18 129/73 (91) 100 09/20/18 03:22 101 14 40 09/20/18 01:22 109 15 40 09/20/18 00:00 97.9 95 18 122/84 (97) 99 09/20/18 00:00 40 09/20/18 00:00 Mechanical Ventilator 09/20/18 00:00 117 09/19/18 23:16 106 16 40 09/19/18 21:25 94 14 40 09/19/18 20:25 108 124/92 09/19/18 20:00 40 09/19/18 20:00 98.0 108 16 124/92 (103) 100 09/19/18 20:00 Mechanical Ventilator 09/19/18 20:00 101 09/19/18 19:08 87 14 40 09/19/18 17:07 101 14 40 09/19/18 16:00 Mechanical Ventilator 09/19/18 16:00 99.0 85 14 113/79 (90) 100 09/19/18 16:00 40 09/19/18 15:51 115 09/19/18 15:32 88 14 40 09/19/18 13:06 92 14 40 09/19/18 12:00 40 09/19/18 12:00 98.5 95 15 119/79 (92) 100 09/19/18 12:00 104 09/19/18 12:00 Mechanical Ventilator Status: awake Condition: critical Neck: full ROM Heart: HR/BP stable Extremities: no C/C/E Micro: Microbiology Date/Time Source Procedure Growth Status 09/17/18 15:10 Blood Blood Culture - Preliminary NO GROWTH AFTER 48 HOURS Resulted 09/17/18 15:10 Blood Blood Culture - Preliminary NO GROWTH AFTER 48 HOURS Resulted Accucheck: 128 Critical Care - Subjective ROS Limited/Unobtainable: No Condition: critical EKG Rhythm: Sinus Rhythm FI02: 40 Vent Support Breath Rate: 14 Vent Support Mode: AC Vent Tidal Volume: 600 Sputum Amount: Small PEEP: 5.0 PIP: 27 Tube Feeding Amount: 45 I&O: Intake and Output 09/19/18 09/20/18 19:00 07:00 Intake Total 1015 ml 750 ml Output Total 450 ml 700 ml Balance 565 ml 50 ml Intake Free Water 150 ml 100 ml IV Total 325 ml 110 ml Tube Feeding 540 ml 540 ml Output Urine Total 450 ml 700 ml # Bowel Movements 3 3 Labs: Laboratory Tests Test 09/20/18 03:25 White Blood Count 17.1 K/UL (4.8-10.8) H Red Blood Count 3.26 M/UL (4.20-5.40) L Hemoglobin 8.6 G/DL (12.0-16.0) L Hematocrit 27.4 % (37.0-47.0) L Mean Corpuscular Volume 84 FL (80-99) Mean Corpuscular Hemoglobin 26.4 PG (27.0-31.0) L Mean Corpuscular Hemoglobin Concent 31.5 G/DL (32.0-36.0) L Red Cell Distribution Width 18.0 % (11.6-14.8) H Platelet Count 549 K/UL (150-450) H Mean Platelet Volume 5.7 FL (6.5-10.1) L Neutrophils (%) (Auto) 79.1 % (45.0-75.0) H Lymphocytes (%) (Auto) 13.7 % (20.0-45.0) L Monocytes (%) (Auto) 5.2 % (1.0-10.0) Eosinophils (%) (Auto) 1.2 % (0.0-3.0) Basophils (%) (Auto) 0.7 % (0.0-2.0) Sodium Level 140 MMOL/L (136-145) Potassium Level 4.3 MMOL/L (3.5-5.1) Chloride Level 105 MMOL/L (98-107) Carbon Dioxide Level 30 MMOL/L (21-32) Anion Gap 5 mmol/L (5-15) Blood Urea Nitrogen 15 mg/dL (7-18) Creatinine 0.6 MG/DL (0.55-1.30) Estimat Glomerular Filtration Rate mL/min (>60) Glucose Level 122 MG/DL (74-106) H Calcium Level 9.0 MG/DL (8.5-10.1) Phosphorus Level 3.5 MG/DL (2.5-4.9) Magnesium Level 1.6 MG/DL (1.8-2.4) L Total Bilirubin 0.3 MG/DL (0.2-1.0) Aspartate Amino Transf (AST/SGOT) 14 U/L (15-37) L Alanine Aminotransferase (ALT/SGPT) 14 U/L (12-78) Alkaline Phosphatase 92 U/L (46-116) Total Protein 7.1 G/DL (6.4-8.2) Albumin 1.4 G/DL (3.4-5.0) L Globulin 5.7 g/dL Albumin/Globulin Ratio 0.2 (1.0-2.7) L Ariel Frey MD Sep 20, 2018 11:00
--- NOTE | 2018-09-20 11:32 | Infectious Diseases Prog Note ---
Assessment/Plan Assessment/Plan Abx: IV Vancomycin 09/13- Cefepime 09/13- Amikacin 09/13- Zosyn x1 09/13 Assessment: Sepsis- ?PNA vs 2ry to wound infection -09/17 BCx NTD -09/18 CXR: Probable left pleural effusion, unchanged over one day -CXR: Limited evaluation with suboptimal positioning. Cardiomegaly and slight prominence of the pulmonary vascularity which may suggest mild congestive changes/interstitial edema. Streaky opacities at the right base possibly related to subsegmental atelectasis. Pneumonia should be excluded clinically. Tracheostomy tube and pacemaker noted. -u/a wbc 10-15, nit neg, leuk +3; sq cells moderate (improper collection give high amount of sq cells); repeat u/a wbc 5-10, nit neg, leuk +1, sq cells few; ucx p Sputum Cx 09/14/18 - MDR PsA (S Amikcin, Colistin, Polymixin B) Urine Cx 09/13/18 - Yeast Acute on chronic anemia- ?bleeding Fever; improving Leukocytosis; increased Sacral decubitus ulcer stage IV- chronic OM and necrotic tissue (infected necrotic fibrinous sacral stage 4 decubitus ulcer with bony dislodged fragments) -09/17 SP excisional debridement of sacral decubitus ulcer with ostectomy -wound cx p -09/14 wound cx: CRE K.Pna (S Colistin, Polymixin B, Tigecycline), MDR PsA ( S amikacin), MRSA, VRE (S Linezolid, Amp) chronic respiratory failure trach/vent dependant s/p PEG S/p AICD vegetative state Afib on AC [facility] resident Plan: -Continue Daptomycin #3 for MRSA and VRE coverage of wound -monitor CPK -d/c Flagyl #8/7 -Continue Amikacin #4/10-14 for MDR PsA and Tigecycline #2 for CRE in wound -09/18 SP IV Vancomycin #6 -09/17 SP Cefepime #5 -09/13 SPAmikacin #1, Zosyn x1 -f/u cx -Monitor CBC/CMP, temperatures -wound care per surgical team -wound cx -Sx f/u -Trach/PEG care -aspiration precautions -Cdiff if diarrhea Thank you for this consultation. Will continue to follow along with you. Subjective Allergies: Coded Allergies: ALPRAZOLAM (Verified Allergy, Unknown, 09/13/18) Subjective afebrile in ~36hrs wbc increased Objective Vital Signs Last 24 Hour Vital Signs Date Time Temp Pulse Resp B/P (MAP) Pulse Ox O2 Delivery O2 Flow Rate FiO2 09/20/18 11:10 96 14 40 09/20/18 09:02 103 14 40 09/20/18 08:38 120 126/79 09/20/18 08:38 126/79 09/20/18 08:00 114 09/20/18 08:00 40 09/20/18 08:00 99.3 120 15 126/79 (95) 100 09/20/18 08:00 Mechanical Ventilator 09/20/18 06:40 113 14 40 09/20/18 05:17 107 16 40 09/20/18 04:00 Mechanical Ventilator 09/20/18 04:00 102 09/20/18 04:00 40 09/20/18 04:00 98.2 92 18 129/73 (91) 100 09/20/18 03:22 101 14 40 09/20/18 01:22 109 15 40 09/20/18 00:00 97.9 95 18 122/84 (97) 99 09/20/18 00:00 40 09/20/18 00:00 Mechanical Ventilator 09/20/18 00:00 117 09/19/18 23:16 106 16 40 09/19/18 21:25 94 14 40 09/19/18 20:25 108 124/92 09/19/18 20:00 40 09/19/18 20:00 98.0 108 16 124/92 (103) 100 09/19/18 20:00 Mechanical Ventilator 09/19/18 20:00 101 09/19/18 19:08 87 14 40 09/19/18 17:07 101 14 40 09/19/18 16:00 Mechanical Ventilator 09/19/18 16:00 99.0 85 14 113/79 (90) 100 09/19/18 16:00 40 09/19/18 15:51 115 09/19/18 15:32 88 14 40 09/19/18 13:06 92 14 40 09/19/18 12:00 40 09/19/18 12:00 98.5 95 15 119/79 (92) 100 09/19/18 12:00 104 09/19/18 12:00 Mechanical Ventilator Height (Feet): 5 Height (Inches): 8.00 Weight (Pounds): 240 Objective General Appearance: no apparent distress Lines, tubes and drains: peripheral HEENT: mucous membranes moist Neck: trach Respiratory/Chest: on vent Cardiovascular/Chest: regularly irregular Abdomen: no organomegaly, no mass, feeding tube Extremities: other Skin Exam: other Neurologic: unresponsiveness Microbiology Date/Time Source Procedure Growth Status 09/17/18 15:10 Blood Blood Culture - Preliminary NO GROWTH AFTER 48 HOURS Resulted 09/17/18 15:10 Blood Blood Culture - Preliminary NO GROWTH AFTER 48 HOURS Resulted Laboratory Tests Test 09/20/18 03:25 White Blood Count 17.1 K/UL (4.8-10.8) H Red Blood Count 3.26 M/UL (4.20-5.40) L Hemoglobin 8.6 G/DL (12.0-16.0) L Hematocrit 27.4 % (37.0-47.0) L Mean Corpuscular Volume 84 FL (80-99) Mean Corpuscular Hemoglobin 26.4 PG (27.0-31.0) L Mean Corpuscular Hemoglobin Concent 31.5 G/DL (32.0-36.0) L Red Cell Distribution Width 18.0 % (11.6-14.8) H Platelet Count 549 K/UL (150-450) H Mean Platelet Volume 5.7 FL (6.5-10.1) L Neutrophils (%) (Auto) 79.1 % (45.0-75.0) H Lymphocytes (%) (Auto) 13.7 % (20.0-45.0) L Monocytes (%) (Auto) 5.2 % (1.0-10.0) Eosinophils (%) (Auto) 1.2 % (0.0-3.0) Basophils (%) (Auto) 0.7 % (0.0-2.0) Sodium Level 140 MMOL/L (136-145) Potassium Level 4.3 MMOL/L (3.5-5.1) Chloride Level 105 MMOL/L (98-107) Carbon Dioxide Level 30 MMOL/L (21-32) Anion Gap 5 mmol/L (5-15) Blood Urea Nitrogen 15 mg/dL (7-18) Creatinine 0.6 MG/DL (0.55-1.30) Estimat Glomerular Filtration Rate mL/min (>60) Glucose Level 122 MG/DL (74-106) H Calcium Level 9.0 MG/DL (8.5-10.1) Phosphorus Level 3.5 MG/DL (2.5-4.9) Magnesium Level 1.6 MG/DL (1.8-2.4) L Total Bilirubin 0.3 MG/DL (0.2-1.0) Aspartate Amino Transf (AST/SGOT) 14 U/L (15-37) L Alanine Aminotransferase (ALT/SGPT) 14 U/L (12-78) Alkaline Phosphatase 92 U/L (46-116) Total Protein 7.1 G/DL (6.4-8.2) Albumin 1.4 G/DL (3.4-5.0) L Globulin 5.7 g/dL Albumin/Globulin Ratio 0.2 (1.0-2.7) L Current Medications Medications (Trade) Dose Ordered Sig/Rosy Route PRN Reason Start Time Stop Time Status Last Admin Dose Admin Acetaminophen (Tylenol) 650 mg Q4H PRN GT FEVER 09/13/18 11:45 10/13/18 06:59 09/20/18 08:49 Amikacin Protocol (Amikacin pharmacy to dose) 1 ea DAILY PRN MISC Per rx protocol 09/17/18 13:45 10/17/18 13:44 Amikacin Sulfate 1250 mg/Sodium Chloride 115 ml @ 115 mls/hr Q24H IV 09/17/18 15:00 09/24/18 14:59 09/19/18 15:18 Amiodarone HCl (Cordarone) 200 mg DAILY GT 09/20/18 09:00 10/20/18 08:59 09/20/18 08:38 Chlorhexidine Gluconate (Elizabeth-Hex 2%) 1 applic DAILY@2000 TOPIC 09/14/18 20:00 10/14/18 19:59 09/19/18 20:24 Daptomycin 400 mg/ Sodium Chloride 55 ml @ 100 mls/hr Q24H IV 09/18/18 14:00 09/25/18 13:59 09/19/18 14:35 Dextrose (Dextrose 50%) 25 ml Q30M PRN IV Hypoglycemia 09/13/18 08:15 10/13/18 08:14 Dextrose (Dextrose 50%) 50 ml Q30M PRN IV Hypoglycemia 09/13/18 08:15 10/13/18 08:14 Furosemide (Lasix) 20 mg DAILY IV 09/20/18 09:00 10/20/18 08:59 09/20/18 08:38 Heparin Sodium (Porcine) (Heparin 5000 units/ml) 5,000 units EVERY 12 HOURS SUBQ 09/13/18 09:00 10/13/18 08:59 09/20/18 08:41 Insulin Aspart (NovoLOG) EVERY 6 HOURS SUBQ 09/13/18 12:00 10/13/18 11:59 09/20/18 05:02 Lansoprazole (Prevacid) 30 mg DAILY GT 09/19/18 09:00 10/19/18 08:59 09/20/18 08:39 Levetiracetam (Keppra) 500 mg Q12HR GT 09/13/18 21:00 10/13/18 20:59 09/20/18 08:38 Lisinopril (Zestril) 10 mg DAILY GT 09/20/18 09:00 10/20/18 08:59 09/20/18 08:38 Magnesium Sulfate 100 ml @ 100 mls/hr Q1H IVPB 09/20/18 12:00 09/20/18 13:59 Metoprolol Tartrate (Lopressor) 12.5 mg Q12HR GT 09/19/18 21:00 10/19/18 20:59 09/20/18 08:38 Metronidazole (Flagyl) 500 mg Q8HR GT 09/18/18 22:00 09/20/18 13:59 09/20/18 05:00 Ondansetron HCl (Zofran) 4 mg Q6H PRN IVP Nausea & Vomiting 09/13/18 07:00 10/13/18 06:59 Polyethylene Glycol (Miralax) 17 gm DAILYPRN PRN GT Constipation 09/13/18 11:45 10/13/18 06:59 Tigecycline 50 mg/ Sodium Chloride 110 ml @ 220 mls/hr Q12HR@0300,1500 IVPB 09/20/18 03:00 09/27/18 02:59 09/20/18 02:41 Nadia Donovan M.D. Sep 20, 2018 11:32
[2018-09-20 12:00] VITALS: BP 110/75
--- NOTE | 2018-09-20 13:12 | General Progress Note ---
Assessment/Plan Status: stable, unchanged Assessment/Plan: Assessment and Recs: # Anemia of chronic disease due to underlying chronic medical issues, multifactorial, likely ongoing inflammatory process --> Anemia workup has been ordered, ferritin is 1592, markedly elevated, no hemolysis --> No evidence of hemolysis is noted, peripheral smear has been reviewed. --> Hgb goal >7. Transfuse prn. --> Epogen or iron at this time is not particularly indicated --> Medications have been reviewed --> evaluate with Gi team prn --> transfuse if hgb is < 7 (will trend CBC daily) --> low threshold for gi evaluation in case has occult + ==> hgb 9-->6.3-->8.5 # Leukocytosis with eleva wbc on admission likely related to sepsis --> on abx as per id team, empiric treatment, uti, sacral decub pna --> peripheral smear to be reviewed ==> 17-->18-->17.1 --> gi recs appreciated # Chronic respiratory failure --> chronic vent/trach # Sacral decubitus ulcer --> per surg eval and rx # Atrial fibrillation --> anticoagulation as needed per cards --> to restart asa and plavix as per cards # Chronic vegetative state --> essentially unchanged # Dysphagia s/p Feeding by G-tube --> restart as needed # Contracture of multiple joints The timing of this note does not necessarily reflect the time of the patient was seen. Greatly appreciate consultation! Subjective Respiratory: Denies: no symptoms, cough, orthopnea, shortness of breath, SOB with excertion, SOB at rest, sputum, stridor, wheezing, other Gastrointestinal/Abdominal: Denies: no symptoms, abdomen distended, abdominal pain, black stools, tarry stools, blood in stool, constipated, diarrhea, difficulty swallowing, nausea, poor appetite, poor fluid intake, rectal bleeding , vomiting, other Neurologic/Psychiatric: Denies: no symptoms, anxiety, depressed, emotional problems, headache, numbness, paresthesia, pre-existing deficit, seizure, tingling, tremors, weakness, other Endocrine: Denies: no symptoms, excessive sweating, flushing, intolerance to cold, intolerance to heat, increased hunger, increased thirst, increased urine, unexplained weight gain, unexplained weight loss, other Hematologic/Lymphatic: Denies: no symptoms, anemia, easy bleeding, easy bruising, other Allergies: Coded Allergies: ALPRAZOLAM (Verified Allergy, Unknown, 09/13/18) Subjective 09/14: no events, hgb is low 6.3, dw family, blood being infused, transfusion today 09/20: no events, trach to vent, with nieto catheter, resting, alert Objective Last 24 Hour Vital Signs Date Time Temp Pulse Resp B/P (MAP) Pulse Ox O2 Delivery O2 Flow Rate FiO2 09/20/18 12:45 81 14 40 09/20/18 12:00 99.5 100 14 110/75 (87) 100 09/20/18 12:00 40 09/20/18 11:10 96 14 40 09/20/18 09:19 97.2 09/20/18 09:02 103 14 40 09/20/18 08:38 120 126/79 09/20/18 08:38 126/79 09/20/18 08:00 114 09/20/18 08:00 40 09/20/18 08:00 99.3 120 15 126/79 (95) 100 09/20/18 08:00 Mechanical Ventilator 09/20/18 06:40 113 14 40 09/20/18 05:17 107 16 40 09/20/18 04:00 Mechanical Ventilator 09/20/18 04:00 102 09/20/18 04:00 40 09/20/18 04:00 98.2 92 18 129/73 (91) 100 09/20/18 03:22 101 14 40 09/20/18 01:22 109 15 40 09/20/18 00:00 97.9 95 18 122/84 (97) 99 09/20/18 00:00 40 09/20/18 00:00 Mechanical Ventilator 09/20/18 00:00 117 09/19/18 23:16 106 16 40 09/19/18 21:25 94 14 40 09/19/18 20:25 108 124/92 09/19/18 20:00 40 09/19/18 20:00 98.0 108 16 124/92 (103) 100 09/19/18 20:00 Mechanical Ventilator 09/19/18 20:00 101 09/19/18 19:08 87 14 40 09/19/18 17:07 101 14 40 09/19/18 16:00 Mechanical Ventilator 09/19/18 16:00 99.0 85 14 113/79 (90) 100 09/19/18 16:00 40 09/19/18 15:51 115 09/19/18 15:32 88 14 40 Intake and Output 09/19/18 09/20/18 19:00 07:00 Intake Total 1015 ml 750 ml Output Total 450 ml 700 ml Balance 565 ml 50 ml Intake Free Water 150 ml 100 ml IV Total 325 ml 110 ml Tube Feeding 540 ml 540 ml Output Urine Total 450 ml 700 ml # Bowel Movements 3 3 Laboratory Tests 09/20/18 03:25: White Blood Count 17.1H, Red Blood Count 3.26L, Hemoglobin 8.6L, Hematocrit 27.4L, Mean Corpuscular Volume 84, Mean Corpuscular Hemoglobin 26.4L, Mean Corpuscular Hemoglobin Concent 31.5L, Red Cell Distribution Width 18.0H, Platelet Count 549H, Mean Platelet Volume 5.7L, Neutrophils (%) (Auto) 79.1H, Lymphocytes (%) (Auto) 13.7L, Monocytes (%) (Auto) 5.2, Eosinophils (%) (Auto) 1.2, Basophils (%) (Auto) 0.7, Sodium Level 140, Potassium Level 4.3, Chloride Level 105, Carbon Dioxide Level 30, Anion Gap 5, Blood Urea Nitrogen 15, Creatinine 0.6, Estimat Glomerular Filtration Rate , Glucose Level 122H, Calcium Level 9.0, Phosphorus Level 3.5, Magnesium Level 1.6L, Total Bilirubin 0.3, Aspartate Amino Transf (AST/SGOT) 14L, Alanine Aminotransferase (ALT/SGPT) 14, Alkaline Phosphatase 92, Total Protein 7.1, Albumin 1.4L, Globulin 5.7, Albumin/Globulin Ratio 0.2L Height (Feet): 5 Height (Inches): 8.00 Weight (Pounds): 240 Objective PE General Appearance: WD/WN Lines, tubes and drains: peripheral HEENT: normocephalic Neck: non-tender, normal alignment ++ trach vent Respiratory/Chest: chest wall non-tender, lungs clear, decreased breath sounds Cardiovascular/Chest: normal peripheral pulses Abdomen: non tender ++ peg Genitourinary/Rectal: normal genital exam ++ Dagoberto Venegas MD Sep 20, 2018 13:12
[2018-09-20] MEDS: Amikacin 1,250 MG in NS 110 ML IV SCH (14:26)
[2018-09-20] MEDS: DAPTOmycin 400 MG in NS 55 ML IV SCH (14:26)
[2018-09-20 16:00] VITALS: BP 112/66
--- NOTE | 2018-09-20 16:05 | NUR ---
Social Service Note SW made a follow up call to patient's dgt Mary Ann Kirby [phone] regarding earlier conversation she had with Dr. Frey on plan of care. Message left and no return call at this time. SW received a call from Alicia Perry [phone] homeless career placement services counselor who provided case management services to patient. Family contacted her after speaking with Dr. Frey. Message left for Alicia and no return call at this time. Will continue to monitor and follow up.
--- NOTE | 2018-09-20 16:30 | NUR ---
NURSE NOTES: PATIENT KEPT CLEAN AND DRY. GTF AND VENT SETTINGS TOLERATED. WILL CONTINUE TO MONITOR.
--- NOTE | 2018-09-20 18:49 | Cardiology Progress Note ---
Assessment/Plan Assessment/Plan 1. History of coronary artery disease with reported history of occluded right coronary artery. 2. Permanent atrial fibrillation, on anticoagulation. 3. History of ventricular fibrillation arrest. 4. History of CVA. 5. Cardiomyopathy with ejection fraction 20%. 6. Chronic ventilator therapy. 7. Anemia. 8. Hypoalbuminemia. 9. hs of icd implantation 10. sig MR ] 11. Pulm htn echo report noted telel reviweed labs noted not sig response on acei is already on bb off asa and eleiquis will reseuem eliquis for now and if no bleeding after a few days consider asa diuretics Subjective ROS Limited/Unobtainable: Yes Objective Last 24 Hour Vital Signs Date Time Temp Pulse Resp B/P (MAP) Pulse Ox O2 Delivery O2 Flow Rate FiO2 09/20/18 18:43 93 14 40 09/20/18 16:43 101 18 40 09/20/18 16:00 Mechanical Ventilator 09/20/18 16:00 40 09/20/18 16:00 98.5 107 15 112/66 (81) 100 09/20/18 16:00 90 09/20/18 14:45 98 14 40 09/20/18 12:45 81 14 40 09/20/18 12:00 99.5 100 14 110/75 (87) 100 09/20/18 12:00 40 09/20/18 12:00 Mechanical Ventilator 09/20/18 12:00 93 09/20/18 11:10 96 14 40 09/20/18 09:19 97.2 09/20/18 09:02 103 14 40 09/20/18 08:38 120 126/79 09/20/18 08:38 126/79 09/20/18 08:00 114 09/20/18 08:00 40 09/20/18 08:00 99.3 120 15 126/79 (95) 100 09/20/18 08:00 Mechanical Ventilator 09/20/18 06:40 113 14 40 09/20/18 05:17 107 16 40 09/20/18 04:00 Mechanical Ventilator 09/20/18 04:00 102 09/20/18 04:00 40 09/20/18 04:00 98.2 92 18 129/73 (91) 100 09/20/18 03:22 101 14 40 09/20/18 01:22 109 15 40 09/20/18 00:00 97.9 95 18 122/84 (97) 99 09/20/18 00:00 40 09/20/18 00:00 Mechanical Ventilator 09/20/18 00:00 117 09/19/18 23:16 106 16 40 09/19/18 21:25 94 14 40 09/19/18 20:25 108 124/92 09/19/18 20:00 40 09/19/18 20:00 98.0 108 16 124/92 (103) 100 09/19/18 20:00 Mechanical Ventilator 09/19/18 20:00 101 09/19/18 19:08 87 14 40 General Appearance: on vent, patient on isolation Intake and Output 09/19/18 09/20/18 18:59 06:59 Intake Total 1000 ml 765 ml Output Total 450 ml 700 ml Balance 550 ml 65 ml Intake Free Water 135 ml 115 ml IV Total 325 ml 110 ml Tube Feeding 540 ml 540 ml Output Urine Total 450 ml 700 ml # Bowel Movements 3 3 Laboratory Tests Test 09/20/18 03:25 White Blood Count 17.1 K/UL (4.8-10.8) H Red Blood Count 3.26 M/UL (4.20-5.40) L Hemoglobin 8.6 G/DL (12.0-16.0) L Hematocrit 27.4 % (37.0-47.0) L Mean Corpuscular Volume 84 FL (80-99) Mean Corpuscular Hemoglobin 26.4 PG (27.0-31.0) L Mean Corpuscular Hemoglobin Concent 31.5 G/DL (32.0-36.0) L Red Cell Distribution Width 18.0 % (11.6-14.8) H Platelet Count 549 K/UL (150-450) H Mean Platelet Volume 5.7 FL (6.5-10.1) L Neutrophils (%) (Auto) 79.1 % (45.0-75.0) H Lymphocytes (%) (Auto) 13.7 % (20.0-45.0) L Monocytes (%) (Auto) 5.2 % (1.0-10.0) Eosinophils (%) (Auto) 1.2 % (0.0-3.0) Basophils (%) (Auto) 0.7 % (0.0-2.0) Sodium Level 140 MMOL/L (136-145) Potassium Level 4.3 MMOL/L (3.5-5.1) Chloride Level 105 MMOL/L (98-107) Carbon Dioxide Level 30 MMOL/L (21-32) Anion Gap 5 mmol/L (5-15) Blood Urea Nitrogen 15 mg/dL (7-18) Creatinine 0.6 MG/DL (0.55-1.30) Estimat Glomerular Filtration Rate mL/min (>60) Glucose Level 122 MG/DL (74-106) H Calcium Level 9.0 MG/DL (8.5-10.1) Phosphorus Level 3.5 MG/DL (2.5-4.9) Magnesium Level 1.6 MG/DL (1.8-2.4) L Total Bilirubin 0.3 MG/DL (0.2-1.0) Aspartate Amino Transf (AST/SGOT) 14 U/L (15-37) L Alanine Aminotransferase (ALT/SGPT) 14 U/L (12-78) Alkaline Phosphatase 92 U/L (46-116) Total Protein 7.1 G/DL (6.4-8.2) Albumin 1.4 G/DL (3.4-5.0) L Globulin 5.7 g/dL Albumin/Globulin Ratio 0.2 (1.0-2.7) L Isai Anglin MD Sep 20, 2018 18:49
--- NOTE | 2018-09-20 19:15 | NUR ---
NURSE NOTES: Received report from Ebenezer RN, pt. in bed obtunded- with eyes open, no signs or symptoms of acute cardiac or respiratory distress noted, bed in lowest position and call light within easy reach, bed in lowest position and call light within easy reach, bed alarm on side rails up x's 3 and safety brakes engaged, G tube running Glucerna 1.2 running at 45cc/hr- no residual noted, All needs attended to, oral care provided, Pt. appears to be tolerating current vent settings well- AC 14, TV 600, Fio2 at 40% and peep of 5, Mayo intact and draining to gravity, YAYO PICC IV intact and patent- TKO, safety measures continued, will continue with plan of care.
--- NOTE | 2018-09-20 19:17 | NUR ---
HAND-OFF: Report given to Conchita Darden RN.
[2018-09-20 20:00] VITALS: BP 106/65
[2018-09-20] MEDS: Dyna-Hex 2% Top Sol 2oz TOPIC SCH (20:26)
--- NOTE | 2018-09-20 20:38 | Internal Med Progress Note ---
Subjective Date of Service: Sep 20, 2018 Physician Name George,Ruddy Attending Physician Wade Negron MD Current Medications Medications (Trade) Dose Ordered Sig/Rosy Route PRN Reason Start Time Stop Time Status Last Admin Dose Admin Acetaminophen (Tylenol) 650 mg Q4H PRN GT FEVER 09/13/18 11:45 10/13/18 06:59 09/20/18 08:49 Amikacin Protocol (Amikacin pharmacy to dose) 1 ea DAILY PRN MISC Per rx protocol 09/17/18 13:45 10/17/18 13:44 Amikacin Sulfate 1250 mg/Sodium Chloride 115 ml @ 115 mls/hr Q24H IV 09/17/18 15:00 09/24/18 14:59 09/20/18 14:26 Amiodarone HCl (Cordarone) 200 mg DAILY GT 09/20/18 09:00 10/20/18 08:59 09/20/18 08:38 Apixaban (Eliquis) 5 mg BID ORAL 09/21/18 09:00 10/21/18 08:59 Chlorhexidine Gluconate (Elizabeth-Hex 2%) 1 applic DAILY@2000 TOPIC 09/14/18 20:00 10/14/18 19:59 09/20/18 20:26 Daptomycin 400 mg/ Sodium Chloride 55 ml @ 100 mls/hr Q24H IV 09/18/18 14:00 09/25/18 13:59 09/20/18 14:26 Dextrose (Dextrose 50%) 25 ml Q30M PRN IV Hypoglycemia 09/13/18 08:15 10/13/18 08:14 Dextrose (Dextrose 50%) 50 ml Q30M PRN IV Hypoglycemia 09/13/18 08:15 10/13/18 08:14 Furosemide (Lasix) 20 mg DAILY IV 09/20/18 09:00 10/20/18 08:59 09/20/18 08:38 Insulin Aspart (NovoLOG) EVERY 6 HOURS SUBQ 09/13/18 12:00 10/13/18 11:59 09/20/18 17:54 Lansoprazole (Prevacid) 30 mg DAILY GT 09/19/18 09:00 10/19/18 08:59 09/20/18 08:39 Levetiracetam (Keppra) 500 mg Q12HR GT 09/13/18 21:00 10/13/18 20:59 09/20/18 20:26 Lisinopril (Zestril) 10 mg DAILY GT 09/20/18 09:00 10/20/18 08:59 09/20/18 08:38 Metoprolol Tartrate (Lopressor) 12.5 mg Q12HR GT 09/19/18 21:00 10/19/18 20:59 09/20/18 08:38 Ondansetron HCl (Zofran) 4 mg Q6H PRN IVP Nausea & Vomiting 09/13/18 07:00 10/13/18 06:59 Polyethylene Glycol (Miralax) 17 gm DAILYPRN PRN GT Constipation 09/13/18 11:45 10/13/18 06:59 Tigecycline 50 mg/ Sodium Chloride 110 ml @ 220 mls/hr Q12HR@0300,1500 IVPB 09/20/18 03:00 09/27/18 02:59 09/20/18 15:39 Allergies: Coded Allergies: ALPRAZOLAM (Verified Allergy, Unknown, 09/13/18) ROS Limited/Unobtainable: Yes Subjective 72 YO vent dep F admitted with dyspnea. Now pneumonia. Cover for Int Med-DR Negron. DULCE Objective Last Vital Signs Date Time Temp Pulse Resp B/P (MAP) Pulse Ox O2 Delivery O2 Flow Rate FiO2 09/20/18 20:27 88 106/69 09/20/18 18:43 14 40 09/20/18 16:00 Mechanical Ventilator 09/20/18 16:00 98.5 100 Laboratory Tests Test 09/20/18 03:25 White Blood Count 17.1 K/UL (4.8-10.8) H Red Blood Count 3.26 M/UL (4.20-5.40) L Hemoglobin 8.6 G/DL (12.0-16.0) L Hematocrit 27.4 % (37.0-47.0) L Mean Corpuscular Volume 84 FL (80-99) Mean Corpuscular Hemoglobin 26.4 PG (27.0-31.0) L Mean Corpuscular Hemoglobin Concent 31.5 G/DL (32.0-36.0) L Red Cell Distribution Width 18.0 % (11.6-14.8) H Platelet Count 549 K/UL (150-450) H Mean Platelet Volume 5.7 FL (6.5-10.1) L Neutrophils (%) (Auto) 79.1 % (45.0-75.0) H Lymphocytes (%) (Auto) 13.7 % (20.0-45.0) L Monocytes (%) (Auto) 5.2 % (1.0-10.0) Eosinophils (%) (Auto) 1.2 % (0.0-3.0) Basophils (%) (Auto) 0.7 % (0.0-2.0) Sodium Level 140 MMOL/L (136-145) Potassium Level 4.3 MMOL/L (3.5-5.1) Chloride Level 105 MMOL/L (98-107) Carbon Dioxide Level 30 MMOL/L (21-32) Anion Gap 5 mmol/L (5-15) Blood Urea Nitrogen 15 mg/dL (7-18) Creatinine 0.6 MG/DL (0.55-1.30) Estimat Glomerular Filtration Rate mL/min (>60) Glucose Level 122 MG/DL (74-106) H Calcium Level 9.0 MG/DL (8.5-10.1) Phosphorus Level 3.5 MG/DL (2.5-4.9) Magnesium Level 1.6 MG/DL (1.8-2.4) L Total Bilirubin 0.3 MG/DL (0.2-1.0) Aspartate Amino Transf (AST/SGOT) 14 U/L (15-37) L Alanine Aminotransferase (ALT/SGPT) 14 U/L (12-78) Alkaline Phosphatase 92 U/L (46-116) Total Protein 7.1 G/DL (6.4-8.2) Albumin 1.4 G/DL (3.4-5.0) L Globulin 5.7 g/dL Albumin/Globulin Ratio 0.2 (1.0-2.7) L Intake and Output 09/19/18 09/20/18 18:59 06:59 Intake Total 1000 ml 765 ml Output Total 450 ml 700 ml Balance 550 ml 65 ml Intake Free Water 135 ml 115 ml IV Total 325 ml 110 ml Tube Feeding 540 ml 540 ml Output Urine Total 450 ml 700 ml # Bowel Movements 3 3 Objective PHYSICAL EXAMINATION: GENERAL: The patient is well-developed and well-nourished female who is intubated and sedated. HEENT: Eyes, pupils equal and responsive to light and accommodation. Extraocular movements are intact. The patient has a tracheostomy tube in place. CHEST: mech vent; Diffuse coarse breath sounds bilaterally without wheezes or rales. CARDIOVASCULAR: Irregular rhythm and irregular rate. S1 and S2 normal without murmurs, rubs, or gallops. ABDOMEN: Soft, nontender, and nondistended. Positive bowel sounds. No hepatosplenomegaly. Currently, no rebound or guarding noted. EXTREMITIES: Negative for clubbing, cyanosis, or edema. RECTAL/GENITAL: Not performed. NEUROLOGIC: Cranial nerves II through XII grossly intact without focal deficits. Assessment/Plan Assessment/Plan ASSESSMENT: The patient is a 72-year-old female. 1. Right lower lobe pneumonia=MDR pseudamonas 2. Leukocytosis. 3. Elevated troponin. 4. Acute on chronic congestive heart failure. 5. Chronic obstructive pulmonary disease. 6. Ventilator-dependent respiratory failure. 7. Diabetes type 2. 8. Hypertension. 9. Coronary artery disease. 10. Metabolic encephalopathy. 11. Seizure disorder. 12. Dysphagia. 13. Tracheostomy. 14. Quadriplegia. TREATMENT: 1. Right lower lobe pneumonia=MDR pseudamonas. A Pulmonary consultation obtained with Dr. Ariel Frey. Continue vancomycin, flagyl, and amikacin per recommendation of Infectious Disease. 2. Elevated troponin/congestive heart failure. Cardiology consultation obtained with Dr. Isai Anglin. The patient is currently receiving intravenous Lasix. 3. Ventilator-dependent respiratory failure. As above, a Pulmonary consultation obtained with Dr. Ariel Frey. 4. Diabetes type 2. The patient was admitted off insulin. 5. Hypertension, the patient is currently hypotensive. 6. Coronary artery disease. 7. Metabolic encephalopathy. 8. Seizure disorder. Continue Keppra as above. 9. Dysphagia. The patient is status post PEG placement. Continue tube feeds as above. 10. Tracheostomy in situ. 11. Quadriplegia. Ruddy George MD Sep 20, 2018 20:38
[2018-09-21] VITALS: BP 131/63
[2018-09-21] MEDS: Tigecycline 50 MG in NS 110 ML IVPB SCH ×2 (02:21→14:39)
[2018-09-21 04:00] VITALS: BP 124/72
[2018-09-21 05:07] LABS: BASOPHILS % (AUTO) 0.4 % (0.0-2.0); EOSINOPHILS % (AUTO) 1.5 % (0.0-3.0); HEMATOCRIT 28.8 % (37.0-47.0); HEMOGLOBIN 9.1 G/DL (12.0-16.0); LYMPHOCYTES % (AUTO) 15.4 % (20.0-45.0); MEAN CORPUSCULAR VOLUME 83 FL (80-99); MONOCYTES % (AUTO) 4.8 % (1.0-10.0); NEUTROPHILS % (AUTO) 77.9 % (45.0-75.0); PLATELET COUNT 500 K/UL (150-450); RED BLOOD COUNT 3.46 M/UL (4.20-5.40); RED CELL DISTRIBUTION WIDTH 17.3 % (11.6-14.8); WHITE BLOOD COUNT 12.9 K/UL (4.8-10.8)
[2018-09-21] MEDS: NovoLOG Insulin Flexpen SUBQ SCH ×4 (05:11→23:22)
[2018-09-21 05:17] LABS: ANION GAP 6 mmol/L (5-15); BLOOD UREA NITROGEN 17 mg/dL (7-18); CALCIUM 8.6 MG/DL (8.5-10.1); CARBON DIOXIDE 30 MMOL/L (21-32); CHLORIDE 105 MMOL/L (98-107); CREATININE 0.5 MG/DL (0.55-1.30); POTASSIUM 4.1 MMOL/L (3.5-5.1); SODIUM 140 MMOL/L (136-145)
--- NOTE | 2018-09-21 07:02 | NUR ---
HAND-OFF: Report given to Ebenezer PRATT pt.remains stable and no signs of distress noted.
--- NOTE | 2018-09-21 07:03 | NUR ---
NURSE NOTES: RECEIVED PATIENT FROM Conchita [facility] RN. PATIENT IS LYING IN BED, ASLEEP. HOOKED TO APPLICATION SECURITY SPECIALIST. TRACH TO VENT. SHILEY 8, VENT SETTINGS AC 14, VT 600, FIO2 40%, PEEP 5. NO SIGNS OF DISTRESS. GT IN PLACE, GTF GLUCERNA 1.5 AT 45ML/HR. NOTED BROWN CATH. NOTED SKIN ALTERATION. NOTED L UA PICC, TKO. CALL LIGHT WITHIN REACH. BED AT LOWEST POSITION. PADDED SIDE RAILS. SIDE RAILS UP. WILL CONTINUE TO MONITOR.
[2018-09-21 08:00] VITALS: BP 121/91
[2018-09-21] MEDS ORDERED: Eliquis 5mg tablet ORAL SCH (09:00)
[2018-09-21] MEDS: Lisinopril 10mg tab GT SCH (09:24)
[2018-09-21] MEDS: levETIRAcetam 500mg/5ml Liquid GT SCH ×2 (09:24→20:12)
[2018-09-21] MEDS: Eliquis 2.5mg tablet ORAL SCH ×2 (09:24→18:05)
[2018-09-21] MEDS: Metoprolol Tartrate 12.5mg TAB GT SCH ×2 (09:24→20:12)
[2018-09-21] MEDS: Amiodarone 200mg tab GT SCH (09:25)
--- NOTE | 2018-09-21 09:59 | Pulmonolgy Critical Care Note ---
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 Respiratory: monitor respiratory rate, adjust FIO2, CXR Cardiac: continue to monitor HR/BP Renal: F/U I&O, keep IV fluid Infectious Disease: check cultures Gastrointestinal: continue feedings/current rate Endocrine: monitor blood sugar Hematologic: transfuse if hgb<8.5 Neurologic: PRN Morphine, keep patient comfortable Prophylaxis: Protonix Notes Reviewed: corporate representative, renal Discussed with: nurses, consultants, pillowcase cleanermanager of product - Objective Last 24 Hour Vital Signs Date Time Temp Pulse Resp B/P (MAP) Pulse Ox O2 Delivery O2 Flow Rate FiO2 09/21/18 09:24 87 121/91 09/21/18 09:24 121/91 09/21/18 09:07 87 14 40 09/21/18 08:00 98.6 128 14 121/91 (101) 100 09/21/18 08:00 40 09/21/18 07:47 115 09/21/18 06:55 100 14 40 09/21/18 04:41 105 14 40 09/21/18 04:00 98.3 94 15 124/72 (89) 100 09/21/18 04:00 102 09/21/18 04:00 Mechanical Ventilator 09/21/18 04:00 40 09/21/18 02:47 101 14 40 09/21/18 01:22 90 14 40 09/21/18 00:00 98.2 101 16 131/63 (85) 100 09/21/18 00:00 89 09/21/18 00:00 40 09/21/18 00:00 Mechanical Ventilator 09/20/18 22:35 98 14 40 09/20/18 20:39 103 14 40 09/20/18 20:27 88 106/69 09/20/18 20:00 40 09/20/18 20:00 98.3 88 15 106/65 (79) 100 09/20/18 20:00 Mechanical Ventilator 09/20/18 20:00 87 09/20/18 18:43 93 14 40 09/20/18 16:43 101 18 40 09/20/18 16:00 Mechanical Ventilator 09/20/18 16:00 40 09/20/18 16:00 98.5 107 15 112/66 (81) 100 09/20/18 16:00 90 09/20/18 14:45 98 14 40 09/20/18 12:45 81 14 40 09/20/18 12:00 99.5 100 14 110/75 (87) 100 09/20/18 12:00 40 09/20/18 12:00 Mechanical Ventilator 09/20/18 12:00 93 09/20/18 11:10 96 14 40 Status: sedated Condition: grave HEENT: atraumatic Heart: HR/BP stable Abdomen: soft, active bowel sounds Extremities: no C/C/E, edema Micro: Microbiology Date/Time Source Procedure Growth Status 09/20/18 17:00 Stool Clostridium difficile Toxin Assay - Final Complete Accucheck: 123 Critical Care - Subjective FI02: 40 Vent Support Breath Rate: 14 Vent Support Mode: AC Vent Tidal Volume: 600 Sputum Amount: Small PEEP: 5.0 PIP: 30 Tube Feeding Amount: 45 I&O: Intake and Output 09/20/18 09/21/18 19:00 07:00 Intake Total 1375 ml 860 ml Output Total 1000 ml 1025 ml Balance 375 ml -165 ml Intake Free Water 0 ml 100 ml IV Total 635 ml 220 ml Tube Feeding 540 ml 540 ml Blood Product 200 ml Output Urine Total 1000 ml 1025 ml # Bowel Movements 2 1 Labs: Laboratory Tests Test 09/21/18 03:50 White Blood Count 12.9 K/UL (4.8-10.8) H Red Blood Count 3.46 M/UL (4.20-5.40) L Hemoglobin 9.1 G/DL (12.0-16.0) L Hematocrit 28.8 % (37.0-47.0) L Mean Corpuscular Volume 83 FL (80-99) Mean Corpuscular Hemoglobin 26.4 PG (27.0-31.0) L Mean Corpuscular Hemoglobin Concent 31.7 G/DL (32.0-36.0) L Red Cell Distribution Width 17.3 % (11.6-14.8) H Platelet Count 500 K/UL (150-450) H Mean Platelet Volume 5.6 FL (6.5-10.1) L Neutrophils (%) (Auto) 77.9 % (45.0-75.0) H Lymphocytes (%) (Auto) 15.4 % (20.0-45.0) L Monocytes (%) (Auto) 4.8 % (1.0-10.0) Eosinophils (%) (Auto) 1.5 % (0.0-3.0) Basophils (%) (Auto) 0.4 % (0.0-2.0) Sodium Level 140 MMOL/L (136-145) Potassium Level 4.1 MMOL/L (3.5-5.1) Chloride Level 105 MMOL/L (98-107) Carbon Dioxide Level 30 MMOL/L (21-32) Anion Gap 6 mmol/L (5-15) Blood Urea Nitrogen 17 mg/dL (7-18) Creatinine 0.5 MG/DL (0.55-1.30) L Estimat Glomerular Filtration Rate mL/min (>60) Glucose Level 116 MG/DL (74-106) H Calcium Level 8.6 MG/DL (8.5-10.1) Ariel Frey MD Sep 21, 2018 09:59
--- NOTE | 2018-09-21 11:59 | NUR ---
PBX OPERATORPLANER OFF BEARER SI:AFIB . CRF . SEPSIS VS: BP 121/91, P 128, T 98.6, RR 15,SpO2 100 on VENT AC 14, TV 600, PEEP 5.0, FiO2 40 WBC 12.9, RBC 3.46, Hgb 9.1, Hct 28.8, CR 0.5 IS:ELIQUIS 5mg ZESTRIL 10mg LASIX 20mg IV CORDARONE 200mg TIGECYCLINE 110ml IVPB PREVACID 30mg KEPPRA 500mg NOVOLOG SUBQ SDU STATUS
[2018-09-21 12:00] VITALS: BP 128/85
--- NOTE | 2018-09-21 13:13 | NUR ---
NURSE NOTES: PATIENT KEPT CLEAN AND DRY. WOUND CARE DRESSING DONE. WILL CONTINUE TO MONITOR.
--- NOTE | 2018-09-21 14:20 | NUR ---
[facility] NOTES PT ACCEPTED BACK TO [facility] 18 BED A. [facility] TO TRANSPORT PT. NCM TO CALL FOR TRANSPORTATION. NURSE TO GIVE REPORT TO [phone].
[2018-09-21] MEDS: DAPTOmycin 400 MG in NS 55 ML IV SCH (14:38)
[2018-09-21] MEDS: Amikacin 1,250 MG in NS 110 ML IV SCH (14:39)
--- NOTE | 2018-09-21 15:00 | NUR ---
NURSE NOTES: [facility] INFORMED THAT PATIENT NEEDS SPECIAL MATTRESS. ALL QUESTIONS ANSWERED. DAUGHTER AT THE BEDSIDE INFORMED OF TRANSFER. WILL CONTINUE TO MONITOR.
--- NOTE | 2018-09-21 15:14 | General Progress Note ---
Assessment/Plan Status: stable, unchanged Assessment/Plan: Assessment and Recs: # Anemia of chronic disease due to underlying chronic medical issues, multifactorial, likely ongoing inflammatory process --> Anemia workup has been ordered, ferritin is 1592, markedly elevated, no hemolysis --> No evidence of hemolysis is noted, peripheral smear has been reviewed. --> Hgb goal >7. Transfuse prn. --> Epogen or iron at this time is not particularly indicated --> Medications have been reviewed --> evaluate with Gi team prn --> transfuse if hgb is < 7 (will trend CBC daily) --> low threshold for gi evaluation in case has occult + ==> hgb 9-->6.3-->8.5-->9.1 # Leukocytosis with eleva wbc on admission likely related to sepsis --> on abx as per id team, empiric treatment, uti, sacral decub pna --> peripheral smear to be reviewed ==> 17-->18-->17.1-->14 --> gi recs appreciated # Thrombocytosis is likely related to pna, reactive process ==> plt 601-->589--> 500k # Chronic respiratory failure --> chronic vent/trach # Sacral decubitus ulcer --> per surg eval and rx # Atrial fibrillation --> anticoagulation as needed per cards --> to restart asa and plavix as per cards # Chronic vegetative state --> essentially unchanged # Dysphagia s/p Feeding by G-tube --> restart as needed # Contracture of multiple joints # PNa as per id management The timing of this note does not necessarily reflect the time of the patient was seen. Greatly appreciate consultation! Subjective HEENT: Denies: no symptoms, eye pain, blurred vision, tearing, double vision, ear pain, ear discharge, nose pain, nose congestion, throat pain, throat swelling, mouth pain, mouth swelling, other Cardiovascular: Denies: no symptoms, chest pain, edema, irregular heart rate, lightheadedness, palpitations, syncope, other Respiratory: Denies: no symptoms, cough, orthopnea, shortness of breath, SOB with excertion, SOB at rest, sputum, stridor, wheezing, other Gastrointestinal/Abdominal: Denies: no symptoms, abdomen distended, abdominal pain, black stools, tarry stools, blood in stool, constipated, diarrhea, difficulty swallowing, nausea, poor appetite, poor fluid intake, rectal bleeding , vomiting, other Endocrine: Denies: no symptoms, excessive sweating, flushing, intolerance to cold, intolerance to heat, increased hunger, increased thirst, increased urine, unexplained weight gain, unexplained weight loss, other Hematologic/Lymphatic: Denies: no symptoms, anemia, easy bleeding, easy bruising, other Allergies: Coded Allergies: ALPRAZOLAM (Verified Allergy, Unknown, 09/13/18) Subjective 09/14: no events, hgb is low 6.3, dw family, blood being infused, transfusion today 09/20: no events, trach to vent, with nieto catheter, resting, alert 09/21: no events, able to trach, trach to vent, no issues otherwise noted, cbc reviewed Objective Last 24 Hour Vital Signs Date Time Temp Pulse Resp B/P (MAP) Pulse Ox O2 Delivery O2 Flow Rate FiO2 09/21/18 13:00 97 14 40 09/21/18 12:35 99 09/21/18 12:00 98.4 99 14 128/85 (99) 100 09/21/18 12:00 Mechanical Ventilator 09/21/18 12:00 40 09/21/18 11:14 83 15 40 09/21/18 09:24 87 121/91 09/21/18 09:24 121/91 09/21/18 09:07 87 14 40 09/21/18 08:00 98.6 128 14 121/91 (101) 100 09/21/18 08:00 Mechanical Ventilator 09/21/18 08:00 40 09/21/18 07:47 115 09/21/18 06:55 100 14 40 09/21/18 04:41 105 14 40 09/21/18 04:00 98.3 94 15 124/72 (89) 100 09/21/18 04:00 102 09/21/18 04:00 Mechanical Ventilator 09/21/18 04:00 40 09/21/18 02:47 101 14 40 09/21/18 01:22 90 14 40 09/21/18 00:00 98.2 101 16 131/63 (85) 100 09/21/18 00:00 89 09/21/18 00:00 40 09/21/18 00:00 Mechanical Ventilator 09/20/18 22:35 98 14 40 09/20/18 20:39 103 14 40 09/20/18 20:27 88 106/69 09/20/18 20:00 40 09/20/18 20:00 98.3 88 15 106/65 (79) 100 09/20/18 20:00 Mechanical Ventilator 09/20/18 20:00 87 09/20/18 18:43 93 14 40 09/20/18 16:43 101 18 40 09/20/18 16:00 Mechanical Ventilator 09/20/18 16:00 40 09/20/18 16:00 98.5 107 15 112/66 (81) 100 09/20/18 16:00 90 Intake and Output 09/20/18 09/21/18 19:00 07:00 Intake Total 1375 ml 860 ml Output Total 1000 ml 1025 ml Balance 375 ml -165 ml Intake Free Water 0 ml 100 ml IV Total 635 ml 220 ml Tube Feeding 540 ml 540 ml Blood Product 200 ml Output Urine Total 1000 ml 1025 ml # Bowel Movements 2 1 Laboratory Tests 09/21/18 03:50: White Blood Count 12.9H, Red Blood Count 3.46L, Hemoglobin 9.1L, Hematocrit 28.8L, Mean Corpuscular Volume 83, Mean Corpuscular Hemoglobin 26.4L, Mean Corpuscular Hemoglobin Concent 31.7L, Red Cell Distribution Width 17.3H, Platelet Count 500H, Mean Platelet Volume 5.6L, Neutrophils (%) (Auto) 77.9H, Lymphocytes (%) (Auto) 15.4L, Monocytes (%) (Auto) 4.8, Eosinophils (%) (Auto) 1.5, Basophils (%) (Auto) 0.4, Sodium Level 140, Potassium Level 4.1, Chloride Level 105, Carbon Dioxide Level 30, Anion Gap 6, Blood Urea Nitrogen 17, Creatinine 0.5L, Estimat Glomerular Filtration Rate , Glucose Level 116H, Calcium Level 8.6 Height (Feet): 5 Height (Inches): 8.00 Weight (Pounds): 240 General Appearance: alert EENT: TMs normal Neck: supple Cardiovascular: regular rhythm Respiratory/Chest: no respiratory distress Abdomen: no organomegaly Extremities: non-tender Neurologic: alert Objective PE General Appearance: WD/WN Lines, tubes and drains: peripheral HEENT: normocephalic Neck: non-tender, normal alignment ++ trach vent Respiratory/Chest: chest wall non-tender, lungs clear, decreased breath sounds Cardiovascular/Chest: normal peripheral pulses Abdomen: non tender ++ peg Genitourinary/Rectal: normal genital exam ++ Dagoberto Venegas MD Sep 21, 2018 15:14
--- NOTE | 2018-09-21 15:25 | Internal Med Progress Note ---
Subjective Physician Name Wade Negron Attending Physician Wade Negron MD Current Medications Medications (Trade) Dose Ordered Sig/Rosy Route PRN Reason Start Time Stop Time Status Last Admin Dose Admin Acetaminophen (Tylenol) 650 mg Q4H PRN GT FEVER 09/13/18 11:45 10/13/18 06:59 09/20/18 08:49 Amikacin Protocol (Amikacin pharmacy to dose) 1 ea DAILY PRN MISC Per rx protocol 09/17/18 13:45 10/17/18 13:44 Amikacin Sulfate 1250 mg/Sodium Chloride 115 ml @ 115 mls/hr Q24H IV 09/17/18 15:00 09/24/18 14:59 09/21/18 14:39 Amiodarone HCl (Cordarone) 200 mg DAILY GT 09/20/18 09:00 10/20/18 08:59 09/21/18 09:25 Apixaban (Eliquis) 5 mg BID ORAL 09/21/18 09:00 10/21/18 08:59 09/21/18 09:24 Chlorhexidine Gluconate (Elizabeth-Hex 2%) 1 applic DAILY@2000 TOPIC 09/14/18 20:00 10/14/18 19:59 09/20/18 20:26 Daptomycin 400 mg/ Sodium Chloride 55 ml @ 100 mls/hr Q24H IV 09/18/18 14:00 09/25/18 13:59 09/21/18 14:38 Dextrose (Dextrose 50%) 25 ml Q30M PRN IV Hypoglycemia 09/13/18 08:15 10/13/18 08:14 Dextrose (Dextrose 50%) 50 ml Q30M PRN IV Hypoglycemia 09/13/18 08:15 10/13/18 08:14 Furosemide (Lasix) 20 mg DAILY IV 09/20/18 09:00 10/20/18 08:59 09/21/18 09:25 Insulin Aspart (NovoLOG) EVERY 6 HOURS SUBQ 09/13/18 12:00 10/13/18 11:59 09/21/18 12:27 Lansoprazole (Prevacid) 30 mg DAILY GT 09/19/18 09:00 10/19/18 08:59 09/21/18 09:24 Levetiracetam (Keppra) 500 mg Q12HR GT 09/13/18 21:00 10/13/18 20:59 09/21/18 09:24 Lisinopril (Zestril) 10 mg DAILY GT 09/20/18 09:00 10/20/18 08:59 09/21/18 09:24 Metoprolol Tartrate (Lopressor) 12.5 mg Q12HR GT 09/19/18 21:00 10/19/18 20:59 09/21/18 09:24 Ondansetron HCl (Zofran) 4 mg Q6H PRN IVP Nausea & Vomiting 09/13/18 07:00 10/13/18 06:59 Polyethylene Glycol (Miralax) 17 gm DAILYPRN PRN GT Constipation 09/13/18 11:45 10/13/18 06:59 Tigecycline 50 mg/ Sodium Chloride 110 ml @ 220 mls/hr Q12HR@0300,1500 IVPB 09/20/18 03:00 09/27/18 02:59 09/21/18 14:39 Allergies: Coded Allergies: ALPRAZOLAM (Verified Allergy, Unknown, 09/13/18) Subjective open eyes, on vent,, daughter at bedside. Objective Last Vital Signs Date Time Temp Pulse Resp B/P (MAP) Pulse Ox O2 Delivery O2 Flow Rate FiO2 09/21/18 15:14 104 15 40 09/21/18 12:00 98.4 128/85 (99) 100 09/21/18 12:00 Mechanical Ventilator Laboratory Tests Test 09/21/18 03:50 White Blood Count 12.9 K/UL (4.8-10.8) H Red Blood Count 3.46 M/UL (4.20-5.40) L Hemoglobin 9.1 G/DL (12.0-16.0) L Hematocrit 28.8 % (37.0-47.0) L Mean Corpuscular Volume 83 FL (80-99) Mean Corpuscular Hemoglobin 26.4 PG (27.0-31.0) L Mean Corpuscular Hemoglobin Concent 31.7 G/DL (32.0-36.0) L Red Cell Distribution Width 17.3 % (11.6-14.8) H Platelet Count 500 K/UL (150-450) H Mean Platelet Volume 5.6 FL (6.5-10.1) L Neutrophils (%) (Auto) 77.9 % (45.0-75.0) H Lymphocytes (%) (Auto) 15.4 % (20.0-45.0) L Monocytes (%) (Auto) 4.8 % (1.0-10.0) Eosinophils (%) (Auto) 1.5 % (0.0-3.0) Basophils (%) (Auto) 0.4 % (0.0-2.0) Sodium Level 140 MMOL/L (136-145) Potassium Level 4.1 MMOL/L (3.5-5.1) Chloride Level 105 MMOL/L (98-107) Carbon Dioxide Level 30 MMOL/L (21-32) Anion Gap 6 mmol/L (5-15) Blood Urea Nitrogen 17 mg/dL (7-18) Creatinine 0.5 MG/DL (0.55-1.30) L Estimat Glomerular Filtration Rate mL/min (>60) Glucose Level 116 MG/DL (74-106) H Calcium Level 8.6 MG/DL (8.5-10.1) Microbiology Date/Time Source Procedure Growth Status 09/20/18 17:00 Stool Clostridium difficile Toxin Assay - Final Complete Intake and Output 09/20/18 09/21/18 19:00 07:00 Intake Total 1375 ml 860 ml Output Total 1000 ml 1025 ml Balance 375 ml -165 ml Intake Free Water 0 ml 100 ml IV Total 635 ml 220 ml Tube Feeding 540 ml 540 ml Blood Product 200 ml Output Urine Total 1000 ml 1025 ml # Bowel Movements 2 1 Objective General: No acute distress, on vent, Trach HEENT: NCAT, sclera anicteric, PERRL, EOMI. Neck: Supple, tracheostomy site intact. Lungs: Decrease air on bases, no Wheeze or Rales. Heart: Regular rate and rhythm, normal S1/S2, no murmur, AICD @ LCW Abdomen: soft, nontender, nondistended. Normoactive bowel sounds, morbid obesity , PEG site intact. Extremities: No Cyanosis , clubbing or edema. Neuro: not verbal, unable to more extremities. Skin: warm, Stage 4 sacral Decubi ulcer. Assessment/Plan Assessment/Plan ASSESSMENT: The patient is a 72-year-old female. 1. Right lower lobe pneumonia=MDR pseudamonas 2. Leukocytosis. 3. Elevated troponin. 4. Acute on chronic congestive heart failure. 5. Chronic obstructive pulmonary disease. 6. Ventilator-dependent respiratory failure. 7. Diabetes type 2. 8. Hypertension. 9. Coronary artery disease. 10. Metabolic encephalopathy. 11. Seizure disorder. 12. Dysphagia. 13. Tracheostomy. 14. Quadriplegia. TREATMENT: 1. Right lower lobe pneumonia=MDR pseudamonas. A Pulmonary consultation obtained with Dr. Ariel Frey. recommendation of Infectious Disease. 2. Elevated troponin/congestive heart failure. Cardiology consultation obtained with Dr. Isai Anglin. The patient is currently receiving intravenous Lasix. 3. Ventilator-dependent respiratory failure. As above, a Pulmonary consultation obtained with Dr. Ariel Frey. 4. Diabetes type 2. The patient was admitted off insulin. 5. Hypertension, the patient is currently hypotensive. 6. Coronary artery disease. 7. Metabolic encephalopathy. 8. Seizure disorder. Continue Keppra as above. 9. Dysphagia. The patient is status post PEG placement. Continue tube feeds as above. 10. Tracheostomy in situ. 11. Quadriplegia. DC planning to SNF today. Wade Negron MD Sep 21, 2018 15:25
[2018-09-21 16:00] VITALS: BP 104/59
--- NOTE | 2018-09-21 16:06 | Cardiology Report ---
APPROVED REPORT EKG Measurement Heart [id number] Atrial flutter with variable AV block with occasional Low voltage QRS Septal infarct, age undetermined Prolonged QT Abnormal ECG
--- NOTE | 2018-09-21 16:37 | Cardiology Progress Note ---
Assessment/Plan Assessment/Plan 1. History of coronary artery disease with reported history of occluded right coronary artery. 2. Permanent atrial fibrillation, on anticoagulation. 3. History of ventricular fibrillation arrest. 4. History of CVA. 5. Cardiomyopathy with ejection fraction 20%. 6. Chronic ventilator therapy. 7. Anemia. 8. Hypoalbuminemia. 9. hs of icd implantation 10. sig MR ] 11. Pulm htn echo report noted telel reviweed labs noted not sig response on acei is already on bb off asa now eliquis, and if no bleeding after a few days consider asa diuretics swtich to po Subjective ROS Limited/Unobtainable: Yes Objective Last 24 Hour Vital Signs Date Time Temp Pulse Resp B/P (MAP) Pulse Ox O2 Delivery O2 Flow Rate FiO2 09/21/18 16:00 40 09/21/18 16:00 98.2 102 16 104/59 (74) 100 09/21/18 16:00 Mechanical Ventilator 09/21/18 15:14 104 15 40 09/21/18 13:00 97 14 40 09/21/18 12:35 99 09/21/18 12:00 98.4 99 14 128/85 (99) 100 09/21/18 12:00 Mechanical Ventilator 09/21/18 12:00 40 09/21/18 11:14 83 15 40 09/21/18 09:24 87 121/91 09/21/18 09:24 121/91 09/21/18 09:07 87 14 40 09/21/18 08:00 98.6 128 14 121/91 (101) 100 09/21/18 08:00 Mechanical Ventilator 09/21/18 08:00 40 09/21/18 07:47 115 09/21/18 06:55 100 14 40 09/21/18 04:41 105 14 40 09/21/18 04:00 98.3 94 15 124/72 (89) 100 09/21/18 04:00 102 09/21/18 04:00 Mechanical Ventilator 09/21/18 04:00 40 09/21/18 02:47 101 14 40 09/21/18 01:22 90 14 40 09/21/18 00:00 98.2 101 16 131/63 (85) 100 09/21/18 00:00 89 09/21/18 00:00 40 09/21/18 00:00 Mechanical Ventilator 09/20/18 22:35 98 14 40 09/20/18 20:39 103 14 40 09/20/18 20:27 88 106/69 09/20/18 20:00 40 09/20/18 20:00 98.3 88 15 106/65 (79) 100 09/20/18 20:00 Mechanical Ventilator 09/20/18 20:00 87 09/20/18 18:43 93 14 40 09/20/18 16:43 101 18 40 General Appearance: on vent, patient on isolation Intake and Output 09/20/18 09/21/18 19:00 07:00 Intake Total 1375 ml 860 ml Output Total 1000 ml 1025 ml Balance 375 ml -165 ml Intake Free Water 0 ml 100 ml IV Total 635 ml 220 ml Tube Feeding 540 ml 540 ml Blood Product 200 ml Output Urine Total 1000 ml 1025 ml # Bowel Movements 2 1 Laboratory Tests Test 09/21/18 03:50 White Blood Count 12.9 K/UL (4.8-10.8) H Red Blood Count 3.46 M/UL (4.20-5.40) L Hemoglobin 9.1 G/DL (12.0-16.0) L Hematocrit 28.8 % (37.0-47.0) L Mean Corpuscular Volume 83 FL (80-99) Mean Corpuscular Hemoglobin 26.4 PG (27.0-31.0) L Mean Corpuscular Hemoglobin Concent 31.7 G/DL (32.0-36.0) L Red Cell Distribution Width 17.3 % (11.6-14.8) H Platelet Count 500 K/UL (150-450) H Mean Platelet Volume 5.6 FL (6.5-10.1) L Neutrophils (%) (Auto) 77.9 % (45.0-75.0) H Lymphocytes (%) (Auto) 15.4 % (20.0-45.0) L Monocytes (%) (Auto) 4.8 % (1.0-10.0) Eosinophils (%) (Auto) 1.5 % (0.0-3.0) Basophils (%) (Auto) 0.4 % (0.0-2.0) Sodium Level 140 MMOL/L (136-145) Potassium Level 4.1 MMOL/L (3.5-5.1) Chloride Level 105 MMOL/L (98-107) Carbon Dioxide Level 30 MMOL/L (21-32) Anion Gap 6 mmol/L (5-15) Blood Urea Nitrogen 17 mg/dL (7-18) Creatinine 0.5 MG/DL (0.55-1.30) L Estimat Glomerular Filtration Rate mL/min (>60) Glucose Level 116 MG/DL (74-106) H Calcium Level 8.6 MG/DL (8.5-10.1) Microbiology Date/Time Source Procedure Growth Status 09/20/18 17:00 Stool Clostridium difficile Toxin Assay - Final Complete Isai Anglin MD Sep 21, 2018 16:37
--- NOTE | 2018-09-21 17:01 | NUR ---
NURSE NOTES: CANCELLED DISCHARGED, NO ROOM FOR ISOLATION IN SNF. CN, HOUSE SUP AND CASE MNGR MADE AWARE. WILL CONTINUE TO MONITOR.
--- NOTE | 2018-09-21 17:17 | Infectious Diseases Prog Note ---
Assessment/Plan Assessment/Plan Abx: IV Vancomycin 09/13- Cefepime 09/13- Amikacin 09/13- Zosyn x1 09/13 Assessment: Sepsis- ?PNA vs 2ry to wound infection -09/17 BCx NTD -09/18 CXR: Probable left pleural effusion, unchanged over one day -CXR: Limited evaluation with suboptimal positioning. Cardiomegaly and slight prominence of the pulmonary vascularity which may suggest mild congestive changes/interstitial edema. Streaky opacities at the right base possibly related to subsegmental atelectasis. Pneumonia should be excluded clinically. Tracheostomy tube and pacemaker noted. -u/a wbc 10-15, nit neg, leuk +3; sq cells moderate (improper collection give high amount of sq cells); repeat u/a wbc 5-10, nit neg, leuk +1, sq cells few; ucx p Sputum Cx 09/14/18 - MDR PsA (S Amikcin, Colistin, Polymixin B) Urine Cx 09/13/18 - Yeast Acute on chronic anemia- ?bleeding Fever; improving Leukocytosis; improving Sacral decubitus ulcer stage IV- chronic OM and necrotic tissue (infected necrotic fibrinous sacral stage 4 decubitus ulcer with bony dislodged fragments) -09/17 SP excisional debridement of sacral decubitus ulcer with ostectomy -wound cx p -09/14 wound cx: CRE K.Pna (S Colistin, Polymixin B, Tigecycline), MDR PsA ( S amikacin), MRSA, VRE (S Linezolid, Amp) chronic respiratory failure trach/vent dependant s/p PEG S/p AICD vegetative state Afib on AC [place] resident Plan: -Continue Daptomycin #4 for MRSA and VRE coverage of wound -monitor CPK -Continue Amikacin #5/10-14 for MDR PsA and Tigecycline #3 for CRE in wound -Upon discharge to SNF, continue above regimen for 7 more days -09/20 SP Flagyl #8 -09/18 SP IV Vancomycin #6 -09/17 SP Cefepime #5 -09/13 SPAmikacin #1, Zosyn x1 -f/u cx -Monitor CBC/CMP, temperatures -wound care per surgical team -wound cx -Sx f/u -Trach/PEG care -aspiration precautions -Cdiff if diarrhea Thank you for this consultation. Will continue to follow along with you. Discussed with RN Subjective Allergies: Coded Allergies: ALPRAZOLAM (Verified Allergy, Unknown, 09/13/18) Subjective afebrile in >48hrs wbc improving Objective Vital Signs Last 24 Hour Vital Signs Date Time Temp Pulse Resp B/P (MAP) Pulse Ox O2 Delivery O2 Flow Rate FiO2 09/21/18 16:00 40 09/21/18 16:00 98.2 102 16 104/59 (74) 100 09/21/18 16:00 Mechanical Ventilator 09/21/18 16:00 106 09/21/18 15:14 104 15 40 09/21/18 13:00 97 14 40 09/21/18 12:35 99 09/21/18 12:00 98.4 99 14 128/85 (99) 100 09/21/18 12:00 Mechanical Ventilator 09/21/18 12:00 40 09/21/18 11:14 83 15 40 09/21/18 09:24 87 121/91 09/21/18 09:24 121/91 09/21/18 09:07 87 14 40 09/21/18 08:00 98.6 128 14 121/91 (101) 100 09/21/18 08:00 Mechanical Ventilator 09/21/18 08:00 40 09/21/18 07:47 115 09/21/18 06:55 100 14 40 09/21/18 04:41 105 14 40 09/21/18 04:00 98.3 94 15 124/72 (89) 100 09/21/18 04:00 102 09/21/18 04:00 Mechanical Ventilator 09/21/18 04:00 40 09/21/18 02:47 101 14 40 09/21/18 01:22 90 14 40 09/21/18 00:00 98.2 101 16 131/63 (85) 100 09/21/18 00:00 89 09/21/18 00:00 40 09/21/18 00:00 Mechanical Ventilator 09/20/18 22:35 98 14 40 09/20/18 20:39 103 14 40 09/20/18 20:27 88 106/69 09/20/18 20:00 40 09/20/18 20:00 98.3 88 15 106/65 (79) 100 09/20/18 20:00 Mechanical Ventilator 09/20/18 20:00 87 09/20/18 18:43 93 14 40 Height (Feet): 5 Height (Inches): 8.00 Weight (Pounds): 240 Objective General Appearance: no apparent distress Lines, tubes and drains: peripheral HEENT: mucous membranes moist Neck: trach Respiratory/Chest: on vent Cardiovascular/Chest: regularly irregular Abdomen: no organomegaly, no mass, feeding tube Extremities: other Skin Exam: other Neurologic: unresponsiveness Microbiology Date/Time Source Procedure Growth Status 09/20/18 17:00 Stool Clostridium difficile Toxin Assay - Final Complete Laboratory Tests Test 09/21/18 03:50 White Blood Count 12.9 K/UL (4.8-10.8) H Red Blood Count 3.46 M/UL (4.20-5.40) L Hemoglobin 9.1 G/DL (12.0-16.0) L Hematocrit 28.8 % (37.0-47.0) L Mean Corpuscular Volume 83 FL (80-99) Mean Corpuscular Hemoglobin 26.4 PG (27.0-31.0) L Mean Corpuscular Hemoglobin Concent 31.7 G/DL (32.0-36.0) L Red Cell Distribution Width 17.3 % (11.6-14.8) H Platelet Count 500 K/UL (150-450) H Mean Platelet Volume 5.6 FL (6.5-10.1) L Neutrophils (%) (Auto) 77.9 % (45.0-75.0) H Lymphocytes (%) (Auto) 15.4 % (20.0-45.0) L Monocytes (%) (Auto) 4.8 % (1.0-10.0) Eosinophils (%) (Auto) 1.5 % (0.0-3.0) Basophils (%) (Auto) 0.4 % (0.0-2.0) Sodium Level 140 MMOL/L (136-145) Potassium Level 4.1 MMOL/L (3.5-5.1) Chloride Level 105 MMOL/L (98-107) Carbon Dioxide Level 30 MMOL/L (21-32) Anion Gap 6 mmol/L (5-15) Blood Urea Nitrogen 17 mg/dL (7-18) Creatinine 0.5 MG/DL (0.55-1.30) L Estimat Glomerular Filtration Rate mL/min (>60) Glucose Level 116 MG/DL (74-106) H Calcium Level 8.6 MG/DL (8.5-10.1) Current Medications Medications (Trade) Dose Ordered Sig/Rosy Route PRN Reason Start Time Stop Time Status Last Admin Dose Admin Acetaminophen (Tylenol) 650 mg Q4H PRN GT FEVER 09/13/18 11:45 10/13/18 06:59 09/20/18 08:49 Amikacin Protocol (Amikacin pharmacy to dose) 1 ea DAILY PRN MISC Per rx protocol 09/17/18 13:45 10/17/18 13:44 Amikacin Sulfate 1250 mg/Sodium Chloride 115 ml @ 115 mls/hr Q24H IV 09/17/18 15:00 09/24/18 14:59 09/21/18 14:39 Amiodarone HCl (Cordarone) 200 mg DAILY GT 09/20/18 09:00 10/20/18 08:59 09/21/18 09:25 Apixaban (Eliquis) 5 mg BID ORAL 09/21/18 09:00 10/21/18 08:59 09/21/18 09:24 Chlorhexidine Gluconate (Elizabeth-Hex 2%) 1 applic DAILY@2000 TOPIC 09/14/18 20:00 10/14/18 19:59 09/20/18 20:26 Daptomycin 400 mg/ Sodium Chloride 55 ml @ 100 mls/hr Q24H IV 09/18/18 14:00 09/25/18 13:59 09/21/18 14:38 Dextrose (Dextrose 50%) 25 ml Q30M PRN IV Hypoglycemia 09/13/18 08:15 10/13/18 08:14 Dextrose (Dextrose 50%) 50 ml Q30M PRN IV Hypoglycemia 09/13/18 08:15 10/13/18 08:14 Furosemide (Lasix) 20 mg DAILY IV 09/20/18 09:00 10/20/18 08:59 09/21/18 09:25 Insulin Aspart (NovoLOG) EVERY 6 HOURS SUBQ 09/13/18 12:00 10/13/18 11:59 09/21/18 12:27 Lansoprazole (Prevacid) 30 mg DAILY GT 09/19/18 09:00 10/19/18 08:59 09/21/18 09:24 Levetiracetam (Keppra) 500 mg Q12HR GT 09/13/18 21:00 10/13/18 20:59 09/21/18 09:24 Lisinopril (Zestril) 10 mg DAILY GT 09/20/18 09:00 10/20/18 08:59 09/21/18 09:24 Metoprolol Tartrate (Lopressor) 12.5 mg Q12HR GT 09/19/18 21:00 10/19/18 20:59 09/21/18 09:24 Ondansetron HCl (Zofran) 4 mg Q6H PRN IVP Nausea & Vomiting 09/13/18 07:00 10/13/18 06:59 Polyethylene Glycol (Miralax) 17 gm DAILYPRN PRN GT Constipation 09/13/18 11:45 10/13/18 06:59 Tigecycline 50 mg/ Sodium Chloride 110 ml @ 220 mls/hr Q12HR@0300,1500 IVPB 09/20/18 03:00 09/27/18 02:59 09/21/18 14:39 Nadia Donovan M.D. Sep 21, 2018 17:17
--- NOTE | 2018-09-21 19:39 | NUR ---
HAND-OFF: Report given to Concetta Cantrell RN.
--- NOTE | 2018-09-21 19:40 | NUR ---
NURSE NOTES: BEDSIDE REPORT RECEIVED FROM SANTA ZACARIAS. PT IS NONVERBAL, OPENS EYES SPONTANEOUSLY, UNABLE TO FOLLOW COMMANDS. TECHNICAL SUPPORT ANALYST SHOWING AFLUTTER. TRACH TO VENT: SHILEY 8, AC 14, TV 600, FIO2 40, PEEP 5. GLUCERNA 1.5 @ 45, NO RESIDUAL NOTED. SKIN IS CLEAN, DRY, DRESSING INTACT. BROWN DRAINING. YAYO PICC; ASYMPTOMATIC. BED IS LOCKED IN LOWEST POSITION, SR X3, CALL [facility] W/ IN REACH, BED ALARM ON, SZ PRECAUTIONS CONTINUED. WILL CONTINUE TO MONITOR AND FOLLOW W/ PLAN OF CARE.
[2018-09-21 20:00] VITALS: BP 129/79
[2018-09-21] MEDS: Dyna-Hex 2% Top Sol 2oz TOPIC SCH (20:12)
[2018-09-22] VITALS: BP 138/85
[2018-09-22] MEDS: Tigecycline 50 MG in NS 110 ML IVPB SCH ×2 (03:49→14:36)
[2018-09-22 04:00] VITALS: BP 134/76
[2018-09-22] MEDS: NovoLOG Insulin Flexpen SUBQ SCH ×4 (05:27→23:34)
--- NOTE | 2018-09-22 07:30 | NUR ---
HAND-OFF: Report given to SANTA NEAL.
--- NOTE | 2018-09-22 07:31 | NUR ---
NURSE NOTES: Report received from SANTA Ashby. Observed patient in bed sleeping. Open eyes with shaking. Obtunded. On ventilator with previous setting. Pt. is tolerated well with ventilator with no distress noted. No s/s of pain at this time. PICC line intact and patent. GT site intact with ongoing feeding. HOB elevated. No residual noted. F/C intact and draining well. Bed in lowest position. Call light within reach. Will continue to monitor.
[2018-09-22 08:00] VITALS: BP 112/83
[2018-09-22] MEDS: levETIRAcetam 500mg/5ml Liquid GT SCH ×2 (08:50→20:18)
[2018-09-22] MEDS: Amiodarone 200mg tab GT SCH (08:50)
[2018-09-22] MEDS: Eliquis 2.5mg tablet ORAL SCH ×2 (08:51→17:31)
[2018-09-22] MEDS: Lisinopril 10mg tab GT SCH (08:51)
[2018-09-22] MEDS: Metoprolol Tartrate 12.5mg TAB GT SCH ×2 (08:51→20:18)
[2018-09-22] MEDS ORDERED: NS 275ml ONE ×2 (10:10→10:17)
[2018-09-22] MEDS ORDERED: Tubing IV Secondary IV ONE (10:17)
--- NOTE | 2018-09-22 10:23 | Pulmonolgy Critical Care Note ---
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 Respiratory: adjust tidal volume, monitor respiratory rate, adjust FIO2, CXR Cardiac: continue to monitor HR/BP Renal: F/U I&O Infectious Disease: check cultures Gastrointestinal: continue feedings/current rate Endocrine: monitor blood sugar, check HgA1C Hematologic: transfuse if hgb<8.5 Neurologic: PRN Ativan, keep patient comfortable Prophylaxis: Protonix Notes 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 tube assembler Discussed with: nurses, consultants, nurse case managementmanufacturing operations manager - Objective Last 24 Hour Vital Signs Date Time Temp Pulse Resp B/P (MAP) Pulse Ox O2 Delivery O2 Flow Rate FiO2 09/22/18 08:51 122 112/83 09/22/18 08:51 112/83 09/22/18 08:35 122 14 40 09/22/18 08:00 98.9 110 14 112/83 (93) 100 09/22/18 08:00 Mechanical Ventilator 09/22/18 07:57 40 09/22/18 07:54 101 09/22/18 07:02 121 14 40 09/22/18 05:12 100 16 40 09/22/18 04:00 Mechanical Ventilator 09/22/18 04:00 98.8 113 14 134/76 (95) 100 09/22/18 04:00 40 09/22/18 04:00 103 09/22/18 02:41 99 14 40 09/22/18 01:02 103 13 40 09/22/18 00:00 98.7 110 16 138/85 (102) 100 09/22/18 00:00 105 09/22/18 00:00 Mechanical Ventilator 09/22/18 00:00 40 09/21/18 23:10 107 14 40 09/21/18 21:07 105 15 40 09/21/18 20:12 103 129/79 09/21/18 20:00 97.9 103 15 129/79 (96) 100 09/21/18 20:00 117 09/21/18 20:00 Mechanical Ventilator 09/21/18 20:00 40 09/21/18 19:16 102 14 40 09/21/18 17:23 113 16 40 09/21/18 16:00 40 09/21/18 16:00 98.2 102 16 104/59 (74) 100 09/21/18 16:00 Mechanical Ventilator 09/21/18 16:00 106 09/21/18 15:14 104 15 40 09/21/18 13:00 97 14 40 09/21/18 12:35 99 09/21/18 12:00 98.4 99 14 128/85 (99) 100 09/21/18 12:00 Mechanical Ventilator 09/21/18 12:00 40 09/21/18 11:14 83 15 40 Status: awake Condition: critical Neck: full ROM Lungs: chest wall tender Heart: regular Abdomen: active bowel sounds Extremities: no C/C/E Decubiti: location Micro: Microbiology Date/Time Source Procedure Growth Status 09/20/18 17:00 Stool Clostridium difficile Toxin Assay - Final Complete Accucheck: 119 Critical Care - Subjective Condition: critical EKG Rhythm: Sinus Rhythm FI02: 40 Vent Support Breath Rate: 14 Vent Support Mode: AC Vent Tidal Volume: 600 Sputum Amount: Small PEEP: 5.0 PIP: 32 Tube Feeding Amount: 45 I&O: Intake and Output 09/21/18 09/22/18 19:00 07:00 Intake Total 1175 ml 830 ml Output Total 1850 ml 800 ml Balance -675 ml 30 ml Intake Free Water 200 ml 180 ml IV Total 435 ml 110 ml Tube Feeding 540 ml 540 ml Output Urine Total 1850 ml 800 ml # Bowel Movements 3 2 Ariel Frey MD Sep 22, 2018 10:23
--- NOTE | 2018-09-22 10:48 | Cardiology Progress Note ---
Assessment/Plan Assessment/Plan 1. History of coronary artery disease with reported history of occluded right coronary artery. 2. Permanent atrial fibrillation, on anticoagulation. 3. History of ventricular fibrillation arrest. 4. History of CVA. 5. Cardiomyopathy with ejection fraction 20%. 6. Chronic ventilator therapy. 7. Anemia. 8. Hypoalbuminemia. 9. hs of icd implantation 10. sig MR ] 11. Pulm htn echo report noted telel reviweed labs noted not sig response on acei is already on bb off asa now eliquis, and if no bleeding after a few days consider asa diuretics swtich to po Subjective ROS Limited/Unobtainable: Yes Objective Last 24 Hour Vital Signs Date Time Temp Pulse Resp B/P (MAP) Pulse Ox O2 Delivery O2 Flow Rate FiO2 09/22/18 08:51 122 112/83 09/22/18 08:51 112/83 09/22/18 08:35 122 14 40 09/22/18 08:00 98.9 110 14 112/83 (93) 100 09/22/18 08:00 Mechanical Ventilator 09/22/18 07:57 40 09/22/18 07:54 101 09/22/18 07:02 121 14 40 09/22/18 05:12 100 16 40 09/22/18 04:00 Mechanical Ventilator 09/22/18 04:00 98.8 113 14 134/76 (95) 100 09/22/18 04:00 40 09/22/18 04:00 103 09/22/18 02:41 99 14 40 09/22/18 01:02 103 13 40 09/22/18 00:00 98.7 110 16 138/85 (102) 100 09/22/18 00:00 105 09/22/18 00:00 Mechanical Ventilator 09/22/18 00:00 40 09/21/18 23:10 107 14 40 09/21/18 21:07 105 15 40 09/21/18 20:12 103 129/79 09/21/18 20:00 97.9 103 15 129/79 (96) 100 09/21/18 20:00 117 09/21/18 20:00 Mechanical Ventilator 09/21/18 20:00 40 09/21/18 19:16 102 14 40 09/21/18 17:23 113 16 40 09/21/18 16:00 40 09/21/18 16:00 98.2 102 16 104/59 (74) 100 09/21/18 16:00 Mechanical Ventilator 09/21/18 16:00 106 09/21/18 15:14 104 15 40 09/21/18 13:00 97 14 40 09/21/18 12:35 99 09/21/18 12:00 98.4 99 14 128/85 (99) 100 09/21/18 12:00 Mechanical Ventilator 09/21/18 12:00 40 09/21/18 11:14 83 15 40 General Appearance: no apparent distress, on vent, patient on isolation Cardiovascular: irregularly irregular Respiratory/Chest: lungs clear Abdomen: normal bowel sounds, non tender, soft Extremities: no swelling Intake and Output 09/21/18 09/22/18 19:00 07:00 Intake Total 1175 ml 830 ml Output Total 1850 ml 800 ml Balance -675 ml 30 ml Intake Free Water 200 ml 180 ml IV Total 435 ml 110 ml Tube Feeding 540 ml 540 ml Output Urine Total 1850 ml 800 ml # Bowel Movements 3 2 Microbiology Date/Time Source Procedure Growth Status 09/20/18 17:00 Stool Clostridium difficile Toxin Assay - Final Complete Isai Anglin MD Sep 22, 2018 10:48
--- NOTE | 2018-09-22 10:50 | Infectious Diseases Prog Note ---
Assessment/Plan Assessment/Plan Abx: IV Vancomycin 09/13- Cefepime 09/13- Amikacin 09/13- Zosyn x1 09/13 Assessment: Sepsis- ?PNA vs 2ry to wound infection -09/17 BCx NTD -09/18 CXR: Probable left pleural effusion, unchanged over one day -CXR: Limited evaluation with suboptimal positioning. Cardiomegaly and slight prominence of the pulmonary vascularity which may suggest mild congestive changes/interstitial edema. Streaky opacities at the right base possibly related to subsegmental atelectasis. Pneumonia should be excluded clinically. Tracheostomy tube and pacemaker noted. -u/a wbc 10-15, nit neg, leuk +3; sq cells moderate (improper collection give high amount of sq cells); repeat u/a wbc 5-10, nit neg, leuk +1, sq cells few; ucx p Sputum Cx 09/14/18 - MDR PsA (S Amikcin, Colistin, Polymixin B) Urine Cx 09/13/18 - Yeast Acute on chronic anemia- ?bleeding Fever; SP Leukocytosis; improving Sacral decubitus ulcer stage IV- chronic OM and necrotic tissue (infected necrotic fibrinous sacral stage 4 decubitus ulcer with bony dislodged fragments) -09/17 SP excisional debridement of sacral decubitus ulcer with ostectomy -wound cx p -09/14 wound cx: CRE K.Pna (S Colistin, Polymixin B, Tigecycline), MDR PsA ( S amikacin), MRSA, VRE (S Linezolid, Amp) chronic respiratory failure trach/vent dependant s/p PEG S/p AICD vegetative state Afib on AC [place] resident Plan: -Continue Daptomycin #5 for MRSA and VRE coverage of wound -monitor CPK -Continue Amikacin #6/10-14 for MDR PsA and Tigecycline #4 for CRE in wound -Upon discharge to SNF, continue above regimen for 7 more days -09/20 SP Flagyl #8 -09/18 SP IV Vancomycin #6 -09/17 SP Cefepime #5 -09/13 SPAmikacin #1, Zosyn x1 -f/u cx -Monitor CBC/CMP, temperatures -wound care per surgical team -wound cx -Sx f/u -Trach/PEG care -aspiration precautions -Cdiff if diarrhea Thank you for this consultation. Will continue to follow along with you. Discussed with RN Subjective Allergies: Coded Allergies: ALPRAZOLAM (Verified Allergy, Unknown, 09/13/18) Subjective afebrile in >72hrs wbc improving; no cbc today discharge planning to SNF Objective Vital Signs Last 24 Hour Vital Signs Date Time Temp Pulse Resp B/P (MAP) Pulse Ox O2 Delivery O2 Flow Rate FiO2 09/22/18 08:51 122 112/83 09/22/18 08:51 112/83 09/22/18 08:35 122 14 40 09/22/18 08:00 98.9 110 14 112/83 (93) 100 09/22/18 08:00 Mechanical Ventilator 09/22/18 07:57 40 09/22/18 07:54 101 09/22/18 07:02 121 14 40 09/22/18 05:12 100 16 40 09/22/18 04:00 Mechanical Ventilator 09/22/18 04:00 98.8 113 14 134/76 (95) 100 09/22/18 04:00 40 09/22/18 04:00 103 09/22/18 02:41 99 14 40 09/22/18 01:02 103 13 40 09/22/18 00:00 98.7 110 16 138/85 (102) 100 09/22/18 00:00 105 09/22/18 00:00 Mechanical Ventilator 09/22/18 00:00 40 09/21/18 23:10 107 14 40 09/21/18 21:07 105 15 40 09/21/18 20:12 103 129/79 09/21/18 20:00 97.9 103 15 129/79 (96) 100 09/21/18 20:00 117 09/21/18 20:00 Mechanical Ventilator 09/21/18 20:00 40 09/21/18 19:16 102 14 40 09/21/18 17:23 113 16 40 09/21/18 16:00 40 09/21/18 16:00 98.2 102 16 104/59 (74) 100 09/21/18 16:00 Mechanical Ventilator 09/21/18 16:00 106 09/21/18 15:14 104 15 40 09/21/18 13:00 97 14 40 09/21/18 12:35 99 09/21/18 12:00 98.4 99 14 128/85 (99) 100 09/21/18 12:00 Mechanical Ventilator 09/21/18 12:00 40 09/21/18 11:14 83 15 40 Height (Feet): 5 Height (Inches): 8.00 Weight (Pounds): 240 Objective General Appearance: no apparent distress Lines, tubes and drains: peripheral HEENT: mucous membranes moist Neck: trach Respiratory/Chest: on vent Cardiovascular/Chest: regularly irregular Abdomen: no organomegaly, no mass, feeding tube Extremities: other Skin Exam: other Neurologic: unresponsiveness Microbiology Date/Time Source Procedure Growth Status 09/20/18 17:00 Stool Clostridium difficile Toxin Assay - Final Complete Current Medications Medications (Trade) Dose Ordered Sig/Rosy Route PRN Reason Start Time Stop Time Status Last Admin Dose Admin Acetaminophen (Tylenol) 650 mg Q4H PRN GT FEVER 09/13/18 11:45 10/13/18 06:59 09/20/18 08:49 Amikacin Protocol (Amikacin pharmacy to dose) 1 ea DAILY PRN MISC Per rx protocol 09/17/18 13:45 10/17/18 13:44 Amikacin Sulfate 1250 mg/Sodium Chloride 115 ml @ 115 mls/hr Q24H IV 09/17/18 15:00 09/24/18 14:59 09/21/18 14:39 Amiodarone HCl (Cordarone) 200 mg DAILY GT 09/20/18 09:00 10/20/18 08:59 09/22/18 08:50 Apixaban (Eliquis) 5 mg BID ORAL 09/21/18 09:00 10/21/18 08:59 09/22/18 08:51 Chlorhexidine Gluconate (Elizabeth-Hex 2%) 1 applic DAILY@2000 TOPIC 09/14/18 20:00 10/14/18 19:59 09/21/18 20:12 Daptomycin 400 mg/ Sodium Chloride 55 ml @ 100 mls/hr Q24H IV 09/18/18 14:00 09/25/18 13:59 09/21/18 14:38 Dextrose (Dextrose 50%) 25 ml Q30M PRN IV Hypoglycemia 09/13/18 08:15 10/13/18 08:14 Dextrose (Dextrose 50%) 50 ml Q30M PRN IV Hypoglycemia 09/13/18 08:15 10/13/18 08:14 Furosemide (Lasix) 20 mg DAILY IV 09/20/18 09:00 10/20/18 08:59 09/22/18 08:50 Insulin Aspart (NovoLOG) EVERY 6 HOURS SUBQ 09/13/18 12:00 10/13/18 11:59 09/22/18 05:27 Lansoprazole (Prevacid) 30 mg DAILY GT 09/19/18 09:00 10/19/18 08:59 09/22/18 08:51 Levetiracetam (Keppra) 500 mg Q12HR GT 09/13/18 21:00 10/13/18 20:59 09/22/18 08:50 Lisinopril (Zestril) 10 mg DAILY GT 09/20/18 09:00 10/20/18 08:59 09/22/18 08:51 Metoprolol Tartrate (Lopressor) 12.5 mg Q12HR GT 09/19/18 21:00 10/19/18 20:59 09/22/18 08:51 Ondansetron HCl (Zofran) 4 mg Q6H PRN IVP Nausea & Vomiting 09/13/18 07:00 10/13/18 06:59 Polyethylene Glycol (Miralax) 17 gm DAILYPRN PRN GT Constipation 09/13/18 11:45 10/13/18 06:59 Tigecycline 50 mg/ Sodium Chloride 110 ml @ 220 mls/hr Q12HR@0300,1500 IVPB 09/20/18 03:00 09/27/18 02:59 09/22/18 03:49 Nadia Donovan M.D. Sep 22, 2018 10:50
--- NOTE | 2018-09-22 11:35 | NUR ---
RD ASSESSMENT & RECOMMENDATIONS SEE CARE ACTIVITY FOR COMPLETE ASSESSMENT DAILY ESTIMATED NEEDS: Needs based on Critical care, obese, wound 67kg adj 22-27 kcals/kg 3617-1407 total kcals 1.25-2 g protein/kg 84-134 g total protein 25-30 mL/kg 7284-8631 total fluid mLs NUTRITION DIAGNOSIS: 1) Increased kcal and protein needs r/t wound healing as evidenced by pt w/ multiple wounds including sacral full thickness wound w/ bone exposure at base of wound, s/p debridement on 09/18/18 and DTPI @ lt heel. 2) Swallowing difficulty r/t respiratory status as evidenced by pt is vent dep via trach, PEG dep. CURRENT TF:Glucerna 1.5 @45ml/hr x24 hrs ENTERAL NUTRITION RECOMMENDATIONS: Glucerna 1.5 @45ml/hr x24 hrs + Prosource 1 pack daily to provide 1080ml, 1620 kcal, 89g + 11g pro, 820ml free H20 - Add Prosource 1 pack daily to better meet est prot needs - Flush per MD / HOB over 30 degrees ADDITIONAL RECOMMENDATIONS: 1) Re-calibrate bed scale as able for accurate CBW 2) TF rec as above: add Prosource 1pkt daily to better meet prot needs 3) Wound care: Add SANDRA BID + VIT C 500mg BID 4) Check lytes daily w/ lasix, replete as needed (low mag) .
[2018-09-22 12:00] VITALS: BP 136/75
[2018-09-22] MEDS: DAPTOmycin 400 MG in NS 55 ML IV SCH (13:05)
--- NOTE | 2018-09-22 14:22 | NUR ---
CASE MANAGEMENT: REVIEW SI: A-FIB . ANEMIA . NECROTIC SACRAL STAGE 4 DECUBITUS ULCER EXCISIONAL DEBRIDEMENT OF SACRAL DECUBITUS ULCER WITH OSTECTOMY 09/17 T 98.9 HR 122 RR 14 BP 112/83 SAT 100% MECH VENT FIO2 40 IS: LASIX PO QD ELIQUIS PO BID AMIODARONE GT QD TIGECYCLINE IV Q12HR DAPTOMYCIN IV Q24HR AMIKACIN IV Q24HR STEP DOWN UNIT STATUS DCP: PATIENT IS FROM [facility]
[2018-09-22] MEDS: Amikacin 1,250 MG in NS 110 ML IV SCH (15:45)
--- NOTE | 2018-09-22 15:53 | Internal Med Progress Note ---
Subjective Date of Service: Sep 22, 2018 Physician Name George,Ruddy Attending Physician Wade Negron MD Current Medications Medications (Trade) Dose Ordered Sig/Rosy Route PRN Reason Start Time Stop Time Status Last Admin Dose Admin Acetaminophen (Tylenol) 650 mg Q4H PRN GT FEVER 09/13/18 11:45 10/13/18 06:59 09/20/18 08:49 Amikacin Protocol (Amikacin pharmacy to dose) 1 ea DAILY PRN MISC Per rx protocol 09/17/18 13:45 10/17/18 13:44 Amikacin Sulfate 1250 mg/Sodium Chloride 115 ml @ 115 mls/hr Q24H IV 09/17/18 15:00 09/24/18 14:59 09/22/18 15:45 Amiodarone HCl (Cordarone) 200 mg DAILY GT 09/20/18 09:00 10/20/18 08:59 09/22/18 08:50 Apixaban (Eliquis) 5 mg BID ORAL 09/21/18 09:00 10/21/18 08:59 09/22/18 08:51 Chlorhexidine Gluconate (Elizabeth-Hex 2%) 1 applic DAILY@2000 TOPIC 09/14/18 20:00 10/14/18 19:59 09/21/18 20:12 Daptomycin 400 mg/ Sodium Chloride 55 ml @ 100 mls/hr Q24H IV 09/18/18 14:00 09/25/18 13:59 09/22/18 13:05 Dextrose (Dextrose 50%) 25 ml Q30M PRN IV Hypoglycemia 09/13/18 08:15 10/13/18 08:14 Dextrose (Dextrose 50%) 50 ml Q30M PRN IV Hypoglycemia 09/13/18 08:15 10/13/18 08:14 Furosemide (Lasix) 40 mg DAILY ORAL 09/23/18 09:00 10/23/18 08:59 Insulin Aspart (NovoLOG) EVERY 6 HOURS SUBQ 09/13/18 12:00 10/13/18 11:59 09/22/18 12:00 Lansoprazole (Prevacid) 30 mg DAILY GT 09/19/18 09:00 10/19/18 08:59 09/22/18 08:51 Levetiracetam (Keppra) 500 mg Q12HR GT 09/13/18 21:00 10/13/18 20:59 09/22/18 08:50 Lisinopril (Zestril) 10 mg DAILY GT 09/20/18 09:00 10/20/18 08:59 09/22/18 08:51 Metoprolol Tartrate (Lopressor) 12.5 mg Q12HR GT 09/19/18 21:00 10/19/18 20:59 09/22/18 08:51 Ondansetron HCl (Zofran) 4 mg Q6H PRN IVP Nausea & Vomiting 09/13/18 07:00 10/13/18 06:59 Polyethylene Glycol (Miralax) 17 gm DAILYPRN PRN GT Constipation 09/13/18 11:45 10/13/18 06:59 Tigecycline 50 mg/ Sodium Chloride 110 ml @ 220 mls/hr Q12HR@0300,1500 IVPB 09/20/18 03:00 09/27/18 02:59 09/22/18 14:36 Allergies: Coded Allergies: ALPRAZOLAM (Verified Allergy, Unknown, 09/13/18) ROS Limited/Unobtainable: Yes Subjective 72 YO vent dep F admitted with dyspnea. Now pneumonia. Mech Vent. Cover for Int Med-DR Negron. DULCE Objective Last Vital Signs Date Time Temp Pulse Resp B/P (MAP) Pulse Ox O2 Delivery O2 Flow Rate FiO2 09/22/18 13:09 91 14 40 09/22/18 12:00 Mechanical Ventilator 09/22/18 12:00 98.5 136/75 (95) 100 Microbiology Date/Time Source Procedure Growth Status 09/20/18 17:00 Stool Clostridium difficile Toxin Assay - Final Complete Intake and Output 09/21/18 09/22/18 19:00 07:00 Intake Total 1175 ml 830 ml Output Total 1850 ml 800 ml Balance -675 ml 30 ml Intake Free Water 200 ml 180 ml IV Total 435 ml 110 ml Tube Feeding 540 ml 540 ml Output Urine Total 1850 ml 800 ml # Bowel Movements 3 2 Objective PHYSICAL EXAMINATION: GENERAL: The patient is well-developed and well-nourished female who is intubated and sedated. HEENT: Eyes, pupils equal and responsive to light and accommodation. Extraocular movements are intact. The patient has a tracheostomy tube in place. CHEST: mech vent; Diffuse coarse breath sounds bilaterally without wheezes or rales. CARDIOVASCULAR: Irregular rhythm and irregular rate. S1 and S2 normal without murmurs, rubs, or gallops. ABDOMEN: Soft, nontender, and nondistended. Positive bowel sounds. No hepatosplenomegaly. Currently, no rebound or guarding noted. EXTREMITIES: Negative for clubbing, cyanosis, or edema. RECTAL/GENITAL: Not performed. NEUROLOGIC: Cranial nerves II through XII grossly intact without focal deficits. Assessment/Plan Assessment/Plan ASSESSMENT: The patient is a 72-year-old female. 1. Right lower lobe pneumonia=MDR pseudamonas 2. Leukocytosis. 3. Elevated troponin. 4. Acute on chronic congestive heart failure. 5. Chronic obstructive pulmonary disease. 6. Ventilator-dependent respiratory failure. 7. Diabetes type 2. 8. Hypertension. 9. Coronary artery disease. 10. Metabolic encephalopathy. 11. Seizure disorder. 12. Dysphagia. 13. Tracheostomy. 14. Quadriplegia. TREATMENT: 1. Right lower lobe pneumonia=MDR pseudamonas. A Pulmonary consultation obtained with Dr. Ariel Frey. Continue daptomycin, tigecycline and amikacin per recommendation of Infectious Disease. 2. Elevated troponin/congestive heart failure. Cardiology consultation obtained with Dr. Isai Anglin. The patient is currently receiving intravenous Lasix. 3. Ventilator-dependent respiratory failure. As above, a Pulmonary consultation obtained with Dr. Ariel Frey. 4. Diabetes type 2. The patient was admitted off insulin. 5. Hypertension, the patient is currently hypotensive. 6. Coronary artery disease. 7. Metabolic encephalopathy. 8. Seizure disorder. Continue Keppra as above. 9. Dysphagia. The patient is status post PEG placement. Continue tube feeds as above. 10. Tracheostomy in situ. 11. Quadriplegia. Ruddy George MD Sep 22, 2018 15:53
[2018-09-22 16:00] VITALS: BP 148/89
--- NOTE | 2018-09-22 19:10 | NUR ---
NURSE NOTES: Pt report received from Christa PRATT, Pt appears to be resting in bed with no distress noted. Pt neuro assessment is obtunded. Pt has a gambling monitor on and is active and working. Pt shows no signs or symptoms of any cardiac distress. Pt is a trach to vent pt with settings of Shiley 8, AC15, TV 600 FiO2 40%, and PEEP of 5. Pt is saturating at 100% and shows no signs or symptoms of respiratory depression. Pt has a G tube that is running Glucerna 1.5 at 45cc/hr, no abnormalities noted to G tube site or G tube. Pt has a Mayo Catheter that is patent and draining to gravity with no abnormalities noted. Pt has a Left Upper arm PICC that is able to flush, no abnormalities noted. All safety precautions are in affect, such as bed is placed in lowest position, side rails are up times 3 and padded, call light is within easy reach, bed alarm is active. Will continue plan of care.
--- NOTE | 2018-09-22 19:32 | NUR ---
HAND-OFF: Report given to SANTA Hayes. Stable condition.
[2018-09-22 20:00] VITALS: BP 156/85
[2018-09-22] MEDS: Dyna-Hex 2% Top Sol 2oz TOPIC SCH (20:18)
[2018-09-23] VITALS: BP 122/77
[2018-09-23] MEDS: Tigecycline 50 MG in NS 110 ML IVPB SCH ×2 (03:01→14:28)
[2018-09-23 04:00] VITALS: BP 130/89
[2018-09-23 05:42] LABS: BASOPHILS % (AUTO) 0.7 % (0.0-2.0); EOSINOPHILS % (AUTO) 2.2 % (0.0-3.0); HEMATOCRIT 30.3 % (37.0-47.0); HEMOGLOBIN 9.5 G/DL (12.0-16.0); LYMPHOCYTES % (AUTO) 13.5 % (20.0-45.0); MEAN CORPUSCULAR VOLUME 84 FL (80-99); MONOCYTES % (AUTO) 5.6 % (1.0-10.0); PLATELET COUNT 417 K/UL (150-450); RED CELL DISTRIBUTION WIDTH 17.5 % (11.6-14.8)
[2018-09-23] MEDS: NovoLOG Insulin Flexpen SUBQ SCH ×3 (05:48→17:09)
[2018-09-23 06:22] LABS: ALANINE AMINOTRANSFERASE 12 U/L (12-78); ALBUMIN 1.5 G/DL (3.4-5.0); ALBUMIN/GLOBULIN RATIO 0.3 (1.0-2.7); ALKALINE PHOSPHATASE 95 U/L (46-116); ANION GAP 6 mmol/L (5-15); ASPARTATE AMINO TRANSFERASE 9 U/L (15-37); BILIRUBIN,TOTAL 0.3 MG/DL (0.2-1.0); BLOOD UREA NITROGEN 17 mg/dL (7-18); CARBON DIOXIDE 29 MMOL/L (21-32); CHLORIDE 104 MMOL/L (98-107); CREATININE 0.6 MG/DL (0.55-1.30); SODIUM 139 MMOL/L (136-145)
--- NOTE | 2018-09-23 07:16 | NUR ---
HAND-OFF: Report given to Freddy LANDRY).
--- NOTE | 2018-09-23 07:31 | NUR ---
NURSE NOTES: Received report from SANTA Woodson. Patient is resting in bed, in stable condition. No s/sx SOB, breathing is even and unlabored. Vent settings are as ordered. Observed no presence of pain or discomfort at this time. Bed is in lowest position, brakes engaged. Call light is kept within easy reach. Will continue to monitor patient.
[2018-09-23 08:00] VITALS: BP 118/65
[2018-09-23] MEDS: Amiodarone 200mg tab GT SCH (08:31)
[2018-09-23] MEDS: Eliquis 2.5mg tablet ORAL SCH ×2 (08:31→17:22)
[2018-09-23] MEDS: Metoprolol Tartrate 12.5mg TAB GT SCH ×2 (08:31→20:40)
[2018-09-23] MEDS: levETIRAcetam 500mg/5ml Liquid GT SCH ×2 (08:31→20:40)
[2018-09-23] MEDS: Lisinopril 10mg tab GT SCH (08:32)
[2018-09-23] MEDS: Furosemide 40mg tab ORAL SCH (08:32)
[2018-09-23] MEDS ORDERED: NS 275ml ONE (08:49)
--- NOTE | 2018-09-23 10:49 | NUR ---
MANAGER STUDIOCUSTOMER LOGISTICS MANAGER SI:A-FIB . ANEMIA . NECROTIC SACRAL STAGE 4 DECUBITUS ULCER VS: BP 118/82, P 98, T 99.0, RR 14, SpO2 100 on VENT FiO2 40 LABS 13.0, RBC 3.60, H/H 9.5/30.3 IS;LASIX 40mg ELIQUIS 5mg ZESTRIL 10mg CORDARONE 200mg TIGECYCLINE/NS 220mls IVPB LOPRESSOR 12.5mg SDU STATUS
--- NOTE | 2018-09-23 11:27 | Cardiology Progress Note ---
Assessment/Plan Assessment/Plan 1. History of coronary artery disease with reported history of occluded right coronary artery. 2. Permanent atrial fibrillation, on anticoagulation. 3. History of ventricular fibrillation arrest. 4. History of CVA. 5. Cardiomyopathy with ejection fraction 20%. 6. Chronic ventilator therapy. 7. Anemia. 8. Hypoalbuminemia. 9. hs of icd implantation 10. sig MR ] 11. Pulm htn echo report noted telel reviweed labs noted not sig response on acei is already on bb off asa now eliquis, no bleeding after a few days will start on ecotrin diuretics swtich to po Subjective ROS Limited/Unobtainable: Yes Objective Last 24 Hour Vital Signs Date Time Temp Pulse Resp B/P (MAP) Pulse Ox O2 Delivery O2 Flow Rate FiO2 09/23/18 11:11 70 14 40 09/23/18 09:07 92 15 40 09/23/18 08:32 118/65 09/23/18 08:31 87 118/65 09/23/18 08:00 119 09/23/18 08:00 Mechanical Ventilator 09/23/18 08:00 98.1 87 21 118/65 (82) 100 09/23/18 08:00 40 09/23/18 06:43 101 20 40 09/23/18 04:54 94 15 40 09/23/18 04:00 99.8 124 21 130/89 (103) 100 09/23/18 04:00 Mechanical Ventilator 09/23/18 04:00 40 09/23/18 04:00 118 09/23/18 03:17 116 15 Mechanical Ventilator 40 09/23/18 03:16 118 16 40 09/23/18 01:15 107 22 40 09/23/18 00:00 Mechanical Ventilator 09/23/18 00:00 99.9 125 19 122/77 (92) 100 09/23/18 00:00 133 09/22/18 23:29 110 14 40 09/22/18 21:10 107 20 40 09/22/18 20:18 119 156/85 09/22/18 20:00 40 09/22/18 20:00 Mechanical Ventilator 09/22/18 20:00 104 09/22/18 20:00 98.4 119 16 156/85 (108) 100 09/22/18 19:37 110 17 40 09/22/18 17:09 108 13 40 09/22/18 16:00 116 09/22/18 16:00 40 09/22/18 16:00 Mechanical Ventilator 09/22/18 16:00 98.3 95 14 148/89 (108) 100 09/22/18 15:24 89 14 40 09/22/18 13:09 91 14 40 09/22/18 12:00 79 09/22/18 12:00 Mechanical Ventilator 09/22/18 12:00 40 09/22/18 12:00 98.5 93 14 136/75 (95) 100 General Appearance: no apparent distress, alert, on vent, patient on isolation Intake and Output 09/22/18 09/23/18 19:00 07:00 Intake Total 1080 ml 950 ml Output Total 2100 ml 1600 ml Balance -1020 ml -650 ml Intake Free Water 260 ml 300 ml IV Total 280 ml 110 ml Tube Feeding 540 ml 540 ml Output Urine Total 2100 ml 1600 ml # Voids 1 # Bowel Movements 2 2 Laboratory Tests Test 09/23/18 04:00 White Blood Count 13.0 K/UL (4.8-10.8) H Red Blood Count 3.60 M/UL (4.20-5.40) L Hemoglobin 9.5 G/DL (12.0-16.0) L Hematocrit 30.3 % (37.0-47.0) L Mean Corpuscular Volume 84 FL (80-99) Mean Corpuscular Hemoglobin 26.5 PG (27.0-31.0) L Mean Corpuscular Hemoglobin Concent 31.5 G/DL (32.0-36.0) L Red Cell Distribution Width 17.5 % (11.6-14.8) H Platelet Count 417 K/UL (150-450) Mean Platelet Volume 5.9 FL (6.5-10.1) L Neutrophils (%) (Auto) 78.0 % (45.0-75.0) H Lymphocytes (%) (Auto) 13.5 % (20.0-45.0) L Monocytes (%) (Auto) 5.6 % (1.0-10.0) Eosinophils (%) (Auto) 2.2 % (0.0-3.0) Basophils (%) (Auto) 0.7 % (0.0-2.0) Sodium Level 139 MMOL/L (136-145) Potassium Level 4.0 MMOL/L (3.5-5.1) Chloride Level 104 MMOL/L (98-107) Carbon Dioxide Level 29 MMOL/L (21-32) Anion Gap 6 mmol/L (5-15) Blood Urea Nitrogen 17 mg/dL (7-18) Creatinine 0.6 MG/DL (0.55-1.30) Estimat Glomerular Filtration Rate mL/min (>60) Glucose Level 117 MG/DL (74-106) H Calcium Level 9.0 MG/DL (8.5-10.1) Total Bilirubin 0.3 MG/DL (0.2-1.0) Aspartate Amino Transf (AST/SGOT) 9 U/L (15-37) L Alanine Aminotransferase (ALT/SGPT) 12 U/L (12-78) Alkaline Phosphatase 95 U/L (46-116) Total Protein 7.4 G/DL (6.4-8.2) Albumin 1.5 G/DL (3.4-5.0) L Globulin 5.9 g/dL Albumin/Globulin Ratio 0.3 (1.0-2.7) L Microbiology Date/Time Source Procedure Growth Status 09/20/18 17:00 Stool Clostridium difficile Toxin Assay - Final Complete Isai Anglin MD Sep 23, 2018 11:27
--- NOTE | 2018-09-23 11:38 | General Progress Note ---
Assessment/Plan Status: stable, unchanged Assessment/Plan: Assessment and Recs: # Anemia of chronic disease due to underlying chronic medical issues, multifactorial, likely ongoing inflammatory process --> Anemia workup has been ordered, ferritin is 1592, markedly elevated, no hemolysis --> No evidence of hemolysis is noted, peripheral smear has been reviewed. --> Hgb goal >7. Transfuse prn. --> Epogen or iron at this time is not particularly indicated --> Medications have been reviewed --> evaluate with Gi team prn --> transfuse if hgb is < 7 (will trend CBC daily) --> low threshold for gi evaluation in case has occult + ==> hgb 9-->6.3-->8.5-->9.1-->9.5 # Leukocytosis with eleva wbc on admission likely related to sepsis --> on abx as per id team, empiric treatment, uti, sacral decub pna --> peripheral smear to be reviewed ==> 17-->18-->17.1-->14-->13 --> gi recs appreciated # Thrombocytosis is likely related to pna, reactive process ==> plt 601-->589--> 500k-->417k # Chronic respiratory failure --> chronic vent/trach # Sacral decubitus ulcer --> per surg eval and rx # Atrial fibrillation --> anticoagulation as needed per cards --> back on asa and eliquis as per cards # Chronic vegetative state --> essentially unchanged # Dysphagia s/p Feeding by G-tube --> restart as needed # Contracture of multiple joints # PNa as per id management The timing of this note does not necessarily reflect the time of the patient was seen. Greatly appreciate consultation! Subjective Constitutional: Denies: no symptoms, chills, diaphoresis, fever, malaise, weakness, other HEENT: Denies: no symptoms, eye pain, blurred vision, tearing, double vision, ear pain, ear discharge, nose pain, nose congestion, throat pain, throat swelling, mouth pain, mouth swelling, other Cardiovascular: Denies: no symptoms, chest pain, edema, irregular heart rate, lightheadedness, palpitations, syncope, other Respiratory: Denies: no symptoms, cough, orthopnea, shortness of breath, SOB with excertion, SOB at rest, sputum, stridor, wheezing, other Gastrointestinal/Abdominal: Denies: no symptoms, abdomen distended, abdominal pain, black stools, tarry stools, blood in stool, constipated, diarrhea, difficulty swallowing, nausea, poor appetite, poor fluid intake, rectal bleeding , vomiting, other Genitourinary: Denies: no symptoms, burning, discharge, frequency, flank pain, hematuria, incontinence, pain, urgency, other Allergies: Coded Allergies: ALPRAZOLAM (Verified Allergy, Unknown, 09/13/18) Subjective 09/14: no events, hgb is low 6.3, dw family, blood being infused, transfusion today 09/20: no events, trach to vent, with nieto catheter, resting, alert 09/21: no events, able to trach, trach to vent, no issues otherwise noted, cbc reviewed 09/23: on asa, on eliquis, seen by cards, on vent trach Objective Last 24 Hour Vital Signs Date Time Temp Pulse Resp B/P (MAP) Pulse Ox O2 Delivery O2 Flow Rate FiO2 09/23/18 11:11 70 14 40 09/23/18 09:07 92 15 40 09/23/18 08:32 118/65 09/23/18 08:31 87 118/65 09/23/18 08:00 119 09/23/18 08:00 Mechanical Ventilator 09/23/18 08:00 98.1 87 21 118/65 (82) 100 09/23/18 08:00 40 09/23/18 06:43 101 20 40 09/23/18 04:54 94 15 40 09/23/18 04:00 99.8 124 21 130/89 (103) 100 09/23/18 04:00 Mechanical Ventilator 09/23/18 04:00 40 09/23/18 04:00 118 09/23/18 03:17 116 15 Mechanical Ventilator 40 09/23/18 03:16 118 16 40 09/23/18 01:15 107 22 40 09/23/18 00:00 Mechanical Ventilator 09/23/18 00:00 99.9 125 19 122/77 (92) 100 09/23/18 00:00 133 09/22/18 23:29 110 14 40 09/22/18 21:10 107 20 40 09/22/18 20:18 119 156/85 4/27/19 20:00 40 09/22/18 20:00 Mechanical Ventilator 09/22/18 20:00 104 09/22/18 20:00 98.4 119 16 156/85 (108) 100 09/22/18 19:37 110 17 40 09/22/18 17:09 108 13 40 09/22/18 16:00 116 09/22/18 16:00 40 09/22/18 16:00 Mechanical Ventilator 09/22/18 16:00 98.3 95 14 148/89 (108) 100 09/22/18 15:24 89 14 40 09/22/18 13:09 91 14 40 09/22/18 12:00 79 09/22/18 12:00 Mechanical Ventilator 09/22/18 12:00 40 09/22/18 12:00 98.5 93 14 136/75 (95) 100 Intake and Output 09/22/18 09/23/18 19:00 07:00 Intake Total 1080 ml 950 ml Output Total 2100 ml 1600 ml Balance -1020 ml -650 ml Intake Free Water 260 ml 300 ml IV Total 280 ml 110 ml Tube Feeding 540 ml 540 ml Output Urine Total 2100 ml 1600 ml # Voids 1 # Bowel Movements 2 2 Laboratory Tests 09/23/18 04:00: White Blood Count 13.0H, Red Blood Count 3.60L, Hemoglobin 9.5L, Hematocrit 30.3L, Mean Corpuscular Volume 84, Mean Corpuscular Hemoglobin 26.5L, Mean Corpuscular Hemoglobin Concent 31.5L, Red Cell Distribution Width 17.5H, Platelet Count 417, Mean Platelet Volume 5.9L, Neutrophils (%) (Auto) 78.0H, Lymphocytes (%) (Auto) 13.5L, Monocytes (%) (Auto) 5.6, Eosinophils (%) (Auto) 2.2, Basophils (%) (Auto) 0.7, Sodium Level 139, Potassium Level 4.0, Chloride Level 104, Carbon Dioxide Level 29, Anion Gap 6, Blood Urea Nitrogen 17, Creatinine 0.6, Estimat Glomerular Filtration Rate , Glucose Level 117H, Calcium Level 9.0, Total Bilirubin 0.3, Aspartate Amino Transf (AST/SGOT) 9L, Alanine Aminotransferase (ALT/SGPT) 12, Alkaline Phosphatase 95, Total Protein 7.4, Albumin 1.5L, Globulin 5.9, Albumin/Globulin Ratio 0.3L Height (Feet): 5 Height (Inches): 8.00 Weight (Pounds): 240 Objective PE General: WD/WN Lines, tubes and drains: peripheral HEENT: normocephalic Neck: non-tender, normal alignment ++ trach vent Respiratory/Chest: chest wall non-tender, lungs clear, decreased BS Cardiovascular/Chest: normal peripheral pulses Abdomen: non tender, ++ peg Genitourinary/Rectal: genital exam ++ Dagoberto Venegas MD Sep 23, 2018 11:38
[2018-09-23 12:00] VITALS: BP 121/90
[2018-09-23] MEDS: DAPTOmycin 400 MG in NS 55 ML IV SCH (13:22)
--- NOTE | 2018-09-23 14:36 | Pulmonolgy Critical Care Note ---
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 Respiratory: monitor respiratory rate, adjust FIO2, CXR Cardiac: continue to monitor HR/BP Renal: F/U I&O, check electrolytes Infectious Disease: check cultures, continue antibiotics Gastrointestinal: hold feedings Endocrine: monitor blood sugar Hematologic: monitor H/H, transfuse if hgb<8.5 Neurologic: PRN Ativan, keep patient comfortable Prophylaxis: Protonix, Heparin Notes Reviewed: lead pressman, cardio Critical Care - Objective Last 24 Hour Vital Signs Date Time Temp Pulse Resp B/P (MAP) Pulse Ox O2 Delivery O2 Flow Rate FiO2 09/23/18 13:27 72 16 40 09/23/18 12:00 98.4 76 19 121/90 (100) 98 09/23/18 12:00 40 09/23/18 12:00 Mechanical Ventilator 09/23/18 11:11 70 14 40 09/23/18 09:07 92 15 40 09/23/18 08:32 118/65 09/23/18 08:31 87 118/65 09/23/18 08:00 119 09/23/18 08:00 Mechanical Ventilator 09/23/18 08:00 98.1 87 21 118/65 (82) 100 09/23/18 08:00 40 09/23/18 06:43 101 20 40 09/23/18 04:54 94 15 40 09/23/18 04:00 99.8 124 21 130/89 (103) 100 09/23/18 04:00 Mechanical Ventilator 09/23/18 04:00 40 09/23/18 04:00 118 09/23/18 03:17 116 15 Mechanical Ventilator 40 09/23/18 03:16 118 16 40 09/23/18 01:15 107 22 40 09/23/18 00:00 Mechanical Ventilator 09/23/18 00:00 99.9 125 19 122/77 (92) 100 09/23/18 00:00 133 09/22/18 23:29 110 14 40 09/22/18 21:10 107 20 40 09/22/18 20:18 119 156/85 09/22/18 20:00 40 09/22/18 20:00 Mechanical Ventilator 09/22/18 20:00 104 09/22/18 20:00 98.4 119 16 156/85 (108) 100 09/22/18 19:37 110 17 40 09/22/18 17:09 108 13 40 09/22/18 16:00 116 09/22/18 16:00 40 09/22/18 16:00 Mechanical Ventilator 09/22/18 16:00 98.3 95 14 148/89 (108) 100 09/22/18 15:24 89 14 40 Status: sedated Condition: critical Neck: full ROM Lungs: clear Heart: HR/BP stable, regular Abdomen: non-tender, feeding tube Extremities: edema Micro: Microbiology Date/Time Source Procedure Growth Status 09/20/18 17:00 Stool Clostridium difficile Toxin Assay - Final Complete Accucheck: 145 Critical Care - Subjective ROS Limited/Unobtainable: No Condition: critical EKG Rhythm: Sinus Rhythm FI02: 40 Vent Support Breath Rate: 14 Vent Support Mode: AC Vent Tidal Volume: 600 Sputum Amount: Small PEEP: 5.0 PIP: 22 Tube Feeding Amount: 45 I&O: Intake and Output 09/22/18 09/23/18 19:00 07:00 Intake Total 1080 ml 950 ml Output Total 2100 ml 1600 ml Balance -1020 ml -650 ml Intake Free Water 260 ml 300 ml IV Total 280 ml 110 ml Tube Feeding 540 ml 540 ml Output Urine Total 2100 ml 1600 ml # Voids 1 # Bowel Movements 2 2 Labs: Laboratory Tests Test 09/23/18 04:00 09/23/18 14:00 White Blood Count 13.0 K/UL (4.8-10.8) H Red Blood Count 3.60 M/UL (4.20-5.40) L Hemoglobin 9.5 G/DL (12.0-16.0) L Hematocrit 30.3 % (37.0-47.0) L Mean Corpuscular Volume 84 FL (80-99) Mean Corpuscular Hemoglobin 26.5 PG (27.0-31.0) L Mean Corpuscular Hemoglobin Concent 31.5 G/DL (32.0-36.0) L Red Cell Distribution Width 17.5 % (11.6-14.8) H Platelet Count 417 K/UL (150-450) Mean Platelet Volume 5.9 FL (6.5-10.1) L Neutrophils (%) (Auto) 78.0 % (45.0-75.0) H Lymphocytes (%) (Auto) 13.5 % (20.0-45.0) L Monocytes (%) (Auto) 5.6 % (1.0-10.0) Eosinophils (%) (Auto) 2.2 % (0.0-3.0) Basophils (%) (Auto) 0.7 % (0.0-2.0) Sodium Level 139 MMOL/L (136-145) Potassium Level 4.0 MMOL/L (3.5-5.1) Chloride Level 104 MMOL/L (98-107) Carbon Dioxide Level 29 MMOL/L (21-32) Anion Gap 6 mmol/L (5-15) Blood Urea Nitrogen 17 mg/dL (7-18) Creatinine 0.6 MG/DL (0.55-1.30) Estimat Glomerular Filtration Rate mL/min (>60) Glucose Level 117 MG/DL (74-106) H Calcium Level 9.0 MG/DL (8.5-10.1) Total Bilirubin 0.3 MG/DL (0.2-1.0) Aspartate Amino Transf (AST/SGOT) 9 U/L (15-37) L Alanine Aminotransferase (ALT/SGPT) 12 U/L (12-78) Alkaline Phosphatase 95 U/L (46-116) Total Protein 7.4 G/DL (6.4-8.2) Albumin 1.5 G/DL (3.4-5.0) L Globulin 5.9 g/dL Albumin/Globulin Ratio 0.3 (1.0-2.7) L Amikacin Level Trough Pending Ariel Frey MD Sep 23, 2018 14:36
[2018-09-23] MEDS: Amikacin 1,250 MG in NS 110 ML IV SCH (15:14)
[2018-09-23 16:00] VITALS: BP 126/76
--- NOTE | 2018-09-23 16:08 | Internal Med Progress Note ---
Subjective Date of Service: Sep 23, 2018 Physician Name GeorgeRuddy puri Attending Physician Wade Negron MD Current Medications Medications (Trade) Dose Ordered Sig/Rosy Route PRN Reason Start Time Stop Time Status Last Admin Dose Admin Acetaminophen (Tylenol) 650 mg Q4H PRN GT FEVER 09/13/18 11:45 10/13/18 06:59 09/20/18 08:49 Amikacin Protocol (Amikacin pharmacy to dose) 1 ea DAILY PRN MISC Per rx protocol 09/17/18 13:45 10/17/18 13:44 Amikacin Sulfate 1000 mg/Sodium Chloride 114 ml @ 114 mls/hr Q36H IV 09/25/18 15:00 10/02/18 14:59 Amikacin Sulfate 1250 mg/Sodium Chloride 115 ml @ 115 mls/hr Q24H IV 09/17/18 15:00 09/23/18 17:00 09/23/18 15:14 Amiodarone HCl (Cordarone) 200 mg DAILY GT 09/20/18 09:00 10/20/18 08:59 09/23/18 08:31 Apixaban (Eliquis) 5 mg BID ORAL 09/21/18 09:00 10/21/18 08:59 09/23/18 08:31 Aspirin (Ecotrin) 81 mg DAILY ORAL 09/24/18 09:00 10/24/18 08:59 Chlorhexidine Gluconate (Elizabeth-Hex 2%) 1 applic DAILY@2000 TOPIC 09/14/18 20:00 10/14/18 19:59 09/22/18 20:18 Daptomycin 400 mg/ Sodium Chloride 55 ml @ 100 mls/hr Q24H IV 09/18/18 14:00 09/25/18 13:59 09/23/18 13:22 Dextrose (Dextrose 50%) 25 ml Q30M PRN IV Hypoglycemia 09/13/18 08:15 10/13/18 08:14 Dextrose (Dextrose 50%) 50 ml Q30M PRN IV Hypoglycemia 09/13/18 08:15 10/13/18 08:14 Furosemide (Lasix) 40 mg DAILY ORAL 09/23/18 09:00 10/23/18 08:59 09/23/18 08:32 Insulin Aspart (NovoLOG) EVERY 6 HOURS SUBQ 4/18/19 12:00 10/13/18 11:59 09/23/18 12:09 Lansoprazole (Prevacid) 30 mg DAILY GT 09/19/18 09:00 10/19/18 08:59 09/23/18 08:32 Levetiracetam (Keppra) 500 mg Q12HR GT 09/13/18 21:00 10/13/18 20:59 09/23/18 08:31 Lisinopril (Zestril) 10 mg DAILY GT 09/20/18 09:00 10/20/18 08:59 09/23/18 08:32 Metoprolol Tartrate (Lopressor) 12.5 mg Q12HR GT 09/19/18 21:00 10/19/18 20:59 09/23/18 08:31 Ondansetron HCl (Zofran) 4 mg Q6H PRN IVP Nausea & Vomiting 09/13/18 07:00 10/13/18 06:59 Polyethylene Glycol (Miralax) 17 gm DAILYPRN PRN GT Constipation 09/13/18 11:45 10/13/18 06:59 Tigecycline 50 mg/ Sodium Chloride 110 ml @ 220 mls/hr Q12HR@0300,1500 IVPB 09/20/18 03:00 09/27/18 02:59 09/23/18 14:28 Allergies: Coded Allergies: ALPRAZOLAM (Verified Allergy, Unknown, 09/13/18) ROS Limited/Unobtainable: Yes Subjective 72 YO vent dep F admitted with dyspnea. Now pneumonia. [facility] Vent. Cover for Int Med-DR Negron. DULCE Objective Last Vital Signs Date Time Temp Pulse Resp B/P (MAP) Pulse Ox O2 Delivery O2 Flow Rate FiO2 09/23/18 15:17 74 16 40 09/23/18 12:00 98.4 121/90 (100) 98 09/23/18 12:00 Mechanical Ventilator Laboratory Tests Test 09/23/18 04:00 09/23/18 14:00 White Blood Count 13.0 K/UL (4.8-10.8) H Red Blood Count 3.60 M/UL (4.20-5.40) L Hemoglobin 9.5 G/DL (12.0-16.0) L Hematocrit 30.3 % (37.0-47.0) L Mean Corpuscular Volume 84 FL (80-99) Mean Corpuscular Hemoglobin 26.5 PG (27.0-31.0) L Mean Corpuscular Hemoglobin Concent 31.5 G/DL (32.0-36.0) L Red Cell Distribution Width 17.5 % (11.6-14.8) H Platelet Count 417 K/UL (150-450) Mean Platelet Volume 5.9 FL (6.5-10.1) L Neutrophils (%) (Auto) 78.0 % (45.0-75.0) H Lymphocytes (%) (Auto) 13.5 % (20.0-45.0) L Monocytes (%) (Auto) 5.6 % (1.0-10.0) Eosinophils (%) (Auto) 2.2 % (0.0-3.0) Basophils (%) (Auto) 0.7 % (0.0-2.0) Sodium Level 139 MMOL/L (136-145) Potassium Level 4.0 MMOL/L (3.5-5.1) Chloride Level 104 MMOL/L (98-107) Carbon Dioxide Level 29 MMOL/L (21-32) Anion Gap 6 mmol/L (5-15) Blood Urea Nitrogen 17 mg/dL (7-18) Creatinine 0.6 MG/DL (0.55-1.30) Estimat Glomerular Filtration Rate mL/min (>60) Glucose Level 117 MG/DL (74-106) H Calcium Level 9.0 MG/DL (8.5-10.1) Total Bilirubin 0.3 MG/DL (0.2-1.0) Aspartate Amino Transf (AST/SGOT) 9 U/L (15-37) L Alanine Aminotransferase (ALT/SGPT) 12 U/L (12-78) Alkaline Phosphatase 95 U/L (46-116) Total Protein 7.4 G/DL (6.4-8.2) Albumin 1.5 G/DL (3.4-5.0) L Globulin 5.9 g/dL Albumin/Globulin Ratio 0.3 (1.0-2.7) L Amikacin Level Trough 5.2 ug/mL (4.0-8.0) Microbiology Date/Time Source Procedure Growth Status 09/20/18 17:00 Stool Clostridium difficile Toxin Assay - Final Complete Intake and Output 09/22/18 09/23/18 19:00 07:00 Intake Total 1080 ml 950 ml Output Total 2100 ml 1600 ml Balance -1020 ml -650 ml Intake Free Water 260 ml 300 ml IV Total 280 ml 110 ml Tube Feeding 540 ml 540 ml Output Urine Total 2100 ml 1600 ml # Voids 1 # Bowel Movements 2 2 Objective PHYSICAL EXAMINATION: GENERAL: The patient is well-developed and well-nourished female who is intubated and sedated. HEENT: Eyes, pupils equal and responsive to light and accommodation. Extraocular movements are intact. The patient has a tracheostomy tube in place. CHEST: mech vent; Diffuse coarse breath sounds bilaterally without wheezes or rales. CARDIOVASCULAR: Irregular rhythm and irregular rate. S1 and S2 normal without murmurs, rubs, or gallops. ABDOMEN: Soft, nontender, and nondistended. Positive bowel sounds. No hepatosplenomegaly. Currently, no rebound or guarding noted. EXTREMITIES: Negative for clubbing, cyanosis, or edema. RECTAL/GENITAL: Not performed. NEUROLOGIC: Cranial nerves II through XII grossly intact without focal deficits. Assessment/Plan Assessment/Plan ASSESSMENT: The patient is a 72-year-old female. 1. Right lower lobe pneumonia=MDR pseudamonas 2. Leukocytosis. 3. Elevated troponin. 4. Acute on chronic congestive heart failure. 5. Chronic obstructive pulmonary disease. 6. Ventilator-dependent respiratory failure. 7. Diabetes type 2. 8. Hypertension. 9. Coronary artery disease. 10. Metabolic encephalopathy. 11. Seizure disorder. 12. Dysphagia. 13. Tracheostomy. 14. Quadriplegia. 15. Atrial fibrillation TREATMENT: 1. Right lower lobe pneumonia=MDR pseudamonas. A Pulmonary consultation obtained with Dr. Ariel Frey. Continue daptomycin, tigecycline and amikacin per recommendation of Infectious Disease. 2. Elevated troponin/congestive heart failure/atrial fibrillation. Cardiology consultation obtained with Dr. Isai Anglin. The patient is currently receiving intravenous Lasix and anticoagulation 3. Ventilator-dependent respiratory failure. As above, a Pulmonary consultation obtained with Dr. Ariel Frey. 4. Diabetes type 2. The patient was admitted off insulin. 5. Hypertension, the patient is currently hypotensive. 6. Coronary artery disease. 7. Metabolic encephalopathy. 8. Seizure disorder. Continue Keppra as above. 9. Dysphagia. The patient is status post PEG placement. Continue tube feeds as above. 10. Tracheostomy in situ. 11. Quadriplegia. Ruddy George MD Sep 23, 2018 16:08
--- NOTE | 2018-09-23 19:30 | NUR ---
HAND-OFF: Report given to SANTA Sandoval.
--- NOTE | 2018-09-23 19:31 | NUR ---
NURSE NOTES: Received report from SANTA Hayes.Patient stable,obtunded,A-Flutter on satellite project site monitor,no s/s of pain,no respiratory distress noted,trach-vent Shiley 8 AC 14 TV 600 FiO2 40% PEEP5,GT running with Glucerna 1.5@45 ml/hr,no residual noted,BS active in all quadrants,F/cath draining toward gravity,IV asymptomatic,intact on YAYO PICC inserted 09/17/18,dressing changed 09/18/18,bed secured in a low safety position,call light within a reach,will continue to monitor and follow POC.
[2018-09-23 20:00] VITALS: BP_SYST 118; BP_SYST 133; BP_DIAS 45; BP_DIAS 82
[2018-09-23] MEDS: Dyna-Hex 2% Top Sol 2oz TOPIC SCH (20:40)
--- NOTE | 2018-09-23 22:58 | Diagnostic Imaging Report ---
APPROVED REPORT CPT Code: 32711 Present Symptoms Shortness of breath BILATERAL: Imaging reveals a patent deep venous system bilaterally. There is no evidence of thrombus within the common femoral, superficial femoral, popliteal or tibial segments. The greater saphenous veins are within normal limits. Doppler indicates normal spontaneous flow within these segments.
[2018-09-24] VITALS: BP 85/35
[2018-09-24] MEDS: NovoLOG Insulin Flexpen SUBQ SCH ×4 (00:20→18:26)
[2018-09-24] MEDS: Tigecycline 50 MG in NS 110 ML IVPB SCH ×2 (03:29→15:23)
[2018-09-24 04:00] VITALS: BP 114/67
[2018-09-24 05:28] LABS: BASOPHILS % (AUTO) 1.7 % (0.0-2.0); EOSINOPHILS % (AUTO) 3.2 % (0.0-3.0); HEMATOCRIT 29.1 % (37.0-47.0); HEMOGLOBIN 9.2 G/DL (12.0-16.0); LYMPHOCYTES % (AUTO) 14.1 % (20.0-45.0); MEAN CORPUSCULAR VOLUME 84 FL (80-99); MONOCYTES % (AUTO) 7.9 % (1.0-10.0); NEUTROPHILS % (AUTO) 73.1 % (45.0-75.0); PLATELET COUNT 418 K/UL (150-450); RED BLOOD COUNT 3.46 M/UL (4.20-5.40); WHITE BLOOD COUNT 10.6 K/UL (4.8-10.8)
[2018-09-24 05:49] LABS: ANION GAP 7 mmol/L (5-15); BLOOD UREA NITROGEN 23 mg/dL (7-18); CALCIUM 9.2 MG/DL (8.5-10.1); CARBON DIOXIDE 27 MMOL/L (21-32); CHLORIDE 105 MMOL/L (98-107); CREATININE 0.6 MG/DL (0.55-1.30); POTASSIUM 4.1 MMOL/L (3.5-5.1); SODIUM 139 MMOL/L (136-145)
--- NOTE | 2018-09-24 07:14 | NUR ---
HAND-OFF: Report given to SANTA Devlin.Patient stable.
[2018-09-24 08:00] VITALS: BP 137/87
--- NOTE | 2018-09-24 08:00 | NUR ---
NURSE NOTES: received pt in yje bed, obtunded, vent dependent, vital signs stable, no co pain, no SOB, skin warm and dry to touch, dressing on sacral area dry and intact, tolerate GT feeding well, Mayo catheter with yellow urine, PICC line on left upper arm, dressing dry and intact, bed in low position, HOB elevated.
[2018-09-24] MEDS: Metoprolol Tartrate 12.5mg TAB GT SCH ×2 (08:55→20:45)
[2018-09-24] MEDS: Aspirin EC 81mg tab ORAL SCH (08:55)
[2018-09-24] MEDS: levETIRAcetam 500mg/5ml Liquid GT SCH ×2 (08:56→20:45)
[2018-09-24] MEDS: Furosemide 40mg tab ORAL SCH (08:56)
[2018-09-24] MEDS: Amiodarone 200mg tab GT SCH (08:56)
[2018-09-24] MEDS: Eliquis 2.5mg tablet ORAL SCH ×2 (08:56→18:24)
[2018-09-24] MEDS: Lisinopril 10mg tab GT SCH (08:56)
[2018-09-24] MEDS ORDERED: TYGACIL50 MG IVPB (10:06)
[2018-09-24] MEDS ORDERED: CUBICIN1 MG IV (10:06)
[2018-09-24] MEDS ORDERED: AMIKACIN S1000 MG/4 IJ (10:06)
--- NOTE | 2018-09-24 10:07 | Pulmonolgy Critical Care Note ---
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 Respiratory: CXR Cardiac: continue to monitor HR/BP Renal: F/U I&O, keep IV fluid Infectious Disease: check cultures Gastrointestinal: hold feedings Endocrine: monitor blood sugar, check HgA1C Hematologic: monitor H/H, transfuse if hgb<8.5 Neurologic: keep patient comfortable Affect: PRN ativan Prophylaxis: Heparin Discussed with: nurses, consultants, case management assistantmanager order - Objective Last 24 Hour Vital Signs Date Time Temp Pulse Resp B/P (MAP) Pulse Ox O2 Delivery O2 Flow Rate FiO2 09/24/18 09:28 99 14 40 09/24/18 08:56 137/87 09/24/18 08:55 113 137/87 09/24/18 08:00 40 09/24/18 08:00 102 09/24/18 07:23 102 14 40 09/24/18 05:22 104 14 40 09/24/18 04:00 40 09/24/18 04:00 Mechanical Ventilator 09/24/18 04:00 98.3 92 18 114/67 (83) 100 09/24/18 03:39 101 14 40 09/24/18 03:22 103 09/24/18 00:53 94 14 40 09/24/18 00:00 98.8 95 20 85/35 (52) 100 09/24/18 00:00 Mechanical Ventilator 09/23/18 22:46 82 14 40 09/23/18 21:04 97 14 40 09/23/18 20:40 85 118/82 09/23/18 20:00 Mechanical Ventilator 09/23/18 20:00 98 09/23/18 20:00 40 09/23/18 20:00 99.0 85 16 118/82 (94) 100 09/23/18 19:15 88 14 40 09/23/18 17:26 86 14 40 09/23/18 16:00 40 09/23/18 16:00 98.2 90 19 126/76 (93) 98 09/23/18 16:00 93 09/23/18 16:00 Mechanical Ventilator 09/23/18 15:17 74 16 40 09/23/18 13:27 72 16 40 09/23/18 12:00 98.4 76 19 121/90 (100) 98 09/23/18 12:00 85 09/23/18 12:00 40 09/23/18 12:00 Mechanical Ventilator 09/23/18 11:11 70 14 40 Status: awake Condition: critical, grave Neck: full ROM Heart: HR/BP stable Abdomen: soft, non-tender Extremities: no C/C/E Decubiti: location, stage Micro: Microbiology Date/Time Source Procedure Growth Status 09/23/18 18:15 Buttock Right Gram Stain - Final Resulted 09/23/18 18:15 Buttock Right Wound Culture Pending Resulted Accucheck: 126 Critical Care - Subjective ROS Limited/Unobtainable: Yes Condition: critical EKG Rhythm: Sinus Rhythm FI02: 40 Vent Support Breath Rate: 14 Vent Support Mode: AC Vent Tidal Volume: 600 Sputum Amount: Moderate PEEP: 5.0 PIP: 36 Tube Feeding Amount: 45 I&O: Intake and Output 09/23/18 09/24/18 18:59 06:59 Intake Total 840 ml 780 ml Output Total 1200 ml 700 ml Balance -360 ml 80 ml Intake Free Water 300 ml 130 ml IV Total 110 ml Tube Feeding 540 ml 540 ml Output Urine Total 1200 ml 700 ml # Bowel Movements 4 Labs: Laboratory Tests Test 09/23/18 14:00 09/24/18 03:50 Amikacin Level Trough 5.2 ug/mL (4.0-8.0) White Blood Count 10.6 K/UL (4.8-10.8) Red Blood Count 3.46 M/UL (4.20-5.40) L Hemoglobin 9.2 G/DL (12.0-16.0) L Hematocrit 29.1 % (37.0-47.0) L Mean Corpuscular Volume 84 FL (80-99) Mean Corpuscular Hemoglobin 26.6 PG (27.0-31.0) L Mean Corpuscular Hemoglobin Concent 31.6 G/DL (32.0-36.0) L Red Cell Distribution Width 18.0 % (11.6-14.8) H Platelet Count 418 K/UL (150-450) Mean Platelet Volume 6.7 FL (6.5-10.1) Neutrophils (%) (Auto) 73.1 % (45.0-75.0) Lymphocytes (%) (Auto) 14.1 % (20.0-45.0) L Monocytes (%) (Auto) 7.9 % (1.0-10.0) Eosinophils (%) (Auto) 3.2 % (0.0-3.0) H Basophils (%) (Auto) 1.7 % (0.0-2.0) Sodium Level 139 MMOL/L (136-145) Potassium Level 4.1 MMOL/L (3.5-5.1) Chloride Level 105 MMOL/L (98-107) Carbon Dioxide Level 27 MMOL/L (21-32) Anion Gap 7 mmol/L (5-15) Blood Urea Nitrogen 23 mg/dL (7-18) H Creatinine 0.6 MG/DL (0.55-1.30) Estimat Glomerular Filtration Rate mL/min (>60) Glucose Level 120 MG/DL (74-106) H Calcium Level 9.2 MG/DL (8.5-10.1) Ariel Frey MD Sep 24, 2018 10:07
[2018-09-24] MEDS ORDERED: NS Irrig 1000ml ONE (10:37)
[2018-09-24] MEDS ORDERED: NS 275ml ONE (10:37)
--- NOTE | 2018-09-24 11:00 | NUR ---
DREDGE ENGINEERSCALP TREATMENT SPECIALIST SI:A-FIB . ANEMIA . NECROTIC SACRAL STAGE 4 DECUBITUS ULCER VS: BP 137/87, P 113, T 98.2, SpO2 100 on VENT FiO2 40 RBC 3.46, H/H 9.2/29.1, BUN 23 IS:LASIX 40mg ELIQUIS 5mg ZESTRIL 10mg TIGECYCLINE 50mg 110ml IVPB LOPRESSOR 12.5mg PREVACID 30mg KEPPRA 500mg NOVOLOG SUBQ SDU STATUS
[2018-09-24 12:00] VITALS: BP 120/83
--- NOTE | 2018-09-24 13:41 | NUR ---
NURSE NOTES:WOUND CARE FOLLOW-UP NOTES:Full thickness sacral pressure injury post excisional debridement. Base of wound is more granular- beefy red with undermining .Approx 20% loose fibrinous slough,bone exposure. No odor noted ,minimal serosanguineous exudate.(L)8.5cm x (W)7.8cm x (D)4.2cm,undermining 10-5 by 4cm @12o'clock..Additional scattered partial thickness wounds that are moist and viable noted periwound. Reabsorbed DTPI R Heel and plantar aspect.Dry brown eschar at base of wound .Edges adherent without erythema. Periwound without fluctuance/induration or erythema.(L)6cm x (W)6.5cm L heel is soft but easily blanchable. No new skin concerns noted. Tx.Plan: Cleanse Sacral wound with Saline.Loosely pack wound with Saline moistened Kerlix infused with Hydrogel. Apply Triad Paste periwound. Cover with Optifoam drsg. Change daily and prn. Apply Triad Paste to bilat groin and both ischial regions with each perineal care. Apply Cavilon Skin Barrier to both heels. Cover each heel with Optifoam drsg. Change every 7 days and prn. Reposition at least every 2hours or as tolerated. Off-load heels with pillow.
--- NOTE | 2018-09-24 14:00 | NUR ---
NURSE NOTES: no any distress at this time, bed bath given, dressing changed on sacral area, continue monitoring.
--- NOTE | 2018-09-24 14:18 | Infectious Diseases Prog Note ---
Assessment/Plan Assessment/Plan Assessment: Sepsis- ?PNA vs 2ry to wound infection -09/17 BCx NTD -09/18 CXR: Probable left pleural effusion, unchanged over one day -CXR: Limited evaluation with suboptimal positioning. Cardiomegaly and slight prominence of the pulmonary vascularity which may suggest mild congestive changes/interstitial edema. Streaky opacities at the right base possibly related to subsegmental atelectasis. Pneumonia should be excluded clinically. Tracheostomy tube and pacemaker noted. 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 tissue (infected necrotic fibrinous sacral stage 4 decubitus ulcer with bony dislodged fragments) -09/17 SP excisional debridement of sacral decubitus ulcer with ostectomy -09/23 wound cx p -09/14 wound cx: CRE K.Pna (S Colistin, Polymixin B, Tigecycline), MDR PsA (S amikacin), MRSA, VRE (S Linezolid, Amp) Acute on chronic anemia- ?bleeding chronic respiratory failure trach/vent dependant s/p PEG S/p AICD vegetative state Afib on AC [place] resident Plan: -Continue Amikacin # 8 for MDR PsA and Tigecycline # 6 for CRE, VRE, MRSA in wound ( may need terminal make up operator 6 wks AB Rx , DW Surg about findings ) -09/24 Sp Daptomycin # 7 for MRSA and VRE coverage of wound -09/20 SP Flagyl #8 -09/18 SP IV Vancomycin #6 -09/17 SP Cefepime #5 -09/13 SPAmikacin #1, Zosyn x1 -f/u cx -Monitor CBC/CMP, temperatures -wound care per surgical team -wound cx -Sx f/u -Trach/PEG care -aspiration precautions -Cdiff if diarrhea Subjective Allergies: Coded Allergies: ALPRAZOLAM (Verified Allergy, Unknown, 09/13/18) Subjective comfortable Objective Vital Signs Last 24 Hour Vital Signs Date Time Temp Pulse Resp B/P (MAP) Pulse Ox O2 Delivery O2 Flow Rate FiO2 09/24/18 13:22 74 14 40 09/24/18 12:00 40 09/24/18 12:00 99.9 79 14 120/83 (95) 100 09/24/18 12:00 Mechanical Ventilator 09/24/18 11:00 96 14 40 09/24/18 09:28 99 14 40 09/24/18 08:56 137/87 09/24/18 08:55 113 137/87 09/24/18 08:00 40 09/24/18 08:00 102 09/24/18 08:00 98.2 113 14 137/87 (104) 100 09/24/18 08:00 Mechanical Ventilator 09/24/18 07:23 102 14 40 09/24/18 05:22 104 14 40 09/24/18 04:00 40 09/24/18 04:00 Mechanical Ventilator 09/24/18 04:00 98.3 92 18 114/67 (83) 100 09/24/18 03:39 101 14 40 09/24/18 03:22 103 09/24/18 00:53 94 14 40 09/24/18 00:00 98.8 95 20 85/35 (52) 100 09/24/18 00:00 Mechanical Ventilator 09/23/18 22:46 82 14 40 09/23/18 21:04 97 14 40 09/23/18 20:40 85 118/82 09/23/18 20:00 Mechanical Ventilator 09/23/18 20:00 98 09/23/18 20:00 40 09/23/18 20:00 99.0 85 16 118/82 (94) 100 09/23/18 19:15 88 14 40 09/23/18 17:26 86 14 40 09/23/18 16:00 40 09/23/18 16:00 98.2 90 19 126/76 (93) 98 09/23/18 16:00 93 09/23/18 16:00 Mechanical Ventilator 09/23/18 15:17 74 16 40 Height (Feet): 5 Height (Inches): 8.00 Weight (Pounds): 240 HEENT: atraumatic Respiratory/Chest: normal breath sounds Cardiovascular: normal peripheral pulses Abdomen: non distended Microbiology Date/Time Source Procedure Growth Status 09/23/18 18:15 Buttock Right Gram Stain - Final Resulted 09/23/18 18:15 Buttock Right Wound Culture - Preliminary Resulted Laboratory Tests Test 09/24/18 03:50 White Blood Count 10.6 K/UL (4.8-10.8) Red Blood Count 3.46 M/UL (4.20-5.40) L Hemoglobin 9.2 G/DL (12.0-16.0) L Hematocrit 29.1 % (37.0-47.0) L Mean Corpuscular Volume 84 FL (80-99) Mean Corpuscular Hemoglobin 26.6 PG (27.0-31.0) L Mean Corpuscular Hemoglobin Concent 31.6 G/DL (32.0-36.0) L Red Cell Distribution Width 18.0 % (11.6-14.8) H Platelet Count 418 K/UL (150-450) Mean Platelet Volume 6.7 FL (6.5-10.1) Neutrophils (%) (Auto) 73.1 % (45.0-75.0) Lymphocytes (%) (Auto) 14.1 % (20.0-45.0) L Monocytes (%) (Auto) 7.9 % (1.0-10.0) Eosinophils (%) (Auto) 3.2 % (0.0-3.0) H Basophils (%) (Auto) 1.7 % (0.0-2.0) Sodium Level 139 MMOL/L (136-145) Potassium Level 4.1 MMOL/L (3.5-5.1) Chloride Level 105 MMOL/L (98-107) Carbon Dioxide Level 27 MMOL/L (21-32) Anion Gap 7 mmol/L (5-15) Blood Urea Nitrogen 23 mg/dL (7-18) H Creatinine 0.6 MG/DL (0.55-1.30) Estimat Glomerular Filtration Rate mL/min (>60) Glucose Level 120 MG/DL (74-106) H Calcium Level 9.2 MG/DL (8.5-10.1) Current Medications Medications (Trade) Dose Ordered Sig/Rosy Route PRN Reason Start Time Stop Time Status Last Admin Dose Admin Acetaminophen (Tylenol) 650 mg Q4H PRN GT FEVER 09/13/18 11:45 10/13/18 06:59 09/20/18 08:49 Amikacin Protocol (Amikacin pharmacy to dose) 1 ea DAILY PRN MISC Per rx protocol 09/17/18 13:45 10/17/18 13:44 Amikacin Sulfate 1000 mg/Sodium Chloride 114 ml @ 114 mls/hr Q36H IV 09/25/18 15:00 10/02/18 14:59 Amiodarone HCl (Cordarone) 200 mg DAILY GT 09/20/18 09:00 10/20/18 08:59 09/24/18 08:56 Apixaban (Eliquis) 5 mg BID ORAL 09/21/18 09:00 10/21/18 08:59 09/24/18 08:56 Aspirin (Ecotrin) 81 mg DAILY ORAL 09/24/18 09:00 10/24/18 08:59 09/24/18 08:55 Chlorhexidine Gluconate (Elizabeth-Hex 2%) 1 applic DAILY@2000 TOPIC 09/14/18 20:00 10/14/18 19:59 09/23/18 20:40 Daptomycin 400 mg/ Sodium Chloride 55 ml @ 100 mls/hr Q24H IV 09/18/18 14:00 09/29/18 13:59 09/23/18 13:22 Dextrose (Dextrose 50%) 25 ml Q30M PRN IV Hypoglycemia 09/13/18 08:15 10/13/18 08:14 Dextrose (Dextrose 50%) 50 ml Q30M PRN IV Hypoglycemia 09/13/18 08:15 10/13/18 08:14 Furosemide (Lasix) 40 mg DAILY ORAL 09/23/18 09:00 10/23/18 08:59 09/24/18 08:56 Insulin Aspart (NovoLOG) EVERY 6 HOURS SUBQ 09/13/18 12:00 10/13/18 11:59 09/24/18 12:19 Lansoprazole (Prevacid) 30 mg DAILY GT 09/19/18 09:00 10/19/18 08:59 09/24/18 08:55 Levetiracetam (Keppra) 500 mg Q12HR GT 09/13/18 21:00 10/13/18 20:59 09/24/18 08:56 Lisinopril (Zestril) 10 mg DAILY GT 09/20/18 09:00 10/20/18 08:59 09/24/18 08:56 Metoprolol Tartrate (Lopressor) 12.5 mg Q12HR GT 09/19/18 21:00 10/19/18 20:59 09/24/18 08:55 Ondansetron HCl (Zofran) 4 mg Q6H PRN IVP Nausea & Vomiting 09/13/18 07:00 10/13/18 06:59 Polyethylene Glycol (Miralax) 17 gm DAILYPRN PRN GT Constipation 09/13/18 11:45 10/13/18 06:59 Tigecycline 50 mg/ Sodium Chloride 110 ml @ 220 mls/hr Q12HR@0300,1500 IVPB 09/20/18 03:00 09/27/18 02:59 09/24/18 03:29 Matthew Rizzo MD Sep 24, 2018 14:18
--- NOTE | 2018-09-24 14:56 | General Progress Note ---
Assessment/Plan Status: stable, unchanged Assessment/Plan: Assessment and Recs: # Anemia of chronic disease due to underlying chronic medical issues, multifactorial, likely ongoing inflammatory process --> Anemia workup has been ordered, ferritin is 1592, markedly elevated, no hemolysis --> No evidence of hemolysis is noted, peripheral smear has been reviewed. --> Hgb goal >7. Transfuse prn. --> Epogen or iron at this time is not particularly indicated --> Medications have been reviewed --> evaluate with Gi team prn --> transfuse if hgb is < 7 (will trend CBC daily) --> low threshold for gi evaluation in case has occult + ==> hgb 9-->6.3-->8.5-->9.1-->9.5-->9.2 # Leukocytosis with eleva wbc on admission likely related to sepsis --> on abx as per id team, empiric treatment, uti, sacral decub pna --> peripheral smear to be reviewed ==> 17-->18-->17.1-->14-->13 --> gi recs appreciated # Thrombocytosis is likely related to pna, reactive process ==> plt 601-->589--> 500k-->417k # Chronic respiratory failure --> chronic vent/trach # Sacral decubitus ulcer --> per surg eval and rx # Atrial fibrillation --> anticoagulation as needed per cards --> back on asa and eliquis as per cards # Chronic vegetative state --> essentially unchanged # Dysphagia s/p Feeding by G-tube --> restart as needed # Contracture of multiple joints # PNa as per id management The timing of this note does not necessarily reflect the time of the patient was seen. Greatly appreciate consultation! Subjective Allergies: Coded Allergies: ALPRAZOLAM (Verified Allergy, Unknown, 09/13/18) Subjective 09/14: no events, hgb is low 6.3, dw family, blood being infused, transfusion today 09/20: no events, trach to vent, with nieto catheter, resting, alert 09/21: no events, able to trach, trach to vent, no issues otherwise noted, cbc reviewed 09/23: on asa, on eliquis, seen by cards, on vent trach 09/24: remains obtunded, vent dependent, no f/c Objective Last 24 Hour Vital Signs Date Time Temp Pulse Resp B/P (MAP) Pulse Ox O2 Delivery O2 Flow Rate FiO2 09/24/18 14:37 110 18 40 09/24/18 13:22 74 14 40 09/24/18 12:00 40 09/24/18 12:00 99.9 79 14 120/83 (95) 100 09/24/18 12:00 Mechanical Ventilator 09/24/18 11:00 96 14 40 09/24/18 09:28 99 14 40 09/24/18 08:56 137/87 09/24/18 08:55 113 137/87 09/24/18 08:00 40 09/24/18 08:00 102 09/24/18 08:00 98.2 113 14 137/87 (104) 100 09/24/18 08:00 Mechanical Ventilator 09/24/18 07:23 102 14 40 09/24/18 05:22 104 14 40 09/24/18 04:00 40 09/24/18 04:00 Mechanical Ventilator 09/24/18 04:00 98.3 92 18 114/67 (83) 100 09/24/18 03:39 101 14 40 09/24/18 03:22 103 09/24/18 00:53 94 14 40 09/24/18 00:00 98.8 95 20 85/35 (52) 100 09/24/18 00:00 Mechanical Ventilator 09/23/18 22:46 82 14 40 09/23/18 21:04 97 14 40 09/23/18 20:40 85 118/82 09/23/18 20:00 Mechanical Ventilator 09/23/18 20:00 98 09/23/18 20:00 40 09/23/18 20:00 99.0 85 16 118/82 (94) 100 09/23/18 19:15 88 14 40 09/23/18 17:26 86 14 40 09/23/18 16:00 40 09/23/18 16:00 98.2 90 19 126/76 (93) 98 09/23/18 16:00 93 09/23/18 16:00 Mechanical Ventilator 09/23/18 15:17 74 16 40 Intake and Output 09/23/18 09/24/18 19:00 07:00 Intake Total 840 ml 780 ml Output Total 1200 ml 700 ml Balance -360 ml 80 ml Intake Free Water 300 ml 130 ml IV Total 110 ml Tube Feeding 540 ml 540 ml Output Urine Total 1200 ml 700 ml # Bowel Movements 4 Laboratory Tests 09/24/18 03:50: White Blood Count 10.6, Red Blood Count 3.46L, Hemoglobin 9.2L, Hematocrit 29.1L , Mean Corpuscular Volume 84, Mean Corpuscular Hemoglobin 26.6L, Mean Corpuscular Hemoglobin Concent 31.6L, Red Cell Distribution Width 18.0H, Platelet Count 418, Mean Platelet Volume 6.7, Neutrophils (%) (Auto) 73.1, Lymphocytes (%) (Auto) 14.1L, Monocytes (%) (Auto) 7.9, Eosinophils (%) (Auto) 3.2H, Basophils (%) (Auto) 1.7, Sodium Level 139, Potassium Level 4.1, Chloride Level 105, Carbon Dioxide Level 27, Anion Gap 7, Blood Urea Nitrogen 23H, Creatinine 0.6, Estimat Glomerular Filtration Rate , Glucose Level 120H, Calcium Level 9.2 Height (Feet): 5 Height (Inches): 8.00 Weight (Pounds): 240 Objective PE General: WD/WN Lines, tubes and drains: peripheral HEENT: normocephalic Neck: non-tender, normal alignment ++ trach vent Respiratory/Chest: chest wall non-tender, lungs clear, decreased BS Cardiovascular/Chest: normal peripheral pulses Abdomen: non tender, ++ peg Genitourinary/Rectal: genital exam ++ Dagoberto Venegas MD Sep 24, 2018 14:56
[2018-09-24 16:00] VITALS: BP 143/70
--- NOTE | 2018-09-24 17:17 | NUR ---
CONTENT CURATOR NOTES FOLLOWED UP WITH [facility] AND THEY CANNOT TAKE PATIENT AT THE MOMENT BECAUSE OF ISOLATION BUT TUCKER IN ADMISSIONS STATED THE PATIENT WILL HAVE A BED WHEN DISCHARGED. [phone]
--- NOTE | 2018-09-24 19:00 | NUR ---
RESPIRATORY NOTE: PT RECEIVED STABLE ON AC/VC 14, 600, 40%, +5. ALARMS ON AND AUDIBLE. PT IS BEING VENTILATED VIA A PORTEX CUFFED #8 WHICH IS SECURE AND PATENT. VENT CIRCUIT SECURE AND OUT OF THE WAY. NO SIGN OF RESPIRATORY DISTRESS NOTED AT THIS TIME. WILL CONTINUE TO MONITOR.
--- NOTE | 2018-09-24 19:13 | Internal Med Progress Note ---
Subjective Date of Service: Sep 24, 2018 Physician Name Ruddy George Attending Physician Wade Negron MD Current Medications Medications (Trade) Dose Ordered Sig/Rosy Route PRN Reason Start Time Stop Time Status Last Admin Dose Admin Acetaminophen (Tylenol) 650 mg Q4H PRN GT FEVER 09/13/18 11:45 10/13/18 06:59 09/20/18 08:49 Amikacin Protocol (Amikacin pharmacy to dose) 1 ea DAILY PRN MISC Per rx protocol 09/17/18 13:45 10/17/18 13:44 Amikacin Sulfate 1000 mg/Sodium Chloride 114 ml @ 114 mls/hr Q36H IV 09/25/18 15:00 10/02/18 14:59 Amiodarone HCl (Cordarone) 200 mg DAILY GT 09/20/18 09:00 10/20/18 08:59 09/24/18 08:56 Apixaban (Eliquis) 5 mg BID ORAL 09/21/18 09:00 10/21/18 08:59 09/24/18 18:24 Aspirin (Ecotrin) 81 mg DAILY ORAL 09/24/18 09:00 10/24/18 08:59 09/24/18 08:55 Chlorhexidine Gluconate (Elizabeth-Hex 2%) 1 applic DAILY@2000 TOPIC 09/14/18 20:00 10/14/18 19:59 09/23/18 20:40 Dextrose (Dextrose 50%) 25 ml Q30M PRN IV Hypoglycemia 09/13/18 08:15 10/13/18 08:14 Dextrose (Dextrose 50%) 50 ml Q30M PRN IV Hypoglycemia 09/13/18 08:15 10/13/18 08:14 Furosemide (Lasix) 40 mg DAILY ORAL 09/23/18 09:00 10/23/18 08:59 09/24/18 08:56 Insulin Aspart (NovoLOG) EVERY 6 HOURS SUBQ 09/13/18 12:00 10/13/18 11:59 09/24/18 18:26 Lansoprazole (Prevacid) 30 mg DAILY GT 09/19/18 09:00 10/19/18 08:59 09/24/18 08:55 Levetiracetam (Keppra) 500 mg Q12HR GT 09/13/18 21:00 10/13/18 20:59 09/24/18 08:56 Lisinopril (Zestril) 10 mg DAILY GT 09/20/18 09:00 10/20/18 08:59 09/24/18 08:56 Metoprolol Tartrate (Lopressor) 12.5 mg Q12HR GT 09/19/18 21:00 10/19/18 20:59 09/24/18 08:55 Ondansetron HCl (Zofran) 4 mg Q6H PRN IVP Nausea & Vomiting 09/13/18 07:00 10/13/18 06:59 Polyethylene Glycol (Miralax) 17 gm DAILYPRN PRN GT Constipation 09/13/18 11:45 10/13/18 06:59 Tigecycline 50 mg/ Sodium Chloride 110 ml @ 220 mls/hr Q12HR@0300,1500 IVPB 09/20/18 03:00 09/27/18 02:59 09/24/18 15:23 Allergies: Coded Allergies: ALPRAZOLAM (Verified Allergy, Unknown, 09/13/18) ROS Limited/Unobtainable: Yes Subjective 72 YO vent dep F admitted with dyspnea. Now pneumonia. [facility] Vent. Cover for Int Med-DR Negron. DULCE Objective Last Vital Signs Date Time Temp Pulse Resp B/P (MAP) Pulse Ox O2 Delivery O2 Flow Rate FiO2 09/24/18 17:25 93 14 40 09/24/18 16:00 Mechanical Ventilator 09/24/18 16:00 98.2 143/70 (94) 100 Laboratory Tests Test 09/24/18 03:50 White Blood Count 10.6 K/UL (4.8-10.8) Red Blood Count 3.46 M/UL (4.20-5.40) L Hemoglobin 9.2 G/DL (12.0-16.0) L Hematocrit 29.1 % (37.0-47.0) L Mean Corpuscular Volume 84 FL (80-99) Mean Corpuscular Hemoglobin 26.6 PG (27.0-31.0) L Mean Corpuscular Hemoglobin Concent 31.6 G/DL (32.0-36.0) L Red Cell Distribution Width 18.0 % (11.6-14.8) H Platelet Count 418 K/UL (150-450) Mean Platelet Volume 6.7 FL (6.5-10.1) Neutrophils (%) (Auto) 73.1 % (45.0-75.0) Lymphocytes (%) (Auto) 14.1 % (20.0-45.0) L Monocytes (%) (Auto) 7.9 % (1.0-10.0) Eosinophils (%) (Auto) 3.2 % (0.0-3.0) H Basophils (%) (Auto) 1.7 % (0.0-2.0) Sodium Level 139 MMOL/L (136-145) Potassium Level 4.1 MMOL/L (3.5-5.1) Chloride Level 105 MMOL/L (98-107) Carbon Dioxide Level 27 MMOL/L (21-32) Anion Gap 7 mmol/L (5-15) Blood Urea Nitrogen 23 mg/dL (7-18) H Creatinine 0.6 MG/DL (0.55-1.30) Estimat Glomerular Filtration Rate mL/min (>60) Glucose Level 120 MG/DL (74-106) H Calcium Level 9.2 MG/DL (8.5-10.1) Microbiology Date/Time Source Procedure Growth Status 09/23/18 18:15 Buttock Right Gram Stain - Final Resulted 09/23/18 18:15 Buttock Right Wound Culture - Preliminary Resulted Intake and Output 09/23/18 09/24/18 19:00 07:00 Intake Total 840 ml 780 ml Output Total 1200 ml 700 ml Balance -360 ml 80 ml Intake Free Water 300 ml 130 ml IV Total 110 ml Tube Feeding 540 ml 540 ml Output Urine Total 1200 ml 700 ml # Bowel Movements 4 Objective PHYSICAL EXAMINATION: GENERAL: The patient is well-developed and well-nourished female who is intubated and sedated. HEENT: Eyes, pupils equal and responsive to light and accommodation. Extraocular movements are intact. The patient has a tracheostomy tube in place. CHEST: mech vent; Diffuse coarse breath sounds bilaterally without wheezes or rales. CARDIOVASCULAR: Irregular rhythm and irregular rate. S1 and S2 normal without murmurs, rubs, or gallops. ABDOMEN: Soft, nontender, and nondistended. Positive bowel sounds. No hepatosplenomegaly. Currently, no rebound or guarding noted. EXTREMITIES: Negative for clubbing, cyanosis, or edema. RECTAL/GENITAL: Not performed. NEUROLOGIC: Cranial nerves II through XII grossly intact without focal deficits. Assessment/Plan Assessment/Plan ASSESSMENT: The patient is a 72-year-old female. 1. Right lower lobe pneumonia=MDR pseudamonas 2. Leukocytosis. 3. Elevated troponin. 4. Acute on chronic congestive heart failure. 5. Chronic obstructive pulmonary disease. 6. Ventilator-dependent respiratory failure. 7. Diabetes type 2. 8. Hypertension. 9. Coronary artery disease. 10. Metabolic encephalopathy. 11. Seizure disorder. 12. Dysphagia. 13. Tracheostomy. 14. Quadriplegia. 15. Atrial fibrillation TREATMENT: 1. Right lower lobe pneumonia=MDR pseudamonas. A Pulmonary consultation obtained with Dr. Ariel Frey. Continue daptomycin, tigecycline and amikacin per recommendation of Infectious Disease. 2. Elevated troponin/congestive heart failure/atrial fibrillation. Cardiology consultation obtained with Dr. Isai Anglin. The patient is currently receiving intravenous Lasix and anticoagulation 3. Ventilator-dependent respiratory failure. As above, a Pulmonary consultation obtained with Dr. Ariel Frey. 4. Diabetes type 2. The patient was admitted off insulin. 5. Hypertension, the patient is currently hypotensive. 6. Coronary artery disease. 7. Metabolic encephalopathy. 8. Seizure disorder. Continue Keppra as above. 9. Dysphagia. The patient is status post PEG placement. Continue tube feeds as above. 10. Tracheostomy in situ. 11. Quadriplegia. Ruddy George MD Sep 24, 2018 19:13
--- NOTE | 2018-09-24 19:14 | NUR ---
HAND-OFF: Report given to SCOTT PRATT, NO DISTRESS NOTED.
--- NOTE | 2018-09-24 19:20 | NUR ---
NURSE NOTES: Report received from SANTA Cotton. Observed pt lying on the bed, open eyes, non-verbal. A flutter with HR of 95 on zoning technician noted. Trach to vent Shiley 8, AC 14, TV 600, FIO2 40%, PEEP 5. Gtube intact and running Glucerna 1.5 at 45cc/hr. F/C intact and patent. L UA PICC, intact and patent. Bed in the lowest position. Side rails up x3. Will continue to monitor.
--- NOTE | 2018-09-24 19:41 | Cardiology Progress Note ---
Assessment/Plan Assessment/Plan 1. History of coronary artery disease with reported history of occluded right coronary artery. 2. Permanent atrial fibrillation, on anticoagulation. 3. History of ventricular fibrillation arrest. 4. History of CVA. 5. Cardiomyopathy with ejection fraction 20%. 6. Chronic ventilator therapy. 7. Anemia. 8. Hypoalbuminemia. 9. hs of icd implantation 10. sig MR ] 11. Pulm htn echo report noted telel reviweed labs noted not sig response on acei is already on bb now eliquis, no bleeding after a few days on ecotrin diuretics swtich to po Subjective ROS Limited/Unobtainable: Yes Objective Last 24 Hour Vital Signs Date Time Temp Pulse Resp B/P (MAP) Pulse Ox O2 Delivery O2 Flow Rate FiO2 09/24/18 17:25 93 14 40 09/24/18 16:00 Mechanical Ventilator 09/24/18 16:00 40 09/24/18 16:00 98.2 87 16 143/70 (94) 100 09/24/18 16:00 110 09/24/18 14:37 110 18 40 09/24/18 13:22 74 14 40 09/24/18 12:00 40 09/24/18 12:00 89 09/24/18 12:00 99.9 79 14 120/83 (95) 100 09/24/18 12:00 Mechanical Ventilator 09/24/18 11:00 96 14 40 09/24/18 09:28 99 14 40 09/24/18 08:56 137/87 09/24/18 08:55 113 137/87 09/24/18 08:00 40 09/24/18 08:00 102 09/24/18 08:00 98.2 113 14 137/87 (104) 100 09/24/18 08:00 Mechanical Ventilator 09/24/18 07:23 102 14 40 09/24/18 05:22 104 14 40 09/24/18 04:00 40 09/24/18 04:00 Mechanical Ventilator 09/24/18 04:00 98.3 92 18 114/67 (83) 100 09/24/18 03:39 101 14 40 09/24/18 03:22 103 09/24/18 00:53 94 14 40 09/24/18 00:00 98.8 95 20 85/35 (52) 100 09/24/18 00:00 Mechanical Ventilator 09/23/18 22:46 82 14 40 09/23/18 21:04 97 14 40 09/23/18 20:40 85 118/82 09/23/18 20:00 Mechanical Ventilator 09/23/18 20:00 98 09/23/18 20:00 40 09/23/18 20:00 99.0 85 16 118/82 (94) 100 General Appearance: no apparent distress, obese, on vent, patient on isolation Extremities: no swelling Intake and Output 09/23/18 09/24/18 19:00 07:00 Intake Total 840 ml 780 ml Output Total 1200 ml 700 ml Balance -360 ml 80 ml Intake Free Water 300 ml 130 ml IV Total 110 ml Tube Feeding 540 ml 540 ml Output Urine Total 1200 ml 700 ml # Bowel Movements 4 Laboratory Tests Test 09/24/18 03:50 White Blood Count 10.6 K/UL (4.8-10.8) Red Blood Count 3.46 M/UL (4.20-5.40) L Hemoglobin 9.2 G/DL (12.0-16.0) L Hematocrit 29.1 % (37.0-47.0) L Mean Corpuscular Volume 84 FL (80-99) Mean Corpuscular Hemoglobin 26.6 PG (27.0-31.0) L Mean Corpuscular Hemoglobin Concent 31.6 G/DL (32.0-36.0) L Red Cell Distribution Width 18.0 % (11.6-14.8) H Platelet Count 418 K/UL (150-450) Mean Platelet Volume 6.7 FL (6.5-10.1) Neutrophils (%) (Auto) 73.1 % (45.0-75.0) Lymphocytes (%) (Auto) 14.1 % (20.0-45.0) L Monocytes (%) (Auto) 7.9 % (1.0-10.0) Eosinophils (%) (Auto) 3.2 % (0.0-3.0) H Basophils (%) (Auto) 1.7 % (0.0-2.0) Sodium Level 139 MMOL/L (136-145) Potassium Level 4.1 MMOL/L (3.5-5.1) Chloride Level 105 MMOL/L (98-107) Carbon Dioxide Level 27 MMOL/L (21-32) Anion Gap 7 mmol/L (5-15) Blood Urea Nitrogen 23 mg/dL (7-18) H Creatinine 0.6 MG/DL (0.55-1.30) Estimat Glomerular Filtration Rate mL/min (>60) Glucose Level 120 MG/DL (74-106) H Calcium Level 9.2 MG/DL (8.5-10.1) Microbiology Date/Time Source Procedure Growth Status 09/23/18 18:15 Buttock Right Gram Stain - Final Resulted 09/23/18 18:15 Buttock Right Wound Culture - Preliminary Resulted Isai Anglin MD Sep 24, 2018 19:41
[2018-09-24 20:00] VITALS: BP 126/89
[2018-09-24] MEDS: Dyna-Hex 2% Top Sol 2oz TOPIC SCH (20:45)
[2018-09-25] VITALS: BP 127/68
--- NOTE | 2018-09-25 | NUR ---
NURSE NOTES: Observed pt sleeping on the bed. Pt appears calm and comfort. No acute distress noted. Reposition done. Oral care done. Will continue to monitor.
[2018-09-25] MEDS: NovoLOG Insulin Flexpen SUBQ SCH ×4 (00:07→18:00)
[2018-09-25] MEDS: Tigecycline 50 MG in NS 110 ML IVPB SCH ×2 (03:21→15:17)
[2018-09-25 04:00] VITALS: BP 125/92
[2018-09-25 04:21] LABS: BASOPHILS % (AUTO) 0.8 % (0.0-2.0); EOSINOPHILS % (AUTO) 2.8 % (0.0-3.0); HEMOGLOBIN 9.4 G/DL (12.0-16.0); LYMPHOCYTES % (AUTO) 11.6 % (20.0-45.0); MEAN CORPUSCULAR VOLUME 84 FL (80-99); MONOCYTES % (AUTO) 7.1 % (1.0-10.0); NEUTROPHILS % (AUTO) 77.7 % (45.0-75.0); PLATELET COUNT 416 K/UL (150-450); RED BLOOD COUNT 3.58 M/UL (4.20-5.40); RED CELL DISTRIBUTION WIDTH 17.6 % (11.6-14.8); WHITE BLOOD COUNT 13.4 K/UL (4.8-10.8)
[2018-09-25 04:37] LABS: ANION GAP 6 mmol/L (5-15); BLOOD UREA NITROGEN 21 mg/dL (7-18); CALCIUM 8.8 MG/DL (8.5-10.1); CARBON DIOXIDE 28 MMOL/L (21-32); CHLORIDE 104 MMOL/L (98-107); CREATININE 0.6 MG/DL (0.55-1.30); SODIUM 138 MMOL/L (136-145)
--- NOTE | 2018-09-25 05:00 | NUR ---
RESPIRATORY NOTE: PT REMAINED STABLE ON CMV WITH CURRENT SETTINGS. SXN'd PRN WITHOUT ADVERSE REACTION. AIRWAY IS SECURE AND PATENT. CUFF IS INTACT. VENT CIRCUIT AND SX TUBING SECURE AND OUT OF THE WAY. NO S/S OF RESPIRATORY DISTRESS NOTED AT THIS TIME. WILL CONTINUE TO MONITOR.
--- NOTE | 2018-09-25 07:00 | NUR ---
RESPIRATORY NOTE: Received Patient on Vent ACVC RR 14, VT 600, FIO2 40%, PEEP +5. Patient has a tracheostomy Portex 8, secured with trache ties. Breath sounds reveal bilateral rhonchi. Patient obtundent lying in bed. Slight agitation with suction. Alarms on and audible. Vent plugged into red outlet. Will continue to monitor throughout the day.
--- NOTE | 2018-09-25 07:15 | NUR ---
HAND-OFF: Report given to SANTA Cotton. No acute distress noted at this time.
[2018-09-25 08:00] VITALS: BP 108/66
--- NOTE | 2018-09-25 08:03 | NUR ---
NURSE NOTES: received pt in the bed, vent dependent, awake, vital signs stable, no co pain, no SOB, skin warm and dry to touch, dressing on sacral area dry and intact, Mayo catheter with yellow urine, tolerate GT feeding well, bed in low position, HOB elevated.
[2018-09-25] MEDS: levETIRAcetam 500mg/5ml Liquid GT SCH (08:59)
[2018-09-25] MEDS: Furosemide 40mg tab ORAL SCH (09:00)
[2018-09-25] MEDS: Eliquis 2.5mg tablet ORAL SCH (09:00)
[2018-09-25] MEDS: Lisinopril 10mg tab GT SCH (09:00)
[2018-09-25] MEDS: Aspirin EC 81mg tab ORAL SCH (09:00)
[2018-09-25] MEDS: Amiodarone 200mg tab GT SCH (09:00)
[2018-09-25] MEDS: Metoprolol Tartrate 12.5mg TAB GT SCH (09:00)
--- NOTE | 2018-09-25 11:32 | NUR ---
Social Service Note Referral faxed to Gisele at [facility] [phone] (p) [phone] (f). Will follow up with available bed.
--- NOTE | 2018-09-25 11:42 | NUR ---
SALVAGE WORKERPARTS DATA WRITER SI:PNA . A-FIB . ANEMIA . VS: BP 108/66, P 102, T 98.2, RR 22, SpO2 100 on VENT FiO2 40 WBC 13.4, Hgb 3.58, Hct 30.0, BUN 21 IS:LASIX 40mg ELIQUIS 5mg ZESTRIL 10mg CORDARONE 200mg TIGECYCLINE 110ml IVPB LOPRESSOR 12.5mg PREVACID 30mg KEPPRA 500mg NOVOLOG SUBQ SDU STATUS
--- NOTE | 2018-09-25 11:57 | Pulmonolgy Critical Care Note ---
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 Respiratory: monitor respiratory rate, adjust FIO2 Cardiac: continue to monitor HR/BP Renal: F/U I&O, keep IV fluid, check electrolytes Infectious Disease: check cultures Gastrointestinal: continue feedings/current rate Endocrine: monitor blood sugar, check HgA1C Neurologic: PRN Ativan, keep patient comfortable Prophylaxis: Protonix, Heparin Time Spent (Minutes): 40 Notes Reviewed: biodiesel production associate, cardio Discussed with: nurses, consultants, case assemblerclinique counter manager - Objective Last 24 Hour Vital Signs Date Time Temp Pulse Resp B/P (MAP) Pulse Ox O2 Delivery O2 Flow Rate FiO2 09/25/18 10:57 97 22 40 09/25/18 09:04 87 14 40 09/25/18 09:00 90 108/66 09/25/18 08:00 102 09/25/18 08:00 Mechanical Ventilator 09/25/18 08:00 40 09/25/18 08:00 98.2 90 14 108/66 (80) 100 09/25/18 07:24 82 14 40 09/25/18 05:00 99 18 40 09/25/18 04:00 117 09/25/18 04:00 40 09/25/18 04:00 Mechanical Ventilator 09/25/18 04:00 99.0 100 15 125/92 (103) 100 09/25/18 02:50 96 17 40 09/25/18 01:14 75 14 40 09/25/18 00:00 Mechanical Ventilator 09/25/18 00:00 89 09/25/18 00:00 40 09/25/18 00:00 98.2 94 14 127/68 (87) 100 09/24/18 22:57 85 14 40 09/24/18 21:15 88 14 40 09/24/18 20:45 78 126/89 09/24/18 20:00 Mechanical Ventilator 09/24/18 20:00 40 09/24/18 20:00 98.6 78 14 126/89 (101) 100 09/24/18 20:00 104 09/24/18 19:00 99 14 40 09/24/18 17:25 93 14 40 09/24/18 16:00 Mechanical Ventilator 09/24/18 16:00 40 09/24/18 16:00 98.2 87 16 143/70 (94) 100 09/24/18 16:00 110 09/24/18 14:37 110 18 40 09/24/18 13:22 74 14 40 09/24/18 12:00 40 09/24/18 12:00 89 09/24/18 12:00 99.9 79 14 120/83 (95) 100 09/24/18 12:00 Mechanical Ventilator Status: awake Condition: critical HEENT: atraumatic Lungs: clear Heart: HR/BP stable Abdomen: soft, active bowel sounds Extremities: no C/C/E Decubiti: location Micro: Microbiology Date/Time Source Procedure Growth Status 09/23/18 18:15 Buttock Right Gram Stain - Final Resulted 09/23/18 18:15 Wound Culture - Preliminary Gram Negative Bacillus 1 Gram Negative Bacillus 2 Resulted Accucheck: 121 Critical Care - Subjective ROS Limited/Unobtainable: No FI02: 40 Vent Support Breath Rate: 14 Vent Support Mode: AC Vent Tidal Volume: 600 Sputum Amount: Moderate PEEP: 5.0 PIP: 21 Tube Feeding Amount: 45 I&O: Intake and Output 09/24/18 09/25/18 18:59 06:59 Intake Total 800 ml 735 ml Output Total 1725 ml Balance -925 ml 735 ml Intake Free Water 150 ml 130 ml IV Total 110 ml 110 ml Tube Feeding 540 ml 495 ml Output Urine Total 1725 ml # Bowel Movements 2 Labs: Laboratory Tests Test 09/25/18 03:50 White Blood Count 13.4 K/UL (4.8-10.8) H Red Blood Count 3.58 M/UL (4.20-5.40) L Hemoglobin 9.4 G/DL (12.0-16.0) L Hematocrit 30.0 % (37.0-47.0) L Mean Corpuscular Volume 84 FL (80-99) Mean Corpuscular Hemoglobin 26.1 PG (27.0-31.0) L Mean Corpuscular Hemoglobin Concent 31.1 G/DL (32.0-36.0) L Red Cell Distribution Width 17.6 % (11.6-14.8) H Platelet Count 416 K/UL (150-450) Mean Platelet Volume 6.8 FL (6.5-10.1) Neutrophils (%) (Auto) 77.7 % (45.0-75.0) H Lymphocytes (%) (Auto) 11.6 % (20.0-45.0) L Monocytes (%) (Auto) 7.1 % (1.0-10.0) Eosinophils (%) (Auto) 2.8 % (0.0-3.0) Basophils (%) (Auto) 0.8 % (0.0-2.0) Sodium Level 138 MMOL/L (136-145) Potassium Level 4.0 MMOL/L (3.5-5.1) Chloride Level 104 MMOL/L (98-107) Carbon Dioxide Level 28 MMOL/L (21-32) Anion Gap 6 mmol/L (5-15) Blood Urea Nitrogen 21 mg/dL (7-18) H Creatinine 0.6 MG/DL (0.55-1.30) Estimat Glomerular Filtration Rate mL/min (>60) Glucose Level 111 MG/DL (74-106) H Calcium Level 8.8 MG/DL (8.5-10.1) Ariel Frey MD Sep 25, 2018 11:56
[2018-09-25 12:00] VITALS: BP 124/87
[2018-09-25] MEDS ORDERED: Amikacin 1,000 MG in NS 110 ML IV SCH (15:00)
[2018-09-25 16:00] VITALS: BP 106/64
--- NOTE | 2018-09-25 16:00 | NUR ---
NURSE NOTES: pt discharge back to [facility] as ordered, report given to Clarissa PRATT.
[2018-09-25] MEDS: Acetaminophen 650mg/20.3ml GT PRN (16:30)
--- NOTE | 2018-09-25 16:30 | NUR ---
DISCHARGE PLANNING DISCHARGE ORDER NOTED Patient has been accepted to; [facility] [facility] [place] [address] Bed:18-A Const for Nurse to Nurse report [facility] ETA for transportation: 16:45 DCP unable to reach family, voicemail message left of current discharge plans. Zoe Kirby (daughter) [phone]
--- NOTE | 2018-09-25 16:53 | Infectious Diseases Prog Note ---
Assessment/Plan Assessment/Plan Assessment: Sepsis- ?PNA vs 2ry to wound infection -09/17 BCx NTD -09/18 CXR: Probable left pleural effusion, unchanged over one day -CXR: Limited evaluation with suboptimal positioning. Cardiomegaly and slight prominence of the pulmonary vascularity which may suggest mild congestive changes/interstitial edema. Streaky opacities at the right base possibly related to subsegmental atelectasis. Pneumonia should be excluded clinically. Tracheostomy tube and pacemaker noted. 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 tissue (infected necrotic fibrinous sacral stage 4 decubitus ulcer with bony dislodged fragments) -09/17 SP excisional debridement of sacral decubitus ulcer with ostectomy -09/23 wound cx GNR x 2 -09/14 wound cx: CRE K.Pna (S Colistin, Polymixin B, Tigecycline), MDR PsA (S amikacin), MRSA, VRE (S Linezolid, Amp) Acute on chronic anemia- ?bleeding chronic respiratory failure trach/vent dependant s/p PEG S/p AICD vegetative state Afib on AC PR resident Plan: -Continue Amikacin # 9 for MDR PsA and Tigecycline # 7 for CRE, VRE, MRSA in wound ( will treat for 6 wks AB Rx , DW Surg about findings ) -09/24 Sp Daptomycin # 7 for MRSA and VRE coverage of wound -09/20 SP Flagyl #8 -09/18 SP IV Vancomycin #6 -09/17 SP Cefepime #5 -09/13 SPAmikacin #1, Zosyn x1 -f/u cx -Monitor CBC/CMP, temperatures -wound care per surgical team -wound cx -Sx f/u -Trach/PEG care -aspiration precautions -Cdiff if diarrhea Subjective Constitutional: Denies: no symptoms, fever, chills, fatigue, anorexia, drenching sweats, other Allergies: Coded Allergies: ALPRAZOLAM (Verified Allergy, Unknown, 09/13/18) Subjective comfortable Objective Vital Signs Last 24 Hour Vital Signs Date Time Temp Pulse Resp B/P (MAP) Pulse Ox O2 Delivery O2 Flow Rate FiO2 09/25/18 16:00 Mechanical Ventilator 09/25/18 16:00 99.5 107 14 106/64 (78) 100 09/25/18 16:00 40 09/25/18 15:09 75 16 40 09/25/18 13:20 90 15 40 09/25/18 12:00 40 09/25/18 12:00 98.6 91 14 124/87 (99) 100 09/25/18 12:00 89 09/25/18 12:00 Mechanical Ventilator 09/25/18 10:57 97 22 40 09/25/18 09:04 87 14 40 09/25/18 09:00 90 108/66 09/25/18 09:00 108/66 09/25/18 08:00 102 09/25/18 08:00 Mechanical Ventilator 09/25/18 08:00 40 09/25/18 08:00 98.2 90 14 108/66 (80) 100 09/25/18 07:24 82 14 40 09/25/18 05:00 99 18 40 09/25/18 04:00 117 09/25/18 04:00 40 09/25/18 04:00 Mechanical Ventilator 09/25/18 04:00 99.0 100 15 125/92 (103) 100 09/25/18 02:50 96 17 40 09/25/18 01:14 75 14 40 09/25/18 00:00 Mechanical Ventilator 09/25/18 00:00 89 09/25/18 00:00 40 09/25/18 00:00 98.2 94 14 127/68 (87) 100 09/24/18 22:57 85 14 40 09/24/18 21:15 88 14 40 09/24/18 20:45 78 126/89 09/24/18 20:00 Mechanical Ventilator 09/24/18 20:00 40 09/24/18 20:00 98.6 78 14 126/89 (101) 100 09/24/18 20:00 104 09/24/18 19:00 99 14 40 09/24/18 17:25 93 14 40 Height (Feet): 5 Height (Inches): 8.00 Weight (Pounds): 240 HEENT: anicteric Respiratory/Chest: no respiratory distress Cardiovascular: regularly irregular Abdomen: no organomegaly Microbiology Date/Time Source Procedure Growth Status 09/23/18 18:15 Buttock Right Gram Stain - Final Resulted 09/23/18 18:15 Wound Culture - Preliminary Gram Negative Bacillus 1 Gram Negative Bacillus 2 Resulted Laboratory Tests Test 09/25/18 03:50 White Blood Count 13.4 K/UL (4.8-10.8) H Red Blood Count 3.58 M/UL (4.20-5.40) L Hemoglobin 9.4 G/DL (12.0-16.0) L Hematocrit 30.0 % (37.0-47.0) L Mean Corpuscular Volume 84 FL (80-99) Mean Corpuscular Hemoglobin 26.1 PG (27.0-31.0) L Mean Corpuscular Hemoglobin Concent 31.1 G/DL (32.0-36.0) L Red Cell Distribution Width 17.6 % (11.6-14.8) H Platelet Count 416 K/UL (150-450) Mean Platelet Volume 6.8 FL (6.5-10.1) Neutrophils (%) (Auto) 77.7 % (45.0-75.0) H Lymphocytes (%) (Auto) 11.6 % (20.0-45.0) L Monocytes (%) (Auto) 7.1 % (1.0-10.0) Eosinophils (%) (Auto) 2.8 % (0.0-3.0) Basophils (%) (Auto) 0.8 % (0.0-2.0) Sodium Level 138 MMOL/L (136-145) Potassium Level 4.0 MMOL/L (3.5-5.1) Chloride Level 104 MMOL/L (98-107) Carbon Dioxide Level 28 MMOL/L (21-32) Anion Gap 6 mmol/L (5-15) Blood Urea Nitrogen 21 mg/dL (7-18) H Creatinine 0.6 MG/DL (0.55-1.30) Estimat Glomerular Filtration Rate mL/min (>60) Glucose Level 111 MG/DL (74-106) H Calcium Level 8.8 MG/DL (8.5-10.1) Current Medications Medications (Trade) Dose Ordered Sig/Rosy Route PRN Reason Start Time Stop Time Status Last Admin Dose Admin Acetaminophen (Tylenol) 650 mg Q4H PRN GT FEVER 09/13/18 11:45 10/13/18 06:59 09/25/18 16:30 Amikacin Protocol (Amikacin pharmacy to dose) 1 ea DAILY PRN MISC Per rx protocol 09/17/18 13:45 10/17/18 13:44 Amikacin Sulfate 1000 mg/Sodium Chloride 114 ml @ 114 mls/hr Q36H IV 09/25/18 15:00 10/02/18 14:59 09/25/18 15:18 Amiodarone HCl (Cordarone) 200 mg DAILY GT 09/20/18 09:00 10/20/18 08:59 09/25/18 09:00 Apixaban (Eliquis) 5 mg BID ORAL 09/25/18 18:00 10/21/18 17:59 Aspirin (Ecotrin) 81 mg DAILY ORAL 09/24/18 09:00 10/24/18 08:59 09/25/18 09:00 Chlorhexidine Gluconate (Elizabeth-Hex 2%) 1 applic DAILY@2000 TOPIC 09/14/18 20:00 10/14/18 19:59 09/24/18 20:45 Dextrose (Dextrose 50%) 25 ml Q30M PRN IV Hypoglycemia 09/13/18 08:15 10/13/18 08:14 Dextrose (Dextrose 50%) 50 ml Q30M PRN IV Hypoglycemia 09/13/18 08:15 10/13/18 08:14 Furosemide (Lasix) 40 mg DAILY ORAL 09/23/18 09:00 10/23/18 08:59 09/25/18 09:00 Insulin Aspart (NovoLOG) EVERY 6 HOURS SUBQ 09/13/18 12:00 10/13/18 11:59 09/25/18 12:25 Lansoprazole (Prevacid) 30 mg DAILY GT 09/19/18 09:00 10/19/18 08:59 09/25/18 08:59 Levetiracetam (Keppra) 500 mg Q12HR GT 09/13/18 21:00 10/13/18 20:59 09/25/18 08:59 Lisinopril (Zestril) 10 mg DAILY GT 09/20/18 09:00 10/20/18 08:59 09/24/18 08:56 Metoprolol Tartrate (Lopressor) 12.5 mg Q12HR GT 09/19/18 21:00 10/19/18 20:59 09/25/18 09:00 Ondansetron HCl (Zofran) 4 mg Q6H PRN IVP Nausea & Vomiting 09/13/18 07:00 10/13/18 06:59 Polyethylene Glycol (Miralax) 17 gm DAILYPRN PRN GT Constipation 09/13/18 11:45 10/13/18 06:59 Tigecycline 50 mg/ Sodium Chloride 110 ml @ 220 mls/hr Q12HR@0300,1500 IVPB 09/20/18 03:00 09/27/18 02:59 09/25/18 15:17 Matthew Rizzo MD Sep 25, 2018 16:52
--- NOTE | 2018-09-25 17:00 | NUR ---
NURSE NOTES: pt bleeding from sacral wound, dr. White saw pt, sutured wound, continue monitoring.
--- NOTE | 2018-09-25 17:45 | General Progress Note ---
Assessment/Plan Status: stable, unchanged Assessment/Plan: Assessment and Recs: # Anemia of chronic disease due to underlying chronic medical issues, multifactorial, likely ongoing inflammatory process --> Anemia workup has been ordered, ferritin is 1592, markedly elevated, no hemolysis --> No evidence of hemolysis is noted, peripheral smear has been reviewed. --> Hgb goal >7. Transfuse prn. --> Epogen or iron at this time is not particularly indicated --> Medications have been reviewed --> evaluate with Gi team prn --> transfuse if hgb is < 7 (will trend CBC daily) --> low threshold for gi evaluation in case has occult + ==> hgb 9-->6.3-->8.5-->9.1-->9.5-->9.2-->9.4 # Leukocytosis with eleva wbc on admission likely related to sepsis --> on abx as per id team, empiric treatment, uti, sacral decub pna --> peripheral smear to be reviewed ==> 17-->18-->17.1-->14-->13-->13.6 --> gi recs appreciated # Thrombocytosis is likely related to pna, reactive process --> plt 601-->589--> 500k-->417k # Chronic respiratory failure --> chronic vent/trach # Sacral decubitus ulcer --> per surg eval and rx # Atrial fibrillation --> anticoagulation as needed per cards --> back on asa and eliquis as per cards # Chronic vegetative state --> essentially unchanged # Dysphagia s/p Feeding by G-tube --> restart as needed # Contracture of multiple joints # PNa as per id management The timing of this note does not necessarily reflect the time of the patient was seen. Greatly appreciate consultation! Subjective Constitutional: Denies: no symptoms, chills, diaphoresis, fever, malaise, weakness, other HEENT: Denies: no symptoms, eye pain, blurred vision, tearing, double vision, ear pain, ear discharge, nose pain, nose congestion, throat pain, throat swelling, mouth pain, mouth swelling, other Cardiovascular: Denies: no symptoms, chest pain, edema, irregular heart rate, lightheadedness, palpitations, syncope, other Gastrointestinal/Abdominal: Denies: no symptoms, abdomen distended, abdominal pain, black stools, tarry stools, blood in stool, constipated, diarrhea, difficulty swallowing, nausea, poor appetite, poor fluid intake, rectal bleeding , vomiting, other Genitourinary: Denies: no symptoms, burning, discharge, frequency, flank pain, hematuria, incontinence, pain, urgency, other Neurologic/Psychiatric: Denies: no symptoms, anxiety, depressed, emotional problems, headache, numbness, paresthesia, pre-existing deficit, seizure, tingling, tremors, weakness, other Allergies: Coded Allergies: ALPRAZOLAM (Verified Allergy, Unknown, 09/13/18) Subjective 09/14: no events, hgb is low 6.3, dw family, blood being infused, transfusion today 09/20: no events, trach to vent, with nieto catheter, resting, alert 09/21: no events, able to trach, trach to vent, no issues otherwise noted, cbc reviewed 09/23: on asa, on eliquis, seen by cards, on vent trach 09/24: remains obtunded, vent dependent, no f/c 09/25: remains obtunded, will require long-term antibiotics Objective Last 24 Hour Vital Signs Date Time Temp Pulse Resp B/P (MAP) Pulse Ox O2 Delivery O2 Flow Rate FiO2 09/25/18 17:00 99.0 09/25/18 16:55 58 14 40 09/25/18 16:00 Mechanical Ventilator 09/25/18 16:00 99.5 107 14 106/64 (78) 100 09/25/18 16:00 40 09/25/18 15:09 75 16 40 09/25/18 13:20 90 15 40 09/25/18 12:00 40 09/25/18 12:00 98.6 91 14 124/87 (99) 100 09/25/18 12:00 89 09/25/18 12:00 Mechanical Ventilator 09/25/18 10:57 97 22 40 09/25/18 09:04 87 14 40 09/25/18 09:00 90 108/66 09/25/18 09:00 108/66 09/25/18 08:00 102 09/25/18 08:00 Mechanical Ventilator 09/25/18 08:00 40 09/25/18 08:00 98.2 90 14 108/66 (80) 100 09/25/18 07:24 82 14 40 09/25/18 05:00 99 18 40 09/25/18 04:00 117 09/25/18 04:00 40 09/25/18 04:00 Mechanical Ventilator 09/25/18 04:00 99.0 100 15 125/92 (103) 100 09/25/18 02:50 96 17 40 09/25/18 01:14 75 14 40 09/25/18 00:00 Mechanical Ventilator 09/25/18 00:00 89 09/25/18 00:00 40 09/25/18 00:00 98.2 94 14 127/68 (87) 100 09/24/18 22:57 85 14 40 09/24/18 21:15 88 14 40 09/24/18 20:45 78 126/89 09/24/18 20:00 Mechanical Ventilator 09/24/18 20:00 40 09/24/18 20:00 98.6 78 14 126/89 (101) 100 09/24/18 20:00 104 09/24/18 19:00 99 14 40 Intake and Output 09/24/18 09/25/18 19:00 07:00 Intake Total 800 ml 735 ml Output Total 1725 ml Balance -925 ml 735 ml Intake Free Water 150 ml 130 ml IV Total 110 ml 110 ml Tube Feeding 540 ml 495 ml Output Urine Total 1725 ml # Bowel Movements 2 Laboratory Tests 09/25/18 03:50: White Blood Count 13.4H, Red Blood Count 3.58L, Hemoglobin 9.4L, Hematocrit 30.0L, Mean Corpuscular Volume 84, Mean Corpuscular Hemoglobin 26.1L, Mean Corpuscular Hemoglobin Concent 31.1L, Red Cell Distribution Width 17.6H, Platelet Count 416, Mean Platelet Volume 6.8, Neutrophils (%) (Auto) 77.7H, Lymphocytes (%) (Auto) 11.6L, Monocytes (%) (Auto) 7.1, Eosinophils (%) (Auto) 2.8, Basophils (%) (Auto) 0.8, Sodium Level 138, Potassium Level 4.0, Chloride Level 104, Carbon Dioxide Level 28, Anion Gap 6, Blood Urea Nitrogen 21H, Creatinine 0.6, Estimat Glomerular Filtration Rate , Glucose Level 111H, Calcium Level 8.8 Height (Feet): 5 Height (Inches): 8.00 Weight (Pounds): 240 Objective PE General: WD/WN Lines, tubes and drains: peripheral HEENT: normocephalic Neck: non-tender, normal alignment ++ trach vent Respiratory/Chest: chest wall non-tender, lungs clear, decreased BS Cardiovascular/Chest: normal peripheral pulses Abdomen: non tender, ++ peg Genitourinary/Rectal: genital exam ++ Dagoberto Venegas MD Sep 25, 2018 17:45
--- NOTE | 2018-09-25 17:52 | Surgery Progress Note ---
Surgery Progress Note Subjective Procedure Performed excisional debridement of sacral decubitus ulcer with ostectomy Additional Comments plan for d/c today. wound checked and much improved. no necrotic tissue currently. good granulation tissue. mild oozing from lateral left superior muscle and suture placed for good hemostasis. Objective Last 24 Hour Vital Signs Date Time Temp Pulse Resp B/P (MAP) Pulse Ox O2 Delivery O2 Flow Rate FiO2 09/25/18 17:00 99.0 09/25/18 16:55 58 14 40 09/25/18 16:00 Mechanical Ventilator 09/25/18 16:00 99.5 107 14 106/64 (78) 100 09/25/18 16:00 40 09/25/18 15:09 75 16 40 09/25/18 13:20 90 15 40 09/25/18 12:00 40 09/25/18 12:00 98.6 91 14 124/87 (99) 100 09/25/18 12:00 89 09/25/18 12:00 Mechanical Ventilator 09/25/18 10:57 97 22 40 09/25/18 09:04 87 14 40 09/25/18 09:00 90 108/66 09/25/18 09:00 108/66 09/25/18 08:00 102 09/25/18 08:00 Mechanical Ventilator 09/25/18 08:00 40 09/25/18 08:00 98.2 90 14 108/66 (80) 100 09/25/18 07:24 82 14 40 09/25/18 05:00 99 18 40 09/25/18 04:00 117 09/25/18 04:00 40 09/25/18 04:00 Mechanical Ventilator 09/25/18 04:00 99.0 100 15 125/92 (103) 100 09/25/18 02:50 96 17 40 09/25/18 01:14 75 14 40 09/25/18 00:00 Mechanical Ventilator 09/25/18 00:00 89 09/25/18 00:00 40 09/25/18 00:00 98.2 94 14 127/68 (87) 100 09/24/18 22:57 85 14 40 09/24/18 21:15 88 14 40 09/24/18 20:45 78 126/89 09/24/18 20:00 Mechanical Ventilator 09/24/18 20:00 40 09/24/18 20:00 98.6 78 14 126/89 (101) 100 09/24/18 20:00 104 09/24/18 19:00 99 14 40 I&O Intake and Output 09/24/18 09/25/18 19:00 07:00 Intake Total 800 ml 735 ml Output Total 1725 ml Balance -925 ml 735 ml Intake Free Water 150 ml 130 ml IV Total 110 ml 110 ml Tube Feeding 540 ml 495 ml Output Urine Total 1725 ml # Bowel Movements 2 Dressing: other Wound: other Drains: other Cardiovascular: other Respiratory: other Abdomen: other Extremities: other Laboratory Tests Test 09/25/18 03:50 White Blood Count 13.4 K/UL (4.8-10.8) H Red Blood Count 3.58 M/UL (4.20-5.40) L Hemoglobin 9.4 G/DL (12.0-16.0) L Hematocrit 30.0 % (37.0-47.0) L Mean Corpuscular Volume 84 FL (80-99) Mean Corpuscular Hemoglobin 26.1 PG (27.0-31.0) L Mean Corpuscular Hemoglobin Concent 31.1 G/DL (32.0-36.0) L Red Cell Distribution Width 17.6 % (11.6-14.8) H Platelet Count 416 K/UL (150-450) Mean Platelet Volume 6.8 FL (6.5-10.1) Neutrophils (%) (Auto) 77.7 % (45.0-75.0) H Lymphocytes (%) (Auto) 11.6 % (20.0-45.0) L Monocytes (%) (Auto) 7.1 % (1.0-10.0) Eosinophils (%) (Auto) 2.8 % (0.0-3.0) Basophils (%) (Auto) 0.8 % (0.0-2.0) Sodium Level 138 MMOL/L (136-145) Potassium Level 4.0 MMOL/L (3.5-5.1) Chloride Level 104 MMOL/L (98-107) Carbon Dioxide Level 28 MMOL/L (21-32) Anion Gap 6 mmol/L (5-15) Blood Urea Nitrogen 21 mg/dL (7-18) H Creatinine 0.6 MG/DL (0.55-1.30) Estimat Glomerular Filtration Rate mL/min (>60) Glucose Level 111 MG/DL (74-106) H Calcium Level 8.8 MG/DL (8.5-10.1) Assessment Post-op Diagnosis infected necrotic fibrinous sacral stage 4 decubitus ulcer with bony dislodged fragments Plan Problems: (1) Contracture of multiple joints (2) ICD (implantable cardioverter-defibrillator) in place (3) Sepsis Assessment & Plan: leukocytosis abnormal labs septic on IV abx as per ID micro noted wounds unlikely etiology of sepsis will follow with recs (4) Sacral decubitus ulcer Assessment & Plan: Pt presented on admission with multiple pressure injuries. Stage 4 Full thickness pressure injury to sacrum. Base of wound with 75% mixed soft necrosis and fibrinous soria slough extending into undermined areas of wound.Bone exposure at base of wound. Maroon discoloration with induration along borders and periwound.Clockwise at 12 o'clock along borders, an area of necrosis noted.Wound is malodorous. (L)8.3cm x (W)8.5cm x (D)4.5cm,Undermining 9 -4 by 4cm at 11o'clock. At R buttocks in close proximity to sacrum, maroon discoloration that is indurated noted (L)1.5cm x(W)2.5cm. DTPI noted to plantar L heel. Wound is fluctuant and opague in centre,with small area that is black ,with surrounding erythema.Non-blanchable erythema without fluctuance periwound. DTPI noted to L heel. Maroon discoloration extending from heel into plantar aspect of heel .Base of wound is fluctuant. Non-blanchable erythema noted to lateral aspect of L heel.(L)8cm x (W)5cm. Maroon discoloration without fluctuance or induration noted to lateral L malleolus(L)1cm x (W)1cm. Tx.Plan: Apply wet to dry gauze dressing to sacral wound TID. Apply Cavilon Skin Barrier to L heel.Cover with Optifoam drsg. Change every 7 days and prn. Apply Cavilon Skin Barrier to R heel. Cover with Optifoam drsg.Change every 7 days and prn. Apply Cavilon Skin Barrier to L lateral Malleolus. Cover with Optifoam drsg.Change every 7 days and prn. Apply Triad Paste to bilat groin areas and both ischial areas with each perineal care. Air Fluidized Mattress. Reposition at least every 2hours or as tolerated. s/p debridement. improving cont with dressing changes (5) UTI (urinary tract infection) (6) Pneumonia (7) Atrial fibrillation (8) Anemia (9) Chronic respiratory failure (10) Chronic vegetative state (11) Feeding by G-tube Assessment & Plan: DAILY ESTIMATED NEEDS: Needs based on Critical care, obese, wound 67kg adj 22-27 kcals/kg 6765-5821 total kcals 1.25-2 g protein/kg 84-134 g total protein 25-30 mL/kg 9917-9778 total fluid mLs NUTRITION DIAGNOSIS: 1) Increased kcal and protein needs r/t wound healing as evidenced by pt w/ multiple wounds including sacral full thickness wound w/ bone exposure at base of wound per WC eval and DTPI @ lt heel. 2) Swallowing difficulty r/t respiratory status as evidenced by pt is vent dep via trach, PEG dep. CURRENT TF:Glucerna 1.5 @45ml/hr x24 hrs ENTERAL NUTRITION RECOMMENDATIONS: Glucerna 1.5 @45ml/hr x24 hrs + Prosource 1 pack daily to provide 1080ml, 1620 kcal, 89g + 11g pro, 820ml free H20 - Add Prosource 1 pack daily to better meet est prot needs - Flush per MD / HOB over 30 degrees ADDITIONAL RECOMMENDATIONS: 1) Re-calibrate bed scale as able for accurate CBW 2) TF recs as above 3) Wound care: Add SANDRA BID + VIT C 250mg BID 4) Check lytes daily, replete as needed Myles White Sep 25, 2018 17:52
[2018-09-25] MEDS ORDERED: Eliquis 5mg tablet ORAL SCH (18:00)
--- NOTE | 2018-09-25 19:09 | NUR ---
NURSE NOTES: Received report from Cassy Devlin RN. Patient seen in bed in semi akhtar position with vent setting of shiley 8, AC 14, TV 600, fi02 40%, PEEp 5. Sp02 is99%. No S/Sx of pain is noted via FLACC scale. Patient is non verbal, opens eyes spontaneously. Noted with nieto and GT, Intact. PICC line noted to left upper arm and is intact. Bed is in lowest position. call light is within easy reach while in bed. will continue to monitor.
--- NOTE | 2018-09-25 19:12 | NUR ---
HAND-OFF: Report given to MARIANNE PRATT.
--- NOTE | 2018-09-25 19:16 | Internal Med Progress Note ---
Subjective Date of Service: Sep 25, 2018 Physician Name Ruddy George Attending Physician Wade Negron MD Current Medications Medications (Trade) Dose Ordered Sig/Rosy Route PRN Reason Start Time Stop Time Status Last Admin Dose Admin Acetaminophen (Tylenol) 650 mg Q4H PRN GT FEVER 09/13/18 11:45 10/13/18 06:59 09/25/18 16:30 Amikacin Protocol (Amikacin pharmacy to dose) 1 ea DAILY PRN MISC Per rx protocol 09/17/18 13:45 10/17/18 13:44 Amikacin Sulfate 1000 mg/Sodium Chloride 114 ml @ 114 mls/hr Q36H IV 09/25/18 15:00 10/02/18 14:59 09/25/18 15:18 Amiodarone HCl (Cordarone) 200 mg DAILY GT 09/20/18 09:00 10/20/18 08:59 09/25/18 09:00 Apixaban (Eliquis) 5 mg BID ORAL 09/25/18 18:00 10/21/18 17:59 Aspirin (Ecotrin) 81 mg DAILY ORAL 09/24/18 09:00 10/24/18 08:59 09/25/18 09:00 Chlorhexidine Gluconate (Elizabeth-Hex 2%) 1 applic DAILY@2000 TOPIC 09/14/18 20:00 10/14/18 19:59 09/24/18 20:45 Dextrose (Dextrose 50%) 25 ml Q30M PRN IV Hypoglycemia 09/13/18 08:15 10/13/18 08:14 Dextrose (Dextrose 50%) 50 ml Q30M PRN IV Hypoglycemia 09/13/18 08:15 10/13/18 08:14 Furosemide (Lasix) 40 mg DAILY ORAL 09/23/18 09:00 10/23/18 08:59 09/25/18 09:00 Insulin Aspart (NovoLOG) EVERY 6 HOURS SUBQ 09/13/18 12:00 10/13/18 11:59 09/25/18 12:25 Lansoprazole (Prevacid) 30 mg DAILY GT 09/19/18 09:00 10/19/18 08:59 09/25/18 08:59 Levetiracetam (Keppra) 500 mg Q12HR GT 09/13/18 21:00 10/13/18 20:59 09/25/18 08:59 Lisinopril (Zestril) 10 mg DAILY GT 09/20/18 09:00 10/20/18 08:59 09/24/18 08:56 Metoprolol Tartrate (Lopressor) 12.5 mg Q12HR GT 09/19/18 21:00 10/19/18 20:59 09/25/18 09:00 Ondansetron HCl (Zofran) 4 mg Q6H PRN IVP Nausea & Vomiting 09/13/18 07:00 10/13/18 06:59 Polyethylene Glycol (Miralax) 17 gm DAILYPRN PRN GT Constipation 09/13/18 11:45 10/13/18 06:59 Tigecycline 50 mg/ Sodium Chloride 110 ml @ 220 mls/hr Q12HR@0300,1500 IVPB 09/20/18 03:00 09/27/18 02:59 09/25/18 15:17 Allergies: Coded Allergies: ALPRAZOLAM (Verified Allergy, Unknown, 09/13/18) ROS Limited/Unobtainable: Yes Subjective 72 YO vent dep F admitted with dyspnea. Now pneumonia. [facility] Vent. Cover for Int Med-DR Negron. [facility] Objective Last Vital Signs Date Time Temp Pulse Resp B/P (MAP) Pulse Ox O2 Delivery O2 Flow Rate FiO2 09/25/18 17:00 99.0 09/25/18 16:55 58 14 40 09/25/18 16:00 Mechanical Ventilator 09/25/18 16:00 106/64 (78) 100 Laboratory Tests Test 09/25/18 03:50 White Blood Count 13.4 K/UL (4.8-10.8) H Red Blood Count 3.58 M/UL (4.20-5.40) L Hemoglobin 9.4 G/DL (12.0-16.0) L Hematocrit 30.0 % (37.0-47.0) L Mean Corpuscular Volume 84 FL (80-99) Mean Corpuscular Hemoglobin 26.1 PG (27.0-31.0) L Mean Corpuscular Hemoglobin Concent 31.1 G/DL (32.0-36.0) L Red Cell Distribution Width 17.6 % (11.6-14.8) H Platelet Count 416 K/UL (150-450) Mean Platelet Volume 6.8 FL (6.5-10.1) Neutrophils (%) (Auto) 77.7 % (45.0-75.0) H Lymphocytes (%) (Auto) 11.6 % (20.0-45.0) L Monocytes (%) (Auto) 7.1 % (1.0-10.0) Eosinophils (%) (Auto) 2.8 % (0.0-3.0) Basophils (%) (Auto) 0.8 % (0.0-2.0) Sodium Level 138 MMOL/L (136-145) Potassium Level 4.0 MMOL/L (3.5-5.1) Chloride Level 104 MMOL/L (98-107) Carbon Dioxide Level 28 MMOL/L (21-32) Anion Gap 6 mmol/L (5-15) Blood Urea Nitrogen 21 mg/dL (7-18) H Creatinine 0.6 MG/DL (0.55-1.30) Estimat Glomerular Filtration Rate mL/min (>60) Glucose Level 111 MG/DL (74-106) H Calcium Level 8.8 MG/DL (8.5-10.1) Microbiology Date/Time Source Procedure Growth Status 09/23/18 18:15 Buttock Right Gram Stain - Final Resulted 09/23/18 18:15 Wound Culture - Preliminary Gram Negative Bacillus 1 Gram Negative Bacillus 2 Resulted Intake and Output 09/24/18 09/25/18 19:00 07:00 Intake Total 800 ml 735 ml Output Total 1725 ml Balance -925 ml 735 ml Intake Free Water 150 ml 130 ml IV Total 110 ml 110 ml Tube Feeding 540 ml 495 ml Output Urine Total 1725 ml # Bowel Movements 2 Objective PHYSICAL EXAMINATION: GENERAL: The patient is well-developed and well-nourished female who is intubated and sedated. HEENT: Eyes, pupils equal and responsive to light and accommodation. Extraocular movements are intact. The patient has a tracheostomy tube in place. CHEST: mech vent; Diffuse coarse breath sounds bilaterally without wheezes or rales. CARDIOVASCULAR: Irregular rhythm and irregular rate. S1 and S2 normal without murmurs, rubs, or gallops. ABDOMEN: Soft, nontender, and nondistended. Positive bowel sounds. No hepatosplenomegaly. Currently, no rebound or guarding noted. EXTREMITIES: Negative for clubbing, cyanosis, or edema. RECTAL/GENITAL: Not performed. NEUROLOGIC: Cranial nerves II through XII grossly intact without focal deficits. Assessment/Plan Assessment/Plan ASSESSMENT: The patient is a 72-year-old female. 1. Right lower lobe pneumonia=MDR pseudamonas 2. Leukocytosis. 3. Elevated troponin. 4. Acute on chronic congestive heart failure. 5. Chronic obstructive pulmonary disease. 6. Ventilator-dependent respiratory failure. 7. Diabetes type 2. 8. Hypertension. 9. Coronary artery disease. 10. Metabolic encephalopathy. 11. Seizure disorder. 12. Dysphagia. 13. Tracheostomy. 14. Quadriplegia. 15. Atrial fibrillation TREATMENT: 1. Right lower lobe pneumonia=MDR pseudamonas. A Pulmonary consultation obtained with Dr. Ariel Frey. Continue daptomycin, tigecycline and amikacin per recommendation of Infectious Disease. 2. Elevated troponin/congestive heart failure/atrial fibrillation. Cardiology consultation obtained with Dr. Isai Anglin. The patient is currently receiving intravenous Lasix and anticoagulation 3. Ventilator-dependent respiratory failure. As above, a Pulmonary consultation obtained with Dr. Ariel Frey. 4. Diabetes type 2. The patient was admitted off insulin. 5. Hypertension, the patient is currently hypotensive. 6. Coronary artery disease. 7. Metabolic encephalopathy. 8. Seizure disorder. Continue Keppra as above. 9. Dysphagia. The patient is status post PEG placement. Continue tube feeds as above. 10. Tracheostomy in situ. 11. Quadriplegia. Ruddy George MD Sep 25, 2018 19:16
--- NOTE | 2018-09-25 19:28 | NUR ---
NURSE NOTES: Currently awaiting for transportation to arrive, patient will then be transferred to [facility].
[2018-09-25 20:00] VITALS: BP 121/63
--- NOTE | 2018-09-25 20:10 | NUR ---
NURSE NOTES: [facility] ambulance arrived, unit # [id number]. Report given to EMT and RT. Patient V/S is bp148/56, rr 20, pr95, t 97, sp02 100. [facility]
--- NOTE | 2018-09-26 09:11 | Discharge Summary ---
Discharge Summary Discharge Summary _ DATE OF ADMISSION: 09/13/2018 DATE OF DISCHARGE: 09/25/2018 DISCHARGED BY: Dr. Negron REASON FOR ADMISSION: 72 years old female with past medical history of ventilator dependent respiratory failure with tracheostomy, cardiomyopathy, AICD, CAD, HTN, G tube , seizure disorder, quadriplegia, chronic vegetative state , was [facility] from [facility] due to abnormal labs. Her recent labs revealed leukocytosis and anemia. No reported fever or chills. Upon evaluation vital signs revealed tachycardia and low-grade fever. Laboratory work-up revealed leukocytosis with WBC 16.9, hemoglobin 9, hematocrit 27.9. Urinalysis revealed evidence of pyuria, bacteria, yeast. Stable electrolytes and renal parameters. Stable LFT. Troponin minimally elevated - 0.058. pro BNP 8503. EKG revealed atrial fibrillation with rapid ventricular response. Albumin 1.5. Lactic acid 1.3. Chest x-ray revealed streaky opacity at the right base , possibly due to subsegmental atelectasis , however pneumonia could not be completely excluded. Cardiomegaly and slight prominence of the pulmonary vasculature suggestive of some congestive changes,/interstitial edema. Patient had difficult IV access. Subsequently central line was placed in the emergency department via left femoral vein. Upon physical examination noted large sacral decubitus ulcer stage IV. Patient pancultured, given IV fluids and empiric antibiotics. Lopressor was given for heart rate control. Antipyretic provided. Patient subsequently was admitted for further management to [facility]. CONSULTANTS: delicatessen manager Dr. Anglin pulmonary Dr. Frey ID specialist Dr. Donovan rehabilitation medicine physician/oncologist Dr. [facility] COURSE: Patient admitted to [facility]. Zinc Plate Cutter , delicatessen manager, ID specialist followed. Ventilator support and tracheostomy care provided. Pulmonary toilet provided. Patient was followed -up with chest x-ray. Venous duplex bilateral lower extremity revealed no evidence of acute DVT. Repeated troponin was negative. Echocardiogram revealed severely reduced ejection fraction of 15 to 20% with mild left ventricular hypertrophy. Global left ventricular hypokinesis with apical akinesis. Moderate to severe mitral regurgitation. Right ventricular systolic pressure of 58 consistent with moderate to severe pulmonary hypertension. Heart rate was controlled with amiodarone and beta-mason. Anticoagulation with Eliquis was continued. Anti-failure medication regimen was resumed as per guidelines recommendation with beta-mason , Lasix , and DESIRAE inhibitor. Lasix provided by IV route. Volumes and cardiorenal parameters were closely monitored. Patient was followed -up with chest x-ray. pro BNP from 8503 down to 5184. Lasix was subsequently switched to G-tube route. Infectious disease specialist followed. Urine culture revealed Benita. Blood cultures were negative. Sputum culture revealed Pseudomonas aeruginosa MDR. Urine culture revealed yeast. Sacral wound revealed Klebsiella pneumonia Carbapenem resistant, Pseudomonas, MRSA and VRE Repeated blood culture 09/17 were negative. Stool for C. difficile was negative. Antibiotic regimen provided as per ID specialist recommendation. Per ID specialist sepsis was likely due to pneumonia and sacral wound infection with chronic osteomyelitis. Patient had sacral decubitus ulcer stage IV, present on admission, with known chronic osteomyelitis and necrotic tissue. Surgeon followed for management of sacral decubitus ulcer stage IV with the known chronic osteomyelitis and necrotic tissue.. Patient undergone on excisional debridement of sacral decubitus ulcer with ostectomy. Wound care provided as per surgeon recommendation. Central line was discontinued and PICC line was placed for long-term antibiotics. ID specialist recommended continue treatment with amikacin and tigecycline for 6 weeks. Strict aspiration precautions maintained. G-tube feeding continued. Patient was able to tolerate G-tube feeding . G-tube site care provided. GI prophylaxis provided. Hemoglobin and hematocrit were closely monitored with goal to keep hemoglobin above 7. On 09/14 hemoglobin 6.3 and hematocrit 19.9. Patient undergone transfusion of packed red blood cells, total of 3 units while in the hospital. Prior to discharge, hemoglobin 9.4, hematocrit 40.0. Per rehabilitation medicine physician, patient had anemia of chronic disease due to underlying chronic medical issues, multifactorial . Anemia work-up was consistent with anemia of chronic disease and high ferritin 1592. No evidence of hemolysis. Seizure precaution maintained. Keppra continued. No evidence of seizure activity while in the hospital. Patient clinically stabilized. Leukocytosis trending down, fevers resolved. Patient with DNR/DNI status. Patient was ready for transfer back to [facility] for continuation of care. Continue IV antibiotic for total of 6 weeks of treatment as recommended by ID specialist. FINAL DIAGNOSES: Sepsis Pneumonia with MDR Pseudomonas Sacral decubitus ulcer stage IV, present on admission with chronic osteomyelitis and necrotic tissue Status post excisional debridement of sacral decubitus ulcer with ostectomy Chronic ventilator dependent respiratory failure with tracheostomy status Permanent atrial fibrillation Cardiomyopathy with ejection fraction 20% Acute on chronic ( systolic and diastolic ) congestive heart failure AICD Moderate to severe mitral regurgitation Pulmonary hypertension History of hypertension Anemia of chronic disease History of coronary artery disease with reported history of occluded right coronary arteries History of ventricular fibrillation arrest Dysphagia , feeding by G-tube Seizure disorder Chronic vegetative state Metabolic encephalopathy Quadriplegia DISCHARGE MEDICATIONS: See Medication Reconciliation list. DISCHARGE INSTRUCTIONS: Patient was discharged to the [facility] facility. Follow up with medical doctor and radiology transporter at the facility. I have been assigned to dictate discharge summary for this account. I was not involved in the patient's management. Lyla Reynolds NP September 26, 2018 09:11
== END 2018-09-25 20:30 | DRG 710 ==
LOC: EDBD 02:23 → EMR 02:38 → 2W 02:59 → EDBEDREQ 03:28 → 2W 14:05
PROC: 5A1955Z Respiratory Ventilation, Greater than 96 Consecutive Hours (ICD-10-PCS; principal; 2018-09-13)
PROC: 0QB10ZZ Excision of Sacrum, Open Approach (ICD-10-PCS; 2018-09-17)
PROC: B548ZZA Ultrasonography of Superior Vena Cava, Guidance (ICD-10-PCS; 2018-09-17)
PROC: 02HV33Z Insertion of Infusion Device into Superior Vena Cava, Percutaneous Approach (ICD-10-PCS; 2018-09-17)
DX: A41.9 Sepsis, unspecified organism (principal); J15.1 Pneumonia due to Pseudomonas; G82.50 Quadriplegia, unspecified; Z99.11 Dependence on respirator [ventilator] status; G93.41 Metabolic encephalopathy; L89.154 Pressure ulcer of sacral region, stage 4; J96.10 Chronic respiratory failure, unspecified whether with hypoxia or hypercapnia; I11.0 Hypertensive heart disease with heart failure; Z93.0 Tracheostomy status; I48.2 Chronic atrial fibrillation; L89.620 Pressure ulcer of left heel, unstageable; N39.0 Urinary tract infection, site not specified; Z79.01 Long term (current) use of anticoagulants; M86.68 Other chronic osteomyelitis, other site; R40.3 Persistent vegetative state; M24.50 Contracture, unspecified joint; I42.9 Cardiomyopathy, unspecified; J44.0 Chronic obstructive pulmonary disease with (acute) lower respiratory infection; I25.10 Atherosclerotic heart disease of native coronary artery without angina pectoris; I25.2 Old myocardial infarction; I50.9 Heart failure, unspecified; G40.909 Epilepsy, unspecified, not intractable, without status epilepticus; D64.9 Anemia, unspecified; E88.09 Other disorders of plasma-protein metabolism, not elsewhere classified; I27.20 Pulmonary hypertension, unspecified; Z95.810 Presence of automatic (implantable) cardiac defibrillator
CPT/HCPCS: 36415; 36569; 71045; 76937; 80048; 80053; 80069; 80150; 80202; 81003; 82550; 82553; 82728; 82746; 82962; 83540; 83550; 83605; 83615; 83735; 83880; 84100; 84443; 84484; 85007; 85025; 85044; 85610; 85651; 85730; 86140; 86850; 86900; 86901; 86920; 87040; 87070; 87081; 87086; 87181; 87205; 87324; 93005; 93306; 93970; 94002; 94003; 94664; 96361; 96365; 99285; J1815